=== PATIENT | female | born 1955 | race Caucasian/White ===

== ENCOUNTER 2016-12-24 06:23 | Day surgery (SDC) | payer MEDICARE ==
[2016-12-22 15:23] VITALS: BMI 25.1
[2016-12-24] MEDS ORDERED: SODIUM CHLORIDE 0.9% 1,000 ML IV SCH (06:31)
[2016-12-24] MEDS ORDERED: PROPOFOL 10 MG/ML 20 ML VIAL IV ONE (07:35)
[2016-12-24 08:04] VITALS: RESP 18
[2016-12-24] MEDS ORDERED: SODIUM CHLORIDE 0.9% 500 ML IV ONE (08:05)
--- NOTE | 2016-12-24 08:41 | CE ---
CARDIAC ELECTROPHYSIOLOGY REPORT lEe Del Cid is a 61-year-old female with a history of severe nonischemic cardiomyopathy, with severe cardiomyopathy and heart failure status post Bi V ICD implant. She was brought in for defibrillation testing under anesthesia. She has a [employer] MP 3369-40 Q [employer] D serial #[id number]. This was interrogated. The P waves were greater than 5 mV, pacing threshold 0.5 V at 0.5 milliseconds. Pacing impedance was 630 ohms. The RV sensing greater than 12 mV, pacing threshold of 0.75 V at 0.5 milliseconds. Pacing impedance of 660 ohms. The LV pacing threshold was 0.5 V at 0.5 milliseconds and pacing impedance of 630 ohms. High-voltage impedance was 73 ohms. DFT testing was performed under anesthesia and shock and T wave protocol was used to induce ventricular fibrillation. This was adequately and appropriately detected at lead sensitivity and successfully internally defibrillated with a 10 joule shock, charge time of 1.8 seconds. Shock impedance 98 ohms. No post shock noise. The device was then programmed to MADIT RIT program with appropriate antitachycardia pacing, cardioversion defibrillation. Sensitivity was reprogrammed to nominal settings and appropriate antitachycardia pacing and cardioversion defibrillation was programmed. LV pacing was continued. Short AV delay was programmed at 120 milliseconds. LV offset was programmed. RESULT: Normal ICD function. DFT at or below 10 joules. MMODL / IJN: [id number] /
[2016-12-24 10:25] VITALS: BP 118/55
[2016-12-24 10:27] VITALS: PULSE 86
== END 2016-12-24 10:00 | disposition home or self-care (01) ==
LOC: CATHEP 06:23
PROVIDERS: ATTEND Internal Medicine Clinical Cardiac Electrophysiology
DX: I25.119 Atherosclerotic heart disease of native coronary artery with unspecified angina pectoris (principal); I11.0 Hypertensive heart disease with heart failure; I50.9 Heart failure, unspecified; Z87.891 Personal history of nicotine dependence; Z45.02 Encounter for adjustment and management of automatic implantable cardiac defibrillator; I42.8 Other cardiomyopathies; Z79.899 Other long term (current) drug therapy; I44.7 Left bundle-branch block, unspecified; Z82.49 Family history of ischemic heart disease and other diseases of the circulatory system; Z79.82 Long term (current) use of aspirin; Z79.52 Long term (current) use of systemic steroids; J44.9 Chronic obstructive pulmonary disease, unspecified
CPT/HCPCS: 93642; J2704

== ENCOUNTER → 2017-06-17 | Outpatient (CLI) | payer MEDICARE ==
--- NOTE | 2017-06-17 11:14 | CT ---
EXAMINATION TYPE: CT chest wo con DATE OF EXAM: 06/17/2017 COMPARISON: PET CT 08/11/2015 HISTORY: 61-year-old female COPD and Jaw pain TECHNIQUE: Contiguous axial scanning of the chest without IV contrast. Coronal and sagittal reconstru ctions performed. CT DLP: 513 mGycm Automated exposure control for dose reduction was used. FINDINGS: Left anterior chest wall AICD generator with right atrial, right ventricular, and coronary sinus lead s. Heart is now normal size. Trace anterior pericardial fluid. Aorta normal caliber with mild atherosclerotic arch calcifications and conventional arch vessel branc christian anatomy. No thoracic lymphadenopathy by CT size criteria. Mild diffuse bronchial wall thickening and moderate centrilobular emphysema redemonstrated. There is new patchy opacity at the medial anterior right mid to lower lung. Some strandy atelectasis at the le ft base. Another strand of atelectasis at the peripheral right base. No pleural effusion. Stable low density nodule measuring 2.3 cm in the right adrenal gland with density of -1.5 Hounsfield units compatible with a lipid rich adrenal adenoma. Bones: Endplate spondylosis mid to lower thoracic spine. No osseous destructive process. IMPRESSION: 1. COPD WITH MODERATE EMPHYSEMA. 2. SOME NEW PATCHY ANTERIOR RIGHT MID TO LOWER LUNG AIRSPACE DISEASE. CORRELATE FOR ANY SYMPTOMS OF P NEUMONIA. 3. STABLE LIPID RICH RIGHT ADRENAL ADENOMA MEASURING 2.3 CM.
== END | disposition home or self-care (01) ==
LOC: RADCTMAIN 10:41
PROVIDERS: ATTEND Family Medicine
DX: J43.9 Emphysema, unspecified (principal); J98.4 Other disorders of lung
CPT/HCPCS: 71250

== ENCOUNTER → 2017-06-25 | Outpatient (CLI) | payer MEDICARE ==
--- NOTE | 2017-06-25 15:36 | XR ---
EXAMINATION TYPE: XR scoliosis survey DATE OF EXAM: 06/25/2017 COMPARISON: NONE HISTORY: Cervical pain shooting pain and back TECHNIQUE: Two-view lumbar spine thoracic spine in frontal and lateral projections. FINDINGS: Frontal projection suspicious scoliosis not readily apparent. There is very subtle scoliosi s with convexity to the right lumbar spine convexity to lower thoracic spine. This appears minimal. In the lateral projection there is exaggeration of the thoracic kyphosis. Lumbar lordosis is exaggera letitia. IMPRESSION: 1. Minimal scoliosis frontal projection. There is exaggeration of lumbar lordosis and thoracic kypho sis in the lower thoracic spine.
== END | disposition home or self-care (01) ==
LOC: RADXRMAIN 11:00
PROVIDERS: ATTEND Family Medicine
DX: M41.9 Scoliosis, unspecified (principal)
CPT/HCPCS: 72082

== ENCOUNTER 2017-07-22 13:00 | Inpatient (IN) | payer MEDICARE ==
[2017-07-22] MEDS ORDERED: methylPREDNISolone SOD SUCCI 125 MG/2 ML VIAL IV STA (13:33)
[2017-07-22] MEDS ORDERED: SODIUM CHLORIDE 0.9% 1,000 ML IV STA ×2 (13:33→14:39)
[2017-07-22] MEDS ORDERED: cefTRIAXone IN SWFI 2,000 MG/20 ML SYRINGE IVP STA (13:37)
[2017-07-22 14:01] LABS: Basophils % (A) 0 %; Eosinophils # (A) 0.1 k/uL (0-0.7); Eosinophils % (A) 2 %; HCT 32.9 % (34.0-46.0); HGB 11.3 gm/dL (11.4-16.0); Lymphocytes % (A) 25 %; MCH 30.7 pg (25.0-35.0); MCHC 34.3 g/dL (31.0-37.0); MCV 89.6 fL (80.0-100.0); Mean Platelet Volume 8.3; Monocytes # (A) 0.5 k/uL (0-1.0); Monocytes % (A) 7 %; Neutrophils # (A) 5.1 k/uL (1.3-7.7); Neutrophils % (A) 64 %; Platelet Count 188 k/uL (150-450); RBC 3.68 m/uL (3.80-5.40); RDW 12.3 % (11.5-15.5); WBC 7.9 k/uL (3.8-10.6)
--- NOTE | 2017-07-22 14:08 | XR ---
EXAMINATION TYPE: XR chest 2V DATE OF EXAM: 07/22/2017 COMPARISON: Prior chest x-ray 06/15/2016, chest CT 06/17/2017 HISTORY: Difficulty breathing TECHNIQUE: Frontal and lateral views of the chest are obtained. FINDINGS: Patient is rotated. There are overlying cardiac leads. Intracardiac defibrillator leads are stable. Prominent lung volumes are compatible with emphysema. No evident airspace disease, pneumotho rax, or pleural effusion. Cardiac mediastinal silhouette, pulmonary vascularity and jasmeet are stable a ccounting for differences in technique. Increased density seen on CT in the right middle lobe may be obscured due to patient's rotation. IMPRESSION: No acute cardiopulmonary process. Additional findings above. Follow-up as indicated.
[2017-07-22 14:13] LABS: Albumin 4.5 g/dL (3.5-5.0); Potassium 5.7 mmol/L (3.5-5.1); Total Bilirubin 0.5 mg/dL (0.2-1.3)
[2017-07-22 14:13] LABS: Appearance,Urine Cloudy (Clear); Bacteria,Urine Rare /hpf; Bilirubin,Urine Negative (Negative); Blood,Urine Negative (Negative); Color,Urine Yellow; Glucose,Urine (UA) Negative (Negative); Ketones,Urine Negative (Negative); Leukocyte Esterase,Urine Negative (Negative); Mucus,Urine Rare /hpf; Nitrite,Urine Negative (Negative); Protein,Urine Trace (Negative); Specific Gravity,Urine 1.009 (1.001-1.035); Squamous Epithelial Cell,Urine 1 /hpf (0-4); Urobilinogen,Urine <2.0 mg/dL (<2.0); WBC,Urine 2 /hpf (0-5)
[2017-07-22 14:24] LABS: INR 1.2 (<1.2); Partial Thromboplastin Time 22.1 sec (22.0-30.0); Prothrombin Time 11.4 sec (9.0-12.0)
[2017-07-22 14:34] LABS: D-Dimer 1.28 mg/L FEU (<0.60)
[2017-07-22 14:35] LABS: Creatine Kinase 50 U/L (30-135)
[2017-07-22 14:48] LABS: Creatine Kinase MB 1.1 ng/mL (0.0-2.4); Troponin I <0.012 ng/mL (0.000-0.034)
--- NOTE | 2017-07-22 15:18 | CT ---
EXAMINATION TYPE: CT chest wo con DATE OF EXAM: 07/22/2017 COMPARISON: Prior chest CT 06/17/2017 HISTORY: Shortness of breath and mid back pain x [address] DLP: 593 mGycm. Automated Exposure Control for Dose Reduction was Utilized. TECHNIQUE: CT scan of the thorax is performed without IV contrast. FINDINGS: Lack of intravenous contrast compromises sensitivity. LUNGS: Emphysematous changes are again noted. There is some bronchial wall thickening present. Probab le scarring at the right lung base is again seen, there is a somewhat nodular appearance seen on axia l image 48, follow-up suggested. There is no pleural effusion or pneumothorax seen. The tracheobron chial tree is patent. MEDIASTINUM: Lack of IV contrast is noted to limit evaluation for mediastinal and especially hilar ad enopathy. There are no definitive greater than 1 cm hilar or mediastinal lymph nodes. No cardiomega ly or pericardial effusion is seen. OTHER: Posterior diaphragmatic hernia is thought to be present containing fat versus eventration. The aorta shows atheromatous change and is not aneurysmal. Dissection is not excluded. There are leads p resent within the heart. Low dense mass associated with the right adrenal gland is again noted and angélica lundberg represents adenoma. Generator is present in the left pectoral region. Thyroid gland is thought t o be enlarged and extends into the superior mediastinum. IMPRESSION: Emphysema. Probable scarring, follow-up recommended as described. No evident aneurysm. C annot exclude dissection. Additional findings above.
--- NOTE | 2017-07-22 15:46 | ED ---
General Adult HPI - General Chief complaint: Shortness of Breath Stated complaint: SOB Time Seen by Provider: 07/22/17 13:26 Source: patient Mode of arrival: ambulatory Limitations: no limitations - History of Present Illness Initial comments: 61 years old female with history of COPD hypertension the cough congestion shortness of breath she does have a history of cardiomyopathy COPD hypertension history of renal disease hypertension she also been complaining about some fever and chills and just feeling generally weak about the back pain this is over the mid back she has no history of for aortic aneurysm she denies any history of PE it does hurt her when she takes a deep breath. She denies any abdominal pain no frequency urgency dysuria no symptoms of TIA or CVA - Related Data Home Medications Medication Instructions Recorded Confirmed Atorvastatin [Lipitor] 20 mg PO HS 10/22/15 07/22/17 Ipratropium-Albuterol Nebulize 3 ml INHALATION RT-QID PRN 10/22/15 07/22/17 [Duoneb 0.5 mg-3 mg/3 ml Soln] Carvedilol [Coreg] 25 mg PO BID 02/13/16 07/22/17 Furosemide [Lasix] 40 mg PO BID 12/24/16 07/22/17 Spironolactone [Aldactone] 25 mg PO DAILY 12/24/16 07/22/17 Albuterol Inhaler [Ventolin Hfa 2 puff INHALATION RT-QID PRN 07/22/17 07/22/17 Inhaler] Lisinopril [Zestril] 5 mg PO BID 07/22/17 07/22/17 Allergies Allergy/AdvReac Type Severity Reaction Status Date / Time No Known Allergies Allergy Verified 07/22/17 13:24 Review of Systems ROS Statement: Those systems with pertinent positive or pertinent negative responses have been documented in the HPI. ROS Other: All systems not noted in ROS Statement are negative. Past Medical History Past Medical History: Asthma, Cancer, Chest Pain / Angina, Heart Failure, COPD, Hyperlipidemia, Hypertension, Renal Disease Additional Past Medical History / Comment(s): UTERINE CANCER 1984, SEE [facility], taking steroid dose pack for recent exacerbation of COPD History of Any Multi-Drug Resistant Organisms: None Reported Past Surgical History: AICD, Hysterectomy, Orthopedic Surgery, Tonsillectomy Additional Past Surgical History / Comment(s): RT KNEE ARTHROSCOPY, PARTIAL HYSTERECTOMY, [facility]. BI-V ICD, [facility]. Past Anesthesia/Blood Transfusion Reactions: No Reported Reaction Type of Cardiac Device: AICD Device Placement Date:: 10/28/15 Past Psychological History: No Psychological Hx Reported Smoking Status: Former smoker Past Alcohol Use History: None Reported Past Drug Use History: None Reported - Past Family History Mother Family Medical History: Cancer Additional Family Medical History / Comment(s): Mother is alive at 84 years old with no major medical problems. BREAST CA Father Family Medical History: Hypertension, Myocardial Infarction ([place]) Additional Family Medical History / Comment(s): [place] @ AGE 48 General Exam - General Exam Comments Initial Comments: General: The patient is awake and looks tired and pale Skin: Skin is warm and dry and no rashes or lesions are noted. Eye: Pupils are equal, round and reactive to light, extra-ocular movements are intact; there is normal conjunctiva bilaterally. Ears, nose, mouth and throat: There are moist mucous membranes and no oral lesions. Neck: The neck is supple, there is no tenderness Cardiovascular: There is a regular rate and rhythm. No murmur, rub or gallop is appreciated. Respiratory: To auscultation bilateral, his breath sounds bilateral Gastrointestinal: Soft, non-distended, non-tender abdomen without masses or organomegaly noted. There is no rebound or guarding present. Bowel sounds are unremarkable. Back: There is no tenderness to palpation in the midline. There is no obvious deformity. Musculoskeletal: Normal ROM, no tenderness, There is no pedal edema. There is no calf tenderness or swelling. No cords were appreciated. Neurological: CN II-XII intact, Cranial nerves III through XII are intact. There are no obvious motor or sensory deficits. Coordination appears grossly intact. Speech is normal. Psychiatric: Cooperative, appropriate mood & affect, normal judgment. Limitations: no limitations Course Vital Signs 07/22/17 07/22/17 07/22/17 13:06 14:30 15:34 Temperature 98.0 F Pulse Rate 93 90 88 Respiratory 20 20 20 Rate Blood Pressure 90/49 104/53 102/58 O2 Sat by Pulse 96 97 95 Oximetry EKG Findings - EKG Comments: EKG Findings:: EKG is paced EKG ventricular rate is 97 NV interval is 124 QRS duration is 116 QT/QTC 366/490 Medical Decision Making - Lab Data Result diagrams: 07/22/17 13:42 07/22/17 13:42 Lab Results 07/22/17 07/22/17 07/22/17 Range/Units 13:42 13:42 13:42 WBC 7.9 (3.8-10.6) k/uL RBC 3.68 L (3.80-5.40) m/uL Hgb 11.3 L (11.4-16.0) gm/dL Hct 32.9 L (34.0-46.0) % MCV 89.6 (80.0-100.0) fL MCH 30.7 (25.0-35.0) pg MCHC 34.3 (31.0-37.0) g/dL RDW 12.3 (11.5-15.5) % Plt Count 188 (150-450) k/uL Neutrophils % 64 % Lymphocytes % 25 % Monocytes % 7 % Eosinophils % 2 % Basophils % 0 % Neutrophils # 5.1 (1.3-7.7) k/uL Lymphocytes # 2.0 (1.0-4.8) k/uL Monocytes # 0.5 (0-1.0) k/uL Eosinophils # 0.1 (0-0.7) k/uL Basophils # 0.0 (0-0.2) k/uL PT (9.0-12.0) sec INR (<1.2) APTT (22.0-30.0) sec D-Dimer (<0.60) mg/L FEU Sodium 142 (137-145) mmol/L Potassium 5.7 H (3.5-5.1) mmol/L Chloride 102 (98-107) mmol/L Carbon Dioxide 23 (22-30) mmol/L Anion Gap 17 mmol/L BUN 113 H* (7-17) mg/dL Creatinine 6.71 H* (0.52-1.04) mg/dL Est GFR (CKD-EPI)AfAm 7 (>60 ml/min/1.73 sqM) Est GFR (CKD-EPI)NonAf 6 (>60 ml/min/1.73 sqM) Glucose 98 (74-99) mg/dL Calcium 10.0 (8.4-10.2) mg/dL Total Bilirubin 0.5 (0.2-1.3) mg/dL AST 16 (14-36) U/L ALT 26 (9-52) U/L Alkaline Phosphatase 102 (38-126) U/L Total Creatine Kinase 50 (30-135) U/L CK-MB (CK-2) 1.1 (0.0-2.4) ng/mL CK-MB (CK-2) Rel Index 2.2 Troponin I <0.012 (0.000-0.034) ng/mL NT-Pro-B Natriuret Pep pg/mL Total Protein 7.0 (6.3-8.2) g/dL Albumin 4.5 (3.5-5.0) g/dL Urine Color Urine Appearance (Clear) Urine pH (5.0-8.0) Ur Specific [place] (1.001-1.035) Urine Protein (Negative) Urine Glucose (UA) (Negative) Urine Ketones (Negative) Urine Blood (Negative) Urine Nitrite (Negative) Urine Bilirubin (Negative) Urine Urobilinogen (<2.0) mg/dL Ur Leukocyte Esterase (Negative) Urine WBC (0-5) /hpf Ur Squamous Epith Cells (0-4) /hpf Urine Bacteria (None) /hpf Urine Mucus (None) /hpf 07/22/17 07/22/17 07/22/17 Range/Units 13:42 13:42 13:45 WBC (3.8-10.6) k/uL RBC (3.80-5.40) m/uL Hgb (11.4-16.0) gm/dL Hct (34.0-46.0) % MCV (80.0-100.0) fL MCH (25.0-35.0) pg MCHC (31.0-37.0) g/dL RDW (11.5-15.5) % Plt Count (150-450) k/uL Neutrophils % % Lymphocytes % % Monocytes % % Eosinophils % % Basophils % % Neutrophils # (1.3-7.7) k/uL Lymphocytes # (1.0-4.8) k/uL Monocytes # (0-1.0) k/uL Eosinophils # (0-0.7) k/uL Basophils # (0-0.2) k/uL PT 11.4 (9.0-12.0) sec INR 1.2 H (<1.2) APTT 22.1 (22.0-30.0) sec D-Dimer 1.28 H (<0.60) mg/L FEU Sodium (137-145) mmol/L Potassium (3.5-5.1) mmol/L Chloride (98-107) mmol/L Carbon Dioxide (22-30) mmol/L Anion Gap mmol/L BUN (7-17) mg/dL Creatinine (0.52-1.04) mg/dL Est GFR (CKD-EPI)AfAm (>60 ml/min/1.73 sqM) Est GFR (CKD-EPI)NonAf (>60 ml/min/1.73 sqM) Glucose (74-99) mg/dL Calcium (8.4-10.2) mg/dL Total Bilirubin (0.2-1.3) mg/dL AST (14-36) U/L ALT (9-52) U/L Alkaline Phosphatase (38-126) U/L Total Creatine Kinase (30-135) U/L CK-MB (CK-2) (0.0-2.4) ng/mL CK-MB (CK-2) Rel Index Troponin I (0.000-0.034) ng/mL NT-Pro-B Natriuret Pep 339 pg/mL Total Protein (6.3-8.2) g/dL Albumin (3.5-5.0) g/dL Urine Color Yellow Urine Appearance Cloudy H (Clear) Urine pH 5.0 (5.0-8.0) Ur Specific [place] 1.009 (1.001-1.035) Urine Protein Trace H (Negative) Urine Glucose (UA) Negative (Negative) Urine Ketones Negative (Negative) Urine Blood Negative (Negative) Urine Nitrite Negative (Negative) Urine Bilirubin Negative (Negative) Urine Urobilinogen <2.0 (<2.0) mg/dL Ur Leukocyte Esterase Negative (Negative) Urine WBC 2 (0-5) /hpf Ur Squamous Epith Cells 1 (0-4) /hpf Urine Bacteria Rare H (None) /hpf Urine Mucus Rare H (None) /hpf Critical Care Time Total Critical Care Time: 60 Critical Care Time: Arrival she did look well blood pressure was low suspicion of for sepsis, we cultured everything she was started on a broad-spectrum antibiotic they noticed the d-dimer was elevated we were not able to do any ct angiogram creatinine is high creatinine significant acute renal failure his creatinine is 6.71 bun is 113. she was complaining about down and so fever chills which Goes along with a sepsis syndrome and back pain with a low blood pressure in the back pain of the ovary rebound or dissection we did the ct chest without the contrast since she has a renal failure it didn't radiate. it ruled out any aneurysm that didn' t rule out any dissection clinically she held onto her blood pressure didn't drop any further troponin is negative ekg is unremarkable urinalysis is unremarkable and now she has antibiotic she got a fluid bolus vq scan is ordered for ct angiogram and dr. smith be consulted for the acute renal failure and she be admitted to dr. douglas Disposition Clinical Impression: Dyspnea, Hypotension, Sepsis, Elevated d-dimer, Acute renal failure Disposition: ADMITTED IP TO THIS HOSP Condition: Fair Referrals: Domenic Garza MD [Primary Care Provider] - 1-2 days
[2017-07-22] MEDS ORDERED: ONDANSETRON 4 MG/2 ML VIAL IVP PRN (16:18)
[2017-07-22] MEDS ORDERED: NALOXONE 0.4 MG/ML 1 ML VIAL IV PRN (16:18)
[2017-07-22] MEDS ORDERED: ACETAMINOPHEN TAB 325 MG TAB PO PRN (16:18)
[2017-07-22] MEDS ORDERED: ALBUTEROL INHALER 60 PUFF/8 GM INHALER INHALATION PRN (16:25)
[2017-07-22] MEDS: CARVEDILOL 12.5 MG TAB PO SCH (17:57)
--- NOTE | 2017-07-22 19:04 | NM ---
EXAMINATION TYPE: NM pul vent and perfuse DATE OF EXAM: 07/22/2017 COMPARISON: Chest x-ray of the same date HISTORY: Soreness of breath TECHNIQUE: Utilizing inhalation of 31.2 mCi Tc 99m DTPA aerosol and intravenous injection of 5.2 mCi of Tc 99m MAA, ventilation and perfusion images are acquired post injection in multiple projections. FINDINGS: The exam is essentially nondiagnostic as the radiotracer on ventilation and perfusion clumps centrall y. Some radiotracer seen throughout the lungs on perfusion without focal gross abnormality. This can be seen in obstructive airway disease, bronchitis, reactive airway disease. IMPRESSION: Essentially nondiagnostic exam due to radiotracer clumping within the central airways. No gross perfu frank defect is seen although perfusion images are markedly suboptimal. Finding can be seen in obstruc tive airway disease, bronchitis or reactive airway disease.
[2017-07-22] MEDS: IPRATROPIUM-ALBUTEROL 3 ML NEB INHALATION PRN (19:34)
[2017-07-22] MEDS ORDERED: SODIUM CHLORIDE 0.9% 1,000 ML IV ONE (20:18)
[2017-07-22] MEDS: ATORVASTATIN 20 MG TAB PO SCH (20:25)
[2017-07-22] MEDS: SODIUM CHLORIDE 0.9% 1,000 ML IV SCH (20:36)
[2017-07-22] MEDS ORDERED: LISINOPRIL 5 MG TAB PO SCH (21:00)
[2017-07-22] MEDS ORDERED: FUROSEMIDE 40 MG TAB PO SCH (21:00)
[2017-07-23 06:33] LABS: Basophils % (A) 0 %; Eosinophils % (A) 1 %; HCT 30.1 % (34.0-46.0); HGB 9.9 gm/dL (11.4-16.0); Lymphocytes # (A) 0.7 k/uL (1.0-4.8); Lymphocytes % (A) 11 %; MCH 30.2 pg (25.0-35.0); MCHC 32.8 g/dL (31.0-37.0); MCV 92.1 fL (80.0-100.0); Mean Platelet Volume 8.1; Monocytes # (A) 0.1 k/uL (0-1.0); Monocytes % (A) 1 %; Neutrophils # (A) 5.5 k/uL (1.3-7.7); Neutrophils % (A) 87 %; Platelet Count 176 k/uL (150-450); RBC 3.27 m/uL (3.80-5.40); RDW 12.3 % (11.5-15.5); WBC 6.4 k/uL (3.8-10.6)
[2017-07-23] MEDS: SODIUM CHLORIDE 0.9% 1,000 ML IV SCH ×2 (06:52→18:36)
[2017-07-23] MEDS: CARVEDILOL 12.5 MG TAB PO SCH (06:52)
[2017-07-23 06:57] LABS: Albumin 3.6 g/dL (3.5-5.0); Calcium 9.5 mg/dL (8.4-10.2); Potassium 5.4 mmol/L (3.5-5.1); Total Bilirubin 0.2 mg/dL (0.2-1.3)
--- NOTE | 2017-07-23 08:05 | P.CNPUL ---
History of Present Illness Consult date: 07/23/17 Reason for consult: dyspnea, cough, asthma Chief complaint: Shortness of breath, History of present illness: 61-year-old female with history of chronic persistent severe asthma as well as COPD came into the hospital with generalized weakness of 3-4 day duration patient has been having some intermittent back pain she was slightly more short of breath than usual came into the hospital for further evaluation she was found to be in acute renal failure she is being fluid resuscitated renal service as well as cardiovascular services following, she has some dry nonproductive cough and mild degree of shortness of breath but overall severity has not been changed significantly from baseline, denies any chest tightness or pain denies any significant sputum production, denies any loss of consciousness and hemiparesis denies any nausea vomiting diarrhea Her past medical history is significant for severe degree of cardiomyopathy and chronic systolic heart failure she is status post AICD and follows Dr. Molina, she used to see Dr. GRUPO mendes for lung related problem issues but to stop seeing him for unclear reason Review of Systems All systems: negative Past Medical History Past Medical History: Asthma, Cancer, Chest Pain / Angina, Heart Failure, COPD, Hyperlipidemia, Hypertension, Renal Disease Additional Past Medical History / Comment(s): UTERINE CANCER 1984, SEE [facility], History of Any Multi-Drug Resistant Organisms: None Reported Past Surgical History: AICD, Hysterectomy, Orthopedic Surgery, Tonsillectomy Additional Past Surgical History / Comment(s): RT KNEE ARTHROSCOPY, PARTIAL HYSTERECTOMY, [facility]. BI-V ICD, [facility]. Past Anesthesia/Blood Transfusion Reactions: No Reported Reaction Type of Cardiac Device: AICD Device Placement Date:: 10/28/15 Smoking Status: Former smoker - Past Family History Mother Family Medical History: Cancer Additional Family Medical History / Comment(s): Mother is alive at 84 years old with no major medical problems. BREAST CA Father Family Medical History: Hypertension, Myocardial Infarction ([place]) Additional Family Medical History / Comment(s): [place] @ AGE 48 Medications and Allergies Home Medications Medication Instructions Recorded Confirmed Type Atorvastatin [Lipitor] 20 mg PO HS 10/22/15 07/22/17 History Ipratropium-Albuterol Nebulize 3 ml INHALATION RT-QID PRN 10/22/15 07/22/17 History [Duoneb 0.5 mg-3 mg/3 ml Soln] Carvedilol [Coreg] 25 mg PO BID 02/13/16 07/22/17 History Furosemide [Lasix] 40 mg PO BID 12/24/16 07/22/17 History Spironolactone [Aldactone] 25 mg PO DAILY 12/24/16 07/22/17 History Albuterol Inhaler [Ventolin Hfa 2 puff INHALATION RT-QID PRN 07/22/17 07/22/17 History Inhaler] Lisinopril [Zestril] 5 mg PO BID 07/22/17 07/22/17 History Allergies Allergy/AdvReac Type Severity Reaction Status Date / Time No Known Allergies Allergy Verified 07/22/17 13:24 Physical Exam Vitals: Vital Signs Temp Pulse Pulse Resp BP BP Pulse Ox 07/23/17 07:38 97.1 F L 80 17 86/54 94 L 07/23/17 04:00 97.4 F L 72 18 95/54 95 07/23/17 00:00 96.3 F L 81 18 92/52 95 07/22/17 21:20 97.0 F L 92 18 85/53 96 07/22/17 21:10 81/50 07/22/17 20:45 82/49 07/22/17 20:32 76/47 07/22/17 20:26 97.8 F 87 18 72/53 95 07/22/17 19:47 90 07/22/17 19:34 90 07/22/17 18:58 91 16 113/66 94 L 07/22/17 17:25 89 18 98 07/22/17 15:34 88 20 102/58 95 07/22/17 14:30 90 20 104/53 97 07/22/17 13:06 98.0 F 93 20 90/49 96 Intake and Output 07/22/17 07/23/17 07/23/17 22:59 06:59 14:59 Intake Total 1000 1400 Balance 1000 1400 Intake: IV 1000 1400 Sodium Chloride 0.9% 1, 1000 1400 000 ml @ 999 mls/hr IV . Q1H1M STA Rx#:[id number] Other: Voiding Method Toilet # Voids 1 Weight 82.3 kg - Constitutional General appearance: average body habitus, cooperative, disheveled - EENT Eyes: EOMI, PERRLA, normal appearance ENT: normal oropharynx Ears: bilateral: normal - Neck Neck: normal ROM Carotids: bilateral: upstroke normal, bruit absent Thyroid: bilateral: normal size - Respiratory Respiratory: bilateral: diminished, rhonchi (Fine bilateral for was expiration) , wheezing (Fine bilateral with forced expiration), negative: CTA - Cardiovascular Heart sounds: normal: S1, S2 - Gastrointestinal General gastrointestinal: normal bowel sounds, soft - Integumentary Integumentary: normal, normal turgor - Neurologic Normal neuro exam Neurologic: CNII-XII intact - Psychiatric Psychiatric: A&O x's 3, appropriate affect, intact judgment & insight Results - Laboratory Findings CBC and BMP: 07/23/17 06:18 07/23/17 06:18 PT/INR, D-dimer PT 11.4 sec (9.0-12.0) 07/22/17 13:42 INR 1.2 (<1.2) H 07/22/17 13:42 D-Dimer 1.28 mg/L FEU (<0.60) H 07/22/17 13:42 Abnormal lab findings: Abnormal Labs 07/22/17 07/22/17 07/22/17 13:42 13:42 13:42 RBC 3.68 L Hgb 11.3 L Hct 32.9 L Lymphocytes # INR 1.2 H D-Dimer 1.28 H Potassium 5.7 H Chloride Carbon Dioxide BUN 113 H* Creatinine 6.71 H* Glucose Total Protein Urine Appearance Urine Protein Urine Bacteria Urine Mucus 07/22/17 07/23/17 07/23/17 13:45 06:18 06:18 RBC 3.27 L Hgb 9.9 L Hct 30.1 L Lymphocytes # 0.7 L INR D-Dimer Potassium 5.4 H Chloride 110 H Carbon Dioxide 18 L BUN 87 H* Creatinine 3.90 H Glucose 155 H Total Protein 6.0 L Urine Appearance Cloudy H Urine Protein Trace H Urine Bacteria Rare H Urine Mucus Rare H - Diagnostic Findings Chest x-ray: report reviewed, image reviewed CT scan - chest: report reviewed, image reviewed (Chest x-ray reveals COPD-like changes, scan of the chest revealed emphysematous changes and some bronchial wall thickening some scarring in the right base is seen posterior diaphragmatic hernia noted, nodular appearance seen in the right lung base as well) Assessment and Plan Assessment: Acute renal failure stage 4-5 Right lower lobe pneumonia Chronic persistent severe asthma with exacerbation Severe COPD Chronic systolic heart failure/cardiomyopathy status post AICD Hypertension hypertensive cardiovascular disease Plan: Gentle rehydration, renal functions are progressively improving compared to yesterday Bronchodilators Initiate IV steroids for now and patient can finish Medrol Dosepak in outpatient setting Avoid LORI inhibitor's for now Further workup and evaluation for renal failure as per renal services Continue deep breathing exercises incentive spirometry 5-7 day of therapy for oral doxycycline Time with Patient: Greater than 30
[2017-07-23] MEDS: IPRATROPIUM-ALBUTEROL 3 ML NEB INHALATION PRN ×3 (08:33→21:05)
[2017-07-23] MEDS: DOXYCYCLINE MONOHYDRATE 100 MG CAPSULE PO SCH ×2 (08:55→21:33)
[2017-07-23] MEDS: methylPREDNISolone SOD SUCCI 40 MG/ML 1 ML VIAL IV SCH ×2 (08:56→21:33)
[2017-07-23] MEDS ORDERED: SPIRONOLACTONE 25 MG TAB PO SCH (09:00)
[2017-07-23] MEDS ORDERED: DOXYCYCLINE 50 MG CAP PO SCH (09:00)
--- NOTE | 2017-07-23 11:08 | P.NPCON ---
History of Present Illness - Reason for Consult acute renal failure - History of Present Illness Patient is a 61-year-old female with history of severe asthma and COPD. She was admitted to the hospital with complaints of weakness. Patient states she had almost passed out she had some nausea but no significant diarrhea or vomiting. Patient has had acute kidney injury previously which had resolved. Her creatinine this admission was 6.7. Patient is maintained on IV fluids and her creatinine today is down to 3.9. Previously her serum creatinine was as high as 8.5 in May 2016 and decrease to 1.5 on 06/18/2016. Patient was seen as outpatient for follow-up from that episode of acute kidney injury and her renal function had returned back to normal. We have a previous creatinine of 0.78 on 08/12/2015. Blood pressure has been low with systolic in the 80s. Heart rate about 90/m Patient is maintained on IV fluids and she has had good urine output. Review of Systems As per HPI other systems negative Past Medical History Past Medical History: Asthma, Cancer, Chest Pain / Angina, Heart Failure, COPD, Hyperlipidemia, Hypertension, Renal Disease Additional Past Medical History / Comment(s): UTERINE CANCER 1984, SEE [facility], History of Any Multi-Drug Resistant Organisms: None Reported Past Surgical History: AICD, Hysterectomy, Orthopedic Surgery, Tonsillectomy Additional Past Surgical History / Comment(s): RT KNEE ARTHROSCOPY, PARTIAL HYSTERECTOMY, LISA CTR. BI-V ICD, [facility]. Past Anesthesia/Blood Transfusion Reactions: No Reported Reaction Type of Cardiac Device: AICD Device Placement Date:: 10/28/15 Smoking Status: Former smoker - Past Family History Mother Family Medical History: Cancer Additional Family Medical History / Comment(s): Mother is alive at 84 years old with no major medical problems. BREAST CA Father Family Medical History: Hypertension, Myocardial Infarction (ME) Additional Family Medical History / Comment(s): ME @ AGE 48 Medications and Allergies Home Medications Medication Instructions Recorded Confirmed Type Atorvastatin [Lipitor] 20 mg PO HS 10/22/15 07/22/17 History Ipratropium-Albuterol Nebulize 3 ml INHALATION RT-QID PRN 10/22/15 07/22/17 History [Duoneb 0.5 mg-3 mg/3 ml Soln] Carvedilol [Coreg] 25 mg PO BID 02/13/16 07/22/17 History Furosemide [Lasix] 40 mg PO BID 12/24/16 07/22/17 History Spironolactone [Aldactone] 25 mg PO DAILY 12/24/16 07/22/17 History Albuterol Inhaler [Ventolin Hfa 2 puff INHALATION RT-QID PRN 07/22/17 07/22/17 History Inhaler] Lisinopril [Zestril] 5 mg PO BID 07/22/17 07/22/17 History Allergies Allergy/AdvReac Type Severity Reaction Status Date / Time No Known Allergies Allergy Verified 07/22/17 13:24 Physical Exam Vitals: Vital Signs Temp Pulse Pulse Resp BP BP Pulse Ox 07/23/17 08:47 94 07/23/17 08:36 96 07/23/17 08:33 96 07/23/17 07:54 80 17 07/23/17 07:38 97.1 F L 80 17 86/54 94 L 07/23/17 04:00 97.4 F L 72 18 95/54 95 07/23/17 00:00 96.3 F L 81 18 92/52 95 07/22/17 21:20 97.0 F L 92 18 85/53 96 07/22/17 21:10 81/50 07/22/17 20:45 82/49 07/22/17 20:32 76/47 07/22/17 20:26 97.8 F 87 18 72/53 95 07/22/17 19:47 90 07/22/17 19:34 90 07/22/17 18:58 91 16 113/66 94 L 07/22/17 17:25 89 18 98 07/22/17 15:34 88 20 102/58 95 07/22/17 14:30 90 20 104/53 97 07/22/17 13:06 98.0 F 93 20 90/49 96 Intake and Output 07/22/17 07/23/17 07/23/17 22:59 06:59 14:59 Intake Total 1000 1400 240 Balance 1000 1400 240 Intake: IV 1000 1400 Sodium Chloride 0.9% 1, 1000 1400 000 ml @ 999 mls/hr IV . Q1H1M STA Rx#:[id number] Oral 240 Other: Voiding Method Toilet Toilet # Voids 1 1 Weight 82.3 kg On examination patient is comfortable She is awake not in any acute distress. Alert and oriented 3. Blood pressure this morning 86/54. Heart rate 96/m she is afebrile Examination of the heart S1 and S2 Examination lungs bilateral breath sounds are heard Abdomen is soft nontender Examination lower extremities shows no evidence of edema [employer] exam is grossly intact patient moving all 4 extremities. Results - Lab Results Most recent lab results Calcium 9.5 mg/dL (8.4-10.2) 07/23/17 06:18 07/23/17 06:18 07/23/17 06:18 Assessment and Plan Assessment: Assessment 1. Acute kidney injury ATN secondary to severe hypotension and poor bulimia. Currently improved significantly with IV hydration. UA is quite benign. 2. Previous history of similar episode of acute kidney injury with creatinine as high as 8 and came down to 1.5 during the hospitalization in May 2016 3. Hyperkalemia associated with acute kidney injury, Jaime inhibitors and Aldactone prior to admission currently improved expect further improvement with improving renal function, continue to avoid NSAIDs and JAIME inhibitor's. 4. Metabolic acidosis secondary to renal failure, expect improvement with improving renal function 5. Anemia with no active bleeding noted check iron studies rule out iron deficiency. 6. Asthma being followed by pulmonary 7. History of hypertension currently blood pressure is low hold off on all antihypertensive medications Plan Continue with IV fluids, check iron studies. Repeat labs in a.m. Thank you for the consultation we'll continue to follow the patient with you during her hospitalization.
[2017-07-23] MEDS ORDERED: SODIUM CHLORIDE 0.9% 250 ML IV SCH (11:15)
[2017-07-23] MEDS ORDERED: SODIUM CHLORIDE 0.9% 250 ML IV ONE (11:15)
--- NOTE | 2017-07-23 11:20 | P.CRDCN ---
History of Present Illness Consult date: 07/23/17 Requesting physician: Domenic Garza Consult reason: shortness of breath Chief complaint: Weakness and dizziness History of present illness: This is a 61-year-old female who follows with Dr. VC Cristina in the office. She has known history of nonischemic cardiomyopathy prior AICD implantation, hypotension, COPD, mild coronary artery disease by heart catheterization, she has a 40% RCA lesion patient also has history of renal failure in the past, most recent stress test was performed in 2016 in the office. She presents to the hospital on this occasion mainly with symptoms of weakness and dizziness. also had a discomfort between her shoulder blades. Worse when she stands for a long period of time. According to the patient, she has not been drinking water at home, only drinking pop and not drinking much of it. Her most recent echo performed in May 2016 revealed an ejection fraction of 45-50% mild to moderate tricuspid regurg mild to moderate mitral regurg. Chest x-ray performed on admission did not reveal any acute cardiopulmonary process. CT of the chest reveals emphysema, probable scarring. Lung scan essentially nondiagnostic due to radiotracer clumping. No gross perfusion defect is seen. EKG shows an atrial sensed V paced rhythm with occasional PVCs. Blood pressure on admission here 90/49, heart rate in the 90s , 96% on room air. Blood pressure this morning 86/54, temperature 97.1, 94% on 2 L of oxygen. White blood cell count 6.4, hemoglobin on admission 11.3, 9.9 this morning. Platelet count 188 on admission, 177 this morning. Sodium 143, potassium 5.7 yesterday, 5.4 this morning. BUN yesterday 113 creatinine 6.7, BUN this morning 87 and creatinine 3.9. Troponin is negative, BMP level 339. Influenza A and B are negative. At the time of my examination this morning, patient complains of feeling extremely weak. Past Medical History Past Medical History: Asthma, Cancer, Chest Pain / Angina, Heart Failure, COPD, Hyperlipidemia, Hypertension, Renal Disease Additional Past Medical History / Comment(s): UTERINE CANCER 1984, SEE [facility], History of Any Multi-Drug Resistant Organisms: None Reported Past Surgical History: AICD, Hysterectomy, Orthopedic Surgery, Tonsillectomy Additional Past Surgical History / Comment(s): RT KNEE ARTHROSCOPY, PARTIAL HYSTERECTOMY, LISA CTR. BI-V ICD, [facility]. Past Anesthesia/Blood Transfusion Reactions: No Reported Reaction Type of Cardiac Device: AICD Device Placement Date:: 10/28/15 Smoking Status: Former smoker - Past Family History Mother Family Medical History: Cancer Additional Family Medical History / Comment(s): Mother is alive at 84 years old with no major medical problems. BREAST CA Father Family Medical History: Hypertension, Myocardial Infarction (ME) Additional Family Medical History / Comment(s): ME @ AGE 48 Medications and Allergies Home Medications Medication Instructions Recorded Confirmed Type Atorvastatin [Lipitor] 20 mg PO HS 10/22/15 07/22/17 History Ipratropium-Albuterol Nebulize 3 ml INHALATION RT-QID PRN 10/22/15 07/22/17 History [Duoneb 0.5 mg-3 mg/3 ml Soln] Carvedilol [Coreg] 25 mg PO BID 02/13/16 07/22/17 History Furosemide [Lasix] 40 mg PO BID 12/24/16 07/22/17 History Spironolactone [Aldactone] 25 mg PO DAILY 12/24/16 07/22/17 History Albuterol Inhaler [Ventolin Hfa 2 puff INHALATION RT-QID PRN 07/22/17 07/22/17 History Inhaler] Lisinopril [Zestril] 5 mg PO BID 07/22/17 07/22/17 History Allergies Allergy/AdvReac Type Severity Reaction Status Date / Time No Known Allergies Allergy Verified 07/22/17 13:24 Physical Exam Vitals: Vital Signs Temp Pulse Pulse Resp BP BP Pulse Ox 07/23/17 11:03 85 17 75/42 95 07/23/17 08:47 94 07/23/17 08:36 96 07/23/17 08:33 96 07/23/17 07:54 80 17 07/23/17 07:38 97.1 F L 80 17 86/54 94 L 07/23/17 04:00 97.4 F L 72 18 95/54 95 07/23/17 00:00 96.3 F L 81 18 92/52 95 07/22/17 21:20 97.0 F L 92 18 85/53 96 07/22/17 21:10 81/50 07/22/17 20:45 82/49 07/22/17 20:32 76/47 07/22/17 20:26 97.8 F 87 18 72/53 95 07/22/17 19:47 90 07/22/17 19:34 90 07/22/17 18:58 91 16 113/66 94 L 07/22/17 17:25 89 18 98 07/22/17 15:34 88 20 102/58 95 07/22/17 14:30 90 20 104/53 97 07/22/17 13:06 98.0 F 93 20 90/49 96 Intake and Output 07/22/17 07/23/17 07/23/17 22:59 06:59 14:59 Intake Total 1000 1400 240 Balance 1000 1400 240 Intake: IV 1000 1400 Sodium Chloride 0.9% 1, 1000 1400 000 ml @ 999 mls/hr IV . Q1H1M STA Rx#:[id number] Oral 240 Other: Voiding Method Toilet Toilet # Voids 1 1 Weight 82.3 kg PHYSICAL EXAMINATION: HEENT: Head is atraumatic, normocephalic. Pupils equal, round. Neck is supple. There is no elevated jugular venous pressure. HEART EXAMINATION: Heart S1, S2 normal. No murmur or gallop heard. CHEST EXAMINATION: Lungs reveal fine wheezing bilaterally. ABDOMEN: Soft, nontender. Bowel sounds are heard. No organomegaly noted. EXTREMITIES: 2+ peripheral pulses with no evidence of peripheral edema and no calf tenderness noted. NEUROLOGIC patient is awake, alert and oriented -3. . Results 07/23/17 06:18 07/23/17 06:18 Cardiac Enzymes 07/22/17 07/22/17 07/23/17 Range/Units 13:42 13:42 06:18 AST 16 15 (14-36) U/L CK-MB (CK-2) 1.1 (0.0-2.4) ng/mL Troponin I <0.012 (0.000-0.034) ng/mL Coagulation 07/22/17 Range/Units 13:42 PT 11.4 (9.0-12.0) sec APTT 22.1 (22.0-30.0) sec CBC 07/22/17 07/23/17 Range/Units 13:42 06:18 WBC 7.9 6.4 (3.8-10.6) k/uL RBC 3.68 L 3.27 L (3.80-5.40) m/uL Hgb 11.3 L 9.9 L (11.4-16.0) gm/dL Hct 32.9 L 30.1 L (34.0-46.0) % Plt Count 188 176 (150-450) k/uL Comprehensive Metabolic Panel 07/22/17 07/23/17 Range/Units 13:42 06:18 Sodium 142 143 (137-145) mmol/L Potassium 5.7 H 5.4 H (3.5-5.1) mmol/L Chloride 102 110 H (98-107) mmol/L Carbon Dioxide 23 18 L (22-30) mmol/L BUN 113 H* 87 H* (7-17) mg/dL Creatinine 6.71 H* 3.90 H (0.52-1.04) mg/dL Glucose 98 155 H (74-99) mg/dL Calcium 10.0 9.5 (8.4-10.2) mg/dL AST 16 15 (14-36) U/L ALT 26 18 (9-52) U/L Alkaline Phosphatase 102 79 (38-126) U/L Total Protein 7.0 6.0 L (6.3-8.2) g/dL Albumin 4.5 3.6 (3.5-5.0) g/dL Current Medications Generic Name Dose Route Start Last Admin Trade Name Freq PRN Reason Stop Dose Admin Acetaminophen 650 mg 07/22/17 16:18 Tylenol Tab PO Q6HR PRN Mild Pain or Fever > 100.5 Albuterol/Ipratropium 3 ml 07/22/17 16:25 07/23/17 08:33 Duoneb 0.5 Mg-3 Mg/3 Ml Soln INHALATION 3 ml RT-QID PRN Administration Shortness Of Breath Atorvastatin Calcium 20 mg 07/22/17 21:00 07/22/17 20:25 Lipitor PO 20 mg HS PRAKASH Administration Carvedilol 25 mg 07/22/17 17:30 07/23/17 06:52 Coreg PO 25 mg BID-W/MEALS PRAKASH Administration Doxycycline Monohydrate 100 mg 07/23/17 09:00 07/23/17 08:55 Vibramycin PO 100 mg BID PRAKASH Administration Sodium Chloride 1,000 mls @ 100 mls/hr 07/22/17 20:30 07/23/17 06:52 Saline 0.9% IV 100 mls/hr .Q10H PRAKASH Administration Methylprednisolone Sodium Succinate 40 mg 07/23/17 09:00 07/23/17 08:56 Solu-Medrol IV 40 mg Q12HR PRAKASH Administration Naloxone HCl 0.2 mg 07/22/17 16:18 Narcan IV Q2M PRN Opioid Reversal Ondansetron HCl 4 mg 07/22/17 16:18 Zofran IVP Q8HR PRN Nausea And Vomiting Spironolactone 25 mg 07/23/17 09:00 Aldactone PO DAILY PRAKASH Intake and Output 07/22/17 07/23/17 07/23/17 22:59 06:59 14:59 Intake Total 1000 1400 240 Balance 1000 1400 240 Intake: IV 1000 1400 Sodium Chloride 0.9% 1, 1000 1400 000 ml @ 999 mls/hr IV . Q1H1M STA Rx#:[id number] Oral 240 Other: Voiding Method Toilet Toilet # Voids 1 1 Weight 82.3 kg 07/23/17 06:18 07/23/17 06:18 EKG Interpretations (text) EKG shows an atrial sensed V paced rhythm Assessment and Plan Plan: Assessment and plan #1 acute renal failure, likely secondary to dehydration on top of chronic renal failure. #2 nonischemic cardiomyopathy with prior by V AICD #3 history of hypotension #4 COPD and asthma #5 history of nicotine dependence #6 mild coronary artery disease by cardiac catheterization which revealed a 40% lesion. Most recent stress test performed in August 2015 Plan We will obtain an echocardiogram with Doppler study. Patient is currently receiving IV fluids at 100 and hours because of significant hypotension with a systolic in the 80 range. Continue Lipitor. Coreg and Aldactone are ordered but haven't been held because of hypotension. Patient is also on steroids for COPD and asthma exacerbation. Lisinopril currently on hold because of abnormal renal function. Further recommendations to follow. DNP note has been reviewed, I agree with a documented findings and plan of care. Patient was seen and examined.
--- NOTE | 2017-07-23 13:30 | ECHOF ---
Referral Reason:sob MEASUREMENTS -------- HEIGHT: 177.8 cm WEIGHT: 82.1 kg BP: 85/56 RVIDd: 2.8 cm (< 3.3) IVSd: 1.1 cm (0.6 - 1.1) LVIDd: 4.3 cm (3.9 - 5.3) LVPWd: 1.2 cm (0.6 - 1.1) IVSs: 1.7 cm LVIDs: 3.1 cm LVPWs: 1.2 cm LA Diam: 3.2 cm (2.7 - 3.8) LAESV Index (A-L): 13.15 ml/m Ao Diam: 3.2 cm (2.0 - 3.7) AV Cusp: 2.3 cm (1.5 - 2.6) MV EXCURSION: 22.907 mm (> 18.000) MV EF SLOPE: 114 mm/s (70 - 150) EPSS: 0.7 cm MV E Sriram: 1.00 m/s MV DecT: 226 ms MV A Sriram: 1.12 m/s MV E/A Ratio: 0.90 RAP: 5.00 mmHg RVSP: 43.98 mmHg FINDINGS -------- Sinus rhythm. This was a technically adequate study. The left ventricular size is normal. There is borderline concentric left ventricular hypertrophy. Overall left ventricular systolic function is normal with, an EF between 55 - 60 %. The right ventricle is normal in size. Normal LA size by volume 22+/-6 ml/m2. The right atrium is normal in size. The aortic valve was not well visualized. The mitral valve leaflets are mildly thickened. Mild mitral annular calcification present. Mild tricuspid regurgitation present. There is mild pulmonary hypertension. The right ventricular systolic pressure, as measured by Doppler, is 43.98mmHg. The pulmonic valve was not well visualized. The aortic root size is normal. Normal inferior vena cava with normal inspiratory collapse consistent with estimated right atrial pre ssure of 5 mmHg. There is no pericardial effusion. CONCLUSIONS -------- 1. Sinus rhythm. 2. This was a technically adequate study. 3. The left ventricular size is normal. 4. There is borderline concentric left ventricular hypertrophy. 5. Overall left ventricular systolic function is normal with, an EF between 55 - 60 %. 6. The right ventricle is normal in size. 7. Normal LA size by volume 22+/-6 ml/m2. 8. The right atrium is normal in size. 9. The aortic valve was not well visualized. 10. The mitral valve leaflets are mildly thickened. 11. Mild mitral annular calcification present. 12. Mild tricuspid regurgitation present. 13. There is mild pulmonary hypertension. 14. The right ventricular systolic pressure, as measured by Doppler, is 43.98mmHg. 15. The pulmonic valve was not well visualized. 16. The aortic root size is normal. 17. Normal inferior vena cava with normal inspiratory collapse consistent with estimated right atrial pressure of 5 mmHg. 18. There is no pericardial effusion. ELECTRICIAN CONSTRUCTOR SUPERVISOR: Daniella St RDCS
[2017-07-23] MEDS: ATORVASTATIN 20 MG TAB PO SCH (21:33)
[2017-07-24] MEDS: SODIUM CHLORIDE 0.9% 1,000 ML IV SCH ×2 (02:44→11:33)
[2017-07-24] MEDS: DOXYCYCLINE MONOHYDRATE 100 MG CAPSULE PO SCH ×2 (08:07→21:23)
[2017-07-24] MEDS: methylPREDNISolone SOD SUCCI 40 MG/ML 1 ML VIAL IV SCH (08:07)
[2017-07-24] MEDS: IPRATROPIUM-ALBUTEROL 3 ML NEB INHALATION PRN ×3 (08:11→20:12)
--- NOTE | 2017-07-24 09:48 | HP ---
HISTORY AND PHYSICAL DATE OF SERVICE: 07/23/2017 CHIEF COMPLAINT: 61-year-old white female, COPD, hypertension, chronic cough, shortness of breath, cardiomyopathy, COPD, hypertension, renal disease, hypertension, fever, chills, generalized weak, admitted to rule out pulmonary embolism and possible COPD as well as exacerbation of CHF. HOME MEDICINES: Lipitor, DuoNeb, Coreg, Lasix, Aldactone, Ventolin, Zestril. REVIEW OF SYSTEMS: Fourteen point review of systems negative except for mentioned in HPI. ALLERGIES: Negative. PAST MEDICAL HISTORY: Asthma, chest pain , angina, heart failure, COPD, dyslipidemia, hypertension, renal disease, uterine cancer. SURGERIES: Tonsillectomy, orthopedic surgery, hysterectomy, AICD, right knee arthroscopy, partial hysterectomy, bilateral carpal tunnel release, seizures, heart valve, AICD. SOCIAL HISTORY: Former smoker. No alcohol. No illicit drugs. FAMILY HISTORY: Mother with cancer of the breast. Father with myocardial infarction, hypertension. EXAM: Temp 98, pulse is 88to 93, respiratory 18-20, blood pressure is 90s to low 100s over 40s to 50s. O2 95 to 97% on room air. Cardiovascular S1, S2. Lungs transmitted upper air sounds. Scattered rhonchi and wheeze. Cardiovascular S1, S2. Musculoskeletal: Fair range of motion. Psych fair mood and affect. Ophthalmologic: Pupils equal, round, reactive to light and accommodation. EKG shows sinus rhythm. Hemoglobin 11.3, white count 7.9. Sodium 142, potassium 5.7, BUN 113, creatinine 6.71, hemoglobin 11.3. Troponins negative. D-dimer is 1.28. ASSESSMENT AND PLAN: 1. Right lower lobe pneumonia seen on CT scan. 2. Acute chronic obstructive pulmonary disease, asthma exacerbation. 3. Severe prerenal renal failure. 4. Acute renal injury. 5. Acute tubular necrosis. 6. Elevated D-dimer. 7. Severe dehydration with IV fluid hydration, two fluid boluses given 1 L. 8. IV antibiotics are being given. 9. Fluid rehydration is being given. 10.Breathing treatments are being given. 11.Please see further orders. MMODL / IJN: [id number] /
[2017-07-24 10:36] LABS: Basophils % (A) 0 %; Eosinophils % (A) 0 %; HGB 9.5 gm/dL (11.4-16.0); Lymphocytes # (A) 0.7 k/uL (1.0-4.8); Lymphocytes % (A) 7 %; MCH 30.6 pg (25.0-35.0); MCHC 32.6 g/dL (31.0-37.0); MCV 93.7 fL (80.0-100.0); Mean Platelet Volume 8.7; Monocytes # (A) 0.3 k/uL (0-1.0); Monocytes % (A) 3 %; Neutrophils # (A) 8.8 k/uL (1.3-7.7); Neutrophils % (A) 90 %; Platelet Count 178 k/uL (150-450); RBC 3.09 m/uL (3.80-5.40); RDW 12.4 % (11.5-15.5); WBC 9.8 k/uL (3.8-10.6)
[2017-07-24 10:59] LABS: Albumin 3.3 g/dL (3.5-5.0); Calcium 9.6 mg/dL (8.4-10.2); Potassium 5.2 mmol/L (3.5-5.1); Total Protein 5.5 g/dL (6.3-8.2)
[2017-07-24 11:27] LABS: Total Bilirubin 0.1 mg/dL (0.2-1.3)
--- NOTE | 2017-07-24 13:03 | PN ---
PROGRESS NOTE This patient is admitted with acute renal failure. Patient is feeling better. Breathing is improved. She has been responding to the IV fluids very well and she feels comfortable. Her heart rate is 84 per minute, blood pressure is 95/70 mmHg. Hemoglobin is 9.5, electrolytes are normal. Creatinine is 1.8 and BUN is 55. We will recommend to continue the patient on the current IV treatment. MMARNULFOL / JUAN MANUELN: [id number] /
--- NOTE | 2017-07-24 15:09 | PN ---
PROGRESS NOTE Patient is seen for followup for acute kidney injury. She was admitted with a creatinine of 6.7. Patient is maintained on IV fluids. Her serum creatinine is down to 1.8 today. She is currently lying comfortably in bed. Patient is not complaining of any chest pains or shortness of breath. PHYSICAL EXAMINATION: Blood pressure this morning was 97/50, heart rate 90 per minute. She is afebrile. Examination of the heart, S1, S2. Examination of the lungs, bilateral breath sounds are heard. Abdomen is soft, nontender. Exam of the lower extremities shows no evidence of edema. LABS: Show sodium 146, potassium 5.2, chloride 115, CO2 is 18, BUN 55, serum creatinine 1.8, hemoglobin 9.5 g/dL. ASSESSMENT: 1. Acute kidney injury, mainly prerenal, currently improving with IV fluids. 2. Mild hypernatremia. Will change IV fluids to half-normal saline. 3. Hyperkalemia associated with acute kidney injury, LORI inhibitors and Aldactone prior to admission, currently improving with improving renal function. 4. Metabolic acidosis. Expect improvement with changing fluids to half-normal saline. 5. Asthma, being followed by Pulmonary. PLAN: 1. Change IV fluids to half-normal saline. 2. Repeat labs in a.m. 3. Possible discharge tomorrow. 4. Check iron studies. MMODL / IJN: [id number] /
--- NOTE | 2017-07-24 15:21 | PN ---
PROGRESS NOTE She has been more short of breath. She remains weak at this time. On physical examination, her blood pressure is 97/50, respiratory rate of 18, pulse rate 85, temperature 98, O2 saturation on 2 L by nasal cannula is 95%. HEENT reveals pupils that are equal. Chest reveals decreased breath sounds with prolonged expiration. There is expiratory wheeze. Cardiovascular system reveals an S1, S2. Abdomen is soft. There is trace pedal edema. White count is 9.8, hemoglobin of 9.5, sodium 146, potassium 5.2, chloride 115, bicarb 18, BUN 55, creatinine of 1.8. IMPRESSION: 1. Severe asthma with acute exacerbation. 2. Baseline chronic obstructive pulmonary disease. 3. Cardiomyopathy with previous takotsubo syndrome. 4. Acute renal failure. 5. Medical debility. 6. Previous history of smoking. At this point in time, would optimize her fluid status per Nephrology and Cardiology. Increase her IV steroids. Keep her on montelukast, aerosolized steroids, bronchodilators. Would keep her on GI and DVT prophylaxis. In the past, the patient had done fairly well on anti-IgE treatment with Xolair, but discontinued it. She may be a candidate for a biologic to help prevent further exacerbations. Depending on how she does, we should make further changes to her care. She was counseled regarding her condition and this approach. MMARNULFOL / JUAN MANUELN: [id number] /
[2017-07-24] MEDS: SODIUM CHLORIDE 0.45% 1,000 ML IV SCH (15:57)
--- NOTE | 2017-07-24 17:12 | PN ---
PROGRESS NOTE SUBJECTIVE: This is a 61-year-old white female who is admitted with right lower lobe pneumonia, renal insufficiency. Hemoglobin is 9.5, white count 9.8, sodium is 146, potassium 5.2, BUN is 55, creatinine 1.80, glucose 251. CARDIOVASCULAR: S1, S2. LUNGS: Transmitted upper airway sounds. HEMATOLOGY: Negative Homans. ASSESSMENT: 1. Chronic renal disease stage III, greatly improved with a creatinine of 6.7 down to 1.8. 2. Her pneumonia continues to be improved, is on broad-spectrum antibiotics and IV fluids. Right lower lobe pneumonia, chronic obstructive pulmonary disease exacerbation. Patient greatly improved. Will be discharged home in the next 24 to 48 hours. MMODL / IJN: [id number] /
[2017-07-24] MEDS: methylPREDNISolone SOD SUCCI 125 MG/2 ML VIAL IV SCH (17:46)
[2017-07-24] MEDS: BUDESONIDE 0.5 MG/2 ML NEBU INHALATION SCH (20:13)
[2017-07-24] MEDS: FAMOTIDINE 20 MG TAB PO SCH (21:23)
[2017-07-24] MEDS: ATORVASTATIN 20 MG TAB PO SCH (21:23)
[2017-07-24] MEDS: HEPARIN SODIUM,PORCINE 5,000 UNIT/ML 1 ML VIAL SQ SCH (21:23)
[2017-07-24] MEDS: MONTELUKAST 10 MG TAB PO SCH (21:23)
[2017-07-24] MEDS: INSULIN ASPART 100 UNIT/ML 1 ML 10 ML VIAL SQ SCH (21:28)
[2017-07-24 21:42] LABS: Glucose,Whole Blood 179 mg/dL (75-99)
[2017-07-24 22:58] LABS: Iron Saturation 67.7 (12.00-45.00)
[2017-07-25] MEDS: methylPREDNISolone SOD SUCCI 125 MG/2 ML VIAL IV SCH ×3 (00:18→13:23)
[2017-07-25] MEDS: SODIUM CHLORIDE 0.45% 1,000 ML IV SCH ×3 (03:54→17:58)
[2017-07-25 06:21] LABS: Glucose,Whole Blood 156 mg/dL (75-99)
[2017-07-25 06:32] LABS: Basophils % (A) 0 %; Eosinophils % (A) 0 %; HCT 29.5 % (34.0-46.0); HGB 9.7 gm/dL (11.4-16.0); Lymphocytes # (A) 1.1 k/uL (1.0-4.8); Lymphocytes % (A) 10 %; MCH 30.4 pg (25.0-35.0); MCHC 32.8 g/dL (31.0-37.0); MCV 92.8 fL (80.0-100.0); Mean Platelet Volume 8.4; Monocytes # (A) 0.3 k/uL (0-1.0); Monocytes % (A) 3 %; Neutrophils # (A) 10.1 k/uL (1.3-7.7); Neutrophils % (A) 87 %; Platelet Count 193 k/uL (150-450); RBC 3.18 m/uL (3.80-5.40); RDW 12.5 % (11.5-15.5); WBC 11.6 k/uL (3.8-10.6)
[2017-07-25] MEDS: INSULIN ASPART 100 UNIT/ML 1 ML 10 ML VIAL SQ SCH ×4 (06:34→21:08)
[2017-07-25 06:43] LABS: Albumin 3.4 g/dL (3.5-5.0); Calcium 9.7 mg/dL (8.4-10.2); Potassium 5.6 mmol/L (3.5-5.1); Total Bilirubin 0.2 mg/dL (0.2-1.3); Total Protein 5.6 g/dL (6.3-8.2)
[2017-07-25] MEDS: DOXYCYCLINE MONOHYDRATE 100 MG CAPSULE PO SCH ×2 (07:58→21:07)
[2017-07-25] MEDS: FAMOTIDINE 20 MG TAB PO SCH ×2 (07:58→21:07)
[2017-07-25] MEDS: HEPARIN SODIUM,PORCINE 5,000 UNIT/ML 1 ML VIAL SQ SCH ×2 (07:58→21:07)
[2017-07-25] MEDS: BUDESONIDE 0.5 MG/2 ML NEBU INHALATION SCH ×2 (08:17→20:53)
[2017-07-25] MEDS: IPRATROPIUM-ALBUTEROL 3 ML NEB INHALATION PRN ×4 (08:17→20:53)
[2017-07-25 12:06] LABS: Glucose,Whole Blood 287 mg/dL (75-99)
--- NOTE | 2017-07-25 12:55 | PN ---
PROGRESS NOTE DATE OF SERVICE: 07/25/2017. HISTORY: The patient is seen for followup for acute kidney injury. Her renal function has improved significantly. The serum creatinine is down from 6.7 to 1.8 mg/dL. Patient remains on IV fluids. Her creatinine today is 1.7 from 1.8 yesterday. However, the potassium is slightly higher at 5.6 mEq/L. The patient is lying in bed. She is comfortable. Denies any significant complaints. She is not maintained on any home medications predispose to hyperkalemia. EXAMINATION: Blood pressure was 120/53, heart rate 80 per minute. Patient is afebrile. Examination of the heart S1, S2. Examination lungs bilateral breath sounds are heard. Abdomen is soft, nontender. Examination lower extremity shows no evidence of edema. PHOTOVOLTAIC SOLAR CELL DESIGNER exam is grossly intact. LABS: Show sodium 143, potassium 5.6, chloride 113, CO2 is 18, BUN 46, serum creatinine 1.7 mg/dL, hemoglobin was 9.7 g/dL. ASSESSMENT: 1. Acute kidney injury, prerenal, currently significantly improved with IV hydration. Serum creatinine, however, is not much lower from yesterday. The patient has been voiding on her own. We will check a postvoid residual to rule out underlying urine retention. 2. Hyperkalemia associated with acute kidney injury. His serum creatinine is slightly higher today from yesterday. The patient will be maintained on a low-potassium diet. She is currently on Heart Healthy. Blood sugars are slightly on the higher side with blood sugar level of 179 to 145, this morning and again it was 156 mg/dL. 3. Non-gap metabolic acidosis. Serum CO2 staying at 18. I will start sodium bicarb which will also help with the hyperkalemia. PLAN: Start sodium bicarb and maintain patient on low-potassium diet. Repeat labs in a.m. The patient will need followup as outpatient. MMODL / IJN: [id number] /
--- NOTE | 2017-07-25 14:01 | PN ---
PROGRESS NOTE DATE OF SERVICE: 07/25/17 She was seen on July 25, 2017. She is less short of breath. On physical examination blood pressure is 105/53, respiratory rate of 18, pulse 73, temperature 97.1. HEENT is unremarkable. Chest reveals no wheezing today. Cardiovascular system is S1, S2. Abdomen is soft. There is no edema. BUN is 46, creatinine 1.7, sodium 143, potassium 5.6, chloride 113, bicarb 18. White count 11.6, hemoglobin of 9.7. IMPRESSION: At this time is: 1. Asthma with acute exacerbation. 2. Pneumonia. 3. Chronic renal failure. 4. Cardiomyopathy with previous takotsubo syndrome. 5. Chronic obstructive pulmonary disease. PLAN: Continue IV steroids, montelukast, would have ID further evaluate the patient regarding need for antibiotics, may benefit from close outpatient followup and biologic to control her asthma. MMODL / IJN: [id number] /
[2017-07-25 17:15] LABS: Glucose,Whole Blood 138 mg/dL (75-99)
[2017-07-25] MEDS: predniSONE 20 MG TAB PO SCH (17:54)
--- NOTE | 2017-07-25 18:49 | PN ---
PROGRESS NOTE SUBJECTIVE: The patient remains on oral antibiotics, Vibramycin, and sodium bicarbonate for renal insufficiency. Breathing is greatly improved. Remains on DuoNeb updraft treatments and Pulmicort. White count 11.6. Hemoglobin 9.7, potassium is 5.6, sodium is 143, BUN is 46, creatinine 1.7, glucose is 100s to 200s. Albumin is low at 3.4. We will try to discontinue hyperkalemia type medications prior to going home. She has acute kidney injury, prerenal, significantly improved with IV hydration. Hyperkalemia secondary to acute kidney injury. Low potassium diet, healthy diet. Sugars are better mid 100s to low 200s. Anion gap metabolic acidosis. CO2 is 18 bicarb. Repeat labs in the morning. Possible discharge home tomorrow. MMODL / IJN: [id number] /
--- NOTE | 2017-07-25 19:04 | PN ---
PROGRESS NOTE This patient was admitted with acute renal failure. Possibly secondary to hypotension and dehydration. Patient's condition is improving. She is feeling better. Blood pressure is 103/67 mmHg. Respirations are not labored. First and second heart sounds are normal. Lungs are clinically clear to auscultation and percussion. The patient has had a normocytic normochromic anemia. Patient's iron studies are normal. She may benefit from Epogen for symptomatic treatment of weakness and shortness of breath. MMODL / IJN: [id number] /
[2017-07-25 20:48] LABS: Glucose,Whole Blood 195 mg/dL (75-99)
[2017-07-25] MEDS: MONTELUKAST 10 MG TAB PO SCH (21:07)
[2017-07-25] MEDS: ATORVASTATIN 20 MG TAB PO SCH (21:07)
[2017-07-25] MEDS: SODIUM BICARBONATE TAB 650 MG TAB PO SCH (21:08)
[2017-07-26] MEDS: SODIUM CHLORIDE 0.45% 1,000 ML IV SCH (05:52)
[2017-07-26] MEDS: INSULIN ASPART 100 UNIT/ML 1 ML 10 ML VIAL SQ SCH ×2 (06:17→12:35)
[2017-07-26 06:26] LABS: Glucose,Whole Blood 148 mg/dL (75-99)
[2017-07-26] MEDS: IPRATROPIUM-ALBUTEROL 3 ML NEB INHALATION PRN ×2 (08:13→11:36)
[2017-07-26] MEDS: BUDESONIDE 0.5 MG/2 ML NEBU INHALATION SCH (08:13)
[2017-07-26 08:33] VITALS: RESP 16; TEMP 97
[2017-07-26] MEDS: HEPARIN SODIUM,PORCINE 5,000 UNIT/ML 1 ML VIAL SQ SCH (08:36)
[2017-07-26] MEDS: predniSONE 20 MG TAB PO SCH (08:36)
[2017-07-26] MEDS: FAMOTIDINE 20 MG TAB PO SCH (08:36)
[2017-07-26] MEDS: SODIUM BICARBONATE TAB 650 MG TAB PO SCH (08:36)
[2017-07-26] MEDS: DOXYCYCLINE MONOHYDRATE 100 MG CAPSULE PO SCH (08:36)
[2017-07-26 09:01] LABS: Basophils % (A) 0 %; Eosinophils # (A) 0.2 k/uL (0-0.7); Eosinophils % (A) 2 %; HCT 30.4 % (34.0-46.0); HGB 10.4 gm/dL (11.4-16.0); Lymphocytes # (A) 1.6 k/uL (1.0-4.8); Lymphocytes % (A) 15 %; MCH 31.2 pg (25.0-35.0); MCHC 34.3 g/dL (31.0-37.0); Mean Platelet Volume 8.6; Monocytes # (A) 0.3 k/uL (0-1.0); Monocytes % (A) 3 %; Neutrophils # (A) 8.2 k/uL (1.3-7.7); Neutrophils % (A) 80 %; Platelet Count 188 k/uL (150-450); RBC 3.34 m/uL (3.80-5.40); RDW 12.5 % (11.5-15.5); WBC 10.3 k/uL (3.8-10.6)
[2017-07-26 09:18] LABS: Calcium 9.3 mg/dL (8.4-10.2); Magnesium 1.2 mg/dL (1.6-2.3); Potassium 4.8 mmol/L (3.5-5.1)
--- NOTE | 2017-07-26 09:23 | DS ---
DISCHARGE SUMMARY DISCHARGE MEDICATIONS: 1. Medrol Dosepak. 2. Doxycycline 100 mg b.i.d. for a week. 3. Sodium bicarbonate 650 b.i.d. 4. Singular 10 mg daily. 5. Pepcid 20 mg b.i.d. 6. Pulmicort 0.5 mg nebulizer b.i.d. 7. Atorvastatin 20 mg daily. 8. DuoNeb 3 mL q.i.d. Follow up in office in a week. CONDITION: Stable. PROGNOSIS: Guarded. Ambulate as tolerated. HOSPITAL COURSE OF EVENTS: This is a white female who came in with severe acute tubular necrosis secondary to prerenal azotemia. IV fluids improved her creatinine down to 1.6 - 1.7. Patient continued to stabilize with IV fluids. IV antibiotics were continued. Patient is stabilized from a medical standpoint to follow up as an outpatient with creatinine improving from rehydration. Lasix is discontinued during her admission. Renal physician saw her as well as Child Specialist. She is stable for discharge from medical standpoint. MMODL / IJN: [id number] /
[2017-07-26] MEDS ORDERED: Magnesium Replacement Protocol 1 EACH MISC MISCELLANE PRN (09:44)
[2017-07-26] MEDS: MAGNESIUM SULFATE-D5W PMX 1 GM in DEXTROSE/WATER 1 100ML.BAG IVPB SCH ×3 (10:24→12:35)
--- NOTE | 2017-07-26 10:27 | P.PN ---
Subjective Progress Note Date: 07/26/17 Interval history 07/26/17- patient is being seen examined and evaluated today on rounds. She is resting up in bed on room air. Patient feels her breathing has improved and she feels close to be close to her baseline. Patient is requesting to go home. Her labs have been reviewed. Patient will require magnesium replacement prior to discharge. She is afebrile denies any further complaints. Objective - Vital Signs Vital signs: Vital Signs Temp 97 F L 07/26/17 08:15 Pulse 74 07/26/17 08:23 Resp 16 07/26/17 08:15 BP 127/59 07/26/17 08:15 Pulse Ox 94 L 07/26/17 08:15 Intake & Output 07/25/17 07/26/17 07/26/17 18:59 06:59 18:59 Intake Total 1165 400 Balance 1165 400 Weight 85.6 kg Intake: Intake, IV Titration 525 400 Amount Sodium Chloride 0.45% 1, 525 400 000 ml @ 50 mls/hr IV . Q20H [facility] Rx#:[id number] Oral 640 Other: Voiding Method Toilet Toilet # Voids 1 - Exam GENERAL EXAM: Alert, active, comfortable in no apparent distress. HEAD: Normocephalic. EYES: Normal reaction of pupils, equal size. NOSE: Clear with pink turbinates. THROAT: No erythema or exudates. NECK: No masses, no JVD. CHEST: No chest wall deformity. LUNGS: Equal air entry with no crackles, wheeze, rhonchi or dullness. Bases diminished CVS: S1 and S2 normal with no audible mumurs, regular rhythm. ABDOMEN: No hepatosplenomegaly, normal bowel sounds, no guarding or rigidity. EXTREMITIES: No edema noted, pedal pulses palpable. CENTRAL NERVOUS SYSTEM: No focal deficits, tone is normal in all 4 extremities. - Labs CBC & Chem 7: 07/26/17 08:47 07/26/17 08:47 Labs: Abnormal Lab Results - Last 24 Hours (Table) 07/25/17 07/25/17 07/25/17 Range/Units 11:44 17:13 20:47 RBC (3.80-5.40) m/uL Hgb (11.4-16.0) gm/dL Hct (34.0-46.0) % Neutrophils # (1.3-7.7) k/uL Chloride (98-107) mmol/L Carbon Dioxide (22-30) mmol/L BUN (7-17) mg/dL Creatinine (0.52-1.04) mg/dL Glucose (74-99) mg/dL POC Glucose (mg/dL) 287 H 138 H 195 H (75-99) mg/dL Magnesium (1.6-2.3) mg/dL 07/26/17 07/26/17 07/26/17 Range/Units 06:16 08:47 08:47 RBC 3.34 L (3.80-5.40) m/uL Hgb 10.4 L (11.4-16.0) gm/dL Hct 30.4 L (34.0-46.0) % Neutrophils # 8.2 H (1.3-7.7) k/uL Chloride 110 H (98-107) mmol/L Carbon Dioxide 17 L (22-30) mmol/L BUN 38 H (7-17) mg/dL Creatinine 1.37 H (0.52-1.04) mg/dL Glucose 218 H (74-99) mg/dL POC Glucose (mg/dL) 148 H (75-99) mg/dL Magnesium 1.2 L (1.6-2.3) mg/dL Microbiology - Last 24 Hours (Table) 07/22/17 13:42 Blood Culture - Preliminary Blood No Growth after 72 hours Assessment and Plan Assessment: Assessment Chronic persistent moderate to severe asthma with acute exacerbation Pneumonia Chronic renal failure Cardiomyopathy with previous takotsubo syndrome COPD Plan Patient is cleared from pulmonary standpoint for discharge. Patient will follow -up with Dr. Valente in the office. Possible evaluation for biologic related to her asthma in the outpatient setting. Steroid taper. Medications have been reviewed and will be continued as ordered. Continue with pulmonary hygiene, coughing and deep breathing exercises, and supportive care. Supplemental oxygen to maintain oxygen saturations of 92% or better. Continue nebulizer treatments. GI and DVT prophylaxis. We will continue to monitor labs/results and adjust treatment as necessary. Further recommendations pending. I performed an examination of the patient and discussed their management with the nurse practitioner. I have reviewed the nurse practitioner's note and agree with the documented findings and plan of care.
[2017-07-26 12:14] LABS: Glucose,Whole Blood 173 mg/dL (75-99)
[2017-07-26 12:29] VITALS: BP 120/61; PULSE 75
--- NOTE | 2017-07-26 12:31 | CDI ---
Last Revision, February 2017 Documentation Clarification Form Date: 07/26/17 1228 From: Lakeshia Salmeron RN, CCDS Admit Date: 07/22/2017 4:18:00 PM Patient Name: Ele Del Cid Visit Number: [id number] ATTENTION: The Clinical Documentation Specialists (CDI) and [facility] Coding Staff appreciate your assistance in clarifying documentation. Please respond to the clarification below the line at the bottom and electronically sign. The CDI & [facility] Coding staff will review the response and follow-up if needed. Please note: Queries are made part of the Legal Health Record. If you have any questions, please contact the author of this message via ITS. Dr. Domenic Currie diagnosis of anemia lacks specificity to accurately reflect your patients severity of condition and clarification is needed. History/Risk Factors: COPD, Asthma, Pneumonia, YOU w/ ATN, CKD stage 3 Clinical indicators: 07/23/17 Nephrology Consult: "Anemia with no active bleeding noted check iron studies rule out iron deficiency." 07/25/17 Card Progress Note: "The patient has had a normocytic normochromic anemia." Hemoglobin: 11.3/9.9/9.5/9.7/10.4 Hematocrit: 32.9/30.1/29/29.5/30.4 Treatment: IVF, IVF boluses LAbs AM Daily In order to capture the severity of condition, please clarify the type of anemia and etiology if known: Drug induced anemia Anemia due to malignancy Nutritional anemia Anemia of chronic kidney disease Anemia of other specified chronic disease Unable to determine Other, please specify Please continue to document in your progress notes and discharge summary in order to capture severity of illness and risk of mortality. Include clinical findings that support your diagnosis. MTDD
--- NOTE | 2017-07-26 13:23 | CONS ---
CONSULTATION DATE OF SERVICE: 07/26/2017 REASON FOR CONSULTATION: Infection versus inflammation. HISTORY OF PRESENT ILLNESS: Patient is a 61-year-old, female, who presented to the ER at [facility] on 07/22/2017 with chief complaints of increasing shortness of breath, her breathing has been getting worse for the last few days before coming to hospital. The patient denies having any chest pain or any cough or sputum production. No high-grade fever. On arrival to the ER, the patient was in acute renal failure with a creatinine of 6.71. The patient did have CT of the chest, which did show some scarring but no acute infiltrate. Pulmonary perfusion imaging was nondiagnostic. Patient did have no echocardiogram. No pericardial effusion. Sinus rhythm Иван feeling weak area. The patient subsequently has been treated bu multiple consults including Cardiology and Pulmonary. She has been treated with oral doxycycline for presumed pneumonia and surgery was consulted last evening for further recommendation need for antibiotic therapy as of this morning. The patient is afebrile. She has been denied having any chest pain or shortness of breath. No cough. Denies having any abdominal pain. No nausea, vomiting and wants to go home. REVIEW OF SYSTEMS: CONSTITUTIONAL: Positive for weakness, no high-grade fever. EYES: No complaint. ENT. No complaint. RESPIRATORY: As per HPI. CARDIOVASCULAR: As per HPI. GENITOURINARY: No complaint. GASTROINTESTINAL: No complaint. MUSCULOSKELETAL: No complaint. PSYCHOLOGICAL: No complaint. ENDOCRINE: No complaint. NEUROLOGICAL: No complaint. PAST MEDICAL HISTORY: Significant for asthma, hypertension, hyperlipidemia, COPD, uterine cancer, renal insufficiency. PAST SURGICAL HISTORY: ICD placement, hysterectomy, tonsillectomy, right knee arthroscopy, partial hysterectomy, bilateral cataract surgery. SOCIAL HISTORY: Former smoker. No drinking or drug use. FAMILY HISTORY: Mother with history of breast cancer. Father history of hypertension and DC. ALLERGIES: No known drug allergies. MEDICATIONS: The patient is currently on Tylenol, DuoNeb, Lipitor, Pulmicort, doxycycline, Pepcid, heparin, NovoLog, magnesium, Singulair, Narcan Zofran, prednisone. PHYSICAL EXAMINATION: Blood pressure 127/59 with a pulse of 83, temperature of 97, she is 94%. General description is a middle-aged female up in the chair in no distress. No tachypnea or accessory muscle of respiration use. HEENT: Shows slight pallor. No scleral icterus. Oral mucosa is dry. No pharyngeal erythema or thrush. NECK: Trachea is central, no thyromegaly. LUNGS: Unlabored breathing clear to auscultation anteriorly. No wheeze or crackle. HEART: S1, S2. Regular rate and rhythm. ABDOMEN: Soft, no tenderness. No guarding. EXTREMITIES: No edema of the feet. LABS: Hemoglobin 10.4, white count 10.3, BUN of 13, creatinine 1.37. The patient did have mildly elevated white count of 11.6, yesterday; however, normalized this morning. She did have blood cultures that have been negative. CT report as mentioned above. IMPRESSION/PLAN: Patient admitted to the hospital with increasing shortness of breath, more likely to have acute renal failure. Clinically, the patient remains to be low for underlying pneumonia as the patient have no fever and no elevated white count except yesterday and she did have CT of the chest that was negative for any consolidation. PLAN: 1. Antibiotic can be safely discontinued as risk is low for underlying pneumonia. 2. Pneumonia with underlying asthma sensitive for the pulmonary edema. MMODL / IJN: [id number] /
--- NOTE | 2017-07-26 15:32 | P.PN ---
Subjective Progress Note Date: 07/26/17 This is a 61-year-old female who follows with Dr. VC Cristina in the office. She has known history of nonischemic cardiomyopathy prior AICD implantation, hypotension, COPD, mild coronary artery disease by heart catheterization, she has a 40% RCA lesion patient also has history of renal failure in the past, most recent stress test was performed in 2016 in the office. She presents to the hospital on this occasion mainly with symptoms of weakness and dizziness. also had a discomfort between her shoulder blades. Worse when she stands for a long period of time. According to the patient, she has not been drinking water at home, only drinking pop and not drinking much of it. Her most recent echo performed in May 2016 revealed an ejection fraction of 45-50% mild to moderate tricuspid regurg mild to moderate mitral regurg. Chest x-ray performed on admission did not reveal any acute cardiopulmonary process. CT of the chest reveals emphysema, probable scarring. Lung scan essentially nondiagnostic due to radiotracer clumping. No gross perfusion defect is seen. EKG shows an atrial sensed V paced rhythm with occasional PVCs. Blood pressure on admission here 90/49, heart rate in the 90s , 96% on room air. Blood pressure this morning 86/54, temperature 97.1, 94% on 2 L of oxygen. White blood cell count 6.4, hemoglobin on admission 11.3, 9.9 this morning. Platelet count 188 on admission, 177 this morning. Sodium 143, potassium 5.7 yesterday, 5.4 this morning. BUN yesterday 113 creatinine 6.7, BUN this morning 87 and creatinine 3.9. Troponin is negative, BMP level 339. Influenza A and B are negative. At the time of my examination this morning, patient complains of feeling extremely weak. 07/26/2017 Patient seen and examined this morning, resting comfortably in bed, hemodynamically stable. Feels that her breathing is back to her normal. Echo cardiac gram with Doppler study reveals a normal left ventricular systolic function. Objective - Vital Signs Vital signs: Vital Signs Temp 97 F L 07/26/17 08:15 Pulse 75 07/26/17 12:10 Resp 16 07/26/17 12:10 BP 120/61 07/26/17 12:10 Pulse Ox 95 07/26/17 12:10 Intake & Output 07/25/17 07/26/1718 18:59 06:59 18:59 Intake Total 1165 400 240 Balance 1165 400 240 Weight 85.6 kg Intake: Intake, IV Titration 525 400 Amount Sodium Chloride 0.45% 1, 525 400 000 ml @ 50 mls/hr IV . Q20H [facility] Rx#:[id number] Oral 640 240 Other: Voiding Method Toilet Toilet Toilet # Voids 1 0 # Bowel Movements 0 - Exam PHYSICAL EXAMINATION: HEENT: [Head is atraumatic, normocephalic. Pupils equal, round. Neck is supple. There is no elevated jugular venous pressure.] HEART EXAMINATION: [Heart S1, S2 normal. No murmur or gallop heard.] CHEST EXAMINATION:[ Lungs are clear to auscultation and precussion. No chest wall tenderness is noted on palpation or with deep breathing.] ABDOMEN: [ Soft, nontender. Bowel sounds are heard. No organomegaly noted]. EXTREMITIES:[ 2+ peripheral pulses with no evidence of peripheral edema and no calf tenderness noted]. NEUROLOGIC [patient is awake, alert and oriented -3.] . - Labs CBC & Chem 7: 07/26/17 08:47 07/26/17 08:47 Labs: Abnormal Lab Results - Last 24 Hours (Table) 07/25/17 07/25/17 07/26/17 Range/Units 17:13 20:47 06:16 RBC (3.80-5.40) m/uL Hgb (11.4-16.0) gm/dL Hct (34.0-46.0) % Neutrophils # (1.3-7.7) k/uL Chloride (98-107) mmol/L Carbon Dioxide (22-30) mmol/L BUN (7-17) mg/dL Creatinine (0.52-1.04) mg/dL Glucose (74-99) mg/dL POC Glucose (mg/dL) 138 H 195 H 148 H (75-99) mg/dL Magnesium (1.6-2.3) mg/dL 07/26/17 07/26/17 07/26/17 Range/Units 08:47 08:47 12:04 RBC 3.34 L (3.80-5.40) m/uL Hgb 10.4 L (11.4-16.0) gm/dL Hct 30.4 L (34.0-46.0) % Neutrophils # 8.2 H (1.3-7.7) k/uL Chloride 110 H (98-107) mmol/L Carbon Dioxide 17 L (22-30) mmol/L BUN 38 H (7-17) mg/dL Creatinine 1.37 H (0.52-1.04) mg/dL Glucose 218 H (74-99) mg/dL POC Glucose (mg/dL) 173 H (75-99) mg/dL Magnesium 1.2 L (1.6-2.3) mg/dL Microbiology - Last 24 Hours (Table) 07/22/17 13:42 Blood Culture - Preliminary Blood No Growth after 72 hours Assessment and Plan Plan: Assessment and plan #1 acute renal failure, likely secondary to dehydration on top of chronic renal failure. #2 nonischemic cardiomyopathy with prior by V AICD #3 history of hypotension #4 COPD and asthma #5 history of nicotine dependence #6 mild coronary artery disease by cardiac catheterization which revealed a 40% lesion. Most recent stress test performed in August 2015 #7 normal chromic normocytic anemia Plan Echocardiogram with Doppler study was performed which revealed a normal left ventricular systolic function. Patient has normocytic normochromic anemia and may benefit from Epogen. From cardiology's perspective, she may be able to be discharged once cleared by the primary. We'll follow her up on an outpatient basis. DNP note has been reviewed, I agree with a documented findings and plan of care. Patient was seen and examined.
--- NOTE | 2017-07-26 20:17 | PN ---
PROGRESS NOTE Patient is seen for followup for acute kidney injury which was mainly prerenal. Patient is maintained on IV fluids. Her creatinine has improved to 1.37 from 6.7 on initial admission. Blood pressure was also low, which is now improved. PHYSICAL EXAMINATION: On examination today, patient is sitting up in a bedside chair. Blood pressure is 121/61, heart rate 75 per minute. She is afebrile. Examination of the heart: S1, S2. Examination lungs: Bilateral breath sounds are heard. Abdomen is soft, nontender. Examination lower extremities shows no evidence of edema. MEDICAL ART THERAPIST exam is grossly intact. LABS: Sodium 141, potassium 4.8, chloride 110, CO2 of 17, BUN 38, serum creatinine 1.37, hemoglobin 10.4 g/dL. ASSESSMENT: 1. Acute kidney injury, mainly prerenal currently improved significantly with IV hydration. 2. Mild metabolic acidosis. Maintained on sodium bicarb. 3. Hypernatremia, currently on half-normal saline with improvement in serum sodium. 4. Hypotension, mainly hypovolemic, currently improved. 5. Hypomagnesemia. Will replace. PLAN: Patient can be discharged from nephrology standpoint. She should follow up as outpatient with her primary care physician and repeat renal profile as outpatient. MMODL / IJN: [id number] /
[2017-07-27] MEDS ORDERED: FAMOTIDINE 20 MG TAB PO SCH (09:00)
== END 2017-07-26 14:00 | disposition home or self-care (01) | DRG 682 ==
LOC: EC 13:00 → 6SEL 16:18
PROVIDERS: ADMIT Family Medicine; ATTEND Family Medicine
DX: N17.0 Acute kidney failure with tubular necrosis (principal); J18.9 Pneumonia, unspecified organism; E87.0 Hyperosmolality and hypernatremia; E87.2 Acidosis; I13.0 Hypertensive heart and chronic kidney disease with heart failure and stage 1 through stage 4 chronic kidney disease, or unspecified chronic kidney disease; I42.9 Cardiomyopathy, unspecified; I50.22 Chronic systolic (congestive) heart failure; J44.0 Chronic obstructive pulmonary disease with (acute) lower respiratory infection; J44.1 Chronic obstructive pulmonary disease with (acute) exacerbation; J45.51 Severe persistent asthma with (acute) exacerbation; E78.5 Hyperlipidemia, unspecified; E83.42 Hypomagnesemia; E86.0 Dehydration; E86.1 Hypovolemia; E87.5 Hyperkalemia; I08.1 Rheumatic disorders of both mitral and tricuspid valves; I25.10 Atherosclerotic heart disease of native coronary artery without angina pectoris; I49.3 Ventricular premature depolarization; N18.3 Chronic kidney disease, stage 3 (moderate); R79.1 Abnormal coagulation profile; Z79.899 Other long term (current) drug therapy; Z80.3 Family history of malignant neoplasm of breast; Z82.49 Family history of ischemic heart disease and other diseases of the circulatory system; Z85.42 Personal history of malignant neoplasm of other parts of uterus; Z87.891 Personal history of nicotine dependence; Z90.710 Acquired absence of both cervix and uterus; Z95.810 Presence of automatic (implantable) cardiac defibrillator; I95.9 Hypotension, unspecified; D64.9 Anemia, unspecified
CPT/HCPCS: 36415; 71046; 71250; 78582; 80048; 80053; 81001; 82550; 82553; 83540; 83550; 83735; 83880; 84484; 85025; 85379; 85610; 85730; 87040; 87502; 93005; 93306; 94640; 94760; 96361; 96374; 96375; 99291

== ENCOUNTER → 2017-09-14 | Outpatient (CLI) | payer MEDICARE | END | disposition home or self-care (01) | LOC: RADECHMAIN 08:30 | PROVIDERS: ATTEND Family Medicine | DX: Z53.9 Procedure and treatment not carried out, unspecified reason (principal) ==

== ENCOUNTER 2018-01-24 06:55 | Inpatient (IN) | payer MEDICARE ==
[2018-01-24] MEDS ORDERED: IPRATROPIUM 0.5 MG/2.5 ML NEBU INHALATION STA (07:03)
[2018-01-24] MEDS ORDERED: methylPREDNISolone SOD SUCCI 125 MG/2 ML VIAL IV STA (07:03)
[2018-01-24] MEDS ORDERED: ALBUTEROL NEBULIZED 2.5 MG/3 ML INHALATION STA (07:03)
--- NOTE | 2018-01-24 07:09 | ED ---
General Adult HPI - General Chief complaint: Shortness of Breath Stated complaint: MARK Time Seen by Provider: 01/24/18 07:02 Source: patient, RN notes reviewed, old records reviewed Mode of arrival: wheelchair Limitations: no limitations - History of Present Illness Initial comments: 62-year-old female presented for evaluation of worsening cough and dyspnea. Patient has history of COPD and heart failure status post AICD. She states she has some baseline dyspnea however over the past 24 hours has significantly worsened. Cough is nonproductive. She does report some URI symptoms including nasal congestion. Denies chest pain. Denies lower extremity swelling or calf pain. No abdominal pain. No nausea vomiting. - Related Data Home Medications Medication Instructions Recorded Confirmed Atorvastatin [Lipitor] 20 mg PO HS 10/22/15 01/24/18 Spironolactone [Aldactone] 25 mg PO DAILY 12/24/16 01/24/18 Albuterol Inhaler [Ventolin Hfa 2 puff INHALATION RT-QID PRN 07/22/17 01/24/18 Inhaler] Lisinopril [Zestril] 5 mg PO DAILY 07/22/17 01/24/18 Aspirin EC [Ecotrin Low Dose] 81 mg PO DAILY 01/24/18 01/24/18 Beclomethasone Dipropionate [Qvar 1 puff INHALATION RT-BID 01/24/18 01/24/18 40 mcg Redihaler] Carvedilol 25 mg PO BID 01/24/18 01/24/18 Fluticasone/Umeclidin/Vilanter 1 puff INHALATION RT-DAILY 01/24/18 01/24/18 [Trelegy Ellipta 100-62.5-25] Furosemide [Lasix] 40 mg PO DAILY 01/24/18 01/24/18 glipiZIDE XL [Glucotrol XL] 2.5 mg PO AC-BID 01/24/18 01/24/18 Previous Rx's Medication Instructions Recorded Montelukast [Singulair] 10 mg PO HS tab 07/26/17 Allergies Allergy/AdvReac Type Severity Reaction Status Date / Time No Known Allergies Allergy Verified 01/24/18 07:57 Review of Systems ROS Statement: Those systems with pertinent positive or pertinent negative responses have been documented in the HPI. ROS Other: All systems not noted in ROS Statement are negative. Past Medical History Past Medical History: Asthma, Cancer, Chest Pain / Angina, Heart Failure, COPD, Hyperlipidemia, Hypertension, Renal Disease Additional Past Medical History / Comment(s): UTERINE CANCER 1984, SEE [facility], History of Any Multi-Drug Resistant Organisms: None Reported Past Surgical History: AICD, Hysterectomy, Orthopedic Surgery, Tonsillectomy Additional Past Surgical History / Comment(s): RT KNEE ARTHROSCOPY, PARTIAL HYSTERECTOMY, [facility]. BI-V ICD, [facility]. Past Anesthesia/Blood Transfusion Reactions: No Reported Reaction Type of Cardiac Device: AICD Device Placement Date:: 10/28/15 Past Psychological History: No Psychological Hx Reported Smoking Status: Former smoker - Past Family History Mother Family Medical History: Cancer Additional Family Medical History / Comment(s): Mother is alive at 84 years old with no major medical problems. BREAST CA Father Family Medical History: Hypertension, Myocardial Infarction ([place]) Additional Family Medical History / Comment(s): [place] @ AGE 48 General Exam Limitations: no limitations General appearance: alert, in no apparent distress Head exam: Present: atraumatic, normocephalic Eye exam: Present: normal appearance, PERRL, EOMI ENT exam: Present: normal exam Neck exam: Present: normal inspection. Absent: tenderness, meningismus Respiratory exam: Present: respiratory distress, wheezes, decreased breath sounds, prolonged expiratory Cardiovascular Exam: Present: normal rhythm, tachycardia GI/Abdominal exam: Present: soft. Absent: distended, tenderness, guarding Extremities exam: Present: normal inspection, normal capillary refill. Absent: pedal edema, calf tenderness Back exam: Present: normal inspection Neurological exam: Present: alert, oriented X3, CN II-XII intact. Absent: motor sensory deficit Psychiatric exam: Present: normal affect, normal mood Skin exam: Present: warm, dry, intact. Absent: cyanosis, diaphoretic Course Vital Signs 01/24/18 01/24/18 01/24/18 07:03 07:14 07:15 Pulse Rate 106 H 104 H Respiratory 28 H 22 Rate Blood Pressure 140/84 O2 Sat by Pulse 90 L Oximetry 01/24/18 01/24/18 01/24/18 07:38 08:34 08:47 Pulse Rate 102 H 95 97 Respiratory 20 Rate Blood Pressure 125/102 O2 Sat by Pulse 93 L Oximetry 01/24/18 01/24/18 08:56 09:04 Pulse Rate 94 94 Respiratory 18 Rate Blood Pressure 131/73 O2 Sat by Pulse 96 Oximetry EKG Findings - EKG Comments: EKG Findings:: EKG: Atrial sensed, ventricular paced rhythm, biventricular pacing, rate of 101, NM interval 160, QRS duration 74, QTC 422, no definitive ischemic changes, no ST segment elevation. Medical Decision Making - Medical Decision Making 60-year-old female history of COPD and heart failure presenting for evaluation of worsening cough and dyspnea. On exam patient has minimal air entry with expiratory wheezing bilaterally. No peripheral edema. Chest x-ray obtained, negative for focal pneumonia, no pulmonary edema. Mild leukocytosis at 13, stable hemoglobin, creatinine 1.94 which is slightly above this patient's baseline. Troponin and BNP are negative. Patient will be admitted for COPD exacerbation with hypoxia, case discussed with admitting physician, pulmonology placed on consult. - Lab Data Result diagrams: 01/24/18 07:10 01/24/18 07:10 Lab Results 01/24/18 01/24/18 01/24/18 Range/Units 07:10 07:10 07:10 WBC 13.0 H (3.8-10.6) k/uL RBC 4.01 (3.80-5.40) m/uL Hgb 12.4 (11.4-16.0) gm/dL Hct 37.2 (34.0-46.0) % MCV 92.9 (80.0-100.0) fL MCH 31.0 (25.0-35.0) pg MCHC 33.4 (31.0-37.0) g/dL RDW 13.4 (11.5-15.5) % Plt Count 335 (150-450) k/uL Neutrophils % 79 % Lymphocytes % 13 % Monocytes % 5 % Eosinophils % 2 % Basophils % 0 % Neutrophils # 10.2 H (1.3-7.7) k/uL Lymphocytes # 1.7 (1.0-4.8) k/uL Monocytes # 0.7 (0-1.0) k/uL Eosinophils # 0.2 (0-0.7) k/uL Basophils # 0.0 (0-0.2) k/uL PT (9.0-12.0) sec INR (<1.2) APTT (22.0-30.0) sec Sodium 141 (137-145) mmol/L Potassium 5.1 (3.5-5.1) mmol/L Chloride 109 H (98-107) mmol/L Carbon Dioxide 21 L (22-30) mmol/L Anion Gap 11 mmol/L BUN 51 H (7-17) mg/dL Creatinine 1.94 H (0.52-1.04) mg/dL Est GFR (CKD-EPI)AfAm 31 (>60 ml/min/1.73 sqM) Est GFR (CKD-EPI)NonAf 27 (>60 ml/min/1.73 sqM) Glucose 104 H (74-99) mg/dL Plasma Lactic Acid Ari (0.7-2.0) mmol/L Calcium 10.2 (8.4-10.2) mg/dL Magnesium 2.0 (1.6-2.3) mg/dL Total Bilirubin 0.8 (0.2-1.3) mg/dL AST 18 (14-36) U/L ALT 17 (9-52) U/L Alkaline Phosphatase 119 (38-126) U/L Total Creatine Kinase 46 (30-135) U/L CK-MB (CK-2) 2.4 (0.0-2.4) ng/mL CK-MB (CK-2) Rel Index 5.2 Troponin I <0.012 (0.000-0.034) ng/mL NT-Pro-B Natriuret Pep pg/mL Total Protein 7.6 (6.3-8.2) g/dL Albumin 4.3 (3.5-5.0) g/dL 01/24/18 01/24/18 01/24/18 Range/Units 07:10 07:10 07:10 WBC (3.8-10.6) k/uL RBC (3.80-5.40) m/uL Hgb (11.4-16.0) gm/dL Hct (34.0-46.0) % MCV (80.0-100.0) fL MCH (25.0-35.0) pg MCHC (31.0-37.0) g/dL RDW (11.5-15.5) % Plt Count (150-450) k/uL Neutrophils % % Lymphocytes % % Monocytes % % Eosinophils % % Basophils % % Neutrophils # (1.3-7.7) k/uL Lymphocytes # (1.0-4.8) k/uL Monocytes # (0-1.0) k/uL Eosinophils # (0-0.7) k/uL Basophils # (0-0.2) k/uL PT 11.4 (9.0-12.0) sec INR 1.2 H (<1.2) APTT 22.5 (22.0-30.0) sec Sodium (137-145) mmol/L Potassium (3.5-5.1) mmol/L Chloride (98-107) mmol/L Carbon Dioxide (22-30) mmol/L Anion Gap mmol/L BUN (7-17) mg/dL Creatinine (0.52-1.04) mg/dL Est GFR (CKD-EPI)AfAm (>60 ml/min/1.73 sqM) Est GFR (CKD-EPI)NonAf (>60 ml/min/1.73 sqM) Glucose (74-99) mg/dL Plasma Lactic Acid Ari 1.0 (0.7-2.0) mmol/L Calcium (8.4-10.2) mg/dL Magnesium (1.6-2.3) mg/dL Total Bilirubin (0.2-1.3) mg/dL AST (14-36) U/L ALT (9-52) U/L Alkaline Phosphatase (38-126) U/L Total Creatine Kinase (30-135) U/L CK-MB (CK-2) (0.0-2.4) ng/mL CK-MB (CK-2) Rel Index Troponin I (0.000-0.034) ng/mL NT-Pro-B Natriuret Pep 307 pg/mL Total Protein (6.3-8.2) g/dL Albumin (3.5-5.0) g/dL Disposition Clinical Impression: Acute exacerbation of chronic obstructive airways disease Disposition: ADMITTED IP TO THIS HOSP Condition: Stable Is patient prescribed a controlled substance at d/c from ED?: No Referrals: Domenic Garza MD [Primary Care Provider] - 1-2 days Decision to Admit Reason: Admit from EC Decision Date: 01/24/18 Decision Time: 09:21
--- NOTE | 2018-01-24 08:15 | XR ---
EXAMINATION TYPE: XR chest 2V DATE OF EXAM: 01/24/2018 COMPARISON: 07/22/2017 HISTORY: Shortness of breath TECHNIQUE: Frontal and lateral views of the chest are obtained. FINDINGS: Scattered senescent parenchymal changes noted. Hyperinflation compatible with COPD. No evidence for infiltrate. No evidence for atelectasis. Heart size is stable. Mediastinal structures are stable and grossly unremarkable. No evidence for hilar prominence. Degenerative changes dorsal spine. IMPRESSION: 1. No evidence for acute pulmonary disease.
[2018-01-24 08:38] LABS: Basophils % (A) 0 %; Eosinophils # (A) 0.2 k/uL (0-0.7); Eosinophils % (A) 2 %; HCT 37.2 % (34.0-46.0); HGB 12.4 gm/dL (11.4-16.0); Lymphocytes # (A) 1.7 k/uL (1.0-4.8); Lymphocytes % (A) 13 %; MCHC 33.4 g/dL (31.0-37.0); MCV 92.9 fL (80.0-100.0); Mean Platelet Volume 6.8; Monocytes # (A) 0.7 k/uL (0-1.0); Monocytes % (A) 5 %; Neutrophils # (A) 10.2 k/uL (1.3-7.7); Neutrophils % (A) 79 %; Platelet Count 335 k/uL (150-450); RBC 4.01 m/uL (3.80-5.40); RDW 13.4 % (11.5-15.5)
[2018-01-24 08:44] LABS: INR 1.2 (<1.2); Partial Thromboplastin Time 22.5 sec (22.0-30.0); Prothrombin Time 11.4 sec (9.0-12.0)
[2018-01-24] MEDS: IPRATROPIUM-ALBUTEROL 3 ML NEB INHALATION STA ×2 (08:44→08:45)
[2018-01-24 08:50] LABS: Albumin 4.3 g/dL (3.5-5.0); Calcium 10.2 mg/dL (8.4-10.2); Potassium 5.1 mmol/L (3.5-5.1); Total Bilirubin 0.8 mg/dL (0.2-1.3); Total Protein 7.6 g/dL (6.3-8.2)
[2018-01-24 08:57] LABS: Creatine Kinase 46 U/L (30-135)
[2018-01-24 09:11] LABS: Creatine Kinase MB 2.4 ng/mL (0.0-2.4); Troponin I <0.012 ng/mL (0.000-0.034)
[2018-01-24] MEDS ORDERED: IPRATROPIUM-ALBUTEROL 3 ML NEB INHALATION PRN (09:17)
[2018-01-24] MEDS ORDERED: ALBUTEROL NEBULIZED 2.5 MG/3 ML INHALATION PRN (09:18)
[2018-01-24 10:14] VITALS: BMI 26.5
[2018-01-24] MEDS: methylPREDNISolone SOD SUCCI 125 MG/2 ML VIAL IV SCH ×3 (11:31→23:28)
[2018-01-24 11:53] LABS: Glucose,Whole Blood 128 mg/dL (75-99)
[2018-01-24] MEDS: INSULIN ASPART 100 UNIT/ML 1 ML 10 ML VIAL SQ SCH ×3 (11:54→20:24)
[2018-01-24] MEDS: IPRATROPIUM-ALBUTEROL 3 ML NEB INHALATION SCH ×3 (12:41→20:00)
--- NOTE | 2018-01-24 14:01 | P.CNPUL ---
History of Present Illness Consult date: 01/24/18 Reason for consult: dyspnea, cough, asthma, COPD Chief complaint: Increased cough congestion shortness of breath for over a day duration History of present illness: 62-year-old female who was seen eval reexamined on fourth floor, this patient has a history of end-stage lung 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 and chronic persistent asthma, patient also has a history of COPD as well, along with history of cardiomyopathy and congestive heart failure related to chronic systolic heart failure she is status post AICD, for the last 1-2 days she has not been feeling well with progressive increased symptoms this started with upper respiratory type infection gradually comes to appointment that she was extremely short of breath has dry nonproductive cough congested and chest had clear audible wheezing with those problem she presented into the emergency department was seen eval reexamined and admitted into the hospital, on specific questioning she denies any seizure-like to a loss of consciousness), denies any chest pain or radiation of pain except chest tightness, denies any bowel or bladder dysfunction, denies any neurological issues Review of Systems All systems: negative Past Medical History Past Medical History: Asthma, Cancer, Chest Pain / Angina, Heart Failure, COPD, Diabetes Mellitus, Hyperlipidemia, Hypertension, Pneumonia, Renal Disease Additional Past Medical History / Comment(s): Tracheobronchitis, asthmatic bronchitis, newly diagnosed diabetes-no diabetic education yet but is interested , uterine cancer with hysterectomy History of Any Multi-Drug Resistant Organisms: None Reported Past Surgical History: AICD, Hysterectomy, Orthopedic Surgery, Tonsillectomy Additional Past Surgical History / Comment(s): RT KNEE ARTHROSCOPY, PARTIAL HYSTERECTOMY, [facility]. BI-V ICD, [facility], COLONOSCOPY WITH BENING POLYPECTOMY. Past Anesthesia/Blood Transfusion Reactions: No Reported Reaction Type of Cardiac Device: AICD Device Placement Date:: 10/28/15 Past Psychological History: No Psychological Hx Reported Additional Psychological History / Comment(s): pt is independant,lives with spouse. has nebulizer. Smoking Status: Former smoker Past Alcohol Use History: None Reported Additional Past Alcohol Use History / Comment(s): PATIENT WAS A SMOKER OF /-1/ 2 PPD FOR 15 YEARS AND QUIT 2013 Past Drug Use History: None Reported - Past Family History Mother Family Medical History: Cancer Additional Family Medical History / Comment(s): Mother is alive at 89 years old with no major medical problems. BREAST CA Father Family Medical History: Hypertension, Myocardial Infarction ([place]) Additional Family Medical History / Comment(s): [place] @ AGE 48 Medications and Allergies Home Medications Medication Instructions Recorded Confirmed Type Atorvastatin [Lipitor] 20 mg PO HS 10/22/15 01/24/18 History Spironolactone [Aldactone] 25 mg PO DAILY 12/24/16 01/24/18 History Albuterol Inhaler [Ventolin Hfa 2 puff INHALATION RT-QID PRN 07/22/17 01/24/18 History Inhaler] Lisinopril [Zestril] 5 mg PO DAILY 07/22/17 01/24/18 History Montelukast [Singulair] 10 mg PO HS tab 07/26/17 01/24/18 Rx Aspirin EC [Ecotrin Low Dose] 81 mg PO DAILY 01/24/18 01/24/18 History Beclomethasone Dipropionate [Qvar 1 puff INHALATION RT-BID 01/24/18 01/24/18 History 40 mcg Redihaler] Carvedilol 25 mg PO BID 01/24/18 01/24/18 History Fluticasone/Umeclidin/Vilanter 1 puff INHALATION RT-DAILY 01/24/18 01/24/18 History [Trelegy Ellipta 100-62.5-25] Furosemide [Lasix] 40 mg PO DAILY 01/24/18 01/24/18 History glipiZIDE XL [Glucotrol XL] 2.5 mg PO AC-BID 01/24/18 01/24/18 History Allergies Allergy/AdvReac Type Severity Reaction Status Date / Time No Known Allergies Allergy Verified 01/24/18 07:57 Physical Exam Vitals: Vital Signs Pulse Resp BP Pulse Ox 01/24/18 12:53 88 01/24/18 12:41 84 01/24/18 09:04 94 18 131/73 96 01/24/18 08:56 94 01/24/18 08:47 97 01/24/18 08:34 95 20 125/102 93 L 01/24/18 07:38 102 H 01/24/18 07:15 104 H 01/24/18 07:14 22 01/24/18 07:03 106 H 28 H 140/84 90 L Intake and Output 01/23/18 01/24/18 01/24/18 22:59 06:59 14:59 Other: Weight 83.915 kg - Constitutional General appearance: average body habitus, cooperative, disheveled, mild distress - EENT Eyes: EOMI, PERRLA, poor dentition, normal appearance ENT: normal oropharynx Ears: bilateral: normal - Neck Carotids: bilateral: upstroke normal Thyroid: bilateral: normal size - Respiratory Respiratory: bilateral: diminished, rhonchi, wheezing, prolonged expiration, negative: dullness, rales - Cardiovascular Rhythm: regular Heart sounds: normal: S1, S2 - Integumentary Integumentary: normal turgor - Neurologic Neurologic: CNII-XII intact - Musculoskeletal Musculoskeletal: gait normal, generalized weakness, strength equal bilaterally - Psychiatric Psychiatric: A&O x's 3, appropriate affect, intact judgment & insight Results - Laboratory Findings CBC and BMP: 01/24/18 07:10 01/24/18 07:10 PT/INR, D-dimer PT 11.4 sec (9.0-12.0) 01/24/18 07:10 INR 1.2 (<1.2) H 01/24/18 07:10 Abnormal lab findings: Abnormal Labs 01/24/18 01/24/18 01/24/18 07:10 07:10 07:10 WBC 13.0 H Neutrophils # 10.2 H INR 1.2 H Chloride 109 H Carbon Dioxide 21 L BUN 51 H Creatinine 1.94 H Glucose 104 H POC Glucose (mg/dL) 01/24/18 11:41 WBC Neutrophils # INR Chloride Carbon Dioxide BUN Creatinine Glucose POC Glucose (mg/dL) 128 H - Diagnostic Findings Chest x-ray: report reviewed, image reviewed (No acute active pulmonary processes noted) Assessment and Plan Assessment: Acute COPD exacerbation Recent acute upper respiratory processes are possible influenza upper respiratory and/or or pneumonia cannot be excluded Chronic renal failure stage III Chronic systolic cardiomyopathy and heart failure is post AICD Hypertension hypertensive cardiovascular disease Plan: Bronchodilator IV steroids Continue home medications Gentle diuresis Evaluated for influenza a or B pneumonia we'll send nasopharyngeal swab and start patient on Tamiflu until results are available Time with Patient: Greater than 30
[2018-01-24] MEDS ORDERED: OSELTAMIVIR 75 MG CAP PO SCH (14:30)
[2018-01-24 17:00] LABS: Glucose,Whole Blood 234 mg/dL (75-99)
[2018-01-24] MEDS: CARVEDILOL 12.5 MG TAB PO SCH (17:56)
[2018-01-24 19:27] LABS: Hemoglobin A1C 5.9 % (4.0-6.0)
--- NOTE | 2018-01-24 20:22 | HP ---
HISTORY AND PHYSICAL CHIEF COMPLAINT: 62-year-old white female with COPD, cough, asthma, shortness of breath, failed outpatient treatment. She was very tight in the emergency room. She has a history of end-stage lung disease, chronic persistent asthma, history of COPD. Due to failed outpatient treatment was brought to the hospital. She has a history of systolic CHF, cardiomyopathy, AICD. Due to progressive worsening shortness of breath, she was brought to the hospital. REVIEW OF SYSTEMS: Fourteen point review of systems negative except for as mentioned in HPI. PAST MEDICAL HISTORY: Asthma, cancer, angina, heart failure, COPD, diabetes mellitus, dyslipidemia, hypertension, pneumonia, renal disease, asthmatic bronchitis, newly diagnosed diabetic. SURGICAL HISTORY: Carpal tunnel repair, hysterectomy, right knee arthroscopy, colonoscopy, AICD. SOCIAL HISTORY: Former smoker, quit 2013. FAMILY HISTORY: Mother with cancer. Father with myocardial infarction. MEDICATIONS: Lipitor, Aldactone, Ventolin HFA, Zestril, Singulair, Ecotrin, QVAR, carvedilol, Trilogy Ellipta, Lasix, Glucotrol XL. ALLERGIES: No known drug allergies. PHYSICAL EXAM: Pulse is 80s to 102, respiratory 18 to 24, blood pressure 125 to 140 over 70s to 102, O2 90 to 96. CARDIOVASCULAR: S1, S2. HEENT: Pupils equal, round, react to light and accommodation. NEUROLOGIC: Alert, oriented x3. PSYCH: Fair mood and affect. MUSCULOSKELETAL: Normal weakness. LUNGS: The lungs are tight, decreased breath sounds x4. LABORATORY DATA: White count 13. BUN 51, creatinine 1.94. ASSESSMENT: 1. Chronic obstructive pulmonary disease exacerbation, tracheobronchitis, rule out influenza or pneumonia. 2. Chronic renal disease stage III. 3. Chronic systolic cardiomyopathy, heart failure, hypertensive cardiovascular disease. Continue with IV steroids, IV antibiotics, updraft treatments, general diuresis, rule out pneumonia. Please see further orders. MMODL / IJN: [id number] /
[2018-01-24] MEDS: ATORVASTATIN 20 MG TAB PO SCH (20:24)
[2018-01-24] MEDS: MONTELUKAST 10 MG TAB PO SCH (20:24)
[2018-01-24 20:29] LABS: Glucose,Whole Blood 274 mg/dL (75-99)
[2018-01-25] MEDS: methylPREDNISolone SOD SUCCI 125 MG/2 ML VIAL IV SCH ×3 (05:03→19:01)
[2018-01-25 07:09] LABS: Basophils % (A) 0 %; Eosinophils # (A) 0.1 k/uL (0-0.7); Eosinophils % (A) 1 %; HCT 34.6 % (34.0-46.0); HGB 11.1 gm/dL (11.4-16.0); Lymphocytes # (A) 0.7 k/uL (1.0-4.8); Lymphocytes % (A) 6 %; MCH 30.3 pg (25.0-35.0); MCHC 32.2 g/dL (31.0-37.0); MCV 94.1 fL (80.0-100.0); Monocytes # (A) 0.2 k/uL (0-1.0); Monocytes % (A) 2 %; Neutrophils # (A) 11.4 k/uL (1.3-7.7); Neutrophils % (A) 92 %; Platelet Count 301 k/uL (150-450); RBC 3.68 m/uL (3.80-5.40); RDW 13.6 % (11.5-15.5); WBC 12.4 k/uL (3.8-10.6)
[2018-01-25 07:12] LABS: Glucose,Whole Blood 156 mg/dL (75-99)
[2018-01-25 07:18] LABS: Albumin 3.9 g/dL (3.5-5.0); Calcium 9.9 mg/dL (8.4-10.2); Total Bilirubin 0.6 mg/dL (0.2-1.3)
[2018-01-25] MEDS: IPRATROPIUM-ALBUTEROL 3 ML NEB INHALATION SCH ×4 (08:05→19:28)
[2018-01-25] MEDS: INSULIN ASPART 100 UNIT/ML 1 ML 10 ML VIAL SQ SCH ×4 (08:16→21:21)
[2018-01-25] MEDS: ASPIRIN 81 MG PO SCH (08:17)
[2018-01-25] MEDS: FUROSEMIDE 40 MG TAB PO SCH (08:17)
[2018-01-25] MEDS: CARVEDILOL 12.5 MG TAB PO SCH ×2 (08:18→18:13)
[2018-01-25] MEDS: AZITHROMYCIN 500 MG TAB PO SCH (08:18)
[2018-01-25] MEDS: SPIRONOLACTONE 25 MG TAB PO SCH (10:31)
[2018-01-25] MEDS: LISINOPRIL 5 MG TAB PO SCH (10:31)
--- NOTE | 2018-01-25 11:37 | P.PN ---
Subjective Progress Note Date: 01/25/18 Interval history: 01/25/2018patient is being seen examined and evaluated while covering for Dr. Valente. She is resting up in bed on 2 L of supplemental oxygen via nasal cannula. She continues to have shortness of breath cough congestion and wheeze. She is been unable to bring up any sputum at this time. Her influenza swab was negative. Her chest x-ray was reviewed and showed no acute process. She does believe the steroids and breathing treatments are helping her. She does have some complaints of right lower extremity cellulitis and would like to see infectious disease in that regard. Consult has been initiated. She is afebrile , all labs and reports have been reviewed. Objective - Vital Signs Vital signs: Vital Signs Temp 97.6 F 01/25/18 07:07 Pulse 88 01/25/18 08:21 Resp 15 01/25/18 07:07 BP 105/84 01/25/18 08:15 Pulse Ox 91 L 01/25/18 07:07 Intake & Output 01/24/18 01/25/18 01/25/18 18:59 06:59 18:59 Intake Total 724 580 Balance 724 580 Weight 83.915 kg Intake: Oral 724 580 Other: # Voids 1 - Exam GENERAL EXAM: Alert, comfortable in no apparent distress. HEAD: Normocephalic. EYES: Normal reaction of pupils, equal size. NOSE: Clear with pink turbinates. THROAT: No erythema or exudates. NECK: No masses, no JVD. CHEST: No chest wall deformity. LUNGS: Lungs noted to be coarse with rhonchi and expiratory wheezing CVS: S1 and S2 normal with no audible mumurs, regular rhythm. ABDOMEN: No hepatosplenomegaly, normal bowel sounds, no guarding or rigidity. EXTREMITIES: No edema noted, pedal pulses palpable. SKIN: Right lower extremity cellulitis CENTRAL NERVOUS SYSTEM: No focal deficits, tone is normal in all 4 extremities. - Labs CBC & Chem 7: 01/25/18 06:30 01/25/18 06:30 Labs: Abnormal Lab Results - Last 24 Hours (Table) 01/24/18 01/24/18 01/24/18 Range/Units 11:41 16:49 20:18 WBC (3.8-10.6) k/uL RBC (3.80-5.40) m/uL Hgb (11.4-16.0) gm/dL Neutrophils # (1.3-7.7) k/uL Lymphocytes # (1.0-4.8) k/uL Chloride (98-107) mmol/L Carbon Dioxide (22-30) mmol/L BUN (7-17) mg/dL Creatinine (0.52-1.04) mg/dL Glucose (74-99) mg/dL POC Glucose (mg/dL) 128 H 234 H 274 H (75-99) mg/dL 01/25/18 01/25/18 01/25/18 Range/Units 06:30 06:30 06:56 WBC 12.4 H (3.8-10.6) k/uL RBC 3.68 L (3.80-5.40) m/uL Hgb 11.1 L (11.4-16.0) gm/dL Neutrophils # 11.4 H (1.3-7.7) k/uL Lymphocytes # 0.7 L (1.0-4.8) k/uL Chloride 111 H (98-107) mmol/L Carbon Dioxide 21 L (22-30) mmol/L BUN 55 H (7-17) mg/dL Creatinine 1.64 H (0.52-1.04) mg/dL Glucose 146 H (74-99) mg/dL POC Glucose (mg/dL) 156 H (75-99) mg/dL Microbiology - Last 24 Hours (Table) 01/24/18 07:10 Blood Culture - Preliminary Blood No Growth after 24 hours Assessment and Plan Assessment: Assessment: Acute COPD exacerbation Recent acute upper respiratory processes are possible influenza upper respiratory and/or or pneumonia cannot be excluded Chronic renal failure stage III Chronic systolic cardiomyopathy and heart failure is post AICD Hypertension hypertensive cardiovascular disease Plan: Bronchodilator, inhaled steroids IV steroids, antibiotics, Obtain sputum culture Continue home medications Gentle diuresis Pulmonary hygiene and supportive care Initiate incentive spirometer Supplemental oxygen to maintain oxygen saturations greater than 92% Consult ID for possible cellulitis GI and DVT prophylaxis We will continue to monitor labs/results and adjust treatment as necessary Please note we are covering for Dr. Ambrosio Li, the signing physician performed an examination of the patient, discussed and directed their management with the nurse practitioner. I have reviewed the nurse practitioner's note and agree with the documented findings, orders and plan of care.
[2018-01-25] MEDS: HEPARIN SODIUM,PORCINE 5,000 UNIT/ML 1 ML VIAL SQ SCH ×3 (12:17→23:22)
[2018-01-25 12:18] LABS: Glucose,Whole Blood 204 mg/dL (75-99)
[2018-01-25] MEDS: guaiFENesin 600 MG TABLET.ER PO SCH ×2 (12:18→21:20)
[2018-01-25 17:29] LABS: Glucose,Whole Blood 176 mg/dL (75-99)
[2018-01-25] MEDS: BUDESONIDE 0.5 MG/2 ML NEBU INHALATION SCH (19:27)
[2018-01-25 20:08] LABS: Glucose,Whole Blood 338 mg/dL (75-99)
[2018-01-25] MEDS: ATORVASTATIN 20 MG TAB PO SCH (21:20)
[2018-01-25] MEDS: MONTELUKAST 10 MG TAB PO SCH (21:20)
[2018-01-25] MEDS ORDERED: MINERAL OIL-WHITE PETROLATUM 120 GM JAR TOPICAL PRN (22:22)
--- NOTE | 2018-01-25 23:15 | PN ---
PROGRESS NOTE SUBJECTIVE: 62-year-old white female with COPD exacerbation, asthma exacerbation, greatly improving with steroids, updraft treatments, IV antibiotics, left lungs show scattered wheeze, mild rhonchi. Hematology negative Homans. Cardiovascular S1, S2. GI soft. ASSESSMENT: 1. Chronic obstructive pulmonary disease exacerbation. 2. Asthma exacerbation. 3. Tracheobronchitis. , steroids, IV steroids, updraft treatments, antibiotics. Please see further list. Possible discharge in the next 24 to 48 hours. MMODL / IJN: [id number] /
[2018-01-25] MEDS: predniSONE 20 MG TAB PO SCH (23:22)
[2018-01-26] MEDS ORDERED: ceFAZolin IN SWFI 2 GM/20 ML SYRINGE IVP SCH
--- NOTE | 2018-01-26 00:15 | CONS ---
CONSULTATION DATE OF SERVICE: 01/25/2018. REASON FOR FOLLOWUP: 1. Possible right leg cellulitis. 2. Severe tracheobronchitis. INTERVAL HISTORY: The patient is a 62-year-old female presenting to the ER at [facility] yesterday morning with chief complaints of increasing shortness of breath and cough. The symptoms have been going on for a day prior to the patient presenting to the hospital, mainly with increasing shortness of breath which is mild to moderate in intensity. He did have associated cough, but not bringing up any sputum. Denies having any hemoptysis. No chest pain. No URI symptoms. No nausea or vomiting. No abdominal pain. No diarrhea. With these symptoms, the patient has been evaluated by the ER physician on arrival to the ER. The patient has been afebrile. White count slightly elevated at 13,000. The patient did have a chest x-ray that was reported as negative for any acute infiltrate. The patient apparently did have dry scaly skin to the right leg where the patient has been complaining of itching and has been scratching it. With concern for possible cellulitis, I was asked to see the patient for further investigation regarding local care and possible antibiotic therapy. REVIEW OF SYSTEMS: CONSTITUTIONAL: Positive for weakness. No high-grade fever. EYES: No complaints. ENT: No complaints. RESPIRATORY: As per HPI. CARDIOVASCULAR: No complaint. GENITOURINARY: No complaint. GASTROINTESTINAL: No complaint. MUSCULOSKELETAL: No complaint. PSYCHOLOGICAL: No complaint. ENDOCRINE: No complaint. NEUROLOGIC: No complaint. PAST MEDICAL HISTORY: Significant for asthma, COPD, diabetes mellitus, angina, heart failure, hypertension, hyperlipidemia, renal insufficiency. PAST SURGICAL HISTORY: Left knee arthroscopy, partial hysterectomy, bilateral cataract surgery, colonoscopy with polypectomy, AICD placement. SOCIAL HISTORY: Remote history of smoking, quit back in 2013. Denies any drug or drug use. FAMILY HISTORY: Mother with history of breast cancer. Father history of LA and hypertension, at age of 48. ALLERGIES: No known drug allergies. MEDICATIONS: Currently include the patient is on: 1. Ventolin. 2. DuoNeb. 3. Aspirin. 4. Lipitor. 5. Zithromax. 6. Pulmicort. 7. Coreg. 8. Pepcid. 9. Lasix. 10.Glucotrol. 11.Mucinex. 12.Heparin. 13.NovoLog. 14.Zestril. 15.Singulair. 16.Prednisone. 17.Aldactone. EXAMINATION: Blood pressure 98/64 with a pulse of 80, temperature 97.7, he is 94% on 2 L nasal cannula. GENERAL DESCRIPTION: An middle-aged female up in the bed in no distress. No tachypnea or accessory muscle of respiration use. HEENT: Shows no pallor or scleral icterus. Oral mucosa is dry. No pharyngeal erythema. NECK: Trachea central. No thyromegaly. LUNGS: Unlabored breathing with decreased intensive breath. Occasional wheeze. HEART: S1, S2. Regular rate. EXTREMITIES: Right leg some dry scaly skin with some scratch giordano. No definite cellulitis. No skin breakdown. No significant . NEUROLOGIC: The patient is awake, alert, oriented. Mood and affect normal. LAB: Hemoglobin 11.1, white count 5.4, BUN of 55, creatinine 1.64. Influenza A and B PCR has been negative. Chest report negative for pneumonia. DIAGNOSTIC IMPRESSION: 1. The patient presented to the hospital with increasing shortness of breath, dry cough, more likely tracheobronchitis with secondary COPD/asthma exacerbation. Clinical suspicion is low for pneumonia. The patient is currently not running a fever. Did not have significant improvement in sputum production. 2. The patient has right leg dry scaly skin with scratch giordano from itching. Clinical suspicion is low for underlying cellulitis. PLAN: 1. We will apply Eucerin cream to the right leg twice a day for the dry scaly skin. 2. No need for any systemic antibiotic therapy, especially for the right leg. 3. As for tracheobronchitis and chronic obstructive pulmonary disease exacerbation, the he patient is currently on Zithromax which is to continue along with a bronch pulmonary. We will try to obtain sputum. 4. We will follow up on clinical condition to further adjust medication if needed. Thank you for this consultation. Will follow this patient along with you. MMODL / IJN: [id number] /
[2018-01-26 07:17] LABS: Glucose,Whole Blood 136 mg/dL (75-99)
[2018-01-26 07:38] LABS: Basophils % (A) 0 %; Eosinophils # (A) 0.2 k/uL (0-0.7); Eosinophils % (A) 1 %; HCT 33.3 % (34.0-46.0); HGB 11.2 gm/dL (11.4-16.0); Lymphocytes # (A) 0.7 k/uL (1.0-4.8); Lymphocytes % (A) 5 %; MCH 31.8 pg (25.0-35.0); MCHC 33.6 g/dL (31.0-37.0); MCV 94.7 fL (80.0-100.0); Monocytes # (A) 0.3 k/uL (0-1.0); Monocytes % (A) 2 %; Neutrophils # (A) 13.7 k/uL (1.3-7.7); Neutrophils % (A) 92 %; Platelet Count 309 k/uL (150-450); RBC 3.52 m/uL (3.80-5.40); RDW 13.3 % (11.5-15.5); WBC 14.9 k/uL (3.8-10.6)
[2018-01-26 07:52] LABS: Albumin 3.9 g/dL (3.5-5.0); Total Bilirubin 0.4 mg/dL (0.2-1.3); Total Protein 6.8 g/dL (6.3-8.2)
[2018-01-26] MEDS: CARVEDILOL 12.5 MG TAB PO SCH ×2 (07:56→17:47)
[2018-01-26] MEDS: INSULIN ASPART 100 UNIT/ML 1 ML 10 ML VIAL SQ SCH ×4 (07:56→20:40)
[2018-01-26] MEDS: IPRATROPIUM-ALBUTEROL 3 ML NEB INHALATION SCH ×4 (08:46→21:43)
[2018-01-26] MEDS: BUDESONIDE 0.5 MG/2 ML NEBU INHALATION SCH ×2 (08:46→21:43)
[2018-01-26] MEDS: FAMOTIDINE 20 MG TAB PO SCH (09:22)
[2018-01-26] MEDS: AZITHROMYCIN 500 MG TAB PO SCH (09:23)
[2018-01-26] MEDS: predniSONE 20 MG TAB PO SCH (09:23)
[2018-01-26] MEDS: FUROSEMIDE 40 MG TAB PO SCH (09:24)
[2018-01-26] MEDS: guaiFENesin 600 MG TABLET.ER PO SCH ×2 (09:24→20:40)
[2018-01-26] MEDS: ASPIRIN 81 MG PO SCH (09:24)
[2018-01-26] MEDS: HEPARIN SODIUM,PORCINE 5,000 UNIT/ML 1 ML VIAL SQ SCH ×2 (09:26→16:22)
[2018-01-26] MEDS: SPIRONOLACTONE 25 MG TAB PO SCH (09:29)
[2018-01-26] MEDS: LISINOPRIL 5 MG TAB PO SCH (09:29)
--- NOTE | 2018-01-26 11:16 | P.PN ---
Subjective Progress Note Date: 01/26/18 Interval history: 01/25/2018patient is being seen examined and evaluated while covering for Dr. Valente. She is resting up in bed on 2 L of supplemental oxygen via nasal cannula. She continues to have shortness of breath cough congestion and wheeze. She is been unable to bring up any sputum at this time. Her influenza swab was negative. Her chest x-ray was reviewed and showed no acute process. She does believe the steroids and breathing treatments are helping her. She does have some complaints of right lower extremity cellulitis and would like to see infectious disease in that regard. Consult has been initiated. She is afebrile , all labs and reports have been reviewed. 01/26/2018patient is being seen examined and evaluated today we'll covering for Dr. Valente. She is resting up in bed on 2 L of supplemental oxygen via nasal cannula. She feels her breathing is improved today. She still has a congested cough however is unable to bring up secretions at this time. She was started on Mucinex yesterday she does feel like the congestion is starting to get a little more looser. She does have a sputum cup at bedside to use if she is able to bring anything up. She states the breathing treatments are helping her. All labs and reports have been reviewed. Objective - Vital Signs Vital signs: Vital Signs Temp 97.7 F 01/26/18 07:10 Pulse 88 01/26/18 09:08 Resp 20 01/26/18 07:10 BP 101/57 01/26/18 07:10 Pulse Ox 90 L 01/26/18 07:10 Intake & Output 01/25/18 01/26/18 01/26/18 18:59 06:59 18:59 Intake Total 300 Balance 300 Intake: Oral 300 Other: Voiding Method Toilet # Voids 3 1 - Exam GENERAL EXAM: Alert, comfortable in no apparent distress. HEAD: Normocephalic. EYES: Normal reaction of pupils, equal size. NOSE: Clear with pink turbinates. THROAT: No erythema or exudates. NECK: No masses, no JVD. CHEST: No chest wall deformity. LUNGS: Lungs noted to be coarse with less rhonchi and expiratory wheezing, overall slowly improving CVS: S1 and S2 normal with no audible mumurs, regular rhythm. ABDOMEN: No hepatosplenomegaly, normal bowel sounds, no guarding or rigidity. EXTREMITIES: No edema noted, pedal pulses palpable. SKIN: Right lower extremity dryness, flakiness, redness, cellulitis ruled out by infectious disease CENTRAL NERVOUS SYSTEM: No focal deficits, tone is normal in all 4 extremities. - Labs CBC & Chem 7: 01/26/18 07:08 01/26/18 07:08 Labs: Abnormal Lab Results - Last 24 Hours (Table) 01/25/18 01/25/18 01/25/18 Range/Units 11:48 16:55 19:56 WBC (3.8-10.6) k/uL RBC (3.80-5.40) m/uL Hgb (11.4-16.0) gm/dL Hct (34.0-46.0) % Neutrophils # (1.3-7.7) k/uL Lymphocytes # (1.0-4.8) k/uL Chloride (98-107) mmol/L BUN (7-17) mg/dL Creatinine (0.52-1.04) mg/dL Glucose (74-99) mg/dL POC Glucose (mg/dL) 204 H 176 H 338 H (75-99) mg/dL 01/26/18 01/26/18 01/26/18 Range/Units 06:59 07:08 07:08 WBC 14.9 H (3.8-10.6) k/uL RBC 3.52 L (3.80-5.40) m/uL Hgb 11.2 L (11.4-16.0) gm/dL Hct 33.3 L (34.0-46.0) % Neutrophils # 13.7 H (1.3-7.7) k/uL Lymphocytes # 0.7 L (1.0-4.8) k/uL Chloride 111 H (98-107) mmol/L BUN 62 H (7-17) mg/dL Creatinine 1.82 H (0.52-1.04) mg/dL Glucose 128 H (74-99) mg/dL POC Glucose (mg/dL) 136 H (75-99) mg/dL Microbiology - Last 24 Hours (Table) 01/24/18 07:10 Blood Culture - Preliminary Blood No Growth after 48 hours Assessment and Plan Assessment: Assessment: Acute COPD exacerbation Recent acute upper respiratory processes are possible influenza upper respiratory and/or or pneumonia cannot be excluded Chronic renal failure stage III Chronic systolic cardiomyopathy and heart failure is post AICD Hypertension hypertensive cardiovascular disease Plan: Bronchodilator, inhaled steroids Steroids have been transitioned to oral, continue with antibiotics Eucerin cream to right lower extremity per ID Obtain sputum culture Continue home medications Gentle diuresis Pulmonary hygiene and supportive care Initiate incentive spirometer Supplemental oxygen to maintain oxygen saturations greater than 92% GI and DVT prophylaxis We will continue to monitor labs/results and adjust treatment as necessary Please note we are covering for Dr. Ambrosio Li, the signing physician performed an examination of the patient, discussed and directed their management with the nurse practitioner. I have reviewed the nurse practitioner's note and agree with the documented findings, orders and plan of care.
[2018-01-26 12:07] LABS: Glucose,Whole Blood 221 mg/dL (75-99)
[2018-01-26 17:01] LABS: Glucose,Whole Blood 134 mg/dL (75-99)
[2018-01-26 20:02] LABS: Glucose,Whole Blood 206 mg/dL (75-99)
[2018-01-26] MEDS: MONTELUKAST 10 MG TAB PO SCH (20:40)
[2018-01-26] MEDS: ATORVASTATIN 20 MG TAB PO SCH (20:40)
[2018-01-27] MEDS: HEPARIN SODIUM,PORCINE 5,000 UNIT/ML 1 ML VIAL SQ SCH ×4 (01:18→23:40)
--- NOTE | 2018-01-27 05:30 | PN ---
PROGRESS NOTE DATE OF SERVICE: 01/26/2018 REASON FOR FOLLOWUP VISIT: 1. Skin lesion on the leg and question of cellulitis. 2. Tracheobronchitis. INTERVAL HISTORY: The patient is afebrile. She is more awake and alert. Breathing more comfortably. She continued to have coughing, bringing up some sputum. No hemoptysis. No chest pain. She denies having any pain to the leg area, which is mostly irritated. PHYSICAL EXAMINATION: On examination, blood pressure 103/70 with a pulse of 72, temperature 97.6. She is 94% on 2 L nasal cannula. General description is middle-aged female up in the bed in no distress. RESPIRATORY SYSTEM: Unlabored breathing, decreased intensive breath. No wheeze. HEART: S1, S2. Regular rate and rhythm. ABDOMEN: Soft. No tenderness. LEGS: With dry scaly skin. No evidence of cellulitis. Has some scratch giordano. LABS: Hemoglobin is 11.2, white count 14.9, BUN of 62, creatinine is 1.82. Blood culture has been negative. DIAGNOSTIC IMPRESSION AND PLAN: 1. Patient presented to the hospital with difficulty breath which is more likely chronic obstructive pulmonary disease exacerbation with tracheobronchitis clinical suspicion for pneumonia currently on Zithromax, steroids and .. 2. Elevated white count more likely steroid effect. 3. The patient with dry scaly skin to the legs. No evidence of any cellulitis. Local care to continue with Eucerin cream. No need for any systemic antibiotic therapy for the same. MMODL / IJN: [id number] /
--- NOTE | 2018-01-27 06:03 | PN ---
PROGRESS NOTE SUBJECTIVE: This is a 62-year-old white female with COPD exacerbation, asthma, tracheobronchitis, started on azithromycin. The steroids have been weaned to oral. She will probably be discharged home in the morning. She is greatly improved. CARDIOVASCULAR: S1, S2. LUNGS: Scattered wheeze x4. HEMATOLOGY: Negative Homans. PSYCH: Fair mood and affect. ASSESSMENT: 1. Chronic obstructive pulmonary disease asthma exacerbation. 2. Tracheobronchitis. 3. Acute hypoxemic respiratory failure. Continue with prednisone taper, oral antibiotics. Accu-Chek protocol. Possible discharge home in the morning. MMODL / IJN: [id number] /
[2018-01-27 07:13] LABS: Basophils % (A) 0 %; Eosinophils # (A) 0.1 k/uL (0-0.7); Eosinophils % (A) 1 %; HGB 10.7 gm/dL (11.4-16.0); Lymphocytes # (A) 1.4 k/uL (1.0-4.8); Lymphocytes % (A) 10 %; MCH 30.9 pg (25.0-35.0); MCHC 32.3 g/dL (31.0-37.0); MCV 95.4 fL (80.0-100.0); Mean Platelet Volume 7.3; Monocytes # (A) 0.6 k/uL (0-1.0); Monocytes % (A) 5 %; Neutrophils # (A) 11.3 k/uL (1.3-7.7); Neutrophils % (A) 83 %; Platelet Count 293 k/uL (150-450); RBC 3.46 m/uL (3.80-5.40); RDW 13.5 % (11.5-15.5); WBC 13.6 k/uL (3.8-10.6)
[2018-01-27 07:23] LABS: Glucose,Whole Blood 101 mg/dL (75-99)
[2018-01-27 07:26] LABS: Albumin 3.4 g/dL (3.5-5.0); Calcium 9.6 mg/dL (8.4-10.2); Potassium 4.6 mmol/L (3.5-5.1); Total Bilirubin 0.5 mg/dL (0.2-1.3); Total Protein 6.3 g/dL (6.3-8.2)
[2018-01-27] MEDS: IPRATROPIUM-ALBUTEROL 3 ML NEB INHALATION SCH ×4 (09:06→21:31)
[2018-01-27] MEDS: BUDESONIDE 0.5 MG/2 ML NEBU INHALATION SCH ×2 (09:07→21:31)
[2018-01-27] MEDS: INSULIN ASPART 100 UNIT/ML 1 ML 10 ML VIAL SQ SCH ×4 (10:18→20:57)
[2018-01-27] MEDS: predniSONE 20 MG TAB PO SCH (10:27)
[2018-01-27] MEDS: SPIRONOLACTONE 25 MG TAB PO SCH (10:27)
[2018-01-27] MEDS: ASPIRIN 81 MG PO SCH (10:28)
[2018-01-27] MEDS: FUROSEMIDE 40 MG TAB PO SCH (10:28)
[2018-01-27] MEDS: FAMOTIDINE 20 MG TAB PO SCH (10:29)
[2018-01-27] MEDS: AZITHROMYCIN 500 MG TAB PO SCH (10:29)
[2018-01-27] MEDS: guaiFENesin 600 MG TABLET.ER PO SCH ×2 (10:29→20:57)
[2018-01-27 10:44] LABS: Magnesium 2.4 mg/dL (1.6-2.3)
[2018-01-27] MEDS: CARVEDILOL 12.5 MG TAB PO SCH ×2 (10:45→17:35)
[2018-01-27] MEDS: LISINOPRIL 5 MG TAB PO SCH (10:45)
--- NOTE | 2018-01-27 11:25 | ECHOF ---
Referral Reason:hx cardiomyopathy MEASUREMENTS -------- HEIGHT: 177.8 cm WEIGHT: 83.9 kg BP: 101/68 RVIDd: 3.0 cm (< 3.3) IVSd: 0.8 cm (0.6 - 1.1) LVIDd: 4.0 cm (3.9 - 5.3) LVPWd: 1.1 cm (0.6 - 1.1) IVSs: 1.5 cm LVIDs: 2.2 cm LVPWs: 1.3 cm LA Diam: 2.7 cm (2.7 - 3.8) LAESV Index (A-L): 11.02 ml/m Ao Diam: 3.0 cm (2.0 - 3.7) AV Cusp: 1.7 cm (1.5 - 2.6) MV EXCURSION: 18.872 mm (> 18.000) MV EF SLOPE: 125 mm/s (70 - 150) EPSS: 0.6 cm MV E Sriram: 0.84 m/s MV DecT: 314 ms MV A Sriram: 0.93 m/s MV E/A Ratio: 0.91 RAP: 5.00 mmHg RVSP: 43.12 mmHg FINDINGS -------- Sinus rhythm. This was a technically difficult study with suboptimal parasternal views. The left ventricular size is normal. There is borderline concentric left ventricular hypertrophy. Overall left ventricular systolic function is normal with, an EF between 60 - 65 %. The right ventricle is normal in size. Normal LA size by volume 22+/-6 ml/m2. The right atrium is normal in size. Lumason used The aortic valve is trileaflet and appears structurally normal. Mild mitral annular calcification present. Mild mitral regurgitation is present. Mild tricuspid regurgitation present. There is mild pulmonary hypertension. The right ventricular systolic pressure, as measured by Doppler, is 43.12mmHg. The pulmonic valve was not well visualized. The aortic root size is normal. Normal inferior vena cava with normal inspiratory collapse consistent with estimated right atrial pre ssure of 5 mmHg. There is no pericardial effusion. CONCLUSIONS -------- 1. Sinus rhythm. 2. This was a technically difficult study with suboptimal parasternal views. 3. The left ventricular size is normal. 4. There is borderline concentric left ventricular hypertrophy. 5. Overall left ventricular systolic function is normal with, an EF between 60 - 65 %. 6. The right ventricle is normal in size. 7. Normal LA size by volume 22+/-6 ml/m2. 8. The right atrium is normal in size. 9. Lumason used 10. The aortic valve is trileaflet and appears structurally normal. 11. Mild mitral annular calcification present. 12. Mild mitral regurgitation is present. 13. Mild tricuspid regurgitation present. 14. There is mild pulmonary hypertension. 15. The right ventricular systolic pressure, as measured by Doppler, is 43.12mmHg. 16. The pulmonic valve was not well visualized. 17. The aortic root size is normal. 18. Normal inferior vena cava with normal inspiratory collapse consistent with estimated right atrial pressure of 5 mmHg. 19. There is no pericardial effusion. UNIVERSITY LECTURER: Daniella St RDCS
[2018-01-27 11:48] LABS: T4, Free (Free Thyroxine) 1.46 ng/dL (0.78-2.19)
[2018-01-27 12:09] LABS: Glucose,Whole Blood 79 mg/dL (75-99)
--- NOTE | 2018-01-27 13:23 | P.CRDCN ---
History of Present Illness History of present illness: This is a pleasant 62-year-old female past medical history significant for nonischemic cardiomyopathy, COPD, AICD in place, hypertension, mild nonobstructive CAD per cath in 2013, dyslipidemia, diabetes mellitus and history of systolic heart failure in the past. She follows with Dr. Cristina in the office. We've been asked to see her in consultation secondary to an arrhythmia. Telemetry tracings been reviewed and there is no strips to indicate any sort of an arrhythmia. She is seen and examined sitting up comfortably in the chair. She states she initially presented to the hospital with increased shortness of breath and has been diagnosed with an acute exacerbation of COPD as well as pneumonia. She is currently receiving oral steroids and antibiotics as well as breathing treatments. She states her symptoms have greatly improved since admission. She denies ever having had symptoms of chest discomfort, palpitations or dizziness. She also denies PND or orthopnea. She has had different episodes of hypotension since admission and most cardiac medications have been held. EKG reveals atrial sensed ventricular paced rhythm. Chest x-ray on admission negative for an acute cardiopulmonary process. Laboratory data reviewed, WBC 13.6, hemoglobin 10.7, platelets 293, sodium 141, potassium 4.6, creatinine 1.78, magnesium 2.4, TSH less than 0.015, free T4 1 0.46. Current cardiac medications include atorvastatin 20 mg daily, carvedilol 25 mg twice a day, Lasix 40 mg daily, lisinopril 5 mg daily and Aldactone 25 mg daily. Echocardiogram obtained reveals preserved left ventricular systolic function with ejection fraction 60-65%, mild MR, mild TR and mild pulmonary hypertension with an RVSP of 43.12 mmHg. At the time of my exam: CONSTITUTIONAL: Denies fever. Denies chills. EYES: Denies blurred vision. Denies vision changes. Denies eye pain. EARS, NOSE, MOUTH & THROAT: Denies headache. Denies sore throat. Denies ear pain. CARDIOVASCULAR: Denies chest pain. Denies shortness of breath. Denies orthopnea. Denies PND. Denies palpitations. RESPIRATORY: Denies cough. GASTROINTESTINAL: Denies abdominal pain. Denies diarrhea. Denies constipation. Denies nausea. Denies vomiting. MUSCULOSKELETAL: Denies myalgias. INTEGUMENTARY: Denies pruitis. Denies rash. NEUROLOGIC: Denies numbness. Denies tingling. Denies weakness. PSYCHIATRIC: Denies anxiety. Denies depression. ENDOCRINE: Denies fatigue. Denies weight change. Denies polydipsia. Denies polyurina. GENITOURINARY: Denies burning, hematuria or urgency with micturation. HEMATOLOGIC: Denies history of anemia. Denies bleeding. Blood pressure 101/68 heart rate 98 afebrile maintaining oxygen saturation on nasal cannula GENERAL: This is a 62-year-old female in no apparent distress at the time of my examination. HEENT: Head is atraumatic, normocephalic. Pupils are equal, round. Sclerae anicteric. Conjunctivae are clear. Mucous membranes of the mouth are moist. Neck is supple. There is no jugular venous distention. No carotid bruit is heard. LUNGS: Inspiratory and expiratory wheezes heard throughout, rhonchi noted worse on the right, no rales. No chest wall tenderness is noted on palpation or with deep breathing. HEART: Regular rate and rhythm without murmurs, rubs or gallops. S1 and S2 heard. ABDOMEN: Soft, nontender. Bowel sounds are heard. No organomegaly noted. EXTREMITIES: No evidence of peripheral edema and no calf tenderness noted. VASCULAR: Radial and dorsalis pedis pulses palpated, no evidence of clubbing. NEUROLOGIC: Patient is awake, alert and oriented x3. ASSESSMENT Acute COPD exacerbation Chronic systolic heart failure, currently euvolemic. Most recent ejection fraction shows an improvement 60-65%. Prior to AICD placement EF was 25-30%. Nonischemic cardiomyopathy Hypertension Dyslipidemia Diabetes mellitus PLAN Magnesium, TSH, free T3 and 2-D echocardiogram have been ordered and reviewed. Primary care team to manage thyroid dysfunction. Decrease carvedilol to 12.5 mg twice a day lisinopril to 2.5 mg daily for instances of hypotension. Follow up with Dr. Cristina upon discharge, patient states she has an appointment rescheduled for the first week in February. That is appropriate for her to keep. Thank you kindly for this consultation. Nurse Practitioner note has been reviewed, I agree with a documented findings and plan of care. Patient was seen and examined. Past Medical History Past Medical History: Asthma, Cancer, Chest Pain / Angina, Heart Failure, COPD, Diabetes Mellitus, Hyperlipidemia, Hypertension, Pneumonia, Renal Disease Additional Past Medical History / Comment(s): Tracheobronchitis, asthmatic bronchitis, newly diagnosed diabetes-no diabetic education yet but is interested , uterine cancer with hysterectomy History of Any Multi-Drug Resistant Organisms: None Reported Past Surgical History: AICD, Hysterectomy, Orthopedic Surgery, Tonsillectomy Additional Past Surgical History / Comment(s): RT KNEE ARTHROSCOPY, PARTIAL HYSTERECTOMY, LISA CTR. BI-V ICD, [facility], COLONOSCOPY WITH BENING POLYPECTOMY. Past Anesthesia/Blood Transfusion Reactions: No Reported Reaction Type of Cardiac Device: AICD Device Placement Date:: 10/28/15 Past Psychological History: No Psychological Hx Reported Additional Psychological History / Comment(s): pt is independant,lives with spouse. has nebulizer. Smoking Status: Former smoker Past Alcohol Use History: None Reported Additional Past Alcohol Use History / Comment(s): PATIENT WAS A SMOKER OF /-/ 2 PPD FOR 15 YEARS AND QUIT 2013 Past Drug Use History: None Reported - Past Family History Mother Family Medical History: Cancer Additional Family Medical History / Comment(s): Mother is alive at 89 years old with no major medical problems. BREAST CA Father Family Medical History: Hypertension, Myocardial Infarction ([place]) Additional Family Medical History / Comment(s): [place] @ AGE 48 Medications and Allergies Home Medications Medication Instructions Recorded Confirmed Type Atorvastatin [Lipitor] 20 mg PO HS 10/22/15 01/24/18 History Spironolactone [Aldactone] 25 mg PO DAILY 12/24/16 01/24/18 History Albuterol Inhaler [Ventolin Hfa 2 puff INHALATION RT-QID PRN 07/22/17 01/24/18 History Inhaler] Lisinopril [Zestril] 5 mg PO DAILY 07/22/17 01/24/18 History Montelukast [Singulair] 10 mg PO HS tab 07/26/17 01/24/18 Rx Aspirin EC [Ecotrin Low Dose] 81 mg PO DAILY 01/24/18 01/24/18 History Beclomethasone Dipropionate [Qvar 1 puff INHALATION RT-BID 01/24/18 01/24/18 History 40 mcg Redihaler] Carvedilol 25 mg PO BID 01/24/18 01/24/18 History Fluticasone/Umeclidin/Vilanter 1 puff INHALATION RT-DAILY 01/24/18 01/24/18 History [Trelegy Ellipta 100-62.5-25] Furosemide [Lasix] 40 mg PO DAILY 01/24/18 01/24/18 History glipiZIDE XL [Glucotrol XL] 2.5 mg PO AC-BID 01/24/18 01/24/18 History Allergies Allergy/AdvReac Type Severity Reaction Status Date / Time No Known Allergies Allergy Verified 01/24/18 07:57 Physical Exam Vitals: Vital Signs Temp Pulse Pulse Resp BP Pulse Ox 01/27/18 13:07 90 01/27/18 12:58 96 01/27/18 09:24 94 01/27/18 09:09 88 93 L 01/27/18 08:00 18 01/27/18 07:04 98.0 F 76 18 101/68 95 01/26/18 21:59 76 01/26/18 21:44 77 94 L 01/26/18 19:40 97.6 F 72 16 103/70 94 L 01/26/18 16:47 78 01/26/18 16:35 76 01/26/18 16:10 20 88 L 01/26/18 14:49 98.0 F 74 16 94/59 96 Intake and Output 01/26/18 01/27/18 01/27/18 22:59 06:59 14:59 Intake Total 240 240 240 Balance 240 240 240 Intake: Oral 240 240 240 Other: Voiding Method Toilet Toilet # Voids 1 2 Results 01/27/18 06:30 01/27/18 06:30 Cardiac Enzymes 01/27/18 Range/Units 06:30 AST 16 (14-36) U/L CBC 01/27/18 Range/Units 06:30 WBC 13.6 H (3.8-10.6) k/uL RBC 3.46 L (3.80-5.40) m/uL Hgb 10.7 L (11.4-16.0) gm/dL Hct 33.0 L (34.0-46.0) % Plt Count 293 (150-450) k/uL Comprehensive Metabolic Panel 01/27/18 Range/Units 06:30 Sodium 141 (137-145) mmol/L Potassium 4.6 (3.5-5.1) mmol/L Chloride 112 H (98-107) mmol/L Carbon Dioxide 23 (22-30) mmol/L BUN 62 H (7-17) mg/dL Creatinine 1.78 H (0.52-1.04) mg/dL Glucose 88 (74-99) mg/dL Calcium 9.6 (8.4-10.2) mg/dL AST 16 (14-36) U/L ALT 21 (9-52) U/L Alkaline Phosphatase 90 (38-126) U/L Total Protein 6.3 (6.3-8.2) g/dL Albumin 3.4 L (3.5-5.0) g/dL Current Medications Generic Name Dose Route Start Last Admin Trade Name Freq PRN Reason Stop Dose Admin Albuterol Sulfate 2.5 mg 01/24/18 09:18 Ventolin Nebulized INHALATION RT-Q2H PRN Shortness Of Breath Or Wheezing Albuterol/Ipratropium 3 ml 01/24/18 09:17 Duoneb 0.5 Mg-3 Mg/3 Ml Soln INHALATION RT-Q4H PRN Shortness Of Breath Or Wheezing Albuterol/Ipratropium 3 ml 01/24/18 12:00 01/27/18 12:55 Duoneb 0.5 Mg-3 Mg/3 Ml Soln INHALATION 3 ml RT-QID PRAKASH Administration Aspirin 81 mg 01/25/18 09:00 01/27/18 10:28 Aspirin PO 81 mg DAILY PRAKASH Administration Atorvastatin Calcium 20 mg 01/24/18 21:00 01/26/18 20:40 Lipitor PO 20 mg HS PRAKASH Administration Azithromycin 500 mg 01/25/18 09:00 01/27/18 10:29 Zithromax PO 500 mg DAILY PRAKASH Administration Budesonide 0.5 mg 01/25/18 20:00 01/27/18 09:07 Pulmicort INHALATION 0.5 mg RT-BID PRAKASH Administration Carvedilol 12.5 mg 01/27/18 17:30 Coreg PO BID-W/MEALS PRAKASH Famotidine 40 mg 01/26/18 09:00 01/27/18 10:29 Pepcid PO 40 mg DAILY PRAKASH Administration Furosemide 40 mg 01/25/18 09:00 01/27/18 10:28 Lasix PO 40 mg DAILY PRAKASH Administration Glipizide 2.5 mg 01/24/18 17:30 01/27/18 10:27 Glucotrol PO 2.5 mg AC-BID PRAKASH Administration Guaifenesin 1,200 mg 01/25/18 11:15 01/27/18 10:29 Mucinex PO 1,200 mg Q12HR PRAKASH Administration Heparin Sodium (Porcine) 5,000 unit 01/25/18 11:45 01/27/18 10:26 Heparin SQ 5,000 unit Q8HR PRAKASH Administration Insulin Aspart 0 unit 01/24/18 12:30 01/27/18 12:17 Novolog SQ Not Given ACHS [facility] Protocol Lisinopril 2.5 mg 01/28/18 09:00 Zestril PO DAILY PRAKASH Montelukast Sodium 10 mg 01/24/18 21:00 01/26/18 20:40 Singulair PO 10 mg HS PRAKASH Administration Multi-Ingred Cream/Lotion/Oil/Oint 1 applic 01/25/18 22:22 Eucerin Cream TOPICAL BID PRN Dry Skin Prednisone 60 mg 01/25/18 20:30 01/27/18 10:27 PO 60 mg DAILY PRAKASH Administration Spironolactone 25 mg 01/25/18 09:00 01/27/18 10:27 Aldactone PO 25 mg DAILY PRAKASH Administration Intake and Output 01/26/18 01/27/18 01/27/18 22:59 06:59 14:59 Intake Total 240 240 240 Balance 240 240 240 Intake: Oral 240 240 240 Other: Voiding Method Toilet Toilet # Voids 1 2 01/27/18 06:30 01/27/18 06:30
[2018-01-27] MEDS ORDERED: methylPREDNISolone SOD SUCCI 125 MG/2 ML VIAL IV STA (13:46)
--- NOTE | 2018-01-27 13:46 | P.PN ---
Subjective Progress Note Date: 01/27/18 Interval history: 01/25/2018patient is being seen examined and evaluated while covering for Dr. Valente. She is resting up in bed on 2 L of supplemental oxygen via nasal cannula. She continues to have shortness of breath cough congestion and wheeze. She is been unable to bring up any sputum at this time. Her influenza swab was negative. Her chest x-ray was reviewed and showed no acute process. She does believe the steroids and breathing treatments are helping her. She does have some complaints of right lower extremity cellulitis and would like to see infectious disease in that regard. Consult has been initiated. She is afebrile , all labs and reports have been reviewed. 01/26/2018patient is being seen examined and evaluated today we'll covering for Dr. Valente. She is resting up in bed on 2 L of supplemental oxygen via nasal cannula. She feels her breathing is improved today. She still has a congested cough however is unable to bring up secretions at this time. She was started on Mucinex yesterday she does feel like the congestion is starting to get a little more looser. She does have a sputum cup at bedside to use if she is able to bring anything up. She states the breathing treatments are helping her. All labs and reports have been reviewed. 01/27/17- patient is being seen examined and evaluated today on rounds while covering for Dr. Valente. He did have an echocardiogram which did reveal an EF of 60-65% with mild pulmonary hypertension and a RVSP of 43.12 mmHg. Cardiology is also following with her. She continues on 2 L of supplemental oxygen via nasal cannula. Continues to have shortness of breath with exertion and activity. Could benefit from a one-time dose of additional steroids. All labs and reports have been reviewed. Objective - Vital Signs Vital signs: Vital Signs Temp 98.0 F 01/27/18 07:04 Pulse 90 01/27/18 13:07 Resp 18 01/27/18 08:00 BP 101/68 01/27/18 07:04 Pulse Ox 93 L 01/27/18 09:09 Intake & Output 01/26/18 01/27/18 01/27/18 18:59 06:59 18:59 Intake Total 480 240 Balance 480 240 Intake: Oral 480 240 Other: Voiding Method Toilet Toilet # Voids 1 2 1 - Exam GENERAL EXAM: Alert, comfortable in no apparent distress. HEAD: Normocephalic. EYES: Normal reaction of pupils, equal size. NOSE: Clear with pink turbinates. THROAT: No erythema or exudates. NECK: No masses, no JVD. CHEST: No chest wall deformity. LUNGS: Lungs noted to be coarse with less rhonchi and expiratory wheezing, overall slowly improving CVS: S1 and S2 normal with no audible mumurs, regular rhythm. ABDOMEN: No hepatosplenomegaly, normal bowel sounds, no guarding or rigidity. EXTREMITIES: No edema noted, pedal pulses palpable. SKIN: Right lower extremity dryness, flakiness, redness, cellulitis ruled out by infectious disease CENTRAL NERVOUS SYSTEM: No focal deficits, tone is normal in all 4 extremities. - Labs CBC & Chem 7: 01/27/18 06:30 01/27/18 06:30 Labs: Abnormal Lab Results - Last 24 Hours (Table) 01/26/18 01/26/18 01/27/18 Range/Units 16:49 19:51 06:30 WBC 13.6 H (3.8-10.6) k/uL RBC 3.46 L (3.80-5.40) m/uL Hgb 10.7 L (11.4-16.0) gm/dL Hct 33.0 L (34.0-46.0) % Neutrophils # 11.3 H (1.3-7.7) k/uL Chloride (98-107) mmol/L BUN (7-17) mg/dL Creatinine (0.52-1.04) mg/dL POC Glucose (mg/dL) 134 H 206 H (75-99) mg/dL Magnesium (1.6-2.3) mg/dL Albumin (3.5-5.0) g/dL TSH (0.465-4.680) mIU/L 01/27/18 01/27/18 01/27/18 Range/Units 06:30 06:30 07:07 WBC (3.8-10.6) k/uL RBC (3.80-5.40) m/uL Hgb (11.4-16.0) gm/dL Hct (34.0-46.0) % Neutrophils # (1.3-7.7) k/uL Chloride 112 H (98-107) mmol/L BUN 62 H (7-17) mg/dL Creatinine 1.78 H (0.52-1.04) mg/dL POC Glucose (mg/dL) 101 H (75-99) mg/dL Magnesium 2.4 H (1.6-2.3) mg/dL Albumin 3.4 L (3.5-5.0) g/dL TSH <0.015 L (0.465-4.680) mIU/L Microbiology - Last 24 Hours (Table) 01/24/18 07:10 Blood Culture - Preliminary Blood No Growth after 72 hours Assessment and Plan Assessment: Assessment: Acute COPD exacerbation Recent acute upper respiratory processes are possible influenza upper respiratory and/or or pneumonia cannot be excluded Chronic renal failure stage III Chronic systolic cardiomyopathy and heart failure is post AICD Hypertension hypertensive cardiovascular disease Plan: Bronchodilator, inhaled steroids Steroids have been transitioned to oral, continue with antibiotics Eucerin cream to right lower extremity per ID Obtain sputum culture Continue home medications Gentle diuresis Pulmonary hygiene and supportive care Initiate incentive spirometer Supplemental oxygen to maintain oxygen saturations greater than 92% GI and DVT prophylaxis We will continue to monitor labs/results and adjust treatment as necessary Please note we are covering for Dr. Ambrosio Li, the signing physician performed an examination of the patient, discussed and directed their management with the nurse practitioner. I have reviewed the nurse practitioner's note and agree with the documented findings, orders and plan of care.
[2018-01-27 14:46] VITALS: RESP 16
--- NOTE | 2018-01-27 17:14 | PN ---
PROGRESS NOTE DATE OF SERVICE: 01/27/2018 REASON FOR FOLLOWUP: 1. Possible tracheobronchitis. 2. White count elevation, steroid effect. 3. Lower extremity dermatitis. No cellulitis. INTERVAL HISTORY: The patient is currently afebrile. Her breathing has improved. Cough has decreased in intensity. No chest pain. No nausea, vomiting. No abdominal pain. Rash on dry skin as seen on the leg has improved after Eucerin cream. PHYSICAL EXAMINATION: Blood pressure 102/72 with a pulse of 89, temperature 98.3. She is 92% on room air. General description is a middle aged female lying in bed in no distress. RESPIRATORY SYSTEM: Unlabored breathing with decreased intensity of breath sounds. No wheeze. HEART: S1, S2. Regular rate and rhythm. ABDOMEN: Soft. No tenderness. EXTREMITIES: No edema of feet. Rash has decreased in intensity. LABS: Hemoglobin is 10.7, white count 13.6, BUN of 62, creatinine 1.78. DIAGNOSTIC IMPRESSION AND PLAN: 1. Patient admitted to hospital with difficulty breathing which is more likely secondary to acute bronchitis. Clinically doubt pneumonia along with COPD exacerbation. 2. Patient with bilateral leg dry scaly skin. No definite cellulitis. Continue with the Eucerin cream. 3. Elevated white count, more likely steroid effect. MMODL / IJN: [id number] /
[2018-01-27 17:26] LABS: Glucose,Whole Blood 222 mg/dL (75-99)
[2018-01-27 20:51] LABS: Glucose,Whole Blood 233 mg/dL (75-99)
[2018-01-27] MEDS: ATORVASTATIN 20 MG TAB PO SCH (20:57)
[2018-01-27] MEDS: MONTELUKAST 10 MG TAB PO SCH (20:57)
--- NOTE | 2018-01-27 23:11 | PN ---
PROGRESS NOTE SUBJECTIVE: 62-year-old white female with COPD exacerbation. We are trying to set up home oxygen with her. She had some arrhythmias and trigeminies, which Cardiology ordered echo which was normal. Awaiting cardiology clearance prior to being discharged. OBJECTIVE: Vital signs is stable. Lungs have decreased wheezes x4. Hematology negative Homans. Psych fair mood and affect. PLAN: Continue with current treatments. Cardiology clearance prior to discharge. Continue steroid taper and oral antibiotics. MMODL / IJN: [id number] /
[2018-01-28 07:05] LABS: Glucose,Whole Blood 122 mg/dL (75-99)
[2018-01-28 07:14] VITALS: BP 112/73; TEMP 97.6
[2018-01-28] MEDS: INSULIN ASPART 100 UNIT/ML 1 ML 10 ML VIAL SQ SCH (08:02)
[2018-01-28] MEDS: FAMOTIDINE 20 MG TAB PO SCH (08:55)
[2018-01-28] MEDS: guaiFENesin 600 MG TABLET.ER PO SCH (08:55)
[2018-01-28] MEDS: HEPARIN SODIUM,PORCINE 5,000 UNIT/ML 1 ML VIAL SQ SCH (08:55)
[2018-01-28] MEDS: CARVEDILOL 12.5 MG TAB PO SCH (08:56)
[2018-01-28] MEDS: ASPIRIN 81 MG PO SCH (08:56)
[2018-01-28] MEDS: SPIRONOLACTONE 25 MG TAB PO SCH (08:56)
[2018-01-28] MEDS: FUROSEMIDE 40 MG TAB PO SCH (08:56)
[2018-01-28] MEDS: predniSONE 20 MG TAB PO SCH (08:56)
[2018-01-28] MEDS: IPRATROPIUM-ALBUTEROL 3 ML NEB INHALATION SCH (08:59)
[2018-01-28] MEDS: BUDESONIDE 0.5 MG/2 ML NEBU INHALATION SCH (08:59)
[2018-01-28] MEDS ORDERED: LISINOPRIL 2.5 MG TAB PO SCH (09:00)
[2018-01-28 09:13] VITALS: PULSE 92
--- NOTE | 2018-01-28 10:43 | P.PN ---
Subjective Progress Note Date: 01/28/18 Interval history: 01/25/2018patient is being seen examined and evaluated while covering for Dr. Valente. She is resting up in bed on 2 L of supplemental oxygen via nasal cannula. She continues to have shortness of breath cough congestion and wheeze. She is been unable to bring up any sputum at this time. Her influenza swab was negative. Her chest x-ray was reviewed and showed no acute process. She does believe the steroids and breathing treatments are helping her. She does have some complaints of right lower extremity cellulitis and would like to see infectious disease in that regard. Consult has been initiated. She is afebrile , all labs and reports have been reviewed. 01/26/2018patient is being seen examined and evaluated today we'll covering for Dr. Valente. She is resting up in bed on 2 L of supplemental oxygen via nasal cannula. She feels her breathing is improved today. She still has a congested cough however is unable to bring up secretions at this time. She was started on Mucinex yesterday she does feel like the congestion is starting to get a little more looser. She does have a sputum cup at bedside to use if she is able to bring anything up. She states the breathing treatments are helping her. All labs and reports have been reviewed. 01/27/17- patient is being seen examined and evaluated today on rounds while covering for Dr. Valente. He did have an echocardiogram which did reveal an EF of 60-65% with mild pulmonary hypertension and a RVSP of 43.12 mmHg. Cardiology is also following with her. She continues on 2 L of supplemental oxygen via nasal cannula. Continues to have shortness of breath with exertion and activity. Could benefit from a one-time dose of additional steroids. All labs and reports have been reviewed. 02/07/2017patient is being seen examined and evaluated today on rounds. We're covering for Dr. Valente. She is resting up in bed on supplemental oxygen via nasal cannula. She does qualify for home oxygen. She does feel like her breathing is improving. She is afebrile no further complaints. Discharge planning underway. Objective - Vital Signs Vital signs: Vital Signs Temp 97.6 F 01/28/18 07:00 Pulse 92 01/28/18 09:13 Resp 16 01/28/18 09:28 BP 112/73 01/28/18 07:00 Pulse Ox 95 01/28/18 07:00 Intake & Output 01/27/18 01/28/18 01/28/18 18:59 06:59 18:59 Intake Total 700 480 240 Balance 700 480 240 Intake: Oral 700 480 240 Other: Voiding Method Toilet # Voids 1 1 # Bowel Movements 1 - Exam GENERAL EXAM: Alert, comfortable in no apparent distress. HEAD: Normocephalic. EYES: Normal reaction of pupils, equal size. NOSE: Clear with pink turbinates. THROAT: No erythema or exudates. NECK: No masses, no JVD. CHEST: No chest wall deformity. LUNGS: Lungs noted to be coarse with less rhonchi and expiratory wheezing, overall slowly improving CVS: S1 and S2 normal with no audible mumurs, regular rhythm. ABDOMEN: No hepatosplenomegaly, normal bowel sounds, no guarding or rigidity. EXTREMITIES: No edema noted, pedal pulses palpable. SKIN: Right lower extremity dryness, flakiness, redness, cellulitis ruled out by infectious disease CENTRAL NERVOUS SYSTEM: No focal deficits, tone is normal in all 4 extremities. - Labs CBC & Chem 7: 01/27/18 06:30 01/27/18 06:30 Labs: Abnormal Lab Results - Last 24 Hours (Table) 01/27/18 01/27/18 01/27/18 Range/Units 06:30 06:30 17:14 POC Glucose (mg/dL) 222 H (75-99) mg/dL Magnesium 2.4 H (1.6-2.3) mg/dL TSH <0.015 L (0.465-4.680) mIU/L Free T3 pg/mL 2.2 L (2.8-5.3) pg/ml 01/27/18 01/28/18 Range/Units 20:39 06:53 POC Glucose (mg/dL) 233 H 122 H (75-99) mg/dL Magnesium (1.6-2.3) mg/dL TSH (0.465-4.680) mIU/L Free T3 pg/mL (2.8-5.3) pg/ml Microbiology - Last 24 Hours (Table) 01/24/18 07:10 Blood Culture - Preliminary Blood No Growth after 96 hours Assessment and Plan Assessment: Assessment: Acute COPD exacerbation Recent acute upper respiratory processes are possible influenza upper respiratory and/or or pneumonia cannot be excluded Chronic renal failure stage III Chronic systolic cardiomyopathy and heart failure is post AICD Hypertension hypertensive cardiovascular disease Plan: Agree with discharge from pulmonary standpoint Bronchodilator, inhaled steroids Steroids have been transitioned to oral, continue with antibiotics Eucerin cream to right lower extremity per ID Obtain sputum culture Continue home medications Gentle diuresis Pulmonary hygiene and supportive care Initiate incentive spirometer Supplemental oxygen to maintain oxygen saturations greater than 92% GI and DVT prophylaxis We will continue to monitor labs/results and adjust treatment as necessary Please note we are covering for Dr. Ambrosio Li, the signing physician performed an examination of the patient, discussed and directed their management with the nurse practitioner. I have reviewed the nurse practitioner's note and agree with the documented findings, orders and plan of care.
[2018-01-28 11:42] LABS: Glucose,Whole Blood 105 mg/dL (75-99)
[2018-01-29] MEDS ORDERED: predniSONE 50 MG TAB PO SCH (09:00)
== END 2018-01-28 12:11 | disposition home or self-care (01) | DRG 190 ==
LOC: EC 06:55 → 4SSUR 09:17
PROVIDERS: ADMIT Family Medicine; ATTEND Family Medicine
DX: J44.1 Chronic obstructive pulmonary disease with (acute) exacerbation (principal); J96.01 Acute respiratory failure with hypoxia; I50.22 Chronic systolic (congestive) heart failure; I42.9 Cardiomyopathy, unspecified; L03.115 Cellulitis of right lower limb; J45.31 Mild persistent asthma with (acute) exacerbation; I13.0 Hypertensive heart and chronic kidney disease with heart failure and stage 1 through stage 4 chronic kidney disease, or unspecified chronic kidney disease; E11.22 Type 2 diabetes mellitus with diabetic chronic kidney disease; N18.3 Chronic kidney disease, stage 3 (moderate); J20.9 Acute bronchitis, unspecified; I25.119 Atherosclerotic heart disease of native coronary artery with unspecified angina pectoris; I27.20 Pulmonary hypertension, unspecified; J44.0 Chronic obstructive pulmonary disease with (acute) lower respiratory infection; E78.5 Hyperlipidemia, unspecified; Z95.810 Presence of automatic (implantable) cardiac defibrillator; Z90.710 Acquired absence of both cervix and uterus; Z85.42 Personal history of malignant neoplasm of other parts of uterus; Z86.010 Personal history of colon polyps; Z87.01 Personal history of pneumonia (recurrent); Z87.891 Personal history of nicotine dependence; Z79.84 Long term (current) use of oral hypoglycemic drugs; Z79.899 Other long term (current) drug therapy
CPT/HCPCS: 36415; 71046; 80053; 82550; 82553; 83036; 83605; 83735; 83880; 84436; 84439; 84443; 84481; 84484; 85025; 85610; 85730; 87040; 87502; 93005; 93306; 94640; 94760; 96374; 99285

== ENCOUNTER 2018-02-07 15:33 | Inpatient (IN) | payer MEDICARE ==
[2018-02-07] MEDS ORDERED: IPRATROPIUM 0.5 MG/2.5 ML NEBU INHALATION STA (16:26)
[2018-02-07] MEDS ORDERED: ALBUTEROL NEBULIZED 2.5 MG/3 ML INHALATION STA (16:26)
[2018-02-07] MEDS ORDERED: DEXAMETHASONE SOD PHOSPHATE 10 MG/ML 1 ML VIAL IV STA (16:27)
[2018-02-07 16:51] LABS: Glucose,Whole Blood 121 mg/dL (75-99)
--- NOTE | 2018-02-07 16:52 | XR ---
EXAMINATION TYPE: XR chest 1V portable DATE OF EXAM: 02/07/2018 COMPARISON: 01/24/2018 HISTORY: Short of breath TECHNIQUE: Single frontal view of the chest is obtained. FINDINGS: There is some coarse density at the lung bases. There is no heart failure. There is left a xillary pacemaker with the lead tips in the right ventricle. There are chest leads. There is no pleur al effusion. IMPRESSION: Mild fibrotic changes and subsegmental atelectasis at the lung bases. There is clearing of a small infiltrate at the lateral left lung base compared to old exam.
[2018-02-07] MEDS ORDERED: SODIUM CHLORIDE 0.9% 2,000 ML IV ONE (16:58)
--- NOTE | 2018-02-07 17:10 | ED ---
General Adult HPI - General Chief complaint: Dizziness Stated complaint: SOB Source: patient Mode of arrival: wheelchair Limitations: no limitations - History of Present Illness Initial comments: Dictation was produced using [employer] dictation software. please excuse any grammatical, word or spelling errors. Chief Complaint: 62-year-old female with past medical history of asthma, cancer, heart failure, COPD, diabetes mellitus presents with shortness of breath. History of Present Illness: An is a 62-year-old female who was recently admitted to the hospital for COPD exacerbation. She presents today for worsening shortness of breath that started 3 days ago. Patient states that she was recently admitted for COPD exacerbation. Patient was started on L- thyroxine recently. Patient complains of shaking however denies any fevers or night sweats. Chart review shows that patient was admitted approximately 2 weeks ago for COPD and heart failure. The ROS documented in this emergency department record has been reviewed and confirmed by me. Those systems with pertinent positive or negative responses have been documented in the HPI. All other systems are other negative and/or noncontributory. - Related Data Home Medications Medication Instructions Recorded Confirmed Atorvastatin [Lipitor] 20 mg PO HS 10/22/15 02/07/18 Spironolactone [Aldactone] 25 mg PO DAILY 12/24/16 02/07/18 Albuterol Inhaler [Ventolin Hfa 2 puff INHALATION RT-QID PRN 07/22/17 02/07/18 Inhaler] Lisinopril [Zestril] 5 mg PO DAILY 07/22/17 02/07/18 Aspirin EC [Ecotrin Low Dose] 81 mg PO DAILY 01/24/18 02/07/18 Beclomethasone Dipropionate [Qvar 1 puff INHALATION RT-BID 01/24/18 02/07/18 40 mcg Redihaler] Carvedilol 25 mg PO BID 01/24/18 02/07/18 Fluticasone/Umeclidin/Vilanter 1 puff INHALATION RT-DAILY 01/24/18 02/07/18 [Trelegy Ellipta 100-62.5-25] Furosemide [Lasix] 40 mg PO DAILY 01/24/18 02/07/18 glipiZIDE XL [Glucotrol XL] 2.5 mg PO AC-BID 01/24/18 02/07/18 predniSONE See Taper PO DAILY 02/07/18 02/07/18 Previous Rx's Medication Instructions Recorded Montelukast [Singulair] 10 mg PO HS tab 07/26/17 Allergies Allergy/AdvReac Type Severity Reaction Status Date / Time No Known Allergies Allergy Verified 02/07/18 16:38 Review of Systems ROS Statement: Those systems with pertinent positive or pertinent negative responses have been documented in the HPI. ROS Other: All systems not noted in ROS Statement are negative. Past Medical History Past Medical History: Asthma, Cancer, Chest Pain / Angina, Heart Failure, COPD, Diabetes Mellitus, Hyperlipidemia, Hypertension, Pneumonia, Renal Disease Additional Past Medical History / Comment(s): Tracheobronchitis, asthmatic bronchitis, newly diagnosed diabetes-no diabetic education yet but is interested , uterine cancer with hysterectomy History of Any Multi-Drug Resistant Organisms: None Reported Past Surgical History: AICD, Hysterectomy, Orthopedic Surgery, Tonsillectomy Additional Past Surgical History / Comment(s): RT KNEE ARTHROSCOPY, PARTIAL HYSTERECTOMY, LISA CTR. BI-V ICD, [facility], COLONOSCOPY WITH BENING POLYPECTOMY. Past Anesthesia/Blood Transfusion Reactions: No Reported Reaction Type of Cardiac Device: AICD Device Placement Date:: 10/28/15 Past Psychological History: No Psychological Hx Reported Smoking Status: Former smoker Past Alcohol Use History: None Reported Past Drug Use History: None Reported - Past Family History Mother Family Medical History: Cancer Additional Family Medical History / Comment(s): Mother is alive at 89 years old with no major medical problems. BREAST CA Father Family Medical History: Hypertension, Myocardial Infarction (NH) Additional Family Medical History / Comment(s): NH @ AGE 48 General Exam - General Exam Comments Initial Comments: PHYSICAL EXAM: General Impression: Alert and oriented x3, not in acute distress, breathing with pursed lips HEENT: Normocephalic atraumatic, extra-ocular movements intact, pupils equal and reactive to light bilaterally, mucous membranes moist. Cardiovascular: Heart regular rate and rhythm, S1&S2 audible, no murmurs, rubs or gallops Chest: Bilateral lung wheezing with right worsening left Abdomen: Bowel sounds present, abdomen soft, non-tender, non-distended, no organomegaly Musculoskeletal: We pulses however pulses present EXTREMITIES Motor: Moves all extremities grossly Neurological: CN II-XII grossly intact, no focal motor or sensory deficits noted Skin: Intact with no visualized rashes Psych: Normal affect and mood Limitations: no limitations Course Vital Signs 02/07/18 02/07/18 02/07/18 15:43 16:52 17:00 Temperature 97.4 F L Pulse Rate 106 H 91 97 Respiratory 20 18 18 Rate Blood Pressure 52/39 75/34 86/39 O2 Sat by Pulse 97 99 97 Oximetry 02/07/18 02/07/18 02/07/18 17:08 17:37 17:55 Temperature Pulse Rate 100 96 100 Respiratory Rate Blood Pressure O2 Sat by Pulse Oximetry 02/07/18 02/07/18 18:07 18:38 Temperature Pulse Rate 99 100 Respiratory 18 18 Rate Blood Pressure 90/46 84/46 O2 Sat by Pulse 98 98 Oximetry Medical Decision Making - Medical Decision Making ED course: 62-year-old female presents with chief complaint of shortness of breath 3 days. Patient has multiple comorbidities including COPD and CHF. Patient was recently admitted to the hospital for COPD exacerbation. She was advised by elevator attendant. Repeat echocardiogram was performed showing good ejection fraction. Vital signs upon arrival shows heart rate of 106, blood pressure 52/39. Temperature of 97.4. Patient denies any overt symptoms of infection however she is mildly hypothermic hypertensive and tachycardic. Denies any infectious symptoms. Patient was seen and evaluated at bedside immediately upon being placed in the room. 18-gauge IV catheter was placed in the right upper extremity by nurse. She was immediately started on IV fluids. [id number] blood glucose was within normal limits. Rapid bedside rest exam was performed. No pneumothorax, no temp not physiology, no pericardial effusion , no free fluid in the abdomen. Rapid portable x-ray was obtained showing clearing of small infiltrate at the left lateral lung base. Cardiac ultrasound did show poor preload. Patient did have collapsible IVC. Tendon diagnoses at this point is severe dehydration leaving to infection. Patient states her normal blood pressure is systolics around the 100. Patient reevaluated with improvement of blood pressure after second liter to 86/39. EKG was obtained showing atrial paced rhythm.Laboratory evaluation obtained. Leukocytosis of 15.6 which could be from chronic steroid use. D-dimer 0.61. Rest of laboratory evaluation obtained with potassium 6.2, chloride 109, bicarb of 15, BUN 160, creatinine 7.85. Lactic acidosis of 2.4. Rest of labs unremarkable. Portable chest x-ray shows no acute processes. Patient given 2 L of intravenous fluids with improvement of blood pressure. Patient given albuterol and steroids for COPD exacerbation. Discussed patient case with nephrology who recommends patient be given bicarb, started on bicarb drip and potassium addressed with insulin, calcium and bicarb boluses. At this point there is no clinical indication for admission of pressors given that patient is mentating appropriately and blood pressure is responding to IV fluid administration. Discussed patient case with field mechanic/site lead who is agreeable with current plan. Patient has 2 large-bore IVs placed peripherally. Patient be admitted to intensive care unit. EKG interpretation: Ventricular rate 91, atrial sense ventricular paced rhythm, GA interval 122, QS 106, QTC 457. No GA prolongation, no QTC prolongation, no ST or T-wave changes noted. Overall, this EKG is unremarkable - Lab Data Result diagrams: 02/07/18 16:40 02/07/18 16:40 Lab Results 02/07/18 02/07/18 02/07/18 Range/Units 16:31 16:40 16:40 WBC 15.6 H (3.8-10.6) k/uL RBC 3.61 L (3.80-5.40) m/uL Hgb 12.0 (11.4-16.0) gm/dL Hct 34.6 (34.0-46.0) % MCV 96.0 (80.0-100.0) fL MCH 33.2 (25.0-35.0) pg MCHC 34.5 (31.0-37.0) g/dL RDW 12.7 (11.5-15.5) % Plt Count 185 (150-450) k/uL Neutrophils % 76 % Lymphocytes % 17 % Monocytes % 5 % Eosinophils % 1 % Basophils % 0 % Neutrophils # 11.8 H (1.3-7.7) k/uL Lymphocytes # 2.6 (1.0-4.8) k/uL Monocytes # 0.8 (0-1.0) k/uL Eosinophils # 0.2 (0-0.7) k/uL Basophils # 0.0 (0-0.2) k/uL D-Dimer 0.61 H (<0.60) mg/L FEU Sodium (137-145) mmol/L Potassium (3.5-5.1) mmol/L Chloride (98-107) mmol/L Carbon Dioxide (22-30) mmol/L Anion Gap mmol/L BUN (7-17) mg/dL Creatinine (0.52-1.04) mg/dL Est GFR (CKD-EPI)AfAm (>60 ml/min/1.73 sqM) Est GFR (CKD-EPI)NonAf (>60 ml/min/1.73 sqM) Glucose (74-99) mg/dL POC Glucose (mg/dL) 121 H (75-99) mg/dL POC Glu Shared Services Representative ID Alee Andrews Plasma Lactic Acid Ari (0.7-2.0) mmol/L Calcium (8.4-10.2) mg/dL Total Bilirubin (0.2-1.3) mg/dL AST (14-36) U/L ALT (9-52) U/L Alkaline Phosphatase (38-126) U/L Troponin I (0.000-0.034) ng/mL Total Protein (6.3-8.2) g/dL Albumin (3.5-5.0) g/dL 02/07/18 02/07/18 02/07/18 Range/Units 16:40 16:40 16:40 WBC (3.8-10.6) k/uL RBC (3.80-5.40) m/uL Hgb (11.4-16.0) gm/dL Hct (34.0-46.0) % MCV (80.0-100.0) fL MCH (25.0-35.0) pg MCHC (31.0-37.0) g/dL RDW (11.5-15.5) % Plt Count (150-450) k/uL Neutrophils % % Lymphocytes % % Monocytes % % Eosinophils % % Basophils % % Neutrophils # (1.3-7.7) k/uL Lymphocytes # (1.0-4.8) k/uL Monocytes # (0-1.0) k/uL Eosinophils # (0-0.7) k/uL Basophils # (0-0.2) k/uL D-Dimer (<0.60) mg/L FEU Sodium 139 (137-145) mmol/L Potassium 6.2 H* (3.5-5.1) mmol/L Chloride 109 H (98-107) mmol/L Carbon Dioxide 15 L (22-30) mmol/L Anion Gap 15 mmol/L BUN 162 H* (7-17) mg/dL Creatinine 7.85 H* (0.52-1.04) mg/dL Est GFR (CKD-EPI)AfAm 6 (>60 ml/min/1.73 sqM) Est GFR (CKD-EPI)NonAf 5 (>60 ml/min/1.73 sqM) Glucose 107 H (74-99) mg/dL POC Glucose (mg/dL) (75-99) mg/dL POC Glu Shared Services Representative ID Plasma Lactic Acid Ari 2.4 H* (0.7-2.0) mmol/L Calcium 9.8 (8.4-10.2) mg/dL Total Bilirubin 1.1 (0.2-1.3) mg/dL AST 19 (14-36) U/L ALT 32 (9-52) U/L Alkaline Phosphatase 71 (38-126) U/L Troponin I 0.021 (0.000-0.034) ng/mL Total Protein 6.6 (6.3-8.2) g/dL Albumin 3.7 (3.5-5.0) g/dL Critical Care Time Critical Care Time: Yes Total Critical Care Time: 30 Disposition Clinical Impression: Hypotension, YOU (acute kidney injury) Disposition: ADMITTED IP TO THIS HOSP Condition: Critical Referrals: Domenic Garza MD [Primary Care Provider] - 1-2 days Decision Time: 18:49
[2018-02-07 17:38] LABS: Basophils % (A) 0 %; Eosinophils # (A) 0.2 k/uL (0-0.7); Eosinophils % (A) 1 %; HCT 34.6 % (34.0-46.0); Lymphocytes # (A) 2.6 k/uL (1.0-4.8); Lymphocytes % (A) 17 %; MCH 33.2 pg (25.0-35.0); MCHC 34.5 g/dL (31.0-37.0); Mean Platelet Volume 7.9; Monocytes # (A) 0.8 k/uL (0-1.0); Monocytes % (A) 5 %; Neutrophils # (A) 11.8 k/uL (1.3-7.7); Neutrophils % (A) 76 %; Platelet Count 185 k/uL (150-450); RBC 3.61 m/uL (3.80-5.40); RDW 12.7 % (11.5-15.5); WBC 15.6 k/uL (3.8-10.6)
[2018-02-07 17:43] LABS: Calcium 9.8 mg/dL (8.4-10.2); Total Bilirubin 1.1 mg/dL (0.2-1.3); Total Protein 6.6 g/dL (6.3-8.2)
[2018-02-07 17:59] LABS: Albumin 3.7 g/dL (3.5-5.0)
[2018-02-07 18:07] LABS: Potassium 6.2 mmol/L (3.5-5.1)
[2018-02-07] MEDS ORDERED: INSULIN REGULAR 100 UNIT/ML VIAL IV ONE (18:33)
[2018-02-07] MEDS ORDERED: DEXTROSE 50%-WATER 50 ML SYRINGE IVP STA (18:33)
[2018-02-07] MEDS ORDERED: SODIUM BICARB 8.4% 50 ML SYR (1 MEQ/ML) IV ONE ×2 (18:34)
[2018-02-07] MEDS ORDERED: NALOXONE 0.4 MG/ML 1 ML VIAL IV PRN (18:38)
[2018-02-07] MEDS ORDERED: CALCIUM GLUCONATE 1,000 MG in SODIUM CHLORIDE 0.9% 100 ML IVPB ONE (18:45)
[2018-02-07 19:29] LABS: Appearance,Urine Cloudy (Clear); Bilirubin,Urine Negative (Negative); Blood,Urine Trace (Negative); Color,Urine Light Yellow; Glucose,Urine (UA) 1+ (Negative); Hyaline Casts,Urine 7 /lpf (0-2); Ketones,Urine Negative (Negative); Leukocyte Esterase,Urine Large (Negative); Nitrite,Urine Negative (Negative); Protein,Urine Trace (Negative); RBC,Urine 6 /hpf (0-5); Specific Gravity,Urine 1.007 (1.001-1.035); Squamous Epithelial Cell,Urine 6 /hpf (0-4); Urobilinogen,Urine <2.0 mg/dL (<2.0)
[2018-02-07] MEDS: DEXTROSE 5% IN WATER 1,000 ML with SODIUM BICARB (1 MEQ/ML) 150 ML IV SCH (20:53)
--- NOTE | 2018-02-07 21:04 | NM ---
EXAMINATION TYPE: NM pul vent and perfuse DATE OF EXAM: 02/07/2018 COMPARISON: NONE HISTORY: TECHNIQUE: Utilizing inhalation of 68.1 mCi Tc 99m DTPA aerosol and intravenous injection of 4.63 mC i of Tc 99m MAA, ventilation and perfusion images are acquired post injection in multiple projections . FINDINGS: There are numerous matched subsegmental ventilation perfusion defects. I see no ventilation/perfusion mismatch. There is pulmonary hyperinflation. IMPRESSION: Numerous matched defects related to severe airway disease. There is an intermediate probability of pu lmonary embolism.
[2018-02-07 21:24] LABS: Glucose,Whole Blood 141 mg/dL (75-99)
[2018-02-07] MEDS ORDERED: SODIUM CHLORIDE 0.9% 500 ML 500 ML IV ONE (22:22)
[2018-02-07 22:32] LABS: Calcium 8.8 mg/dL (8.4-10.2)
[2018-02-07] MEDS: HEPARIN SODIUM,PORCINE 5,000 UNIT/ML 1 ML VIAL SQ SCH (22:57)
[2018-02-08] MEDS: NOREPINEPHRINE 4 MG in SODIUM CHLORIDE 0.9% 250 ML IV SCH ×2 (02:15→18:28)
[2018-02-08 05:13] LABS: Hemoglobin A1C 5.8 % (4.0-6.0)
[2018-02-08 05:40] LABS: Basophils % (A) 0 %; Eosinophils % (A) 0 %; HCT 29.9 % (34.0-46.0); HGB 10.1 gm/dL (11.4-16.0); Lymphocytes # (A) 0.3 k/uL (1.0-4.8); Lymphocytes % (A) 6 %; MCH 32.3 pg (25.0-35.0); Mean Platelet Volume 7.8; Monocytes # (A) 0.1 k/uL (0-1.0); Monocytes % (A) 2 %; Neutrophils # (A) 4.6 k/uL (1.3-7.7); Neutrophils % (A) 91 %; Platelet Count 189 k/uL (150-450); RBC 3.14 m/uL (3.80-5.40); RDW 12.6 % (11.5-15.5); WBC 5.1 k/uL (3.8-10.6)
[2018-02-08 05:55] LABS: Albumin 3.3 g/dL (3.5-5.0); Calcium 8.9 mg/dL (8.4-10.2); Magnesium 1.8 mg/dL (1.6-2.3); Phosphorus 5.2 mg/dL (2.5-4.5); Potassium 5.1 mmol/L (3.5-5.1); Total Bilirubin 0.8 mg/dL (0.2-1.3); Total Protein 5.8 g/dL (6.3-8.2)
[2018-02-08] MEDS ORDERED: INSULIN ASPART 100 UNIT/ML 1 ML 10 ML VIAL SQ SCH (06:00)
[2018-02-08] MEDS: DEXTROSE 5% IN WATER 1,000 ML with SODIUM BICARB (1 MEQ/ML) 150 ML IV SCH (06:18)
[2018-02-08 06:56] LABS: Glucose,Whole Blood 298 mg/dL (75-99)
--- NOTE | 2018-02-08 07:31 | XR ---
EXAMINATION TYPE: XR chest 1V DATE OF EXAM: 02/08/2018 COMPARISON: 02/07/2018 HISTORY: COPD. Shortness of breath TECHNIQUE: Single frontal view of the chest is obtained. FINDINGS: There is pulmonary hyperinflation of underlying COPD with bibasilar subsegmental linear ate lectasis. There is no focal air space opacity, pleural effusion, or pneumothorax seen. There is a mul tilead left-sided cardiac device. Cardiomediastinal silhouette is within normal limits. The osseous s tructures are intact. IMPRESSION: Bibasilar subsegmental atelectasis and COPD. No acute cardiopulmonary process.
[2018-02-08] MEDS: IPRATROPIUM-ALBUTEROL 3 ML NEB INHALATION SCH ×4 (08:08→19:36)
[2018-02-08 08:48] LABS: Glucose,Whole Blood 280 mg/dL (75-99)
[2018-02-08] MEDS ORDERED: INSULIN ASPART 100 UNIT/ML 1 ML 10 ML VIAL SQ ONE (08:48)
[2018-02-08] MEDS: SODIUM CHLORIDE 0.9% 1,000 ML IV SCH ×3 (09:56→21:05)
[2018-02-08] MEDS: PANTOPRAZOLE 40 MG/10 ML VIAL IV SCH (09:57)
[2018-02-08] MEDS: HEPARIN SODIUM,PORCINE 5,000 UNIT/ML 1 ML VIAL SQ SCH ×2 (09:57→21:06)
[2018-02-08] MEDS ORDERED: SODIUM CHLORIDE 0.9% 500 ML 500 ML IV STA (10:10)
--- NOTE | 2018-02-08 10:21 | P.CNPUL ---
History of Present Illness Consult date: 02/08/18 (Critical care time spent 60 minutes) Chief complaint: Critical care management History of present illness: 62-year-old female with history of chronic persistent asthma as well as cardiomyopathy and low ejection fraction on chronic systolic heart failure she was seen evaluated examined in ICU if she presented into the hospital with generalized weakness aches and pains as well as very low blood pressure, has poor appetite has not been eating and drinking for the last several days, on arrival she was noted to be hypotensive in acute renal failure likely related to acute tubular necrosis, off note that she has similar presentation several months ago however she recovered nicely she has chronic renal failure stage 2-3 is being monitor and observe as a baseline never required hemodialysis in the past, her urine analysis suggestive of ongoing infection, she is hypotensive as she is on 40 mics of levo fed. Repeat systolic blood pressure improved up to 80 , she has some nausea but denies any vomiting or diarrhea, her cough congestion shortness of breath has improved compared to recent exacerbation she is on tapering doses of steroids, denies any seizure activity loss of consciousness), patient has been resuscitated with crystalloids in the emergency department has been on bicarb drip however IV fluids are being switched to normal saline she is being given half a liter of crystalloid as well she will be started on stress dose steroid likely that we'll get rate of the vasopressors, her urine and blood culture is being sent as well and she is being started on broad- spectrum antibiotics Review of Systems All systems: negative Past Medical History Past Medical History: Asthma, Cancer, Chest Pain / Angina, Heart Failure, COPD, Diabetes Mellitus, Hyperlipidemia, Hypertension, Pneumonia, Renal Disease Additional Past Medical History / Comment(s): Tracheobronchitis, asthmatic bronchitis, uterine cancer with hysterectomy, 2001 ovarian cancer, non-STEMI 3 or 4 years ago History of Any Multi-Drug Resistant Organisms: None Reported Past Surgical History: AICD, Hysterectomy, Orthopedic Surgery, Tonsillectomy Additional Past Surgical History / Comment(s): RT KNEE ARTHROSCOPY, PARTIAL HYSTERECTOMY, LISA CTR. BI-V ICD, [facility], COLONOSCOPY WITH BENING POLYPECTOMY. Past Anesthesia/Blood Transfusion Reactions: No Reported Reaction Type of Cardiac Device: AICD Device Placement Date:: 10/28/15 Past Psychological History: No Psychological Hx Reported Additional Psychological History / Comment(s): pt is independant,lives with spouse. has nebulizer. Smoking Status: Former smoker Past Alcohol Use History: None Reported Additional Past Alcohol Use History / Comment(s): PATIENT WAS A SMOKER OF 1/4-1/ 2 PPD FOR 15 YEARS AND QUIT 2013 Past Drug Use History: None Reported - Past Family History Mother Family Medical History: Cancer Additional Family Medical History / Comment(s): Mother is alive at 89 years old with no major medical problems. BREAST CA Father Family Medical History: Hypertension, Myocardial Infarction (MS) Additional Family Medical History / Comment(s): MS @ AGE 48 Medications and Allergies Home Medications Medication Instructions Recorded Confirmed Type Atorvastatin [Lipitor] 20 mg PO HS 10/22/15 02/07/18 History Spironolactone [Aldactone] 25 mg PO DAILY 12/24/16 02/07/18 History Albuterol Inhaler [Ventolin Hfa 2 puff INHALATION RT-QID PRN 07/22/17 02/07/18 History Inhaler] Lisinopril [Zestril] 5 mg PO DAILY 07/22/17 02/07/18 History Montelukast [Singulair] 10 mg PO HS tab 07/26/17 02/07/18 Rx Aspirin EC [Ecotrin Low Dose] 81 mg PO DAILY 01/24/18 02/07/18 History Beclomethasone Dipropionate [Qvar 1 puff INHALATION RT-BID 01/24/18 02/07/18 History 40 mcg Redihaler] Carvedilol 25 mg PO BID 01/24/18 02/07/18 History Fluticasone/Umeclidin/Vilanter 1 puff INHALATION RT-DAILY 01/24/18 02/07/18 History [Trelegy Ellipta 100-62.5-25] Furosemide [Lasix] 40 mg PO DAILY 01/24/18 02/07/18 History glipiZIDE XL [Glucotrol XL] 2.5 mg PO AC-BID 01/24/18 02/07/18 History predniSONE See Taper PO DAILY 02/07/18 02/07/18 History Allergies Allergy/AdvReac Type Severity Reaction Status Date / Time No Known Allergies Allergy Verified 02/07/18 16:38 Physical Exam Vitals: Vital Signs Temp Pulse Resp BP Pulse Ox 02/08/18 08:30 101 H 17 96/47 96 02/08/18 08:17 104 H 02/08/18 08:08 107 H 02/08/18 08:00 97.8 F 93 20 102/38 97 02/08/18 07:30 114 H 24 92/63 97 02/08/18 07:00 102 H 17 92/59 98 02/08/18 06:45 110 H 19 89/45 98 02/08/18 06:30 98 12 80/48 99 02/08/18 06:15 107 H 18 80/48 98 02/08/18 06:00 102 H 16 118/56 97 02/08/18 05:45 13 118/56 96 02/08/18 05:15 105 H 15 75/61 96 02/08/18 05:00 101 H 11 L 79/51 96 02/08/18 04:45 105 H 9 L 85/56 95 02/08/18 04:30 106 H 15 91/51 96 02/08/18 04:15 104 H 11 L 88/54 97 02/08/18 04:00 97.9 F 102 H 13 95/66 99 02/08/18 03:45 107 H 12 93/58 98 02/08/18 03:30 101 H 14 92/62 97 02/08/18 03:15 103 H 14 100/71 97 02/08/18 03:00 100 13 97/59 97 02/08/18 02:30 113 H 19 79/35 98 02/08/18 02:00 102 H 13 85/47 98 02/08/18 01:00 106 H 16 78/38 96 02/08/18 00:30 112 H 16 92/56 98 02/08/18 00:00 110 H 23 70/57 97 02/07/18 23:30 109 H 13 82/44 97 19/18 23:00 112 H 24 90/49 97 18 22:30 105 H 12 85/45 96 18 22:00 108 H 34 H 81/56 97 02/07/18 21:45 108 H 22 89/36 96 02/07/18 21:30 103 H 21 85/42 95 02/07/18 21:15 98.3 F 105 H 25 H 78/44 97 02/07/18 20:54 97.7 F 105 H 18 105/52 98 02/07/18 19:15 117 H 21 111/58 96 02/07/18 19:11 98.3 F 114 H 18 111/58 96 02/07/18 19:00 111 H 14 94/51 98 02/07/18 18:45 94 15 81/45 99 02/07/18 18:38 100 18 84/46 98 02/07/18 18:30 98 21 74/51 99 02/07/18 18:15 98 14 80/52 98 02/07/18 18:07 99 18 90/46 98 02/07/18 18:00 101 H 16 77/43 99 02/07/18 17:55 100 02/07/18 17:45 102 H 18 86/54 100 02/07/18 17:37 96 02/07/18 17:30 22 87/49 100 02/07/18 17:15 18 90/44 100 02/07/18 17:08 100 02/07/18 17:00 94 21 83/24 99 02/07/18 16:52 91 18 75/34 99 02/07/18 16:30 66/27 02/07/18 15:43 97.4 F L 106 H 20 52/39 97 Intake and Output 02/07/18 02/08/18 02/08/18 22:59 06:59 14:59 Intake Total 400 1790.25 299.937 Output Total 450 2350 525 Balance -50 -559.75 -225.063 Intake: IV 400 1760 290 0.9 NaCl carrier 60 40 Calcium Gluconate 1,000 100 mg In Sodium Chloride 0.9 % 100 ml @ 100 mls/hr IVPB ONCE ONE Rx#: [id number] Dextrose 5% in Water 1, 300 1200 250 000 ml @ 100 mls/hr IV . [id number] PRAKASH with Sodium Bicarb (1 Meq/ml) 150 ml Rx#:[id number] Sodium Chloride 0.9% 500 500 ml 500 ml @ 999 mls/hr IV .Q31M ONE Rx#:[id number] Intake, IV Titration 30.25 9.937 Amount Norepinephrine 4 mg In 30.25 9.937 Sodium Chloride 0.9% 250 ml @ Titrate IV .Q0M PRAKASH Rx#:[id number] Output: Urine 450 2350 525 Other: Voiding Method Indwelling Catheter Indwelling Catheter Weight 80.2 kg 80.2 kg - Constitutional General appearance: average body habitus, cooperative, disheveled, mild distress - EENT Eyes: EOMI, PERRLA, poor dentition, normal appearance ENT: normal oropharynx Ears: bilateral: normal - Neck Neck: normal ROM Carotids: bilateral: upstroke normal, bruit absent Thyroid: bilateral: normal size - Respiratory Respiratory: bilateral: diminished, prolonged expiration - Cardiovascular Rhythm: regular Heart sounds: normal: S1, S2 - Gastrointestinal General gastrointestinal: decreased bowel sounds, normal bowel sounds, soft - Integumentary Integumentary: decreased turgor, normal - Neurologic Neurologic: CNII-XII intact - Musculoskeletal Musculoskeletal: gait normal, generalized weakness, strength equal bilaterally - Psychiatric Psychiatric: appropriate affect, intact judgment & insight Results - Laboratory Findings CBC and BMP: 02/08/18 04:26 02/08/18 04:26 PT/INR, D-dimer D-Dimer 0.61 mg/L FEU (<0.60) H 02/07/18 16:40 Abnormal lab findings: Abnormal Labs 02/07/18 02/07/18 02/07/18 16:31 16:40 16:40 WBC 15.6 H RBC 3.61 L Hgb Hct Neutrophils # 11.8 H Lymphocytes # D-Dimer 0.61 H Potassium Chloride Carbon Dioxide BUN Creatinine Glucose POC Glucose (mg/dL) 121 H Plasma Lactic Acid Ari Phosphorus Total Protein Albumin Urine Appearance Urine Protein Urine Glucose (UA) Urine Blood Ur Leukocyte Esterase Urine RBC Ur Squamous Epith Cells Hyaline Casts 02/07/18 02/07/18 02/07/18 16:40 16:40 19:00 WBC RBC Hgb Hct Neutrophils # Lymphocytes # D-Dimer Potassium 6.2 H* Chloride 109 H Carbon Dioxide 15 L BUN 162 H* Creatinine 7.85 H* Glucose 107 H POC Glucose (mg/dL) Plasma Lactic Acid Ari 2.4 H* Phosphorus Total Protein Albumin Urine Appearance Cloudy H Urine Protein Trace H Urine Glucose (UA) 1+ H Urine Blood Trace H Ur Leukocyte Esterase Large H Urine RBC 6 H Ur Squamous Epith Cells 6 H Hyaline Casts 7 H 02/07/18 02/07/18 02/08/18 21:12 21:40 04:26 WBC RBC Hgb Hct Neutrophils # Lymphocytes # D-Dimer Potassium Chloride 113 H Carbon Dioxide 19 L BUN 140 H* 110 H* Creatinine 5.76 H 4.61 H Glucose 145 H 280 H POC Glucose (mg/dL) 141 H Plasma Lactic Acid Ari Phosphorus 5.2 H Total Protein 5.8 L Albumin 3.3 L Urine Appearance Urine Protein Urine Glucose (UA) Urine Blood Ur Leukocyte Esterase Urine RBC Ur Squamous Epith Cells Hyaline Casts 02/08/18 02/08/18 02/08/18 04:26 06:45 08:37 WBC RBC 3.14 L Hgb 10.1 L Hct 29.9 L Neutrophils # Lymphocytes # 0.3 L D-Dimer Potassium Chloride Carbon Dioxide BUN Creatinine Glucose POC Glucose (mg/dL) 298 H 280 H Plasma Lactic Acid Ari Phosphorus Total Protein Albumin Urine Appearance Urine Protein Urine Glucose (UA) Urine Blood Ur Leukocyte Esterase Urine RBC Ur Squamous Epith Cells Hyaline Casts - Diagnostic Findings Chest x-ray: report reviewed, image reviewed (Improving left-sided lung infiltrate, the VQ scan is a indeterminate however clinical probably due to pulmonary embolism is low will check a duplex ultrasound the lower extremity) Assessment and Plan Assessment: Acute renal failure related to acute tubular necrosis Septic shock related to urinary tract infection Urinary tract infection Indeterminate VQ scan clinical probability of pulmonary embolism is low 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 Hypotension related to adrenal insufficiency, intravascular volume depletion and severe dehydration, and sepsis Cardiomyopathy with chronic systolic heart failure Hypertension hypertensive cardiovascular disease Dyslipidemia Hyperglycemia uncontrolled diabetes mellitus Plan: Aggressive fluid resuscitation Monitor renal functions closely Broad-spectrum antibiotics Valdes culture including urine and blood DVT and peptic ulcer disease prophylaxis We will hold on central line as likelihood of her coming off of vasopressors as high likely in next few hours with fluid resuscitation Hold antihypertensive agents Stress dose steroids will start with 50 mg hydrocortisone IV every 12 Repeat labs and x-ray tomorrow Clinical probably D of pulmonary embolism is low however the VQ scan is a indeterminate will check duplex ultrasound lower extremity Further recommendations pending plan of care as per clinical response of the patient Time with Patient: Greater than 30
[2018-02-08] MEDS: INSULIN ASPART 100 UNIT/ML 1 ML 10 ML VIAL SQ SCH ×4 (11:51→21:06)
[2018-02-08 11:52] LABS: Glucose,Whole Blood 260 mg/dL (75-99)
[2018-02-08 16:50] LABS: Glucose,Whole Blood 258 mg/dL (75-99)
[2018-02-08] MEDS: HYDROCORTISONE SUCCINATE 100 MG/2 ML VIAL IV SCH ×2 (17:19→23:51)
[2018-02-08 17:23] LABS: Glucose,Whole Blood 276 mg/dL (75-99)
[2018-02-08] MEDS: BUDESONIDE 0.5 MG/2 ML NEBU INHALATION SCH (19:36)
[2018-02-08] MEDS: MONTELUKAST 10 MG TAB PO SCH (21:05)
[2018-02-08] MEDS: ATORVASTATIN 10 MG TAB PO SCH (21:05)
[2018-02-08 21:28] LABS: Glucose,Whole Blood 274 mg/dL (75-99)
--- NOTE | 2018-02-08 22:54 | US ---
EXAMINATION TYPE: US venous doppler duplex LE BI DATE OF EXAM: 02/08/2018 1:05 AM COMPARISON: NONE CLINICAL HISTORY: r/o dvt. Possible PE SIDE PERFORMED: Bilateral TECHNIQUE: The lower extremity deep venous system is examined utilizing real time linear array sonog sammi with graded compression, doppler sonography and color-flow sonography. VESSELS IMAGED: External Iliac Vein (EIV) Common Femoral Vein Deep Femoral Vein Greater Saphenous Vein * Femoral Vein Popliteal Vein Small Saphenous Vein * Proximal Calf Veins (* superficial vessels) Right Leg: Negative for DVT Left Leg: Negative for DVT No evidence of DVT bilateral legs. IMPRESSION: Normal bilateral leg duplex venous sonogram.
--- NOTE | 2018-02-09 00:18 | HP ---
HISTORY AND PHYSICAL CHIEF COMPLAINT: A 62-year-old white female with poor appetite over the last 3 days. HISTORY: This is a pleasant 62-year-old white female came to the hospital with acute kidney failure due to poor appetite, poor oral intake over the past 2 to 3 days. She has not felt well. She was started on IV steroids for possible COPD exacerbation. She has had numerous mass defects related to severe airway disease with intermediate probability pulmonary embolism on V/Q scan. Dr. Valente saw the patient. She has chronic systolic heart failure and acute renal failure. Her creatinine was up near high 7s, now down to mid 4s with IV fluid hydration over the last 24 hours. She has had acute tubular necrosis due to prerenal azotemia, excessive dehydration, cough, congestion, shortness of breath. Seen by casino banker today. PAST MEDICAL HISTORY: Asthma, cancer, angina, heart failure, COPD, diabetes mellitus, dyslipidemia, hypertension, pneumonia, renal disease, asthmatic bronchitis, hysterectomy, ovarian cancer, non STEMI 3 to 4 years ago, AICD, hysterectomy, orthopedic surgery, tonsillectomy, knee arthroscopy. SOCIAL HISTORY: Former smoker for many years. No alcohol. No drugs. FAMILY HISTORY: Mother with cancer of the breast. Father with myocardial infarction and hypertension. HOME MEDICINES: See list. ALLERGIES: Negative. PHYSICAL EXAMINATION: VITAL SIGNS: Temp 97.8, pulse is 90s to low 100, blood pressure is 90s to low 100s over 60s to 70s, O2 of 96% to 97% on room air. GI: Soft, nontender. INTEGUMENT: Good skin turgor. NEUROLOGIC: Cranial nerves are intact. MUSCULOSKELETAL: Gait is normal. PSYCH: Fair mood and affect. LABS: Hemoglobin is 10.1. ASSESSMENT: 1. Urinary tract infection. 2. Indeterminate V/Q scan. 3. End-stage lung disease. 4. Chronic obstructive pulmonary disease exacerbation. 5. Cardiomyopathy. 6. Chronic systolic congestive heart failure. 7. Hypertension. 8. Dyslipidemia. 9. Acute tubular necrosis secondary to severe prerenal azotemia. 10.Septic shock secondary to urinary tract infection. PLAN: Course of fluid rehydration. Monitor electrolytes. For septic shock secondary to UTI, IV antibiotics are being ordered. MMODL / IJN: [id number] /
--- NOTE | 2018-02-09 00:31 | CONS ---
CONSULTATION REASON FOR CONSULT: Renal failure. HISTORY: Patient was seen this morning. She is a 62-year-old female who was admitted to the hospital with complaints of weakness. She did have some diarrhea at home and nausea with decreased oral intake. The patient also stated that she felt weak and short of breath. The patient was hypotensive. The patient was also acidotic with a CO2 of 15. She was hyperkalemic with potassium of 6.2 and serum creatinine was 7.85 with BUN of 162. The patient has received multiple fluid boluses. She was maintained on a bicarb drip. Her CO2 has improved to 23 now and potassium is down to 5.1. The patient is maintained on Levophed. She currently has good urine output. The patient denies any nonsteroidal anti-inflammatory agents prior to admission. She was maintained on Zestril. PAST MEDICAL HISTORY: Significant for previous history of acute kidney injury which recovered with fluid resuscitation, history of COPD, type 2 diabetes, hypertension, hyperlipidemia, coronary artery disease, history of uterine cancer and ovarian cancer. PAST SURGICAL HISTORY: Hysterectomy, tonsillectomy, oophorectomy, AICD placement, right knee arthroscopy, colonoscopy with polypectomy, AICD placement. SOCIAL HISTORY: Patient is a former smoker. No history of drug abuse or alcohol abuse. MEDICATIONS: Prior to admission include Lipitor, Aldactone, Zestril, Singulair, aspirin, Coreg, Lasix, Glucotrol, prednisone. ALLERGIES: None. REVIEW OF SYSTEMS: As per HPI. Other systems negative. EXAMINATION: Patient is comfortable, awake, she is alert and oriented x3. Blood pressure this morning when patient was seen was 92/63 with a heart rate of 100 per minute, patient is afebrile. Examination of the heart S1, S2. Examination of the lungs, decreased breath sounds at the bases. No crackles or wheezing is heard. Abdomen is soft, nontender. Examination of lower extremities shows no significant edema. MATRIX PLATER exam is grossly intact. LABS SHOW: Sodium 141, potassium 5.1, chloride 107, BUN 110, serum creatinine 4.6, hemoglobin 10.1 g/dL, phosphorus 5.2, magnesium 1.8. ASSESSMENT: 1. Acute kidney injury secondary to hypotension, hypoperfusion and hypovolemia, currently improving. Continue with aggressive IV hydration. 2. Metabolic acidosis associated with renal failure as well as hypoperfusion and lactic acidosis, currently improved. We can switch from the bicarb drip to a saline. 3. Hypotension. Rule out adrenal insufficiency. Check a cortisol level if not done. 4. Indeterminate V/Q scan for pulmonary embolism. 5. Dyslipidemia. 6. Type 2 diabetes. PLAN: Continue aggressive IV hydration. Switch bicarb drip to saline. Repeat labs in a.m. Check random cortisol level. Thank you for this consultation. We will continue to follow the patient with you during her hospitalization. MMODL / IJN: [id number] /
[2018-02-09 04:58] LABS: Basophils % (A) 0 %; Eosinophils % (A) 0 %; HCT 29.2 % (34.0-46.0); HGB 9.6 gm/dL (11.4-16.0); Lymphocytes # (A) 0.8 k/uL (1.0-4.8); Lymphocytes % (A) 5 %; MCH 32.4 pg (25.0-35.0); MCHC 32.9 g/dL (31.0-37.0); MCV 98.5 fL (80.0-100.0); Mean Platelet Volume 7.4; Monocytes # (A) 0.5 k/uL (0-1.0); Monocytes % (A) 3 %; Neutrophils # (A) 14.8 k/uL (1.3-7.7); Neutrophils % (A) 92 %; Platelet Count 199 k/uL (150-450); RBC 2.97 m/uL (3.80-5.40); RDW 12.7 % (11.5-15.5); WBC 16.1 k/uL (3.8-10.6)
[2018-02-09] MEDS: SODIUM CHLORIDE 0.9% 1,000 ML IV SCH ×3 (05:00→17:26)
[2018-02-09 05:08] LABS: Albumin 3.1 g/dL (3.5-5.0); Calcium 8.7 mg/dL (8.4-10.2); Magnesium 1.3 mg/dL (1.6-2.3); Phosphorus 3.9 mg/dL (2.5-4.5); Potassium 4.8 mmol/L (3.5-5.1); Total Bilirubin 0.4 mg/dL (0.2-1.3); Total Protein 5.6 g/dL (6.3-8.2)
--- NOTE | 2018-02-09 07:13 | XR ---
EXAMINATION TYPE: XR chest 1V DATE OF EXAM: 02/09/2018 COMPARISON: 02/08/2018 HISTORY: 62 year-old female COPD, shortness of breath TECHNIQUE: Single frontal view of the chest is obtained. FINDINGS: Left anterior chest wall AICD generator with right atrial, right ventricular, and coronary sinus lead s. Rightward patient rotation. Heart normal size. Patchy bibasilar opacities persist, possible trace right effusion. Relative upper lung lucencies. IMPRESSION: Rotated exam. COPD. Continued patchy bibasilar areas of atelectasis or infiltrates. Possible trace ri ght effusion.
[2018-02-09 07:28] LABS: Glucose,Whole Blood 164 mg/dL (75-99)
[2018-02-09] MEDS: INSULIN ASPART 100 UNIT/ML 1 ML 10 ML VIAL SQ SCH ×7 (08:05→21:14)
[2018-02-09] MEDS: IPRATROPIUM-ALBUTEROL 3 ML NEB INHALATION SCH ×4 (08:22→19:17)
[2018-02-09] MEDS: BUDESONIDE 0.5 MG/2 ML NEBU INHALATION SCH ×2 (08:22→19:17)
[2018-02-09] MEDS: PANTOPRAZOLE 40 MG/10 ML VIAL IV SCH (09:35)
[2018-02-09] MEDS: HEPARIN SODIUM,PORCINE 5,000 UNIT/ML 1 ML VIAL SQ SCH ×2 (09:36→21:12)
[2018-02-09] MEDS: HYDROCORTISONE SUCCINATE 100 MG/2 ML VIAL IV SCH ×2 (09:36→15:47)
[2018-02-09] MEDS: PIOGLITAZONE 45 MG TAB PO SCH (09:36)
[2018-02-09] MEDS: ASPIRIN 81 MG PO SCH (09:36)
[2018-02-09] MEDS: MAGNESIUM SULFATE-D5W PMX 1 GM in DEXTROSE/WATER 1 100ML.BAG IVPB SCH ×2 (10:05→12:06)
--- NOTE | 2018-02-09 12:06 | P.PN ---
Subjective Progress Note Date: 02/09/18 (Critical care time 35 minutes) Principal diagnosis: Severe sepsis, septic shock, acute on chronic systolic heart failure, ischemic cardiomyopathy, acute renal failure related to acute tubular necrosis, intravascular volume depletion and dehydration, urinary tract infection, adrenal insufficiency chronic persistent asthma of severe category 02/09/2018, patient seen eval examined during the rounds clinically patient is slightly better breathing K more comfortably denies any chest pain or radiation of pain denies any cough or sputum production urine output has been adequate renal function continued to improve progressively, patient however remains on levo fed which is going up and down patient is currently on 5 mics systolic blood pressure is ranging about 110 to 120, patient has a history of chronic hypotension Ammann her baseline systolic blood pressures usually 9200, I would detailed discussion with the staff will taper down the levo fed very slowly approximately one mcg every 2-3 hour and try to keep map around 60 to 65, and prior to discontinuation of levo will give 500 mL of IV crystalloid normal saline as a bolus, blood culture urine cultures remains negative so far, white cell count up to 16,000, patient has been on a stress dose steroids, hypertension appears to be multifactorial related to sepsis cardiomyopathy and chronic systolic heart failure as well as adrenal insufficiency due to extensive use of prednisone in the past for her chronic persistent severe asthma , labs reviewed medications reviewed radiographic studies reviewed as well, blood sugar is running on the higher side, meds are being adjusted 62-year-old female with history of chronic persistent asthma as well as cardiomyopathy and low ejection fraction on chronic systolic heart failure she was seen evaluated examined in ICU if she presented into the hospital with generalized weakness aches and pains as well as very low blood pressure, has poor appetite has not been eating and drinking for the last several days, on arrival she was noted to be hypotensive in acute renal failure likely related to acute tubular necrosis, off note that she has similar presentation several months ago however she recovered nicely she has chronic renal failure stage 2-3 is being monitor and observe as a baseline never required hemodialysis in the past, her urine analysis suggestive of ongoing infection, she is hypotensive as she is on 40 mics of levo fed. Repeat systolic blood pressure improved up to 80 , she has some nausea but denies any vomiting or diarrhea, her cough congestion shortness of breath has improved compared to recent exacerbation she is on tapering doses of steroids, denies any seizure activity loss of consciousness), patient has been resuscitated with crystalloids in the emergency department has been on bicarb drip however IV fluids are being switched to normal saline she is being given half a liter of crystalloid as well she will be started on stress dose steroid likely that we'll get rate of the vasopressors, her urine and blood culture is being sent as well and she is being started on broad- spectrum antibiotics Objective - Vital Signs Vital signs: Vital Signs Temp 97.6 F 02/09/18 08:00 Pulse 79 02/09/18 11:40 Resp 21 02/09/18 10:00 BP 96/54 02/09/18 10:00 Pulse Ox 98 02/09/18 10:00 Intake & Output 02/08/18 02/09/18 02/09/18 18:59 06:59 18:59 Intake Total 2929.750 2287.000 870 Output Total 2585 1910 525 Balance 344.750 377.000 345 Weight 81.3 kg Intake: IV 2470 2040 510 0.9 NaCl carrier 220 240 60 Dextrose 5% in Water 1, 350 000 ml @ 100 mls/hr IV . [id number] [facility] with Sodium Bicarb (1 Meq/ml) 150 ml Rx#:[id number] Sodium Chloride 0.9% 1, 1350 1800 450 000 ml @ 150 mls/hr IV . Q6H40M [facility] Rx#:[id number] Sodium Chloride 0.9% 500 500 ml 500 ml @ 999 mls/hr IV .Q31M [facility] Rx#:[id number] cefTRIAXone 1,000 mg In 50 Sodium Chloride 0.9% 50 ml @ 100 mls/hr IVPB Q24HR [facility] Rx#:[id number] Intake, IV Titration 219.750 127.000 Amount Norepinephrine 4 mg In 219.750 127.000 Sodium Chloride 0.9% 250 ml @ Titrate IV .Q0M [facility] Rx#:[id number] Oral 240 120 360 Output: Urine 2585 1910 525 Other: Voiding Method Indwelling Catheter Indwelling Catheter - Exam - Constitutional General appearance: average body habitus, cooperative, disheveled, mild distress - EENT Eyes: EOMI, PERRLA, poor dentition, normal appearance ENT: normal oropharynx Ears: bilateral: normal - Neck Neck: normal ROM Carotids: bilateral: upstroke normal, bruit absent Thyroid: bilateral: normal size - Respiratory Respiratory: bilateral: diminished, prolonged expiration - Cardiovascular Rhythm: regular Heart sounds: normal: S1, S2 - Gastrointestinal General gastrointestinal: decreased bowel sounds, normal bowel sounds, soft - Integumentary Integumentary: decreased turgor, normal - Neurologic Neurologic: CNII-XII intact - Musculoskeletal Musculoskeletal: gait normal, generalized weakness, strength equal bilaterally - Psychiatric Psychiatric: appropriate affect, intact judgment & insight - Labs CBC & Chem 7: 02/09/18 04:24 02/09/18 04:24 Labs: Abnormal Lab Results - Last 24 Hours (Table) 02/08/18 02/08/18 02/08/18 Range/Units 16:39 17:11 20:53 WBC (3.8-10.6) k/uL RBC (3.80-5.40) m/uL Hgb (11.4-16.0) gm/dL Hct (34.0-46.0) % Neutrophils # (1.3-7.7) k/uL Lymphocytes # (1.0-4.8) k/uL Chloride (98-107) mmol/L Carbon Dioxide (22-30) mmol/L BUN (7-17) mg/dL Creatinine (0.52-1.04) mg/dL Glucose (74-99) mg/dL POC Glucose (mg/dL) 258 H 276 H 274 H (75-99) mg/dL Magnesium (1.6-2.3) mg/dL Total Protein (6.3-8.2) g/dL Albumin (3.5-5.0) g/dL 02/09/18 02/09/18 02/09/18 Range/Units 04:24 04:24 07:16 WBC 16.1 H (3.8-10.6) k/uL RBC 2.97 L (3.80-5.40) m/uL Hgb 9.6 L (11.4-16.0) gm/dL Hct 29.2 L (34.0-46.0) % Neutrophils # 14.8 H (1.3-7.7) k/uL Lymphocytes # 0.8 L (1.0-4.8) k/uL Chloride 115 H (98-107) mmol/L Carbon Dioxide 19 L (22-30) mmol/L BUN 57 H (7-17) mg/dL Creatinine 2.83 H (0.52-1.04) mg/dL Glucose 192 H (74-99) mg/dL POC Glucose (mg/dL) 164 H (75-99) mg/dL Magnesium 1.3 L (1.6-2.3) mg/dL Total Protein 5.6 L (6.3-8.2) g/dL Albumin 3.1 L (3.5-5.0) g/dL Microbiology - Last 24 Hours (Table) 02/08/18 10:39 Urine Culture - Final Urine,Catheterized 02/07/18 16:40 Blood Culture - Preliminary Blood No Growth after 24 hours Assessment and Plan Assessment: Acute renal failure related to acute tubular necrosis Septic shock related to urinary tract infection Urinary tract infection Indeterminate VQ scan clinical probability of pulmonary embolism is low 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 Hypotension related to adrenal insufficiency, chronic systolic heart failure and low ejection fraction, intravascular volume depletion and severe dehydration , and sepsis Cardiomyopathy with chronic systolic heart failure Hypertension hypertensive cardiovascular disease Dyslipidemia Hyperglycemia uncontrolled diabetes mellitus Plan: Gentle fluid resuscitation, Monitor renal functions closely Broad-spectrum antibiotics Valdes culture including urine and blood results reviewed DVT and peptic ulcer disease prophylaxis We will hold on central line as likelihood of her coming off of vasopressors as high likely in next few hours with fluid resuscitation Hold antihypertensive agents Stress dose steroids Repeat labs and x-ray tomorrow Taper and DC the levo fed drip as mentioned above Further recommendations pending plan of care as per clinical response of the patient Time with Patient: Greater than 30
[2018-02-09 12:12] LABS: Glucose,Whole Blood 143 mg/dL (75-99)
[2018-02-09] MEDS: NOREPINEPHRINE 4 MG in SODIUM CHLORIDE 0.9% 250 ML IV SCH (16:29)
[2018-02-09 17:16] LABS: Glucose,Whole Blood 165 mg/dL (75-99)
--- NOTE | 2018-02-09 17:35 | PN ---
PROGRESS NOTE Patient is seen for followup for acute kidney injury secondary to hypotension, hypoperfusion. Her renal function has improved. Her creatinine is down to 2.83 from 7.85 on initial admission. The patient has had good urine output. Levophed has decreased, but patient still remains on Levophed. She is tolerating oral intake. All cultures are currently negative. EXAMINATION: This morning, when patient was seen, blood pressure was 99/51, heart rate of 88 per minute. She is afebrile. Examination of the heart S1, S2. Examination of the lungs bilateral breath sounds are heard. Abdomen is soft, nontender. Examination of lower extremities shows no significant edema. LABS: Show sodium 142, potassium 4.8, chloride 115, CO2 is 19, BUN 57, serum creatinine 2.83, hemoglobin 9.6 g/dL. ASSESSMENT: 1. Acute kidney injury, mainly prerenal associated with hypotension, hypoperfusion and volume depletion. Currently maintained on IV fluids with improving renal function. 2. Metabolic acidosis secondary to renal failure. Currently improved. Patient was on bicarb drip initially. 3. Hypotension, maintained on Levophed. Serum cortisol was ordered which is pending. Continue with IV fluids and try to wean down the Levophed. 4. Type 2 diabetes. PLAN: Follow up on the cortisol level. Continue with IV fluids. Doubt significant urinary tract infection given low WBC count in the urine. We will follow up on the cultures. MMODL / IJN: [id number] /
[2018-02-09 21:07] LABS: Glucose,Whole Blood 144 mg/dL (75-99)
[2018-02-09] MEDS: MONTELUKAST 10 MG TAB PO SCH (21:11)
[2018-02-09] MEDS: ATORVASTATIN 10 MG TAB PO SCH (21:11)
--- NOTE | 2018-02-10 00:02 | PN ---
PROGRESS NOTE SUBJECTIVE: Severe sepsis, septic shock, ischemic cardiomyopathy, chronic systolic heart failure, acute renal failure, acute tubular necrosis, adrenal insufficiency, chronic persistent asthma. Levophed to keep her blood pressure up. PHYSICAL EXAM: Cardiovascular, S1 and S2. Lungs clear. GI soft. Hematology negative Homans. Psych fair mood and affect. ASSESSMENT AND PLAN: 1. Acute renal failure, acute tubular necrosis. 2. Septic shock related to urinary tract infection. 3. Indeterminate V/Q scan. 4. End-stage lung disease. 5. Chronic obstructive pulmonary disease. 6. Hypertension related to adrenal insufficiency. 7. Cardiomyopathy with chronic systolic heart failure. 8. Hypertensive cardiovascular disease. 9. Dyslipidemia. 10.Hyperglycemia. PLAN: Rehydrate slowly. Treat with antibiotics for UTI. Fluid rehydration. Please see further orders. Possible discharge in the next day or two if norepinephrine can be weaned. VADIM / JUAN MANUELN: [id number] /
[2018-02-10] MEDS: SODIUM CHLORIDE 0.9% 1,000 ML IV SCH ×3 (01:00→15:04)
[2018-02-10] MEDS: HYDROCORTISONE SUCCINATE 100 MG/2 ML VIAL IV SCH ×6 (03:25→21:58)
[2018-02-10 05:42] LABS: Basophils % (A) 0 %; Eosinophils % (A) 0 %; HCT 25.6 % (34.0-46.0); HGB 8.6 gm/dL (11.4-16.0); Lymphocytes # (A) 1.8 k/uL (1.0-4.8); Lymphocytes % (A) 16 %; MCH 33.4 pg (25.0-35.0); MCHC 33.7 g/dL (31.0-37.0); MCV 99.4 fL (80.0-100.0); Mean Platelet Volume 7.9; Monocytes # (A) 0.5 k/uL (0-1.0); Monocytes % (A) 4 %; Neutrophils # (A) 9.1 k/uL (1.3-7.7); Neutrophils % (A) 79 %; Platelet Count 179 k/uL (150-450); RBC 2.58 m/uL (3.80-5.40); RDW 12.6 % (11.5-15.5); WBC 11.5 k/uL (3.8-10.6)
[2018-02-10 05:49] LABS: Albumin 2.5 g/dL (3.5-5.0); Calcium 8.5 mg/dL (8.4-10.2); Magnesium 1.6 mg/dL (1.6-2.3); Phosphorus 2.8 mg/dL (2.5-4.5); Potassium 4.5 mmol/L (3.5-5.1); Total Bilirubin 0.3 mg/dL (0.2-1.3); Total Protein 4.7 g/dL (6.3-8.2)
--- NOTE | 2018-02-10 07:13 | XR ---
EXAMINATION TYPE: XR chest 1V DATE OF EXAM: 02/10/2018 HISTORY: Shortness of breath. COMPARISON: 02/09/2018 TECHNIQUE: Single view of the chest is submitted. FINDINGS: Demonstrated are scattered senescent parenchymal change. There is increasing right basilar patchy density and small effusion. Suspect small effusion left lung base with improved aeration. The heart is stable. Hilar and mediastinal structures are within normal limits. Degenerative changes are seen of the dorsal spine. IMPRESSION: 1. There is increasing right basilar patchy density and small effusion. Suspect small effusion left lung base with improved aeration.
[2018-02-10 07:19] LABS: Glucose,Whole Blood 83 mg/dL (75-99)
[2018-02-10] MEDS: INSULIN ASPART 100 UNIT/ML 1 ML 10 ML VIAL SQ SCH ×7 (07:19→21:38)
[2018-02-10] MEDS ORDERED: Magnesium Replacement Protocol 1 EACH MISC MISCELLANE PRN (08:10)
[2018-02-10] MEDS: BUDESONIDE 0.5 MG/2 ML NEBU INHALATION SCH ×2 (08:35→19:25)
[2018-02-10] MEDS: IPRATROPIUM-ALBUTEROL 3 ML NEB INHALATION SCH ×4 (08:35→19:25)
[2018-02-10] MEDS: ASPIRIN 81 MG PO SCH (09:11)
[2018-02-10] MEDS: MAGNESIUM SULFATE-D5W PMX 1 GM in DEXTROSE/WATER 1 100ML.BAG IVPB SCH ×2 (09:11→11:05)
[2018-02-10] MEDS: PANTOPRAZOLE 40 MG/10 ML VIAL IV SCH (09:11)
[2018-02-10] MEDS: HEPARIN SODIUM,PORCINE 5,000 UNIT/ML 1 ML VIAL SQ SCH ×2 (09:11→21:36)
[2018-02-10] MEDS: PIOGLITAZONE 45 MG TAB PO SCH (09:12)
[2018-02-10] MEDS: AZITHROMYCIN 500 MG in SODIUM CHLORIDE 0.9% 250 ML IVPB SCH (09:14)
[2018-02-10] MEDS: PIPERACILLIN-TAZOBACTAM 3.375 GM in SODIUM CHLORIDE 0.9% 100 ML IVPB SCH ×3 (11:06→23:50)
--- NOTE | 2018-02-10 11:06 | PN ---
PROGRESS NOTE Patient is seen for followup for acute kidney injury secondary to severe hypotension, hypoperfusion. She is maintained on IV fluids. Renal function has improved significantly with creatinine decreasing from 7.8 to 1.59 now. EXAMINATION: Patient is comfortable, awake, alert, oriented x3. She is off of Levophed. Blood pressure 96/52, heart rate 101 per minute. Patient is afebrile. Examination of the heart: S1, S2. Examination of the lungs: Bilateral breath sounds are heard. Abdomen is soft, nontender. Examination of lower extremities shows no significant edema. LAB: Show sodium 142, potassium 4.5, chloride 119, BUN 32, serum creatinine 1.59, hemoglobin 8.6 g/dL. ASSESSMENT: 1. Acute kidney injury secondary to hypotension, hypoperfusion, currently significantly improved. 2. Severe hypotension. Serum cortisol level was at 11. Patient is currently maintained on stress dose steroids. We should strongly rule out adrenal insufficiency as outpatient as this is her 2nd episode. 3. Metabolic acidosis secondary to hypotension, hypoperfusion and renal failure, currently improved. 4. Possible urinary tract infection, however, UA was not very impressive. Urine culture has not shown any growth thus far. 5. End-stage lung disease. 6. Chronic obstructive pulmonary disease. PLAN: Decrease IV fluids to 100 mL an hour. Repeat labs in a.m. MMODL / IJN: [id number] /
[2018-02-10 12:08] LABS: Glucose,Whole Blood 96 mg/dL (75-99)
[2018-02-10 17:05] LABS: Glucose,Whole Blood 156 mg/dL (75-99)
--- NOTE | 2018-02-10 17:22 | P.PN ---
Subjective Progress Note Date: 02/10/18 (Critical care time spent 35 minutes) Principal diagnosis: Right by perihilar pneumonia, Severe sepsis, septic shock, acute on chronic systolic heart failure, ischemic cardiomyopathy, acute renal failure related to acute tubular necrosis, intravascular volume depletion and dehydration, urinary tract infection, adrenal insufficiency chronic persistent asthma of severe category 02/10/2018, patient seen eval examined during the rounds clinically patient has been doing slightly better in terms of breathing cultures including urine and blood has been negative chest x-ray performed today reviewed perihilar infiltrate cannot be excluded with differential diagnosis of interstitial edema and fluid overload due to leukocytosis patient has been started on broad- spectrum antibiotics with Zosyn as well as Zithromax patient leukocytosis today slightly better than yesterday patient, remains on stress dose steroid which is now lowered down to 50 mg IV every 12 from 3 times a day, urine output has been adequate renal functions continued to improve, patient remains on breathing treatments 02/09/2018, patient seen eval examined during the rounds clinically patient is slightly better breathing K more comfortably denies any chest pain or radiation of pain denies any cough or sputum production urine output has been adequate renal function continued to improve progressively, patient however remains on levo fed which is going up and down patient is currently on 5 mics systolic blood pressure is ranging about 110 to 120, patient has a history of chronic hypotension Ammann her baseline systolic blood pressures usually 9200, I would detailed discussion with the staff will taper down the levo fed very slowly approximately one mcg every 2-3 hour and try to keep map around 60 to 65, and prior to discontinuation of levo will give 500 mL of IV crystalloid normal saline as a bolus, blood culture urine cultures remains negative so far, white cell count up to 16,000, patient has been on a stress dose steroids, hypertension appears to be multifactorial related to sepsis cardiomyopathy and chronic systolic heart failure as well as adrenal insufficiency due to extensive use of prednisone in the past for her chronic persistent severe asthma , labs reviewed medications reviewed radiographic studies reviewed as well, blood sugar is running on the higher side, meds are being adjusted 62-year-old female with history of chronic persistent asthma as well as cardiomyopathy and low ejection fraction on chronic systolic heart failure she was seen evaluated examined in ICU if she presented into the hospital with generalized weakness aches and pains as well as very low blood pressure, has poor appetite has not been eating and drinking for the last several days, on arrival she was noted to be hypotensive in acute renal failure likely related to acute tubular necrosis, off note that she has similar presentation several months ago however she recovered nicely she has chronic renal failure stage 2-3 is being monitor and observe as a baseline never required hemodialysis in the past, her urine analysis suggestive of ongoing infection, she is hypotensive as she is on 40 mics of levo fed. Repeat systolic blood pressure improved up to 80 , she has some nausea but denies any vomiting or diarrhea, her cough congestion shortness of breath has improved compared to recent exacerbation she is on tapering doses of steroids, denies any seizure activity loss of consciousness), patient has been resuscitated with crystalloids in the emergency department has been on bicarb drip however IV fluids are being switched to normal saline she is being given half a liter of crystalloid as well she will be started on stress dose steroid likely that we'll get rate of the vasopressors, her urine and blood culture is being sent as well and she is being started on broad- spectrum antibiotics Objective - Vital Signs Vital signs: Vital Signs Temp 97.5 F L 02/10/18 15:00 Pulse 96 02/10/18 17:00 Resp 20 02/10/18 17:00 BP 99/66 02/10/18 17:00 Pulse Ox 97 02/10/18 17:00 Intake & Output 02/09/18 02/10/18 02/10/18 18:59 06:59 18:59 Intake Total 3383 2130.160 1972.938 Output Total 1900 1750 1242 Balance 1483 380.160 730.938 Weight 81 kg Intake: IV 2340 2040 1500 0.9 NaCl carrier 240 240 400 Azithromycin 500 mg In 250 Sodium Chloride 0.9% 250 ml @ 250 mls/hr IVPB DAILY [facility] Rx#:[id number] Magnesium Sulfate-D5w Pmx 200 100 1 gm In Dextrose/Water 1 100ml.bag @ 100 mls/hr IVPB Q1H [facility] Rx#: [id number] Piperacillin-Tazobactam 3 100 .375 gm In Sodium Chloride 0.9% 100 ml @ 25 mls/hr IVPB Q8HR [facility] Rx# :[id number] Sodium Chloride 0.9% 1, 1800 1800 650 000 ml @ 100 mls/hr IV . Q10H [facility] Rx#:[id number] cefTRIAXone 1,000 mg In 100 Sodium Chloride 0.9% 50 ml @ 100 mls/hr IVPB Q24HR [facility] Rx#:[id number] Intake, IV Titration 123 90.160 112.938 Amount Norepinephrine 4 mg In 123 90.160 12.938 Sodium Chloride 0.9% 250 ml @ Titrate IV .Q0M [facility] Rx#:[id number] Piperacillin-Tazobactam 3 100 .375 gm In Sodium Chloride 0.9% 100 ml @ 25 mls/hr IVPB Q8HR [facility] Rx# :[id number] Oral 920 360 Output: Urine 1900 1750 1242 Other: Voiding Method Indwelling Catheter Indwelling Catheter Indwelling Catheter - Exam - Constitutional General appearance: average body habitus, cooperative, disheveled, mild distress - EENT Eyes: EOMI, PERRLA, poor dentition, normal appearance ENT: normal oropharynx Ears: bilateral: normal - Neck Neck: normal ROM Carotids: bilateral: upstroke normal, bruit absent Thyroid: bilateral: normal size - Respiratory Respiratory: bilateral: diminished, prolonged expiration - Cardiovascular Rhythm: regular Heart sounds: normal: S1, S2 - Gastrointestinal General gastrointestinal: decreased bowel sounds, normal bowel sounds, soft - Integumentary Integumentary: decreased turgor, normal - Neurologic Neurologic: CNII-XII intact - Musculoskeletal Musculoskeletal: gait normal, generalized weakness, strength equal bilaterally - Psychiatric Psychiatric: appropriate affect, intact judgment & insight - Labs CBC & Chem 7: 02/10/18 04:24 02/10/18 04:24 Labs: Abnormal Lab Results - Last 24 Hours (Table) 02/09/18 02/09/18 02/10/18 Range/Units 17:05 20:55 04:24 WBC 11.5 H (3.8-10.6) k/uL RBC 2.58 L (3.80-5.40) m/uL Hgb 8.6 L (11.4-16.0) gm/dL Hct 25.6 L (34.0-46.0) % Neutrophils # 9.1 H (1.3-7.7) k/uL Chloride (98-107) mmol/L Carbon Dioxide (22-30) mmol/L BUN (7-17) mg/dL Creatinine (0.52-1.04) mg/dL Glucose (74-99) mg/dL POC Glucose (mg/dL) 165 H 144 H (75-99) mg/dL Total Protein (6.3-8.2) g/dL Albumin (3.5-5.0) g/dL 02/10/18 02/10/18 Range/Units 04:24 16:54 WBC (3.8-10.6) k/uL RBC (3.80-5.40) m/uL Hgb (11.4-16.0) gm/dL Hct (34.0-46.0) % Neutrophils # (1.3-7.7) k/uL Chloride 119 H (98-107) mmol/L Carbon Dioxide 21 L (22-30) mmol/L BUN 32 H (7-17) mg/dL Creatinine 1.59 H (0.52-1.04) mg/dL Glucose 69 L (74-99) mg/dL POC Glucose (mg/dL) 156 H (75-99) mg/dL Total Protein 4.7 L (6.3-8.2) g/dL Albumin 2.5 L (3.5-5.0) g/dL Microbiology - Last 24 Hours (Table) 02/08/18 12:25 Blood Culture - Preliminary Blood No Growth after 48 hours 02/07/18 16:40 Blood Culture - Preliminary Blood No Growth after 48 hours Assessment and Plan Assessment: Probable right perihilar pneumonia versus fluid overload Acute renal failure related to acute tubular necrosis Septic shock related to urinary tract infection Urinary tract infection Indeterminate VQ scan clinical probability of pulmonary embolism is low 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 Hypotension related to adrenal insufficiency, chronic systolic heart failure and low ejection fraction, intravascular volume depletion and severe dehydration , and sepsis Cardiomyopathy with chronic systolic heart failure Hypertension hypertensive cardiovascular disease Dyslipidemia Hyperglycemia uncontrolled diabetes mellitus Plan: Gentle fluid resuscitation can be slowed down now Patient can be resumed on Aldactone Zestril Lasix and Coreg probably next 24-48 hours Patient can be started on cardiac medications with close monitoring and observation Monitor renal functions closely Broad-spectrum antibiotics initiated Valdes culture including urine and blood results reviewed DVT and peptic ulcer disease prophylaxis We will hold on central line as came off of vasopressors Hold antihypertensive agents Stress dose steroids Repeat labs and x-ray tomorrow Agree with evaluating patient for adrenal insufficiency as outpatient Further recommendations pending plan of care as per clinical response of the patient Time with Patient: Greater than 30
[2018-02-10] MEDS: SODIUM CHLORIDE 0.9% 500 ML 500 ML IV SCH (19:30)
[2018-02-10 20:29] LABS: Glucose,Whole Blood 135 mg/dL (75-99)
[2018-02-10] MEDS: MONTELUKAST 10 MG TAB PO SCH (21:36)
[2018-02-10] MEDS: ATORVASTATIN 10 MG TAB PO SCH (21:36)
[2018-02-11 04:43] LABS: Basophils % (A) 0 %; Eosinophils # (A) 0.1 k/uL (0-0.7); Eosinophils % (A) 1 %; HCT 26.1 % (34.0-46.0); HGB 8.4 gm/dL (11.4-16.0); Lymphocytes # (A) 1.1 k/uL (1.0-4.8); Lymphocytes % (A) 13 %; MCH 32.9 pg (25.0-35.0); MCHC 32.3 g/dL (31.0-37.0); MCV 101.9 fL (80.0-100.0); Macrocytosis Slight; Mean Platelet Volume 7.2; Monocytes # (A) 0.3 k/uL (0-1.0); Monocytes % (A) 4 %; Neutrophils % (A) 82 %; Platelet Count 170 k/uL (150-450); RBC 2.56 m/uL (3.80-5.40); RDW 12.8 % (11.5-15.5); WBC 8.6 k/uL (3.8-10.6)
[2018-02-11 04:52] LABS: Albumin 2.5 g/dL (3.5-5.0); Calcium 8.4 mg/dL (8.4-10.2); Magnesium 1.7 mg/dL (1.6-2.3); Phosphorus 2.7 mg/dL (2.5-4.5); Potassium 4.6 mmol/L (3.5-5.1); Total Bilirubin 0.3 mg/dL (0.2-1.3); Total Protein 4.8 g/dL (6.3-8.2)
[2018-02-11 07:09] LABS: Glucose,Whole Blood 123 mg/dL (75-99)
[2018-02-11] MEDS: CARVEDILOL 12.5 MG TAB PO SCH ×2 (07:29→17:51)
[2018-02-11] MEDS: INSULIN ASPART 100 UNIT/ML 1 ML 10 ML VIAL SQ SCH ×7 (07:30→20:41)
--- NOTE | 2018-02-11 07:37 | XR ---
EXAMINATION TYPE: XR chest 1V DATE OF EXAM: 02/11/2018 COMPARISON: 02/10/2018 INDICATION: COPD TECHNIQUE: Single frontal view of the chest is obtained. FINDINGS: The heart size is normal. The pulmonary vasculature is normal. There is an infiltrate at the right base. There is silhouetting the right diaphragm. Some mild fluid may be at the left base. Electronic device overlies left chest. IMPRESSION: 1. Suggestion of small bilateral pleural effusions with adjacent atelectasis at the right base. Pneum onia should be considered. Infiltrate is increasing from comparison. Follow-up is recommended.
--- NOTE | 2018-02-11 08:51 | PN ---
PROGRESS NOTE SUBJECTIVE: 62-year-old white female who still has hypotension despite being on IV hydrocortisone. She has been weaned off norepinephrine to keep her blood pressure up. Chest x-ray showed pneumonia ( ) at which time Zosyn and Zithromax were given IV. Cardiovascular: S1, S2. Lungs: Scattered wheeze. On 2 L oxygen saturating in the mid 90s, blood pressure latest is 92 over 60s. Lungs: Scattered rhonchi in the right lower lobe, wheeze x4. Cardiovascular: S1, S2. Hematology: Negative Homans. ASSESSMENT: 1. Adrenal insufficiency. 2. Right middle lobe pneumonia. 3. Chronic kidney disease Stage 3. 4. Severe acute kidney injury due to prerenal renal insufficiency. 5. Chronic obstructive pulmonary disease. 6. Allergic asthma. Continue current treatments. Treat the pneumonia. Follow up in the next day or 2 for possible discharge if pneumonia improves and blood pressure stabilizes. ICU time 30 minutes. MMODL / IJN: [id number] /
[2018-02-11] MEDS: BUDESONIDE 0.5 MG/2 ML NEBU INHALATION SCH ×2 (09:11→19:39)
[2018-02-11] MEDS: IPRATROPIUM-ALBUTEROL 3 ML NEB INHALATION SCH ×4 (09:11→19:39)
[2018-02-11] MEDS: SPIRONOLACTONE 25 MG TAB PO SCH (10:47)
[2018-02-11] MEDS: ASPIRIN 81 MG PO SCH (10:47)
[2018-02-11] MEDS: HEPARIN SODIUM,PORCINE 5,000 UNIT/ML 1 ML VIAL SQ SCH ×2 (10:48→22:35)
[2018-02-11] MEDS: AZITHROMYCIN 500 MG in SODIUM CHLORIDE 0.9% 250 ML IVPB SCH (10:48)
[2018-02-11] MEDS: PIOGLITAZONE 45 MG TAB PO SCH (10:48)
[2018-02-11] MEDS: HYDROCORTISONE SUCCINATE 100 MG/2 ML VIAL IV SCH ×2 (10:48→20:45)
[2018-02-11] MEDS: PIPERACILLIN-TAZOBACTAM 3.375 GM in SODIUM CHLORIDE 0.9% 100 ML IVPB SCH ×2 (10:48→17:51)
[2018-02-11] MEDS: PANTOPRAZOLE 40 MG/10 ML VIAL IV SCH (10:49)
[2018-02-11 11:58] LABS: Glucose,Whole Blood 75 mg/dL (75-99)
--- NOTE | 2018-02-11 12:49 | PN ---
PROGRESS NOTE The patient is seen for followup for acute kidney injury which was mainly prerenal associated with hypotension, hypovolemia. Renal function has improved significantly with serum creatinine now down to about 1.5 from 7 mg/dL on initial admission. The patient had been on Levophed, which is now discontinued. She is maintained on IV fluids. She has had good urine output. PHYSICAL EXAMINATION: Blood pressure remains on the lower side with systolic pressure about 91 mmHg this morning. Heart rate is 94 per minute. The patient is afebrile. Examination of the heart S1, S2. Examination of the lungs bilateral breath sounds are heard. Abdomen is soft, nontender. Examination of lower extremities shows edema 1+ bilaterally. TAX REPRESENTATIVE exam is grossly intact. LAB: Show sodium 140, potassium 4.6, serum creatinine 1.58, hemoglobin 8.4 g/dL. ASSESSMENT: 1. Acute kidney injury secondary to hypotension, hypoperfusion currently significantly improved. 2. Severe hypotension with cortisone level at 11. Currently maintained on stress dose steroids. The Levophed has been discontinued. The patient is maintained on IV fluids. 3. Severe metabolic acidosis, now resolved. 4. Previous history of acute kidney injury associated with hypotension, hypovolemia. 5. End-stage lung disease secondary to severe chronic obstructive pulmonary disease and emphysema. PLAN: Continue to encourage increased oral intake. Repeat labs in a.m. Avoid nephrotoxic agents. MMODL / IJN: [id number] /
--- NOTE | 2018-02-11 14:15 | CDI ---
Last Revision, February 2017 Documentation Clarification Form Date: 02/11/2018 1:50:26 PM From: Gayla Paez RN, CCDS Admit Date: 02/07/2018 6:38:00 PM Patient Name: Ele Del Cid Visit Number: [id number] Discharge Date: ATTENTION: The Clinical Documentation Specialists (CDI) and [facility] Coding Staff appreciate your assistance in clarifying documentation. Please respond to the clarification below the line at the bottom and electronically sign. The CDI & [facility] Coding staff will review the response and follow-up if needed. Please note: Queries are made part of the Legal Health Record. If you have any questions, please contact the author of this message via ITS. Khanh Doty MD Pneumonia was documented in your consult on 02/08/18 and ongoing progress notes. History/Risk Factors: Asthma, Cancer, Diabetes mellitus, Heart failure, COPD, Pneumonia, Renal disease, Uterine cancer, Adrenal insufficiency, Clinical Indicators: Complaint of worsening shortness of breath that started 3 days prior to admit. She is disheveled, in mild distress. She was recently admitted for COPD exacerbation. She was started on broad-spectrum antibiotics Lungs sounds: Bilateral lungs wheezing right > than left. Vital signs on admission 52/39 106 20 97.7 Chest x-ray: Left-sided lung infiltrate WBC/Left shift: 15.6, Lactic acidosis 2.4, bun 162, Cr 7.85 Blood culture: No growth Treatment: Antibiotics: Zithromax PO, Zosyn IV O2 2/L NC (trtrate) Breathing Tx: Duoneb's per orders, Pulmicort inhalation Monitor Labs In order to capture the severity of condition, please clarify if the condition signifies and you are treating for: Bacterial Pneumonia, specify causal organism (if known) Gram Negative Pneumonia Other bacteria (please specify) Viral Pneumonia, specify casual organism (if known) Healthcare Acquired Pneumonia/Pneumonia, unspecified Other, please specify Unable to determine Please continue to document in your progress notes and discharge summary in order to capture severity of illness and risk of mortality. Include clinical findings that support your diagnosis. MTDD
[2018-02-11 17:09] LABS: Glucose,Whole Blood 132 mg/dL (75-99)
[2018-02-11] MEDS: SODIUM CHLORIDE 0.9% 500 ML 500 ML IV SCH (17:52)
[2018-02-11 20:25] LABS: Glucose,Whole Blood 123 mg/dL (75-99)
[2018-02-11] MEDS: ATORVASTATIN 10 MG TAB PO SCH (20:44)
[2018-02-11] MEDS: MONTELUKAST 10 MG TAB PO SCH (20:44)
--- NOTE | 2018-02-11 22:31 | PN ---
PROGRESS NOTE SUBJECTIVE: This patient is a 62-year-old white female with ATN, YOU, hypotension, still with systolics around 90 to 95. Trying to wean norepinephrine, which has been done 12 hours ago. CARDIOVASCULAR: S1, S2. LUNGS: Clear. GI: Soft. HEMATOLOGY: Negative Homans. ASSESSMENT: 1. Acute tubular necrosis. 2. YOU. 3. Hypotension. 4. Adrenal insufficiency. Trying to wean hydrocortisone. Wean norepinephrine. Continue blood pressure medications. See further orders. MMODL / IJN: [id number] /
[2018-02-12] MEDS: SODIUM CHLORIDE 0.9% 500 ML 500 ML IV SCH (00:52)
[2018-02-12] MEDS: PIPERACILLIN-TAZOBACTAM 3.375 GM in SODIUM CHLORIDE 0.9% 100 ML IVPB SCH ×3 (00:53→16:15)
[2018-02-12] MEDS: BUDESONIDE 0.5 MG/2 ML NEBU INHALATION SCH ×2 (07:18→18:57)
[2018-02-12] MEDS: IPRATROPIUM-ALBUTEROL 3 ML NEB INHALATION SCH ×4 (07:18→18:57)
[2018-02-12 07:37] LABS: Glucose,Whole Blood 87 mg/dL (75-99)
--- NOTE | 2018-02-12 07:38 | XR ---
EXAMINATION TYPE: XR chest 1V DATE OF EXAM: 02/12/2018 CLINICAL HISTORY: Difficulty breathing and COPD progress study. TECHNIQUE: Single AP portable upright view of the chest is obtained. COMPARISON: Chest x-ray from one day earlier and older studies. FINDINGS: There is cardiomegaly with multi lead pacemaker/AICD. There is background of chronic emphy sematous change with small bilateral pleural effusions and associated bibasilar atelectasis and/or in filtrate. Upper lungs are clear without pneumothorax. Osseous structures are intact. IMPRESSION: Overall stable findings, chronic emphysematous change and cardiomegaly with small bilat eral pleural effusions and associated right greater than left bibasilar atelectasis and/or infiltrate all redemonstrated.
[2018-02-12 07:48] LABS: Basophils % (A) 0 %; Eosinophils # (A) 0.1 k/uL (0-0.7); Eosinophils % (A) 1 %; HCT 24.2 % (34.0-46.0); HGB 8.2 gm/dL (11.4-16.0); Lymphocytes # (A) 2.3 k/uL (1.0-4.8); Lymphocytes % (A) 26 %; MCH 33.3 pg (25.0-35.0); MCHC 33.8 g/dL (31.0-37.0); MCV 98.6 fL (80.0-100.0); Mean Platelet Volume 7.3; Monocytes # (A) 0.3 k/uL (0-1.0); Monocytes % (A) 3 %; Neutrophils % (A) 69 %; Platelet Count 163 k/uL (150-450); RBC 2.46 m/uL (3.80-5.40); RDW 12.8 % (11.5-15.5); WBC 8.8 k/uL (3.8-10.6)
[2018-02-12 08:12] LABS: Calcium 8.7 mg/dL (8.4-10.2); Magnesium 1.5 mg/dL (1.6-2.3); Phosphorus 2.7 mg/dL (2.5-4.5); Potassium 4.7 mmol/L (3.5-5.1)
[2018-02-12] MEDS: INSULIN ASPART 100 UNIT/ML 1 ML 10 ML VIAL SQ SCH ×7 (08:22→21:56)
[2018-02-12] MEDS: PANTOPRAZOLE 40 MG TABLET PO SCH (08:23)
[2018-02-12] MEDS: AZITHROMYCIN 500 MG TAB PO SCH (08:24)
[2018-02-12] MEDS: PIOGLITAZONE 45 MG TAB PO SCH (08:24)
[2018-02-12] MEDS: CARVEDILOL 12.5 MG TAB PO SCH ×2 (09:25→16:56)
[2018-02-12] MEDS: HYDROCORTISONE SUCCINATE 100 MG/2 ML VIAL IV SCH ×2 (09:28→21:57)
[2018-02-12] MEDS: HEPARIN SODIUM,PORCINE 5,000 UNIT/ML 1 ML VIAL SQ SCH ×2 (09:29→21:56)
[2018-02-12] MEDS: SPIRONOLACTONE 25 MG TAB PO SCH (09:29)
[2018-02-12] MEDS: ASPIRIN 81 MG PO SCH (09:29)
[2018-02-12 11:56] LABS: Glucose,Whole Blood 112 mg/dL (75-99)
--- NOTE | 2018-02-12 16:01 | P.PN ---
Subjective Progress Note Date: 02/11/18 (late entry note) Principal diagnosis: Right by perihilar pneumonia, Severe sepsis, septic shock, acute on chronic systolic heart failure, ischemic cardiomyopathy, acute renal failure related to acute tubular necrosis, intravascular volume depletion and dehydration, urinary tract infection, adrenal insufficiency chronic persistent asthma of severe category 02/11/2018, patient seen eval examined during the rounds, clinically patient is doing slightly better cough congestion shortness of breath is stable, renal function continued to improve, patient is being resumed on Aldactone and Coreg as well as the LORI inhibitor's are still on hold due to acute renal failure patient remains off of vasopressors clinically and radiographically improve last chest x-ray performed and revealed small bilateral pleural effusion with some infiltrate at the right midlung field as well as the basis of pneumonia cannot be excluded 02/10/2018, patient seen eval examined during the rounds clinically patient has been doing slightly better in terms of breathing cultures including urine and blood has been negative chest x-ray performed today reviewed perihilar infiltrate cannot be excluded with differential diagnosis of interstitial edema and fluid overload due to leukocytosis patient has been started on broad- spectrum antibiotics with Zosyn as well as Zithromax patient leukocytosis today slightly better than yesterday patient, remains on stress dose steroid which is now lowered down to 50 mg IV every 12 from 3 times a day, urine output has been adequate renal functions continued to improve, patient remains on breathing treatments 02/09/2018, patient seen eval examined during the rounds clinically patient is slightly better breathing K more comfortably denies any chest pain or radiation of pain denies any cough or sputum production urine output has been adequate renal function continued to improve progressively, patient however remains on levo fed which is going up and down patient is currently on 5 mics systolic blood pressure is ranging about 110 to 120, patient has a history of chronic hypotension Ammann her baseline systolic blood pressures usually 9200, I would detailed discussion with the staff will taper down the levo fed very slowly approximately one mcg every 2-3 hour and try to keep map around 60 to 65, and prior to discontinuation of levo will give 500 mL of IV crystalloid normal saline as a bolus, blood culture urine cultures remains negative so far, white cell count up to 16,000, patient has been on a stress dose steroids, hypertension appears to be multifactorial related to sepsis cardiomyopathy and chronic systolic heart failure as well as adrenal insufficiency due to extensive use of prednisone in the past for her chronic persistent severe asthma , labs reviewed medications reviewed radiographic studies reviewed as well, blood sugar is running on the higher side, meds are being adjusted 62-year-old female with history of chronic persistent asthma as well as cardiomyopathy and low ejection fraction on chronic systolic heart failure she was seen evaluated examined in ICU if she presented into the hospital with generalized weakness aches and pains as well as very low blood pressure, has poor appetite has not been eating and drinking for the last several days, on arrival she was noted to be hypotensive in acute renal failure likely related to acute tubular necrosis, off note that she has similar presentation several months ago however she recovered nicely she has chronic renal failure stage 2-3 is being monitor and observe as a baseline never required hemodialysis in the past, her urine analysis suggestive of ongoing infection, she is hypotensive as she is on 40 mics of levo fed. Repeat systolic blood pressure improved up to 80 , she has some nausea but denies any vomiting or diarrhea, her cough congestion shortness of breath has improved compared to recent exacerbation she is on tapering doses of steroids, denies any seizure activity loss of consciousness), patient has been resuscitated with crystalloids in the emergency department has been on bicarb drip however IV fluids are being switched to normal saline she is being given half a liter of crystalloid as well she will be started on stress dose steroid likely that we'll get rate of the vasopressors, her urine and blood culture is being sent as well and she is being started on broad- spectrum antibiotics Objective - Vital Signs Vital signs: Vital Signs Temp 97.5 F L 02/12/18 12:40 Pulse 72 02/12/18 15:16 Resp 15 02/12/18 12:40 BP 88/57 02/12/18 12:40 Pulse Ox 98 02/12/18 12:40 Intake & Output 02/11/18 02/12/18 02/12/18 18:59 06:59 18:59 Intake Total 522 989 4312 Output Total 627 900 Balance -117 -360 1020 Weight 90.8 kg Intake: IV 510 100 0.9 NaCl carrier 160 Azithromycin 500 mg In 250 Sodium Chloride 0.9% 250 ml @ 250 mls/hr IVPB DAILY [facility] Rx#:[id number] Piperacillin-Tazobactam 3 100 100 .375 gm In Sodium Chloride 0.9% 100 ml @ 25 mls/hr IVPB Q8HR [facility] Rx# :[id number] Intake, IV Titration 160 240 Amount Piperacillin-Tazobactam 3 100 .375 gm In Sodium Chloride 0.9% 100 ml @ 25 mls/hr IVPB Q8HR [facility] Rx# :[id number] Sodium Chloride 0.9% 500 60 240 ml 500 ml @ 20 mls/hr IV .Q24H [facility] Rx#:[id number] Oral 380 680 Output: Urine 627 900 Other: Voiding Method Indwelling Catheter Indwelling Catheter Toilet # Voids 2 2 ABP, PAP, CO, CI - Last Documented Arterial Blood Pressure 93/51 - Exam - Constitutional General appearance: average body habitus, cooperative, disheveled, mild distress - EENT Eyes: EOMI, PERRLA, poor dentition, normal appearance ENT: normal oropharynx Ears: bilateral: normal - Neck Neck: normal ROM Carotids: bilateral: upstroke normal, bruit absent Thyroid: bilateral: normal size - Respiratory Respiratory: bilateral: diminished, prolonged expiration - Cardiovascular Rhythm: regular Heart sounds: normal: S1, S2 - Gastrointestinal General gastrointestinal: decreased bowel sounds, normal bowel sounds, soft - Integumentary Integumentary: decreased turgor, normal - Neurologic Neurologic: CNII-XII intact - Musculoskeletal Musculoskeletal: gait normal, generalized weakness, strength equal bilaterally - Psychiatric Psychiatric: appropriate affect, intact judgment & insight - Labs CBC & Chem 7: 02/12/18 07:15 02/12/18 07:15 Labs: Abnormal Lab Results - Last 24 Hours (Table) 02/11/18 02/11/18 02/12/18 Range/Units 17:07 20:18 07:15 RBC 2.46 L (3.80-5.40) m/uL Hgb 8.2 L (11.4-16.0) gm/dL Hct 24.2 L (34.0-46.0) % Chloride (98-107) mmol/L Carbon Dioxide (22-30) mmol/L BUN (7-17) mg/dL Creatinine (0.52-1.04) mg/dL Glucose (74-99) mg/dL POC Glucose (mg/dL) 132 H 123 H (75-99) mg/dL Magnesium (1.6-2.3) mg/dL 02/12/18 02/12/18 Range/Units 07:15 11:55 RBC (3.80-5.40) m/uL Hgb (11.4-16.0) gm/dL Hct (34.0-46.0) % Chloride 116 H (98-107) mmol/L Carbon Dioxide 20 L (22-30) mmol/L BUN 26 H (7-17) mg/dL Creatinine 1.40 H (0.52-1.04) mg/dL Glucose 73 L (74-99) mg/dL POC Glucose (mg/dL) 112 H (75-99) mg/dL Magnesium 1.5 L (1.6-2.3) mg/dL Microbiology - Last 24 Hours (Table) 02/08/18 12:25 Blood Culture - Preliminary Blood No Growth after 96 hours 02/07/18 16:40 Blood Culture - Preliminary Blood No Growth after 96 hours Assessment and Plan Assessment: Community-acquired right perihilar and right lower lobe pneumonia versus fluid overload Acute renal failure related to acute tubular necrosis Septic shock related to urinary tract infection Urinary tract infection Indeterminate VQ scan clinical probability of pulmonary embolism is low 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 Hypotension related to adrenal insufficiency, chronic systolic heart failure and low ejection fraction, intravascular volume depletion and severe dehydration , and sepsis Cardiomyopathy with chronic systolic heart failure Hypertension hypertensive cardiovascular disease Dyslipidemia Hyperglycemia uncontrolled diabetes mellitus Plan: Gentle fluid resuscitation can be slowed down now Patient can be resumed on Aldactone, Zestril Lasix and Coreg probably next 24- 48 hours Patient can be started on cardiac medications with close monitoring and observation Monitor renal functions closely Broad-spectrum antibiotics initiated Valdes culture including urine and blood results reviewed DVT and peptic ulcer disease prophylaxis We will hold on central line as came off of vasopressors Hold antihypertensive agents Stress dose steroids Repeat labs and x-ray tomorrow Agree with evaluating patient for adrenal insufficiency as outpatient Further recommendations pending plan of care as per clinical response of the patient Time with Patient: Greater than 30
--- NOTE | 2018-02-12 16:05 | P.PN ---
Subjective Progress Note Date: 02/12/18 Principal diagnosis: Right lower lobe and perihilar imagery acquired pneumonia, Severe sepsis, septic shock, acute on chronic systolic heart failure, ischemic cardiomyopathy, acute renal failure related to acute tubular necrosis, intravascular volume depletion and dehydration, urinary tract infection, adrenal insufficiency chronic persistent asthma of severe category 02/12/2018, patient seen eval reexamined during the rounds clinically patient is doing slightly better but is still short of breath hemodynamic status remains marginal Ammann patient remains hypertensive with the map around 65, still not ready for reinitiation of her cardiac medications, chest x-ray performed today reviewed and compared with the prior x-ray overall remains stable, BUN/creatinine continued to improve 02/11/2018, patient seen eval examined during the rounds, clinically patient is doing slightly better cough congestion shortness of breath is stable, renal function continued to improve, patient is being resumed on Aldactone and Coreg as well as the LORI inhibitor's are still on hold due to acute renal failure patient remains off of vasopressors clinically and radiographically improve last chest x-ray performed revealed small bilateral pleural effusion with some infiltrate at the right midlung field as well as the basis of pneumonia cannot be excluded 02/10/2018, patient seen eval examined during the rounds clinically patient has been doing slightly better in terms of breathing cultures including urine and blood has been negative chest x-ray performed today reviewed perihilar infiltrate cannot be excluded with differential diagnosis of interstitial edema and fluid overload due to leukocytosis patient has been started on broad- spectrum antibiotics with Zosyn as well as Zithromax patient leukocytosis today slightly better than yesterday patient, remains on stress dose steroid which is now lowered down to 50 mg IV every 12 from 3 times a day, urine output has been adequate renal functions continued to improve, patient remains on breathing treatments 02/09/2018, patient seen eval examined during the rounds clinically patient is slightly better breathing K more comfortably denies any chest pain or radiation of pain denies any cough or sputum production urine output has been adequate renal function continued to improve progressively, patient however remains on levo fed which is going up and down patient is currently on 5 mics systolic blood pressure is ranging about 110 to 120, patient has a history of chronic hypotension Ammann her baseline systolic blood pressures usually 9200, I would detailed discussion with the staff will taper down the levo fed very slowly approximately one mcg every 2-3 hour and try to keep map around 60 to 65, and prior to discontinuation of levo will give 500 mL of IV crystalloid normal saline as a bolus, blood culture urine cultures remains negative so far, white cell count up to 16,000, patient has been on a stress dose steroids, hypertension appears to be multifactorial related to sepsis cardiomyopathy and chronic systolic heart failure as well as adrenal insufficiency due to extensive use of prednisone in the past for her chronic persistent severe asthma , labs reviewed medications reviewed radiographic studies reviewed as well, blood sugar is running on the higher side, meds are being adjusted 62-year-old female with history of chronic persistent asthma as well as cardiomyopathy and low ejection fraction on chronic systolic heart failure she was seen evaluated examined in ICU if she presented into the hospital with generalized weakness aches and pains as well as very low blood pressure, has poor appetite has not been eating and drinking for the last several days, on arrival she was noted to be hypotensive in acute renal failure likely related to acute tubular necrosis, off note that she has similar presentation several months ago however she recovered nicely she has chronic renal failure stage 2-3 is being monitor and observe as a baseline never required hemodialysis in the past, her urine analysis suggestive of ongoing infection, she is hypotensive as she is on 40 mics of levo fed. Repeat systolic blood pressure improved up to 80 , she has some nausea but denies any vomiting or diarrhea, her cough congestion shortness of breath has improved compared to recent exacerbation she is on tapering doses of steroids, denies any seizure activity loss of consciousness), patient has been resuscitated with crystalloids in the emergency department has been on bicarb drip however IV fluids are being switched to normal saline she is being given half a liter of crystalloid as well she will be started on stress dose steroid likely that we'll get rate of the vasopressors, her urine and blood culture is being sent as well and she is being started on broad- spectrum antibiotics Objective - Vital Signs Vital signs: Vital Signs Temp 97.5 F L 02/12/18 12:40 Pulse 72 02/12/18 15:16 Resp 15 02/12/18 12:40 BP 88/57 02/12/18 12:40 Pulse Ox 98 02/12/18 12:40 Intake & Output 02/11/18 02/12/18 02/12/18 18:59 06:59 18:59 Intake Total 095 393 5450 Output Total 627 900 Balance -117 -360 1020 Weight 90.8 kg Intake: IV 510 100 0.9 NaCl carrier 160 Azithromycin 500 mg In 250 Sodium Chloride 0.9% 250 ml @ 250 mls/hr IVPB DAILY [facility] Rx#:[id number] Piperacillin-Tazobactam 3 100 100 .375 gm In Sodium Chloride 0.9% 100 ml @ 25 mls/hr IVPB Q8HR [facility] Rx# :[id number] Intake, IV Titration 160 240 Amount Piperacillin-Tazobactam 3 100 .375 gm In Sodium Chloride 0.9% 100 ml @ 25 mls/hr IVPB Q8HR [facility] Rx# :[id number] Sodium Chloride 0.9% 500 60 240 ml 500 ml @ 20 mls/hr IV .Q24H [facility] Rx#:[id number] Oral 380 680 Output: Urine 627 900 Other: Voiding Method Indwelling Catheter Indwelling Catheter Toilet # Voids 2 2 ABP, PAP, CO, CI - Last Documented Arterial Blood Pressure 93/51 - Exam - Constitutional General appearance: average body habitus, cooperative, disheveled, mild distress - EENT Eyes: EOMI, PERRLA, poor dentition, normal appearance ENT: normal oropharynx Ears: bilateral: normal - Neck Neck: normal ROM Carotids: bilateral: upstroke normal, bruit absent Thyroid: bilateral: normal size - Respiratory Respiratory: bilateral: diminished, prolonged expiration - Cardiovascular Rhythm: regular Heart sounds: normal: S1, S2 - Gastrointestinal General gastrointestinal: decreased bowel sounds, normal bowel sounds, soft - Integumentary Integumentary: decreased turgor, normal - Neurologic Neurologic: CNII-XII intact - Musculoskeletal Musculoskeletal: gait normal, generalized weakness, strength equal bilaterally - Psychiatric Psychiatric: appropriate affect, intact judgment & insight - Labs CBC & Chem 7: 02/12/18 07:15 02/12/18 07:15 Labs: Abnormal Lab Results - Last 24 Hours (Table) 02/11/18 02/11/18 02/12/18 Range/Units 17:07 20:18 07:15 RBC 2.46 L (3.80-5.40) m/uL Hgb 8.2 L (11.4-16.0) gm/dL Hct 24.2 L (34.0-46.0) % Chloride (98-107) mmol/L Carbon Dioxide (22-30) mmol/L BUN (7-17) mg/dL Creatinine (0.52-1.04) mg/dL Glucose (74-99) mg/dL POC Glucose (mg/dL) 132 H 123 H (75-99) mg/dL Magnesium (1.6-2.3) mg/dL 02/12/18 02/12/18 Range/Units 07:15 11:55 RBC (3.80-5.40) m/uL Hgb (11.4-16.0) gm/dL Hct (34.0-46.0) % Chloride 116 H (98-107) mmol/L Carbon Dioxide 20 L (22-30) mmol/L BUN 26 H (7-17) mg/dL Creatinine 1.40 H (0.52-1.04) mg/dL Glucose 73 L (74-99) mg/dL POC Glucose (mg/dL) 112 H (75-99) mg/dL Magnesium 1.5 L (1.6-2.3) mg/dL Microbiology - Last 24 Hours (Table) 02/08/18 12:25 Blood Culture - Preliminary Blood No Growth after 96 hours 02/07/18 16:40 Blood Culture - Preliminary Blood No Growth after 96 hours Assessment and Plan Assessment: Community-acquired right perihilar and right lower lobe pneumonia versus fluid overload Acute renal failure related to acute tubular necrosis Septic shock related to urinary tract infection Urinary tract infection Indeterminate VQ scan clinical probability of pulmonary embolism is low 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 Hypotension related to adrenal insufficiency, chronic systolic heart failure and low ejection fraction, intravascular volume depletion and severe dehydration , and sepsis Cardiomyopathy with chronic systolic heart failure Hypertension hypertensive cardiovascular disease Dyslipidemia Hyperglycemia uncontrolled diabetes mellitus Plan: Gentle fluid resuscitation can be slowed down now Continue to hold Zestril Lasix and Coreg probably for another 24-48 hours he'll able to achieve stable hemodynamics Patient can be started on cardiac medications with close monitoring and observation Monitor renal functions closely Broad-spectrum antibiotics initiated Valdes culture including urine and blood results reviewed DVT and peptic ulcer disease prophylaxis We will hold on central line as came off of vasopressors Hold antihypertensive agents Stress dose steroids Repeat labs and x-ray tomorrow Agree with evaluating patient for adrenal insufficiency as outpatient Further recommendations pending plan of care as per clinical response of the patient Time with Patient: Greater than 30
--- NOTE | 2018-02-12 16:09 | P.PN ---
Subjective Progress Note Date: 02/12/18 Seen and examined for the follow-up of acute kidney injury. Creatinine was 7 on admission improved to 1.4 today. Initially was on levofed for septic shock. Currently off levofed making good urine no nausea vomiting or diarrhea. Objective - Vital Signs Vital signs: Vital Signs Temp 97.5 F L 02/12/18 12:40 Pulse 72 02/12/18 15:16 Resp 15 02/12/18 12:40 BP 88/57 02/12/18 12:40 Pulse Ox 98 02/12/18 12:40 Intake & Output 02/11/18 02/12/18 02/12/18 18:59 06:59 18:59 Intake Total 585 220 0392 Output Total 627 900 Balance -117 -360 1020 Weight 90.8 kg 90.8 kg Intake: IV 510 100 0.9 NaCl carrier 160 Azithromycin 500 mg In 250 Sodium Chloride 0.9% 250 ml @ 250 mls/hr IVPB DAILY [facility] Rx#:[id number] Piperacillin-Tazobactam 3 100 100 .375 gm In Sodium Chloride 0.9% 100 ml @ 25 mls/hr IVPB Q8HR [facility] Rx# :[id number] Intake, IV Titration 160 240 Amount Piperacillin-Tazobactam 3 100 .375 gm In Sodium Chloride 0.9% 100 ml @ 25 mls/hr IVPB Q8HR [facility] Rx# :[id number] Sodium Chloride 0.9% 500 60 240 ml 500 ml @ 20 mls/hr IV .Q24H [facility] Rx#:[id number] Oral 380 680 Output: Urine 627 900 Other: Voiding Method Indwelling Catheter Indwelling Catheter Toilet # Voids 2 2 ABP, PAP, CO, CI - Last Documented Arterial Blood Pressure 93/51 - Exam No acute distress S1-S2 heard Lungs clear No edema - Labs CBC & Chem 7: 02/12/18 07:15 02/12/18 07:15 Labs: Abnormal Lab Results - Last 24 Hours (Table) 02/11/18 02/11/18 02/12/18 Range/Units 17:07 20:18 07:15 RBC 2.46 L (3.80-5.40) m/uL Hgb 8.2 L (11.4-16.0) gm/dL Hct 24.2 L (34.0-46.0) % Chloride (98-107) mmol/L Carbon Dioxide (22-30) mmol/L BUN (7-17) mg/dL Creatinine (0.52-1.04) mg/dL Glucose (74-99) mg/dL POC Glucose (mg/dL) 132 H 123 H (75-99) mg/dL Magnesium (1.6-2.3) mg/dL 02/12/18 02/12/18 Range/Units 07:15 11:55 RBC (3.80-5.40) m/uL Hgb (11.4-16.0) gm/dL Hct (34.0-46.0) % Chloride 116 H (98-107) mmol/L Carbon Dioxide 20 L (22-30) mmol/L BUN 26 H (7-17) mg/dL Creatinine 1.40 H (0.52-1.04) mg/dL Glucose 73 L (74-99) mg/dL POC Glucose (mg/dL) 112 H (75-99) mg/dL Magnesium 1.5 L (1.6-2.3) mg/dL Microbiology - Last 24 Hours (Table) 02/08/18 12:25 Blood Culture - Preliminary Blood No Growth after 96 hours 02/07/18 16:40 Blood Culture - Preliminary Blood No Growth after 96 hours Assessment and Plan Assessment: #1 acute kidney injury secondary to septic ATN. #2 septic shock resolved currently off pressors #3 severe metabolic acidosis improving #4 COPD with end-stage lung disease #5 anemia multifactorial #6 hypertension Plan: #1 renal function stable. #2 avoid nephrotoxic agents and hypotensive episodes #3 add sodium bicarbonate for metabolic acidosis #4 monitor potassium currently on Aldactone.
[2018-02-12 17:25] LABS: Glucose,Whole Blood 123 mg/dL (75-99)
[2018-02-12 20:19] LABS: Glucose,Whole Blood 154 mg/dL (75-99)
[2018-02-12] MEDS: SODIUM BICARBONATE TAB 650 MG TAB PO SCH (21:56)
[2018-02-12] MEDS: MONTELUKAST 10 MG TAB PO SCH (22:05)
[2018-02-12] MEDS: ATORVASTATIN 10 MG TAB PO SCH (22:05)
[2018-02-13] MEDS: PIPERACILLIN-TAZOBACTAM 3.375 GM in SODIUM CHLORIDE 0.9% 100 ML IVPB SCH ×3 (00:14→16:17)
[2018-02-13 06:34] LABS: Glucose,Whole Blood 103 mg/dL (75-99)
[2018-02-13] MEDS: INSULIN ASPART 100 UNIT/ML 1 ML 10 ML VIAL SQ SCH ×7 (06:55→23:21)
[2018-02-13] MEDS: CARVEDILOL 12.5 MG TAB PO SCH ×2 (07:07→16:58)
[2018-02-13] MEDS: PANTOPRAZOLE 40 MG TABLET PO SCH (07:08)
[2018-02-13] MEDS: AZITHROMYCIN 500 MG TAB PO SCH (07:12)
[2018-02-13] MEDS: HEPARIN SODIUM,PORCINE 5,000 UNIT/ML 1 ML VIAL SQ SCH ×2 (07:12→23:15)
[2018-02-13] MEDS: ASPIRIN 81 MG PO SCH (07:12)
[2018-02-13] MEDS: HYDROCORTISONE SUCCINATE 100 MG/2 ML VIAL IV SCH ×2 (07:12→23:16)
[2018-02-13] MEDS: PIOGLITAZONE 45 MG TAB PO SCH (07:13)
[2018-02-13] MEDS: SODIUM BICARBONATE TAB 650 MG TAB PO SCH ×3 (07:13→23:15)
[2018-02-13] MEDS: SPIRONOLACTONE 25 MG TAB PO SCH (07:13)
[2018-02-13] MEDS: IPRATROPIUM-ALBUTEROL 3 ML NEB INHALATION SCH ×4 (08:52→19:35)
[2018-02-13] MEDS: BUDESONIDE 0.5 MG/2 ML NEBU INHALATION SCH ×2 (08:52→19:35)
[2018-02-13 11:36] LABS: Glucose,Whole Blood 96 mg/dL (75-99)
--- NOTE | 2018-02-13 16:43 | P.PN ---
Subjective Progress Note Date: 02/13/18 Seen and examined for the follow-up of acute kidney injury. Creatinine was 7 on admission improved to 1.4 today. Initially was on levofed for septic shock. Currently off levofed making good urine no nausea vomiting or diarrhea. Objective - Vital Signs Vital signs: Vital Signs Temp 97.6 F 02/13/18 12:12 Pulse 89 02/13/18 15:52 Resp 18 02/13/18 14:32 BP 99/48 02/13/18 12:12 Pulse Ox 97 02/13/18 12:12 Intake & Output 02/12/18 02/13/18 02/13/18 18:59 06:59 18:59 Intake Total 6760 647 7908 Balance 1872 783 1041 Weight 90.8 kg 90.8 kg Intake: IV 100 100 100 Piperacillin-Tazobactam 3 100 100 100 .375 gm In Sodium Chloride 0.9% 100 ml @ 25 mls/hr IVPB Q8HR [facility] Rx# :[id number] Intake, IV Titration 240 Amount Sodium Chloride 0.9% 500 240 ml 500 ml @ 20 mls/hr IV .Q24H [facility] Rx#:[id number] Oral 680 1180 Other: Voiding Method Toilet Toilet Toilet # Voids 2 1 3 # Bowel Movements 1 ABP, PAP, CO, CI - Last Documented Arterial Blood Pressure 93/51 - Exam No acute distress S1-S2 heard Lungs clear No edema - Labs CBC & Chem 7: 02/12/18 07:15 02/12/18 07:15 Labs: Abnormal Lab Results - Last 24 Hours (Table) 02/12/18 02/12/18 02/13/18 Range/Units 17:22 20:18 06:33 POC Glucose (mg/dL) 123 H 154 H 103 H (75-99) mg/dL Microbiology - Last 24 Hours (Table) 02/08/18 12:25 Blood Culture - Preliminary Blood No Growth after 120 hours 02/07/18 16:40 Blood Culture - Preliminary Blood No Growth after 120 hours Assessment and Plan Assessment: #1 acute kidney injury secondary to septic ATN. #2 septic shock resolved currently off pressors #3 severe metabolic acidosis improving #4 COPD with end-stage lung disease #5 anemia multifactorial #6 hypertension Plan: #1 renal function stable. No labs today #2 avoid nephrotoxic agents and hypotensive episodes #3 continue with sodium bicarbonate for metabolic acidosis #4 monitor potassium currently on Aldactone.
[2018-02-13] MEDS: SODIUM CHLORIDE 0.9% 500 ML 500 ML IV SCH (16:58)
--- NOTE | 2018-02-13 17:10 | P.PN ---
Subjective Progress Note Date: 02/13/18 Principal diagnosis: Right lower lobe and perihilar imagery acquired pneumonia, Severe sepsis, septic shock, acute on chronic systolic heart failure, ischemic cardiomyopathy, acute renal failure related to acute tubular necrosis, intravascular volume depletion and dehydration, urinary tract infection, adrenal insufficiency chronic persistent asthma of severe category 02/13/2018, patient seen eval examined during the rounds clinically patient has been doing slightly better but hemodynamic status still remains marginal patient has been resumed on low-dose Coreg 12.5 mg twice a day the systolic blood pressure did drop down into 70s though patient is due for second dose tonight, last set of blood pressure noted to be over 90 now, we'll DC IV antibiotics changed to by mouth however we'll keep the IV so the Solu-Cortef for now, care plan discussed with the primary service at length labs reviewed medications reviewed 02/12/2018, patient seen eval reexamined during the rounds clinically patient is doing slightly better but is still short of breath hemodynamic status remains marginal Ammann patient remains hypertensive with the map around 65, still not ready for reinitiation of her cardiac medications, chest x-ray performed today reviewed and compared with the prior x-ray overall remains stable, BUN/creatinine continued to improve 02/11/2018, patient seen eval examined during the rounds, clinically patient is doing slightly better cough congestion shortness of breath is stable, renal function continued to improve, patient is being resumed on Aldactone and Coreg as well as the LORI inhibitor's are still on hold due to acute renal failure patient remains off of vasopressors clinically and radiographically improve last chest x-ray performed revealed small bilateral pleural effusion with some infiltrate at the right midlung field as well as the basis of pneumonia cannot be excluded 02/10/2018, patient seen eval examined during the rounds clinically patient has been doing slightly better in terms of breathing cultures including urine and blood has been negative chest x-ray performed today reviewed perihilar infiltrate cannot be excluded with differential diagnosis of interstitial edema and fluid overload due to leukocytosis patient has been started on broad- spectrum antibiotics with Zosyn as well as Zithromax patient leukocytosis today slightly better than yesterday patient, remains on stress dose steroid which is now lowered down to 50 mg IV every 12 from 3 times a day, urine output has been adequate renal functions continued to improve, patient remains on breathing treatments 02/09/2018, patient seen eval examined during the rounds clinically patient is slightly better breathing K more comfortably denies any chest pain or radiation of pain denies any cough or sputum production urine output has been adequate renal function continued to improve progressively, patient however remains on levo fed which is going up and down patient is currently on 5 mics systolic blood pressure is ranging about 110 to 120, patient has a history of chronic hypotension Ammann her baseline systolic blood pressures usually 9200, I would detailed discussion with the staff will taper down the levo fed very slowly approximately one mcg every 2-3 hour and try to keep map around 60 to 65, and prior to discontinuation of levo will give 500 mL of IV crystalloid normal saline as a bolus, blood culture urine cultures remains negative so far, white cell count up to 16,000, patient has been on a stress dose steroids, hypertension appears to be multifactorial related to sepsis cardiomyopathy and chronic systolic heart failure as well as adrenal insufficiency due to extensive use of prednisone in the past for her chronic persistent severe asthma , labs reviewed medications reviewed radiographic studies reviewed as well, blood sugar is running on the higher side, meds are being adjusted 62-year-old female with history of chronic persistent asthma as well as cardiomyopathy and low ejection fraction on chronic systolic heart failure she was seen evaluated examined in ICU if she presented into the hospital with generalized weakness aches and pains as well as very low blood pressure, has poor appetite has not been eating and drinking for the last several days, on arrival she was noted to be hypotensive in acute renal failure likely related to acute tubular necrosis, off note that she has similar presentation several months ago however she recovered nicely she has chronic renal failure stage 2-3 is being monitor and observe as a baseline never required hemodialysis in the past, her urine analysis suggestive of ongoing infection, she is hypotensive as she is on 40 mics of levo fed. Repeat systolic blood pressure improved up to 80 , she has some nausea but denies any vomiting or diarrhea, her cough congestion shortness of breath has improved compared to recent exacerbation she is on tapering doses of steroids, denies any seizure activity loss of consciousness), patient has been resuscitated with crystalloids in the emergency department has been on bicarb drip however IV fluids are being switched to normal saline she is being given half a liter of crystalloid as well she will be started on stress dose steroid likely that we'll get rate of the vasopressors, her urine and blood culture is being sent as well and she is being started on broad- spectrum antibiotics Objective - Vital Signs Vital signs: Vital Signs Temp 97.6 F 02/13/18 12:12 Pulse 98 02/13/18 16:50 Resp 18 02/13/18 16:50 BP 111/53 02/13/18 16:50 Pulse Ox 100 02/13/18 16:50 Intake & Output 02/12/18 02/13/18 02/13/18 18:59 06:59 18:59 Intake Total 5026 811 9940 Balance 3915 811 7886 Weight 90.8 kg 90.8 kg Intake: IV 100 100 100 Piperacillin-Tazobactam 3 100 100 100 .375 gm In Sodium Chloride 0.9% 100 ml @ 25 mls/hr IVPB Q8HR [facility] Rx# :[id number] Intake, IV Titration 240 Amount Sodium Chloride 0.9% 500 240 ml 500 ml @ 20 mls/hr IV .Q24H [facility] Rx#:[id number] Oral 680 1180 Other: Voiding Method Toilet Toilet Toilet # Voids 2 1 3 # Bowel Movements 1 ABP, PAP, CO, CI - Last Documented Arterial Blood Pressure 93/51 - Exam - Constitutional General appearance: average body habitus, cooperative, disheveled, mild distress - EENT Eyes: EOMI, PERRLA, poor dentition, normal appearance ENT: normal oropharynx Ears: bilateral: normal - Neck Neck: normal ROM Carotids: bilateral: upstroke normal, bruit absent Thyroid: bilateral: normal size - Respiratory Respiratory: bilateral: diminished, prolonged expiration - Cardiovascular Rhythm: regular Heart sounds: normal: S1, S2 - Gastrointestinal General gastrointestinal: decreased bowel sounds, normal bowel sounds, soft - Integumentary Integumentary: decreased turgor, normal - Neurologic Neurologic: CNII-XII intact - Musculoskeletal Musculoskeletal: gait normal, generalized weakness, strength equal bilaterally - Psychiatric Psychiatric: appropriate affect, intact judgment & insight - Labs CBC & Chem 7: 02/12/18 07:15 02/12/18 07:15 Labs: Abnormal Lab Results - Last 24 Hours (Table) 02/12/18 02/12/18 02/13/18 Range/Units 17:22 20:18 06:33 POC Glucose (mg/dL) 123 H 154 H 103 H (75-99) mg/dL Microbiology - Last 24 Hours (Table) 02/08/18 12:25 Blood Culture - Preliminary Blood No Growth after 120 hours 02/07/18 16:40 Blood Culture - Preliminary Blood No Growth after 120 hours Assessment and Plan Assessment: Community-acquired right perihilar and right lower lobe pneumonia versus fluid overload Acute renal failure related to acute tubular necrosis Septic shock related to urinary tract infection Urinary tract infection Indeterminate VQ scan clinical probability of pulmonary embolism is low 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 Hypotension related to adrenal insufficiency, chronic systolic heart failure and low ejection fraction, intravascular volume depletion and severe dehydration , and sepsis Cardiomyopathy with chronic systolic heart failure Hypertension hypertensive cardiovascular disease Dyslipidemia Hyperglycemia uncontrolled diabetes mellitus Plan: Continue to hold Zestril Lasix, resume half her dose of Coreg with close monitoring of blood pressure Patient can be started on cardiac medications with close monitoring and observation as discussed in noted above Monitor renal functions closely Change antibiotics to oral Valdes culture including urine and blood results reviewed DVT and peptic ulcer disease prophylaxis Stress dose steroids hopefully can be switched to oral 24 hours Repeat labs and x-ray tomorrow Agree with evaluating patient for adrenal insufficiency as outpatient Further recommendations pending plan of care as per clinical response of the patient Time with Patient: Greater than 30
[2018-02-13 17:20] LABS: Glucose,Whole Blood 116 mg/dL (75-99)
[2018-02-13 20:32] LABS: Glucose,Whole Blood 159 mg/dL (75-99)
--- NOTE | 2018-02-13 21:15 | PN ---
PROGRESS NOTE SUBJECTIVE: A 62-year-old white female with fine tuning hypotension, and adrenal insufficiency with cardiomyopathy, COPD and aspiration pneumonia. She remains hypotensive, high 90s to low 100s, on IV hydrocortisone. We are going to be giving beta kyrie, LORI inhibitor due to cardiomyopathy and fine tuning her hydrocortisone down to an oral medication. Antibiotics switched to oral. Possible discharge in the next 24-48 hours if blood pressure stabilizes. Cardiovascular S1, S2. Lungs scattered wheezes, rhonchi times four. Hematology: Negative Homans. PSYCH: Fair mood and affect. ASSESSMENT: 1. Systolic heart failure. 2. Cardiomyopathy. 3. Chronic obstructive pulmonary disease. 4. Aspiration pneumonia. 5. Adrenal insufficiency. 6. Chronic renal disease stage III. Fine tune medications. She has four very serious diseases. We will try to monitor her blood pressure and adjust medications prior to discharge. MMARNULFOL / JUAN MANUELN: [id number] /
[2018-02-13] MEDS: ATORVASTATIN 10 MG TAB PO SCH (23:15)
[2018-02-13] MEDS: MONTELUKAST 10 MG TAB PO SCH (23:15)
[2018-02-13] MEDS: AMOXIC-POT CLAV 500-125 MG 1 EACH TAB PO SCH (23:18)
[2018-02-14 06:55] LABS: Glucose,Whole Blood 112 mg/dL (75-99)
[2018-02-14] MEDS: IPRATROPIUM-ALBUTEROL 3 ML NEB INHALATION SCH ×4 (07:01→18:51)
[2018-02-14] MEDS: BUDESONIDE 0.5 MG/2 ML NEBU INHALATION SCH ×2 (07:01→18:51)
[2018-02-14] MEDS: INSULIN ASPART 100 UNIT/ML 1 ML 10 ML VIAL SQ SCH ×7 (07:54→22:43)
--- NOTE | 2018-02-14 08:09 | P.PN ---
Subjective Patient is seen in follow-up for acute kidney injury. Creatinine was 7.85 on admission and was down to 1.4 as of yesterday. Currently resting in bed. She is having breakfast. Admits to good urine output. Denies chest pain or shortness of breath. Vital signs are stable. General: The patient appeared well nourished and normally developed. HEENT: Head exam is unremarkable. Neck is without jugular venous distension. LUNGS: Lungs are clear to auscultation and percussion. Breath sounds decreased. HEART: Rate and Rhythm are regular. First and second heart sounds normal. No murmurs, rubs or gallops. ABDOMEN: Abdominal exam reveals normal bowel sounds. Non-tender and non- distended. No evidence of peritonitis. EXTREMITITES: No clubbing, cyanosis, or edema. Objective - Vital Signs Vital signs: Vital Signs Temp 96.6 F L 02/14/18 05:00 Pulse 102 H 02/14/18 07:17 Resp 16 02/14/18 05:00 BP 88/52 02/14/18 05:00 Pulse Ox 97 02/14/18 07:03 Intake & Output 02/13/18 02/14/18 02/14/18 18:59 06:59 18:59 Intake Total 1280 250 Balance 1280 250 Weight 90.8 kg Intake: IV 100 Piperacillin-Tazobactam 3 100 .375 gm In Sodium Chloride 0.9% 100 ml @ 25 mls/hr IVPB Q8HR [facility] Rx# :[id number] Oral 1180 250 Other: Voiding Method Toilet # Voids 3 1 # Bowel Movements 1 ABP, PAP, CO, CI - Last Documented Arterial Blood Pressure 93/51 - Labs CBC & Chem 7: 02/12/18 07:15 02/12/18 07:15 Labs: Abnormal Lab Results - Last 24 Hours (Table) 02/13/18 02/13/18 02/14/18 Range/Units 17:19 20:30 06:53 POC Glucose (mg/dL) 116 H 159 H 112 H (75-99) mg/dL Microbiology - Last 24 Hours (Table) 02/07/18 16:40 Blood Culture - Final Blood No Growth after 144 hours 02/08/18 12:25 Blood Culture - Preliminary Blood No Growth after 120 hours Assessment and Plan Plan: Assessment: 1. Nonoliguric acute kidney injury secondary to septic ATN. Creatinine 1.4 as of yesterday. It was 7.8 on admission. 2. Septic shock secondary to pneumonia/UTI. Improved. Maintained on antibiotics. 3. Benign hypertension. Blood pressure currently on the lower side. 4. Metabolic acidosis maintained on oral sodium bicarbonate. 5. Hypotension maintained on Solu-Cortef. Cortisol level was normal. 6. Diabetes mellitus. 7. Diastolic CHF. 8. COPD with end-stage lung disease. Plan: Hold off on diuretics as well as LORI inhibitor for now. Hold Aldactone for systolic blood pressure less than 120. Encourage oral intake. Repeat electrolytes in the morning. Add midodrine.
[2018-02-14] MEDS: CARVEDILOL 12.5 MG TAB PO SCH ×2 (08:51→17:33)
[2018-02-14] MEDS: HEPARIN SODIUM,PORCINE 5,000 UNIT/ML 1 ML VIAL SQ SCH ×2 (08:54→22:44)
[2018-02-14] MEDS: PANTOPRAZOLE 40 MG TABLET PO SCH (08:54)
[2018-02-14] MEDS: ASPIRIN 81 MG PO SCH (08:54)
[2018-02-14] MEDS: AMOXIC-POT CLAV 500-125 MG 1 EACH TAB PO SCH ×2 (08:54→22:43)
[2018-02-14] MEDS: AZITHROMYCIN 500 MG TAB PO SCH (08:54)
[2018-02-14] MEDS: HYDROCORTISONE SUCCINATE 100 MG/2 ML VIAL IV SCH (08:55)
[2018-02-14] MEDS: PIOGLITAZONE 45 MG TAB PO SCH (08:55)
[2018-02-14] MEDS: SPIRONOLACTONE 25 MG TAB PO SCH (08:55)
[2018-02-14] MEDS: SODIUM BICARBONATE TAB 650 MG TAB PO SCH ×3 (08:55→22:44)
[2018-02-14 10:49] VITALS: BMI 28.7
[2018-02-14 10:54] LABS: Basophils % (A) 0 %; Eosinophils # (A) 0.2 k/uL (0-0.7); Eosinophils % (A) 2 %; HCT 24.5 % (34.0-46.0); Lymphocytes # (A) 1.4 k/uL (1.0-4.8); Lymphocytes % (A) 16 %; MCH 32.1 pg (25.0-35.0); MCHC 32.6 g/dL (31.0-37.0); MCV 98.5 fL (80.0-100.0); Mean Platelet Volume 7.2; Monocytes # (A) 0.3 k/uL (0-1.0); Monocytes % (A) 3 %; Neutrophils # (A) 7.1 k/uL (1.3-7.7); Neutrophils % (A) 79 %; Platelet Count 213 k/uL (150-450); RBC 2.49 m/uL (3.80-5.40); RDW 13.2 % (11.5-15.5)
--- NOTE | 2018-02-14 11:11 | P.PN ---
Subjective Progress Note Date: 02/14/18 Principal diagnosis: Right lower lobe and perihilar imagery acquired pneumonia, Severe sepsis, septic shock, acute on chronic systolic heart failure, ischemic cardiomyopathy, acute renal failure related to acute tubular necrosis, intravascular volume depletion and dehydration, urinary tract infection, adrenal insufficiency chronic persistent asthma of severe category 02/14/2018, patient seen eval examined during rounds, severity or shortness of breath has improved patient is off of IV antibiotics on oral now, Lasix and Zestril is still on hold, patient is getting half her dose of Coreg, blood pressure remains very marginal, we will DC Solu-Cortef put patient on oral prednisone/cortef with further evaluation of adrenal insufficiency as outpatient 02/13/2018, patient seen eval examined during the rounds clinically patient has been doing slightly better but hemodynamic status still remains marginal patient has been resumed on low-dose Coreg 12.5 mg twice a day the systolic blood pressure did drop down into 70s though patient is due for second dose tonight, last set of blood pressure noted to be over 90 now, we'll DC IV antibiotics changed to by mouth however we'll keep the IV so the Solu-Cortef for now, care plan discussed with the primary service at length labs reviewed medications reviewed 02/12/2018, patient seen eval reexamined during the rounds clinically patient is doing slightly better but is still short of breath hemodynamic status remains marginal Ammann patient remains hypertensive with the map around 65, still not ready for reinitiation of her cardiac medications, chest x-ray performed today reviewed and compared with the prior x-ray overall remains stable, BUN/creatinine continued to improve 02/11/2018, patient seen eval examined during the rounds, clinically patient is doing slightly better cough congestion shortness of breath is stable, renal function continued to improve, patient is being resumed on Aldactone and Coreg as well as the LORI inhibitor's are still on hold due to acute renal failure patient remains off of vasopressors clinically and radiographically improve last chest x-ray performed revealed small bilateral pleural effusion with some infiltrate at the right midlung field as well as the basis of pneumonia cannot be excluded 02/10/2018, patient seen eval examined during the rounds clinically patient has been doing slightly better in terms of breathing cultures including urine and blood has been negative chest x-ray performed today reviewed perihilar infiltrate cannot be excluded with differential diagnosis of interstitial edema and fluid overload due to leukocytosis patient has been started on broad- spectrum antibiotics with Zosyn as well as Zithromax patient leukocytosis today slightly better than yesterday patient, remains on stress dose steroid which is now lowered down to 50 mg IV every 12 from 3 times a day, urine output has been adequate renal functions continued to improve, patient remains on breathing treatments 02/09/2018, patient seen eval examined during the rounds clinically patient is slightly better breathing K more comfortably denies any chest pain or radiation of pain denies any cough or sputum production urine output has been adequate renal function continued to improve progressively, patient however remains on levo fed which is going up and down patient is currently on 5 mics systolic blood pressure is ranging about 110 to 120, patient has a history of chronic hypotension Ammann her baseline systolic blood pressures usually 9200, I would detailed discussion with the staff will taper down the levo fed very slowly approximately one mcg every 2-3 hour and try to keep map around 60 to 65, and prior to discontinuation of levo will give 500 mL of IV crystalloid normal saline as a bolus, blood culture urine cultures remains negative so far, white cell count up to 16,000, patient has been on a stress dose steroids, hypertension appears to be multifactorial related to sepsis cardiomyopathy and chronic systolic heart failure as well as adrenal insufficiency due to extensive use of prednisone in the past for her chronic persistent severe asthma , labs reviewed medications reviewed radiographic studies reviewed as well, blood sugar is running on the higher side, meds are being adjusted 62-year-old female with history of chronic persistent asthma as well as cardiomyopathy and low ejection fraction on chronic systolic heart failure she was seen evaluated examined in ICU if she presented into the hospital with generalized weakness aches and pains as well as very low blood pressure, has poor appetite has not been eating and drinking for the last several days, on arrival she was noted to be hypotensive in acute renal failure likely related to acute tubular necrosis, off note that she has similar presentation several months ago however she recovered nicely she has chronic renal failure stage 2-3 is being monitor and observe as a baseline never required hemodialysis in the past, her urine analysis suggestive of ongoing infection, she is hypotensive as she is on 40 mics of levo fed. Repeat systolic blood pressure improved up to 80 , she has some nausea but denies any vomiting or diarrhea, her cough congestion shortness of breath has improved compared to recent exacerbation she is on tapering doses of steroids, denies any seizure activity loss of consciousness), patient has been resuscitated with crystalloids in the emergency department has been on bicarb drip however IV fluids are being switched to normal saline she is being given half a liter of crystalloid as well she will be started on stress dose steroid likely that we'll get rate of the vasopressors, her urine and blood culture is being sent as well and she is being started on broad- spectrum antibiotics Objective - Vital Signs Vital signs: Vital Signs Temp 96.6 F L 02/14/18 05:00 Pulse 100 02/14/18 11:03 Resp 16 02/14/18 05:00 BP 89/46 02/14/18 08:51 Pulse Ox 97 02/14/18 07:03 Intake & Output 02/13/18 02/14/18 02/14/18 18:59 06:59 18:59 Intake Total 1280 250 Balance 1280 250 Weight 90.8 kg 90.8 kg Intake: IV 100 Piperacillin-Tazobactam 3 100 .375 gm In Sodium Chloride 0.9% 100 ml @ 25 mls/hr IVPB Q8HR [facility] Rx# :[id number] Oral 1180 250 Other: Voiding Method Toilet # Voids 3 1 # Bowel Movements 1 ABP, PAP, CO, CI - Last Documented Arterial Blood Pressure 93/51 - Exam - Constitutional General appearance: average body habitus, cooperative, disheveled, mild distress - EENT Eyes: EOMI, PERRLA, poor dentition, normal appearance ENT: normal oropharynx Ears: bilateral: normal - Neck Neck: normal ROM Carotids: bilateral: upstroke normal, bruit absent Thyroid: bilateral: normal size - Respiratory Respiratory: bilateral: diminished, prolonged expiration - Cardiovascular Rhythm: regular Heart sounds: normal: S1, S2 - Gastrointestinal General gastrointestinal: decreased bowel sounds, normal bowel sounds, soft - Integumentary Integumentary: decreased turgor, normal - Neurologic Neurologic: CNII-XII intact - Musculoskeletal Musculoskeletal: gait normal, generalized weakness, strength equal bilaterally - Psychiatric Psychiatric: appropriate affect, intact judgment & insight - Labs CBC & Chem 7: 02/14/18 10:41 02/12/18 07:15 Labs: Abnormal Lab Results - Last 24 Hours (Table) 02/13/18 02/13/18 02/14/18 Range/Units 17:19 20:30 06:53 RBC (3.80-5.40) m/uL Hgb (11.4-16.0) gm/dL Hct (34.0-46.0) % POC Glucose (mg/dL) 116 H 159 H 112 H (75-99) mg/dL 02/14/18 Range/Units 10:41 RBC 2.49 L (3.80-5.40) m/uL Hgb 8.0 L (11.4-16.0) gm/dL Hct 24.5 L (34.0-46.0) % POC Glucose (mg/dL) (75-99) mg/dL Microbiology - Last 24 Hours (Table) 02/07/18 16:40 Blood Culture - Final Blood No Growth after 144 hours 02/08/18 12:25 Blood Culture - Preliminary Blood No Growth after 120 hours Assessment and Plan Assessment: Community-acquired right perihilar and right lower lobe pneumonia versus fluid overload Acute renal failure related to acute tubular necrosis Septic shock related to urinary tract infection Urinary tract infection Indeterminate VQ scan clinical probability of pulmonary embolism is low 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 Hypotension related to adrenal insufficiency, chronic systolic heart failure and low ejection fraction, intravascular volume depletion and severe dehydration , and sepsis Cardiomyopathy with chronic systolic heart failure Hypertension hypertensive cardiovascular disease Dyslipidemia Hyperglycemia uncontrolled diabetes mellitus Plan: Continue to hold Zestril Lasix for now, resume half her dose of Coreg with close monitoring of blood pressure Patient can be started on cardiac medications with close monitoring and observation as discussed in noted above Monitor renal functions closely Change antibiotics to oral Valdes culture including urine and blood results reviewed DVT and peptic ulcer disease prophylaxis Stress dose steroids hopefully can be switched to oral Agree with evaluating patient for adrenal insufficiency as outpatient Further recommendations pending plan of care as per clinical response of the patient Time with Patient: Greater than 30
[2018-02-14 11:13] LABS: Albumin 2.8 g/dL (3.5-5.0); Calcium 9.1 mg/dL (8.4-10.2); Total Bilirubin 0.3 mg/dL (0.2-1.3); Total Protein 5.4 g/dL (6.3-8.2)
[2018-02-14 11:17] LABS: Glucose,Whole Blood 98 mg/dL (75-99)
[2018-02-14 11:39] LABS: Potassium 4.2 mmol/L (3.5-5.1)
[2018-02-14] MEDS: MIDODRINE 5 MG TAB PO SCH ×2 (12:24→17:32)
[2018-02-14] MEDS: predniSONE 10 MG TAB PO SCH (12:24)
[2018-02-14 17:11] LABS: Glucose,Whole Blood 226 mg/dL (75-99)
[2018-02-14 20:10] LABS: Glucose,Whole Blood 192 mg/dL (75-99)
[2018-02-14] MEDS: MONTELUKAST 10 MG TAB PO SCH (22:43)
[2018-02-14] MEDS: ATORVASTATIN 10 MG TAB PO SCH (22:45)
--- NOTE | 2018-02-15 01:43 | PN ---
PROGRESS NOTE SUBJECTIVE: This patient is a 62-year-old white female with acute tubular necrosis, acute kidney injury, hypotension, adrenal insufficiency, aspiration pneumonia. Midodrine has been started today for hypotension. Her blood pressures have been 89 to 90 systolic. Beta blockers and LORI inhibitors will be needed. Low-dose Lasix for CHF, systolic in nature, COPD treated and aspiration pneumonia with IV antibiotics and updraft. She feels improved. CARDIOVASCULAR: S1, S2. LUNGS: Scattered wheezes and rhonchi. HEMATOLOGY: Negative Homans. ASSESSMENT: 1. Systolic congestive heart failure. 2. Chronic obstructive pulmonary disease exacerbation. 3. Aspiration pneumonia. 4. Adrenal insufficiency. Wean IV hydrocortisone to oral. Switch antibiotics to oral. Add midodrine, beta blockers, low-dose Lasix and LORI inhibitors. MMODL / IJN: [id number] /
[2018-02-15 04:52] VITALS: RESP 17
[2018-02-15 07:03] LABS: Glucose,Whole Blood 89 mg/dL (75-99)
[2018-02-15] MEDS: IPRATROPIUM-ALBUTEROL 3 ML NEB INHALATION SCH ×2 (07:36→11:07)
[2018-02-15] MEDS: BUDESONIDE 0.5 MG/2 ML NEBU INHALATION SCH (07:36)
[2018-02-15 08:31] LABS: Calcium 8.9 mg/dL (8.4-10.2); Potassium 4.2 mmol/L (3.5-5.1)
[2018-02-15] MEDS: CARVEDILOL 12.5 MG TAB PO SCH (08:33)
[2018-02-15] MEDS: INSULIN ASPART 100 UNIT/ML 1 ML 10 ML VIAL SQ SCH ×4 (08:34→11:48)
[2018-02-15] MEDS: MIDODRINE 5 MG TAB PO SCH (08:35)
[2018-02-15] MEDS: AMOXIC-POT CLAV 500-125 MG 1 EACH TAB PO SCH (08:35)
[2018-02-15] MEDS: AZITHROMYCIN 500 MG TAB PO SCH (08:35)
[2018-02-15] MEDS: PANTOPRAZOLE 40 MG TABLET PO SCH (08:35)
[2018-02-15] MEDS: ASPIRIN 81 MG PO SCH (08:35)
[2018-02-15] MEDS: SODIUM BICARBONATE TAB 650 MG TAB PO SCH (08:36)
[2018-02-15] MEDS: SPIRONOLACTONE 25 MG TAB PO SCH (08:36)
[2018-02-15] MEDS: HEPARIN SODIUM,PORCINE 5,000 UNIT/ML 1 ML VIAL SQ SCH (08:36)
[2018-02-15] MEDS: predniSONE 10 MG TAB PO SCH (08:36)
[2018-02-15] MEDS: PIOGLITAZONE 45 MG TAB PO SCH (08:36)
--- NOTE | 2018-02-15 10:54 | P.PN ---
Subjective Patient is seen in follow-up for acute kidney injury. Creatinine was 7.85 on admission and is down to 1.09 today. Currently resting in bed. Oral intake is good. Admits to good urine output. Denies chest pain or shortness of breath. Vital signs are stable. General: The patient appeared well nourished and normally developed. HEENT: Head exam is unremarkable. Neck is without jugular venous distension. LUNGS: Lungs are clear to auscultation and percussion. Breath sounds decreased. HEART: Rate and Rhythm are regular. First and second heart sounds normal. No murmurs, rubs or gallops. ABDOMEN: Abdominal exam reveals normal bowel sounds. Non-tender and non- distended. No evidence of peritonitis. EXTREMITITES: No clubbing, cyanosis, or edema. Objective - Vital Signs Vital signs: Vital Signs Temp 98.2 F 02/15/18 04:52 Pulse 96 02/15/18 07:53 Resp 17 02/15/18 04:52 BP 93/56 02/15/18 04:52 Pulse Ox 98 02/15/18 04:52 Intake & Output 02/14/18 02/15/18 02/15/18 18:59 06:59 18:59 Intake Total 1140 Balance 1140 Weight 90.8 kg 89.5 kg Intake: Oral 1140 Other: Voiding Method Toilet Toilet # Voids 2 1 ABP, PAP, CO, CI - Last Documented Arterial Blood Pressure 93/51 - Labs CBC & Chem 7: 02/14/18 10:41 02/15/18 07:12 Labs: Abnormal Lab Results - Last 24 Hours (Table) 02/14/18 02/14/18 02/14/18 Range/Units 10:41 10:41 17:08 RBC 2.49 L (3.80-5.40) m/uL Hgb 8.0 L (11.4-16.0) gm/dL Hct 24.5 L (34.0-46.0) % Chloride 111 H (98-107) mmol/L BUN 19 H (7-17) mg/dL Creatinine 1.19 H (0.52-1.04) mg/dL Glucose 103 H (74-99) mg/dL POC Glucose (mg/dL) 226 H (75-99) mg/dL Total Protein 5.4 L (6.3-8.2) g/dL Albumin 2.8 L (3.5-5.0) g/dL 02/14/18 02/15/18 Range/Units 20:08 07:12 RBC (3.80-5.40) m/uL Hgb (11.4-16.0) gm/dL Hct (34.0-46.0) % Chloride 112 H (98-107) mmol/L BUN 22 H (7-17) mg/dL Creatinine 1.09 H (0.52-1.04) mg/dL Glucose (74-99) mg/dL POC Glucose (mg/dL) 192 H (75-99) mg/dL Total Protein (6.3-8.2) g/dL Albumin (3.5-5.0) g/dL Microbiology - Last 24 Hours (Table) 02/08/18 12:25 Blood Culture - Final Blood No Growth after 144 hours Assessment and Plan Plan: Assessment: 1. Nonoliguric acute kidney injury secondary to septic ATN. Creatinine was greater than 7 on admission and is down to 1.09 today. 2. Septic shock secondary to pneumonia/UTI. Improved. Maintained on antibiotics. 3. Benign hypertension. Blood pressure currently on the lower side. 4. Metabolic acidosis maintained on oral sodium bicarbonate. 5. Hypotension maintained on Solu-Cortef. Cortisol level was normal. 6. Diabetes mellitus. 7. Diastolic CHF. 8. COPD with end-stage lung disease. Plan: Hold off on diuretics as well as LORI inhibitor for now as blood pressure is low. Hold Aldactone for systolic blood pressure less than 120. Encourage oral intake. Repeat electrolytes in the morning. Increase dose of midodrine to 10 mg 3 times daily. Decrease sodium bicarbonate to 650 mg twice daily.
[2018-02-15 11:33] LABS: Glucose,Whole Blood 116 mg/dL (75-99)
[2018-02-15 11:56] VITALS: BP 100/51; PULSE 99; TEMP 98.7
[2018-02-15] MEDS ORDERED: MIDODRINE 5 MG TAB PO SCH (12:30)
--- NOTE | 2018-02-15 19:03 | P.PN ---
Subjective Progress Note Date: 02/15/18 Principal diagnosis: Right lower lobe and perihilar imagery acquired pneumonia, Severe sepsis, septic shock, acute on chronic systolic heart failure, ischemic cardiomyopathy, acute renal failure related to acute tubular necrosis, intravascular volume depletion and dehydration, urinary tract infection, adrenal insufficiency chronic persistent asthma of severe category 02/15/2018, patient seen eval examined during the rounds clinically overall not much changes still have problems associated with borderline low blood pressure, functional have been improved significantly patient has been started on midodrine by renal services, Solu-Cortef has been discontinued patient is on maintenance small dose proton prednisone workup for adrenal insufficiency will perform outpatient setting him a his prescription for antibiotics prednisone has been provided 02/14/2018, patient seen eval examined during rounds, severity or shortness of breath has improved patient is off of IV antibiotics on oral now, Lasix and Zestril is still on hold, patient is getting half her dose of Coreg, blood pressure remains very marginal, we will DC Solu-Cortef put patient on oral prednisone/cortef with further evaluation of adrenal insufficiency as outpatient 02/13/2018, patient seen eval examined during the rounds clinically patient has been doing slightly better but hemodynamic status still remains marginal patient has been resumed on low-dose Coreg 12.5 mg twice a day the systolic blood pressure did drop down into 70s though patient is due for second dose tonight, last set of blood pressure noted to be over 90 now, we'll DC IV antibiotics changed to by mouth however we'll keep the IV so the Solu-Cortef for now, care plan discussed with the primary service at length labs reviewed medications reviewed 02/12/2018, patient seen eval reexamined during the rounds clinically patient is doing slightly better but is still short of breath hemodynamic status remains marginal Ammann patient remains hypertensive with the map around 65, still not ready for reinitiation of her cardiac medications, chest x-ray performed today reviewed and compared with the prior x-ray overall remains stable, BUN/creatinine continued to improve 02/11/2018, patient seen eval examined during the rounds, clinically patient is doing slightly better cough congestion shortness of breath is stable, renal function continued to improve, patient is being resumed on Aldactone and Coreg as well as the LORI inhibitor's are still on hold due to acute renal failure patient remains off of vasopressors clinically and radiographically improve last chest x-ray performed and revealed small bilateral pleural effusion with some infiltrate at the right midlung field as well as the basis of pneumonia cannot be excluded 02/10/2018, patient seen eval examined during the rounds clinically patient has been doing slightly better in terms of breathing cultures including urine and blood has been negative chest x-ray performed today reviewed perihilar infiltrate cannot be excluded with differential diagnosis of interstitial edema and fluid overload due to leukocytosis patient has been started on broad- spectrum antibiotics with Zosyn as well as Zithromax patient leukocytosis today slightly better than yesterday patient, remains on stress dose steroid which is now lowered down to 50 mg IV every 12 from 3 times a day, urine output has been adequate renal functions continued to improve, patient remains on breathing treatments 02/09/2018, patient seen eval examined during the rounds clinically patient is slightly better breathing K more comfortably denies any chest pain or radiation of pain denies any cough or sputum production urine output has been adequate renal function continued to improve progressively, patient however remains on levo fed which is going up and down patient is currently on 5 mics systolic blood pressure is ranging about 110 to 120, patient has a history of chronic hypotension Ammann her baseline systolic blood pressures usually 9200, I would detailed discussion with the staff will taper down the levo fed very slowly approximately one mcg every 2-3 hour and try to keep map around 60 to 65, and prior to discontinuation of levo will give 500 mL of IV crystalloid normal saline as a bolus, blood culture urine cultures remains negative so far, white cell count up to 16,000, patient has been on a stress dose steroids, hypertension appears to be multifactorial related to sepsis cardiomyopathy and chronic systolic heart failure as well as adrenal insufficiency due to extensive use of prednisone in the past for her chronic persistent severe asthma , labs reviewed medications reviewed radiographic studies reviewed as well, blood sugar is running on the higher side, meds are being adjusted 62-year-old female with history of chronic persistent asthma as well as cardiomyopathy and low ejection fraction on chronic systolic heart failure she was seen evaluated examined in ICU if she presented into the hospital with generalized weakness aches and pains as well as very low blood pressure, has poor appetite has not been eating and drinking for the last several days, on arrival she was noted to be hypotensive in acute renal failure likely related to acute tubular necrosis, off note that she has similar presentation several months ago however she recovered nicely she has chronic renal failure stage 2-3 is being monitor and observe as a baseline never required hemodialysis in the past, her urine analysis suggestive of ongoing infection, she is hypotensive as she is on 40 mics of levo fed. Repeat systolic blood pressure improved up to 80 , she has some nausea but denies any vomiting or diarrhea, her cough congestion shortness of breath has improved compared to recent exacerbation she is on tapering doses of steroids, denies any seizure activity loss of consciousness), patient has been resuscitated with crystalloids in the emergency department has been on bicarb drip however IV fluids are being switched to normal saline she is being given half a liter of crystalloid as well she will be started on stress dose steroid likely that we'll get rate of the vasopressors, her urine and blood culture is being sent as well and she is being started on broad- spectrum antibiotics Objective - Vital Signs Vital signs: Vital Signs Temp 98.7 F 02/15/18 11:55 Pulse 99 02/15/18 11:55 Resp 17 02/15/18 11:55 BP 100/51 02/15/18 11:55 Pulse Ox 97 02/15/18 11:55 Intake & Output 02/15/18 02/15/18 02/16/18 06:59 18:59 06:59 Intake Total 1140 Balance 1140 Weight 89.5 kg Intake: Oral 1140 Other: Voiding Method Toilet Toilet # Voids 1 2 ABP, PAP, CO, CI - Last Documented Arterial Blood Pressure 93/51 - Exam - Constitutional General appearance: average body habitus, cooperative, disheveled, mild distress - EENT Eyes: EOMI, PERRLA, poor dentition, normal appearance ENT: normal oropharynx Ears: bilateral: normal - Neck Neck: normal ROM Carotids: bilateral: upstroke normal, bruit absent Thyroid: bilateral: normal size - Respiratory Respiratory: bilateral: diminished, prolonged expiration - Cardiovascular Rhythm: regular Heart sounds: normal: S1, S2 - Gastrointestinal General gastrointestinal: decreased bowel sounds, normal bowel sounds, soft - Integumentary Integumentary: decreased turgor, normal - Neurologic Neurologic: CNII-XII intact - Musculoskeletal Musculoskeletal: gait normal, generalized weakness, strength equal bilaterally - Psychiatric Psychiatric: appropriate affect, intact judgment & insight - Labs CBC & Chem 7: 02/14/18 10:41 02/15/18 07:12 Labs: Abnormal Lab Results - Last 24 Hours (Table) 02/14/18 02/15/18 02/15/18 Range/Units 20:08 07:12 11:32 Chloride 112 H (98-107) mmol/L BUN 22 H (7-17) mg/dL Creatinine 1.09 H (0.52-1.04) mg/dL POC Glucose (mg/dL) 192 H 116 H (75-99) mg/dL Microbiology - Last 24 Hours (Table) 02/08/18 12:25 Blood Culture - Final Blood No Growth after 144 hours Assessment and Plan Assessment: Community-acquired right perihilar and right lower lobe pneumonia versus fluid overload Acute renal failure related to acute tubular necrosis Septic shock related to urinary tract infection Urinary tract infection Indeterminate VQ scan clinical probability of pulmonary embolism is low 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 Hypotension related to adrenal insufficiency, chronic systolic heart failure and low ejection fraction, intravascular volume depletion and severe dehydration , and sepsis Cardiomyopathy with chronic systolic heart failure Hypertension hypertensive cardiovascular disease Dyslipidemia Hyperglycemia uncontrolled diabetes mellitus Plan: Agri with discharge planning Continue to hold Zestril Lasix for now until cleared by renal services, resume half her dose of Coreg with close monitoring of blood pressure Patient can be started on cardiac medications with close monitoring and observation as discussed in noted above Monitor renal functions closely Change antibiotics to oral Valdes culture including urine and blood results reviewed DVT and peptic ulcer disease prophylaxis Stress dose steroids hopefully can be switched to oral Agree with evaluating patient for adrenal insufficiency as outpatient Further recommendations pending plan of care as per clinical response of the patient
[2018-02-15] MEDS ORDERED: SODIUM BICARBONATE TAB 650 MG TAB PO SCH (21:00)
== END 2018-02-15 14:30 | disposition home or self-care (01) | DRG 871 ==
LOC: EC 15:33 → 2SICU 18:38 → 3NMEDONC 02-11 15:54
PROVIDERS: ADMIT Family Medicine; ATTEND Family Medicine
DX: A41.9 Sepsis, unspecified organism (principal); R65.21 Severe sepsis with septic shock; N17.0 Acute kidney failure with tubular necrosis; J69.0 Pneumonitis due to inhalation of food and vomit; N39.0 Urinary tract infection, site not specified; I50.22 Chronic systolic (congestive) heart failure; E87.2 Acidosis; E27.40 Unspecified adrenocortical insufficiency; I13.0 Hypertensive heart and chronic kidney disease with heart failure and stage 1 through stage 4 chronic kidney disease, or unspecified chronic kidney disease; E86.0 Dehydration; J43.9 Emphysema, unspecified; E78.5 Hyperlipidemia, unspecified; E87.5 Hyperkalemia; I25.5 Ischemic cardiomyopathy; E11.65 Type 2 diabetes mellitus with hyperglycemia; J45.50 Severe persistent asthma, uncomplicated; D64.9 Anemia, unspecified; E11.22 Type 2 diabetes mellitus with diabetic chronic kidney disease; E86.1 Hypovolemia; N18.3 Chronic kidney disease, stage 3 (moderate); Z90.710 Acquired absence of both cervix and uterus; Z85.42 Personal history of malignant neoplasm of other parts of uterus; Z85.43 Personal history of malignant neoplasm of ovary; Z95.810 Presence of automatic (implantable) cardiac defibrillator; Z86.010 Personal history of colon polyps; I25.2 Old myocardial infarction; Z82.49 Family history of ischemic heart disease and other diseases of the circulatory system; Z79.899 Other long term (current) drug therapy; Z79.52 Long term (current) use of systemic steroids; Z80.3 Family history of malignant neoplasm of breast; Z87.891 Personal history of nicotine dependence
CPT/HCPCS: 36415; 71045; 78582; 80048; 80053; 81001; 82533; 83036; 83605; 83735; 84100; 84132; 84484; 85025; 85379; 87040; 87086; 93005; 93970; 94640; 94644; 94760; 96361; 96374; 96375; 99291

== ENCOUNTER → 2018-05-26 | Outpatient (CLI) | payer MEDICARE ==
--- NOTE | 2018-05-26 10:50 | XR ---
EXAMINATION TYPE: XR chest 2V DATE OF EXAM: 05/26/2018 COMPARISON: 02/12/2018 HISTORY: COPD and shortness of breath TECHNIQUE: Frontal and lateral views of the chest are obtained. FINDINGS: There is pulmonary hyperinflation and biapical lucency relating to underlying COPD. Multil ead left-sided cardiac device is noted. No focal consolidation, pleural effusion or pneumothorax. Car diomediastinal silhouette is within normal limits. Minimal atelectasis is seen within the right poste rior lung base on the lateral view. There is an exaggerated thoracic kyphosis with osseous deminerali zation throughout and mild multilevel degenerative changes of the thoracic spine. IMPRESSION: Radiographic sequela of COPD. Minimal right posterior lung base subsegmental atelectasis .
== END | disposition home or self-care (01) ==
LOC: RADXRMAIN 10:04
PROVIDERS: ATTEND Internal Medicine Sleep Medicine
DX: J98.11 Atelectasis (principal); J44.9 Chronic obstructive pulmonary disease, unspecified
CPT/HCPCS: 71046

== ENCOUNTER 2018-06-09 13:29 | Inpatient (IN) | payer MEDICARE ==
[2018-06-09] MEDS ORDERED: IPRATROPIUM-ALBUTEROL 3 ML NEB INHALATION STA (13:59)
[2018-06-09] MEDS ORDERED: methylPREDNISolone SOD SUCCI 125 MG/2 ML VIAL IV STA (13:59)
--- NOTE | 2018-06-09 14:03 | ED ---
General Adult HPI - General Chief complaint: Shortness of Breath Stated complaint: Cough Time Seen by Provider: 06/09/18 13:35 Source: patient, family, RN notes reviewed Mode of arrival: ambulatory Limitations: no limitations - History of Present Illness Initial comments: Patient is a pleasant 62-year-old female presenting to the emergency department with difficulty in breathing. Symptoms started 2 days ago. Patient does have cough and congestion. Cough is however been nonproductive. Patient believes she has had some subjective fevers. Patient does have a history of similar symptoms previously associated COPD. No leg pain or leg swelling or chest pain. - Related Data Home Medications Medication Instructions Recorded Confirmed Atorvastatin [Lipitor] 20 mg PO HS 10/22/15 06/09/18 Spironolactone [Aldactone] 25 mg PO DAILY 12/24/16 06/09/18 Fluticasone/Umeclidin/Vilanter 1 puff INHALATION RT-DAILY 01/24/18 06/09/18 [Trelegy Ellipta 100-62.5-25] Budesonide [Pulmicort] 0.25 mg INHALATION BID PRN 06/09/18 06/09/18 Furosemide [Lasix] 20 mg PO DAILY 06/09/18 06/09/18 Ipratropium-Albuterol Nebulize 3 ml INHALATION RT-QID PRN 06/09/18 06/09/18 [Duoneb 0.5 mg-3 mg/3 ml Soln] Levothyroxine Sodium [Synthroid] 75 mcg PO DAILY 06/09/18 06/09/18 Previous Rx's Medication Instructions Recorded Aspirin 81 mg PO DAILY chew 02/15/18 Carvedilol [Coreg*] 12.5 mg PO BID-W/MEALS tab 02/15/18 Midodrine [ProAmatine] 10 mg PO AC-TID tab 02/15/18 Montelukast [Singulair] 10 mg PO HS tab 02/15/18 Pioglitazone [Actos] 45 mg PO DAILY tab 02/15/18 Sodium Bicarbonate Tab 650 mg PO BID tab 02/15/18 glipiZIDE [Glucotrol] 2.5 mg PO AC-BID tab 02/15/18 Allergies Allergy/AdvReac Type Severity Reaction Status Date / Time No Known Allergies Allergy Verified 06/09/18 13:50 Review of Systems ROS Statement: Those systems with pertinent positive or pertinent negative responses have been documented in the HPI. ROS Other: All systems not noted in ROS Statement are negative. Constitutional: Reports: as per HPI, fever Eyes: Denies: eye pain ENT: Denies: ear pain Respiratory: Reports: cough, dyspnea Cardiovascular: Denies: chest pain Endocrine: Reports: fatigue Gastrointestinal: Denies: abdominal pain Genitourinary: Denies: dysuria Musculoskeletal: Denies: back pain Skin: Denies: rash Neurological: Denies: weakness Past Medical History Past Medical History: Asthma, Cancer, Chest Pain / Angina, Heart Failure, COPD, Diabetes Mellitus, Hyperlipidemia, Hypertension, Pneumonia, Renal Disease Additional Past Medical History / Comment(s): Tracheobronchitis, asthmatic bronchitis, uterine cancer with hysterectomy, 2002 ovarian cancer, non-STEMI 3 or 4 years ago History of Any Multi-Drug Resistant Organisms: None Reported Past Surgical History: AICD, Hysterectomy, Orthopedic Surgery, Tonsillectomy Additional Past Surgical History / Comment(s): RT KNEE ARTHROSCOPY, PARTIAL HYSTERECTOMY, LISA CTR. BI-V ICD, [facility] KURT, COLONOSCOPY WITH BENING POLYPECTOMY. Past Anesthesia/Blood Transfusion Reactions: No Reported Reaction Type of Cardiac Device: AICD Device Placement Date:: 10/28/15 Past Psychological History: No Psychological Hx Reported Smoking Status: Former smoker Past Alcohol Use History: None Reported Past Drug Use History: None Reported - Past Family History Mother Family Medical History: Cancer Additional Family Medical History / Comment(s): Mother is alive at 89 years old with no major medical problems. BREAST CA Father Family Medical History: Hypertension, Myocardial Infarction ([place]) Additional Family Medical History / Comment(s): [place] @ AGE 48 General Exam Limitations: no limitations General appearance: alert Head exam: Present: atraumatic Eye exam: Present: normal appearance, PERRL ENT exam: Present: normal oropharynx Neck exam: Present: normal inspection Respiratory exam: Present: respiratory distress, wheezes Cardiovascular Exam: Present: tachycardia GI/Abdominal exam: Present: soft. Absent: tenderness Extremities exam: Present: normal inspection. Absent: pedal edema, calf tenderness Neurological exam: Present: alert Psychiatric exam: Present: normal affect, normal mood Skin exam: Present: normal color Course Vital Signs 06/09/18 06/09/18 13:30 14:11 Temperature 97.7 F Pulse Rate 121 H 116 H Respiratory 24 Rate Blood Pressure 118/67 O2 Sat by Pulse 93 L Oximetry EKG Findings - EKG Comments: EKG Findings:: Paced rhythm at 106. OH 120. QRS 116. QT 372. QTC 494. Right axis. Normal QRS. No acute ST change. Medical Decision Making - Medical Decision Making Patient reevaluated and slightly improved. Patient still feels short of breath. Patient and family updated on results and plan. Case was discussed in detail with Domenic Yusuf who will admit his patient. - Lab Data Result diagrams: 06/09/18 13:57 06/09/18 13:57 Lab Results 06/09/18 06/09/18 06/09/18 Range/Units 13:57 13:57 13:57 WBC 4.4 (3.8-10.6) k/uL RBC 4.28 (3.80-5.40) m/uL Hgb 12.3 (11.4-16.0) gm/dL Hct 38.4 (34.0-46.0) % MCV 89.9 (80.0-100.0) fL MCH 28.8 (25.0-35.0) pg MCHC 32.0 (31.0-37.0) g/dL RDW 13.6 (11.5-15.5) % Plt Count 211 (150-450) k/uL Neutrophils % 59 % Lymphocytes % 29 % Monocytes % 7 % Eosinophils % 2 % Basophils % 1 % Neutrophils # 2.6 (1.3-7.7) k/uL Lymphocytes # 1.3 (1.0-4.8) k/uL Monocytes # 0.3 (0-1.0) k/uL Eosinophils # 0.1 (0-0.7) k/uL Basophils # 0.0 (0-0.2) k/uL PT (9.0-12.0) sec INR (<1.2) APTT (22.0-30.0) sec Sodium 139 (137-145) mmol/L Potassium 3.5 (3.5-5.1) mmol/L Chloride 102 (98-107) mmol/L Carbon Dioxide 24 (22-30) mmol/L Anion Gap 13 mmol/L BUN 15 (7-17) mg/dL Creatinine 1.47 H (0.52-1.04) mg/dL Est GFR (CKD-EPI)AfAm 44 (>60 ml/min/1.73 sqM) Est GFR (CKD-EPI)NonAf 38 (>60 ml/min/1.73 sqM) Glucose 148 H (74-99) mg/dL Plasma Lactic Acid Ari (0.7-2.0) mmol/L Calcium 9.8 (8.4-10.2) mg/dL Total Bilirubin 0.3 (0.2-1.3) mg/dL AST 35 (14-36) U/L ALT 34 (9-52) U/L Alkaline Phosphatase 96 (38-126) U/L Troponin I (0.000-0.034) ng/mL Total Protein 6.7 (6.3-8.2) g/dL Albumin 3.9 (3.5-5.0) g/dL Influenza Type A RNA Not Detected (Not Detectd) Influenza Type B (PCR) Not Detected (Not Detectd) 06/09/18 06/09/18 06/09/18 Range/Units 13:57 13:57 13:57 WBC (3.8-10.6) k/uL RBC (3.80-5.40) m/uL Hgb (11.4-16.0) gm/dL Hct (34.0-46.0) % MCV (80.0-100.0) fL MCH (25.0-35.0) pg MCHC (31.0-37.0) g/dL RDW (11.5-15.5) % Plt Count (150-450) k/uL Neutrophils % % Lymphocytes % % Monocytes % % Eosinophils % % Basophils % % Neutrophils # (1.3-7.7) k/uL Lymphocytes # (1.0-4.8) k/uL Monocytes # (0-1.0) k/uL Eosinophils # (0-0.7) k/uL Basophils # (0-0.2) k/uL PT 12.2 H (9.0-12.0) sec INR 1.2 H (<1.2) APTT 24.7 (22.0-30.0) sec Sodium (137-145) mmol/L Potassium (3.5-5.1) mmol/L Chloride (98-107) mmol/L Carbon Dioxide (22-30) mmol/L Anion Gap mmol/L BUN (7-17) mg/dL Creatinine (0.52-1.04) mg/dL Est GFR (CKD-EPI)AfAm (>60 ml/min/1.73 sqM) Est GFR (CKD-EPI)NonAf (>60 ml/min/1.73 sqM) Glucose (74-99) mg/dL Plasma Lactic Acid Ari 2.3 H* (0.7-2.0) mmol/L Calcium (8.4-10.2) mg/dL Total Bilirubin (0.2-1.3) mg/dL AST (14-36) U/L ALT (9-52) U/L Alkaline Phosphatase (38-126) U/L Troponin I <0.012 (0.000-0.034) ng/mL Total Protein (6.3-8.2) g/dL Albumin (3.5-5.0) g/dL Influenza Type A RNA (Not Detectd) Influenza Type B (PCR) (Not Detectd) - Radiology Data Radiology results: image reviewed (Chest x-ray does not reveal acute abnormality) Disposition Clinical Impression: COPD with acute exacerbation Disposition: ADMITTED IP TO THIS HOSP Is patient prescribed a controlled substance at d/c from ED?: No Referrals: Domenic Garza MD [Primary Care Provider] - 1-2 days Decision Time: 16:16
[2018-06-09 14:27] LABS: Albumin 3.9 g/dL (3.5-5.0); Basophils % (A) 1 %; Calcium 9.8 mg/dL (8.4-10.2); Eosinophils # (A) 0.1 k/uL (0-0.7); Eosinophils % (A) 2 %; HCT 38.4 % (34.0-46.0); HGB 12.3 gm/dL (11.4-16.0); Lymphocytes # (A) 1.3 k/uL (1.0-4.8); Lymphocytes % (A) 29 %; MCH 28.8 pg (25.0-35.0); MCV 89.9 fL (80.0-100.0); Mean Platelet Volume 7.4; Monocytes # (A) 0.3 k/uL (0-1.0); Monocytes % (A) 7 %; Neutrophils # (A) 2.6 k/uL (1.3-7.7); Neutrophils % (A) 59 %; Platelet Count 211 k/uL (150-450); Potassium 3.5 mmol/L (3.5-5.1); RBC 4.28 m/uL (3.80-5.40); RDW 13.6 % (11.5-15.5); Total Bilirubin 0.3 mg/dL (0.2-1.3); Total Protein 6.7 g/dL (6.3-8.2); WBC 4.4 k/uL (3.8-10.6)
[2018-06-09 14:32] LABS: INR 1.2 (<1.2); Partial Thromboplastin Time 24.7 sec (22.0-30.0); Prothrombin Time 12.2 sec (9.0-12.0)
--- NOTE | 2018-06-09 14:51 | XR ---
EXAMINATION TYPE: XR chest 2V DATE OF EXAM: 06/09/2018 COMPARISON: 05/26/2018 HISTORY: 62 year-old female shortness of breath, difficulty breathing TECHNIQUE: PA and lateral views FINDINGS: Left anterior chest wall AICD generator with right atrial, right ventricular, and coronary sinus lead s. Heart normal size. Aorta and pulmonary vasculature within normal limits. Hyperinflation with increase d AP chest dimension and flattening of the hemidiaphragms. Hazy lower lung densities related to overl claudia soft tissue. External artifact projects over the right mid chest. No consolidation or pleural ef fusion. IMPRESSION: COPD. No acute process seen.
[2018-06-09] MEDS ORDERED: IPRATROPIUM-ALBUTEROL 3 ML NEB INHALATION PRN (16:17)
[2018-06-09] MEDS: methylPREDNISolone SOD SUCCI 125 MG/2 ML VIAL IV SCH ×2 (18:05→23:26)
[2018-06-09] MEDS ORDERED: BUDESONIDE 0.25 MG/2 ML NEBU INHALATION PRN (18:17)
[2018-06-09] MEDS: IPRATROPIUM-ALBUTEROL 3 ML NEB INHALATION SCH (20:08)
[2018-06-09 20:40] LABS: Glucose,Whole Blood 252 mg/dL (75-99)
[2018-06-09] MEDS: SODIUM BICARBONATE TAB 650 MG TAB PO SCH (20:42)
[2018-06-09] MEDS: MONTELUKAST 10 MG TAB PO SCH (20:43)
[2018-06-09] MEDS: ATORVASTATIN 20 MG TAB PO SCH (20:43)
[2018-06-09] MEDS: INSULIN ASPART (NovoLOG) 100 UNIT/ML VIAL SQ SCH (21:07)
[2018-06-10] MEDS: AZITHROMYCIN 500 MG in SODIUM CHLORIDE 0.9% 250 ML IVPB SCH (01:46)
[2018-06-10] MEDS: LEVOTHYROXINE 75 MCG TAB PO SCH (05:01)
[2018-06-10] MEDS: methylPREDNISolone SOD SUCCI 125 MG/2 ML VIAL IV SCH ×4 (05:01→23:50)
[2018-06-10] MEDS: IPRATROPIUM-ALBUTEROL 3 ML NEB INHALATION SCH ×4 (07:01→21:59)
[2018-06-10 07:12] LABS: Glucose,Whole Blood 185 mg/dL (75-99)
[2018-06-10] MEDS: MIDODRINE 5 MG TAB PO SCH ×3 (08:17→18:15)
[2018-06-10] MEDS: SPIRONOLACTONE 25 MG TAB PO SCH (08:18)
[2018-06-10] MEDS: INSULIN ASPART (NovoLOG) 100 UNIT/ML VIAL SQ SCH ×4 (08:18→21:48)
[2018-06-10] MEDS: FUROSEMIDE 20 MG TAB PO SCH (08:18)
[2018-06-10] MEDS: CARVEDILOL 12.5 MG TAB PO SCH ×2 (08:18→18:14)
[2018-06-10] MEDS: SODIUM BICARBONATE TAB 650 MG TAB PO SCH ×2 (08:18→21:20)
[2018-06-10] MEDS: PIOGLITAZONE 45 MG TAB PO SCH (08:18)
[2018-06-10] MEDS: ASPIRIN 81 MG PO SCH (08:18)
[2018-06-10 09:13] LABS: Basophils % (A) 0 %; Eosinophils % (A) 1 %; HCT 39.2 % (34.0-46.0); HGB 12.9 gm/dL (11.4-16.0); Lymphocytes # (A) 0.7 k/uL (1.0-4.8); Lymphocytes % (A) 19 %; MCH 29.8 pg (25.0-35.0); MCHC 32.9 g/dL (31.0-37.0); MCV 90.7 fL (80.0-100.0); Mean Platelet Volume 6.9; Monocytes % (A) 1 %; Neutrophils # (A) 2.7 k/uL (1.3-7.7); Neutrophils % (A) 78 %; Platelet Count 227 k/uL (150-450); RBC 4.33 m/uL (3.80-5.40); RDW 13.4 % (11.5-15.5); WBC 3.5 k/uL (3.8-10.6)
[2018-06-10 09:24] LABS: Albumin 4.2 g/dL (3.5-5.0); Calcium 10.4 mg/dL (8.4-10.2); Potassium 4.4 mmol/L (3.5-5.1); Total Bilirubin 0.4 mg/dL (0.2-1.3); Total Protein 7.1 g/dL (6.3-8.2)
--- NOTE | 2018-06-10 09:29 | CT ---
EXAMINATION TYPE: CT chest wo con DATE OF EXAM: 06/10/2018 COMPARISON: 07/22/2017 HISTORY: Cough, COPD CT DLP: 225.[address] of the chest was performed with lung and mediastinal window settings submitted. The la ck of contrast limits evaluation of the vascular, mediastinal and parenchymal structures including th e upper abdomen. LUNGS: Within the Right middle lobe is elongated density measuring 4.4 cm in length by 1.5 cm. This m ay reflect infiltrate or atelectasis. Underlying mass is not excluded. Follow-up is advised. Basilar parenchymal scarring with a groundglass density noted. Upper lobe of emphysematous changes seen. MEDIASTINUM/SANTOS: Thoracic aorta is of normal caliber with limited evaluation given lack of contrast . The heart is not enlarged. No evidence for mediastinal mass. No lymph nodes greater than 1cm. UPPER ABDOMEN: No significant abnormality is seen. OTHER: No significant other abnormality. IMPRESSION: 1. Within the Right middle lobe is elongated density measuring 4.4 cm in length by 1.5 cm. This may reflect infiltrate or atelectasis. Underlying mass is not excluded. Follow-up is advised in 3 months. 2. Mild upper lobe emphysematous change.
--- NOTE | 2018-06-10 11:32 | HP ---
HISTORY AND PHYSICAL CHIEF COMPLAINT: A 62-year-old white female admitted in the emergency room with difficulty breathing, cough, congestion, shortness of breath, admitted with COPD exacerbation and tracheobronchitis, possible pneumonia. CAT scan shows a mass in the lung for which Pulmonary is consulted. HOME MEDICATIONS: 1. Lipitor. 2. Aldactone. 3. Trelegy. 4. Pulmicort. 5. Lasix. 6. DuoNeb. 7. Synthroid. ALLERGIES: Allergies are negative. REVIEW OF SYSTEMS: Fourteen point review of systems negative except for mentioned in HPI. PAST MEDICAL HISTORY: Asthma, cancer, chest pain, heart failure, COPD, diabetes mellitus, dyslipidemia, hypertension, renal disease, pneumonia, asthmatic bronchitis, tracheobronchitis, ovarian cancer, non-STEMI. SURGICAL HISTORY: AICD, hysterectomy, orthopedic surgery, tonsillectomy, right knee arthroscopy. FAMILY HISTORY: Mother with breast cancer. Father with hypertension, myocardial infarction. PHYSICAL EXAMINATION: Temp 97.7, pulse is 116 to 121, respiratory rate 18 to 24, blood pressure 118/67, at 93%. CARDIOVASCULAR: S1, S2. LUNGS: Show scattered rhonchi and wheeze. Decreased breath sounds x4. HEMATOLOGY: Negative Homans. PSYCH: Fair mood and affect. NEUROLOGIC: Alert and oriented x3. ASSESSMENT: 1. Chronic obstructive pulmonary disease exacerbation. 2. Tracheobronchitis. 3. Lung mass, unclear etiology. Admit, IV steroids, updraft treatments, IV antibiotics. Please see further orders. MMODL / IJN: [id number] /
[2018-06-10 12:16] LABS: Glucose,Whole Blood 63 mg/dL (75-99)
[2018-06-10 12:30] LABS: Glucose,Whole Blood 76 mg/dL (75-99)
[2018-06-10] MEDS: SODIUM CHLORIDE 0.9% 1,000 ML IV SCH ×2 (13:22→23:50)
--- NOTE | 2018-06-10 17:07 | P.CNPUL ---
History of Present Illness Consult date: 06/10/18 Reason for consult: dyspnea, cough Chief complaint: Cough and shortness of breath History of present illness: This is a 62-year-old female who presented emergency department complaining of cough and shortness of breath. She states it began 4-5 days ago. She does have a known history of COPD and wears 3 L of oxygen at baseline. She states she uses albuterol nebulizer 4 times per day. She is a former smoker and quit 2 and half years ago. She used to smoke a half a pack per day for 30 years. She states she has a very function test scheduled for August. She did not get her flu vaccine this year. She did get a pneumonia vaccine. She is complaining of a dry deep cough. She states she did have fevers and chills at home. Chest x-ray was done in the emergency department and shows no acute process. The patient also had a CT of the chest. She was found have a right middle lobe elongated density measuring 4.4 x 1.5 cm. This may reflect infiltrate or atelectasis, mass is not excluded. She also has mild upper lobe emphysematous changes. Review of Systems All systems: negative Past Medical History Past Medical History: Asthma, Cancer, Chest Pain / Angina, Heart Failure, COPD, Diabetes Mellitus, Hyperlipidemia, Hypertension, Pneumonia, Renal Disease Additional Past Medical History / Comment(s): Tracheobronchitis, asthmatic bronchitis, uterine cancer with hysterectomy, 2002 ovarian cancer, non-STEMI 3 or 4 years ago History of Any Multi-Drug Resistant Organisms: None Reported Past Surgical History: AICD, Hysterectomy, Orthopedic Surgery, Tonsillectomy Additional Past Surgical History / Comment(s): RT KNEE ARTHROSCOPY, PARTIAL HYSTERECTOMY, LISA CTR. BI-V ICD, [facility] KURT, COLONOSCOPY WITH BENING POLYPECTOMY. Past Anesthesia/Blood Transfusion Reactions: No Reported Reaction Type of Cardiac Device: AICD Device Placement Date:: 10/28/15 Past Psychological History: No Psychological Hx Reported Additional Psychological History / Comment(s): pt is independant,lives with spouse. has nebulizer. Smoking Status: Former smoker Past Alcohol Use History: None Reported Additional Past Alcohol Use History / Comment(s): PATIENT WAS A SMOKER OF 1/- 1/2 PPD FOR 15 YEARS AND QUIT 2013 Past Drug Use History: None Reported - Past Family History Mother Family Medical History: Cancer Additional Family Medical History / Comment(s): Mother is alive at 89 years old with no major medical problems. BREAST CA Father Family Medical History: Hypertension, Myocardial Infarction ([place]) Additional Family Medical History / Comment(s): [place] @ AGE 48 Medications and Allergies Home Medications Medication Instructions Recorded Confirmed Type Atorvastatin [Lipitor] 20 mg PO HS 10/22/15 06/09/18 History Spironolactone [Aldactone] 25 mg PO DAILY 12/24/16 06/09/18 History Fluticasone/Umeclidin/Vilanter 1 puff INHALATION RT-DAILY 01/24/18 06/09/18 History [Trelegy Ellipta 100-62.5-25] Aspirin 81 mg PO DAILY chew 02/15/18 06/09/18 Rx Carvedilol [Coreg*] 12.5 mg PO BID-W/MEALS tab 02/15/18 06/09/18 Rx Midodrine [ProAmatine] 10 mg PO AC-TID tab 02/15/18 06/09/18 Rx Montelukast [Singulair] 10 mg PO HS tab 02/15/18 06/09/18 Rx Pioglitazone [Actos] 45 mg PO DAILY tab 02/15/18 06/09/18 Rx Sodium Bicarbonate Tab 650 mg PO BID tab 02/15/18 06/09/18 Rx glipiZIDE [Glucotrol] 2.5 mg PO AC-BID tab 02/15/18 06/09/18 Rx Budesonide [Pulmicort] 0.25 mg INHALATION BID PRN 06/09/18 06/09/18 History Furosemide [Lasix] 20 mg PO DAILY 06/09/18 06/09/18 History Ipratropium-Albuterol Nebulize 3 ml INHALATION RT-QID PRN 06/09/18 06/09/18 History [Duoneb 0.5 mg-3 mg/3 ml Soln] Levothyroxine Sodium [Synthroid] 75 mcg PO DAILY 06/09/18 06/09/18 History Allergies Allergy/AdvReac Type Severity Reaction Status Date / Time No Known Allergies Allergy Verified 06/09/18 13:50 Physical Exam Osteopathic Statement: *. No significant issues noted on an osteopathic structural exam other than those noted in the History and Physical/Consult. Vitals: Vital Signs Temp Pulse Pulse Resp BP Pulse Ox 06/10/18 15:35 16 06/10/18 14:43 99.1 F 89 16 129/72 90 L 06/10/18 11:27 94 06/10/18 11:18 98 06/10/18 08:00 16 06/10/18 07:21 100 06/10/18 07:01 96 06/10/18 07:00 98.0 F 80 16 100/61 99 06/09/18 22:20 97.7 F 88 20 102/60 95 06/09/18 20:21 100 06/09/18 20:09 102 H 96 Intake and Output 06/10/18 06/10/18 06/10/18 06:59 14:59 22:59 Other: # Voids 2 3 # Bowel Movements 1 Gen.: Patient is alert and oriented 3, no acute distress Cardiovascular: Regular rate and rhythm, S1/S2 Lungs: Diminished breath sounds with scattered expiratory wheezing Abdomen: Soft nontender nondistended positive bowel sounds Extremities: Trace edema Results - Laboratory Findings CBC and BMP: 06/10/18 08:43 06/10/18 08:43 PT/INR, D-dimer PT 12.2 sec (9.0-12.0) H 06/09/18 13:57 INR 1.2 (<1.2) H 06/09/18 13:57 D-Dimer 0.75 mg/L FEU (<0.60) H 06/10/18 11:08 Abnormal lab findings: Abnormal Labs 06/09/18 06/09/18 06/09/18 13:57 13:57 13:57 WBC Lymphocytes # PT 12.2 H INR 1.2 H D-Dimer BUN Creatinine 1.47 H Glucose 148 H POC Glucose (mg/dL) Plasma Lactic Acid Ari 2.3 H* Calcium 06/09/18 06/10/18 06/10/18 20:39 07:09 08:43 WBC 3.5 L Lymphocytes # 0.7 L PT INR D-Dimer BUN Creatinine Glucose POC Glucose (mg/dL) 252 H 185 H Plasma Lactic Acid Ari Calcium 06/10/18 06/10/18 06/10/18 08:43 11:08 12:14 WBC Lymphocytes # PT INR D-Dimer 0.75 H BUN 22 H Creatinine 1.11 H Glucose 253 H POC Glucose (mg/dL) 63 L Plasma Lactic Acid Ari Calcium 10.4 H - Diagnostic Findings Chest x-ray: report reviewed, image reviewed CT scan - chest: report reviewed, image reviewed Assessment and Plan Assessment: Acute on chronic hypoxic respiratory failure Acute exacerbation of COPD, severe, FEV1 37% of predicted Acute exacerbation of severe persistent asthma Right middle lobe 4.4 x 1.5 cm density, underlying mass cannot be excluded Systolic congestive heart failure, ejection fraction 30-35% Leukopenia 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 We will continue to follow along.
[2018-06-10 17:28] LABS: Glucose,Whole Blood 201 mg/dL (75-99)
[2018-06-10] MEDS: MONTELUKAST 10 MG TAB PO SCH (21:20)
[2018-06-10] MEDS: ATORVASTATIN 20 MG TAB PO SCH (21:20)
[2018-06-10 21:40] LABS: Glucose,Whole Blood 208 mg/dL (75-99)
[2018-06-10] MEDS: BUDESONIDE 0.5 MG/2 ML NEBU INHALATION SCH (21:58)
[2018-06-10] MEDS: FORMOTEROL FUMARATE 20 MCG/2 ML NEBU INHALATION SCH (21:58)
[2018-06-11] MEDS: AZITHROMYCIN 500 MG in SODIUM CHLORIDE 0.9% 250 ML IVPB SCH (00:49)
[2018-06-11] MEDS: methylPREDNISolone SOD SUCCI 125 MG/2 ML VIAL IV SCH (06:10)
[2018-06-11] MEDS: LEVOTHYROXINE 75 MCG TAB PO SCH (06:14)
[2018-06-11 07:25] LABS: Glucose,Whole Blood 140 mg/dL (75-99)
[2018-06-11] MEDS: MIDODRINE 5 MG TAB PO SCH ×3 (08:02→18:01)
[2018-06-11] MEDS: SODIUM BICARBONATE TAB 650 MG TAB PO SCH ×2 (08:02→20:51)
[2018-06-11] MEDS: FUROSEMIDE 20 MG TAB PO SCH (08:03)
[2018-06-11] MEDS: ASPIRIN 81 MG PO SCH (08:03)
[2018-06-11] MEDS: INSULIN ASPART (NovoLOG) 100 UNIT/ML VIAL SQ SCH ×4 (08:03→20:51)
[2018-06-11] MEDS: CARVEDILOL 12.5 MG TAB PO SCH ×2 (08:03→17:59)
[2018-06-11] MEDS: SPIRONOLACTONE 25 MG TAB PO SCH (08:03)
[2018-06-11] MEDS: PIOGLITAZONE 45 MG TAB PO SCH (08:06)
[2018-06-11] MEDS: BUDESONIDE 0.5 MG/2 ML NEBU INHALATION SCH ×2 (08:57→21:11)
[2018-06-11] MEDS: FORMOTEROL FUMARATE 20 MCG/2 ML NEBU INHALATION SCH ×2 (08:58→21:12)
[2018-06-11] MEDS: IPRATROPIUM-ALBUTEROL 3 ML NEB INHALATION SCH ×4 (08:58→21:11)
--- NOTE | 2018-06-11 10:04 | P.PN ---
Subjective Progress Note Date: 06/11/18 06/11/2017: Patient seen and examined. Patient is currently on 3 L nasal cannula. She states she is feeling much better today. She is wanting to go home today. She denies any fevers and chills. She denies any wheezing or shortness of breath. She feels like her breathing is at baseline. Objective - Vital Signs Vital signs: Vital Signs Temp 97.9 F 06/11/18 07:00 Pulse 92 06/11/18 09:20 Resp 16 06/11/18 07:00 BP 111/63 06/11/18 07:00 Pulse Ox 93 L 06/11/18 07:00 Intake & Output 06/10/18 06/11/18 06/11/18 18:59 06:59 18:59 Intake Total 300 Balance 300 Intake: Oral 300 Other: # Voids 3 1 # Bowel Movements 1 - Exam Gen.: Patient is alert and oriented 3, no acute distress Cardiovascular: Regular rate and rhythm, S1/S2 Lungs: Diminished breath sounds with scattered expiratory wheezing Abdomen: Soft nontender nondistended positive bowel sounds Extremities: Trace edema - Labs CBC & Chem 7: 06/10/18 08:43 06/10/18 08:43 Labs: Abnormal Lab Results - Last 24 Hours (Table) 06/10/18 06/10/18 06/10/18 Range/Units 11:08 12:14 17:23 D-Dimer 0.75 H (<0.60) mg/L FEU POC Glucose (mg/dL) 63 L 201 H (75-99) mg/dL 06/10/18 06/11/18 Range/Units 21:38 07:12 D-Dimer (<0.60) mg/L FEU POC Glucose (mg/dL) 208 H 140 H (75-99) mg/dL Microbiology - Last 24 Hours (Table) 06/09/18 13:57 Blood Culture - Preliminary Blood No Growth after 24 hours Assessment and Plan Assessment: Acute on chronic hypoxic respiratory failure Acute exacerbation of COPD, severe, FEV1 37% of predicted Acute exacerbation of severe persistent asthma Right middle lobe 4.4 x 1.5 cm density, underlying mass cannot be excluded Systolic congestive heart failure, ejection fraction 30-35% Leukopenia Chronic kidney disease 2-3 Dyslipidemia Hypertension Diabetes mellitus type 2 Coronary artery disease History of uterine cancer O2 to maintain saturation greater than equal to 90% Solu-Medrol - change to PO Prednisone Pulmicort Duo nebs Perforomist Influenza negative Pending IgE/HP/allergy panel/A1AT Outpatient PET scan should be considered Incentive spirometry and pulmonary hygiene Singulair Antibiotics: Azithromycin and Rocephin Ok to DC from pulmonary standpoint. Follow up 2-3 days
[2018-06-11] MEDS: predniSONE 20 MG TAB PO SCH (10:34)
[2018-06-11 11:43] LABS: Glucose,Whole Blood 191 mg/dL (75-99)
[2018-06-11] MEDS: SODIUM CHLORIDE 0.9% 1,000 ML IV SCH (15:02)
--- NOTE | 2018-06-11 16:45 | PN ---
PROGRESS NOTE SUBJECTIVE: 62-year-old white female. CT scan was reviewed with the patient. The patient appears to be stating doing better since she has been admitted with IV antibiotics x2. She is currently on 3 L oxygen. Wanted to go home. PHYSICAL EXAMINATION: Vital signs are stable. CARDIOVASCULAR: S1, S2. Lungs show decreased wheezing, decreased rhonchi compared to before. Hematologic: Trace edema. BUN 22, creatinine 1.1. ASSESSMENT: 1. Acute on chronic hypoxemic respiratory failure. 2. Chronic obstructive pulmonary disease, severe exacerbation. 3. Chronic persistent asthma. 4. Right middle lobe density. 5. Underlying mass unclear. 6. Systolic congestive heart failure. 7. Leukopenia. 8. Chronic kidney disease. 9. Dyslipidemia. 10.Hypertension. 11.Diabetes mellitus, type 2. 12.Coronary artery disease. Possibly changed oral prednisone. Possible discharge home in the next 24 to 48 hours. Outpatient PET scan will be needed for this mass in the lung. Continue Rocephin and azithromycin. Discharge home in the morning. MMODL / IJN: [id number] /
[2018-06-11 17:32] LABS: Glucose,Whole Blood 142 mg/dL (75-99)
[2018-06-11 20:17] LABS: Glucose,Whole Blood 167 mg/dL (75-99)
[2018-06-11] MEDS: MONTELUKAST 10 MG TAB PO SCH (20:51)
[2018-06-11] MEDS: ATORVASTATIN 20 MG TAB PO SCH (20:51)
[2018-06-11] MEDS ORDERED: AZITHROMYCIN 500 MG TAB PO SCH (21:00)
[2018-06-11 23:37] VITALS: RESP 16
[2018-06-12] MEDS: SODIUM CHLORIDE 0.9% 1,000 ML IV SCH (06:11)
[2018-06-12] MEDS: LEVOTHYROXINE 75 MCG TAB PO SCH (06:11)
[2018-06-12] MEDS: FORMOTEROL FUMARATE 20 MCG/2 ML NEBU INHALATION SCH (07:08)
[2018-06-12] MEDS: BUDESONIDE 0.5 MG/2 ML NEBU INHALATION SCH (07:08)
[2018-06-12] MEDS: IPRATROPIUM-ALBUTEROL 3 ML NEB INHALATION SCH ×2 (07:08→11:10)
[2018-06-12 07:43] LABS: Glucose,Whole Blood 108 mg/dL (75-99)
[2018-06-12] MEDS: INSULIN ASPART (NovoLOG) 100 UNIT/ML VIAL SQ SCH ×2 (07:54→11:39)
[2018-06-12 07:58] VITALS: BP 113/70; TEMP 97.5
[2018-06-12] MEDS: CARVEDILOL 12.5 MG TAB PO SCH (08:08)
[2018-06-12] MEDS: FUROSEMIDE 20 MG TAB PO SCH (08:09)
[2018-06-12] MEDS: SODIUM BICARBONATE TAB 650 MG TAB PO SCH (08:09)
[2018-06-12] MEDS: MIDODRINE 5 MG TAB PO SCH ×2 (08:09→11:13)
[2018-06-12] MEDS: PIOGLITAZONE 45 MG TAB PO SCH (08:09)
[2018-06-12] MEDS: ASPIRIN 81 MG PO SCH (08:09)
[2018-06-12] MEDS: predniSONE 20 MG TAB PO SCH (08:09)
[2018-06-12] MEDS: SPIRONOLACTONE 25 MG TAB PO SCH (08:09)
[2018-06-12 11:22] VITALS: PULSE 72
[2018-06-12 11:41] LABS: Glucose,Whole Blood 98 mg/dL (75-99)
--- NOTE | 2018-06-14 11:27 | CDI ---
Documentation Clarification Form Date: 06/14/2018 11:13:55 AM From: HILLARY Pandey; Angelina Will Gas Dispatcher Phone: If you have a question about this query, please contact Angelina Will Gas Dispatcher at [phone] between 8am and 5pm. Admit Date: 06/11/2018 4:38:00 PM Patient Name: Ele Del Cid Visit Number: [id number] Discharge Date: 06/12/2018 12:00:00 PM ATTENTION: The Clinical Documentation Specialists (CDI) and [facility] Coding Staff appreciate your assistance in clarifying documentation. Please respond to the clarification below the line at the bottom and electronically sign. The CDI & [facility] Coding staff will review the response and follow-up if needed. Please note: Queries are made part of the Legal Health Record. If you have any questions, please contact the author of this message via ITS. Dr. Domenic Garza The patient presented with acute exacerbation of COPD and acute on chronic hypoxic respiratory failure. Documentation states tracheobronchitis and possible pneumonia as well, and it is not clear if ruled in or ruled out by discharge. History/Risk Factors: COPD, asthma, cancer, heart failure, DM. Clinical Indicators: Difficulty breathing, cough, congestion. Radiology findings: Right middle lobe density. Vital Signs: Temp 97.7,pulse 116, resp 18, BP 118/67 Treatment: Rocephin, Azithromycin, Solu-Medrol In your professional opinion, can you please clarify the respiratory condition you were treating? Tracheobronchitis Pneumonia Other, please specify Unable to determine MTDD
[2018-06-14 14:43] LABS: Alt. alternata IgE Class CLASS II; Alternaria alternata IgE 2.67 kU/L (<0.35); Asperg. fumagatus IgE <0.35 kU/L (<0.35); Asperg. fumagatus IgE Class CLASS 0; Bermuda Grass IgE <0.35 kU/L (<0.35); Birch(Com.Silvr) IgE <0.35 kU/L (<0.35); Birch(Com.Silvr) IgE Class CLASS 0; Cat Epith & Dander IgE 1.09 kU/L (<0.35); Cat Epith & Dander IgE Class CLASS II; Clad herbarum IgE <0.35 kU/L (<0.35); Cockroach IgE <0.35 kU/L (<0.35); Cottonwood IgE <0.35 kU/L (<0.35); Dermato. farinae IgE Class CLASS III; Dog Dander IgE 1.17 kU/L (<0.35); Elm IgE <0.35 kU/L (<0.35); Maple (Box Elder) IgE <0.35 kU/L (<0.35); Maple (Box Elder) IgE Class CLASS 0; Mountain Cedar IgE <0.35 kU/L (<0.35); Mountain Cedar IgE Class CLASS 0; Mouse Urine IgE Class CLASS 0; Nettle IgE <0.35 kU/L (<0.35); Nettle IgE Class CLASS 0; Oak IgE <0.35 kU/L (<0.35); Penicillium notatum IgE Class CLASS 0; Rough Marshelder IgE <0.35 kU/L (<0.35); Rough Marshelder IgE Class CLASS 0; Timothy Grass IgE <0.35 kU/L (<0.35); White Ash IgE Class CLASS 0
[2018-06-15 14:33] LABS: Alpha 1 Anti-Trypsin 190 mg/dL (90 - 200)
[2018-06-18 13:49] LABS: Alternaria Alternata IgG <2.0 mcg/mL (< 13.6); Aspergillus fumigatus IgG Not detected (Not detected); Aureobasidium pullulans IgG 2.4 mcg/mL (< 13.6); Cladosporium herbarium IgG 4.9 mcg/mL (< 14.7); Phoma ssp. IgG <2.0 mcg/mL (< 6.6); Saccaharomospora viridis Not detected (Not detected); Saccaharopoly. rectivirgula Not detected (Not detected)
--- NOTE | 2018-06-21 07:23 | CDI ---
Documentation Clarification Form Date: 06/21/2018 11:13:55 AM From: HILLARY Pandey; Angelina Will Senior Android Developer Phone: If you have a question about this query, please contact Angelina Will Senior Android Developer at [phone] between 8am and 5pm. Admit Date: 06/11/2018 4:38:00 PM Patient Name: Ele Del Cid Visit Number: [id number] Discharge Date: 06/12/2018 12:00:00 PM ATTENTION: The Clinical Documentation Specialists (CDI) and [facility] Coding Staff appreciate your assistance in clarifying documentation. Please respond to the clarification below the line at the bottom and electronically sign. The CDI & [facility] Coding staff will review the response and follow-up if needed. Please note: Queries are made part of the Legal Health Record. If you have any questions, please contact the author of this message via ITS. Dr. Domenic Garza The patient presented with acute exacerbation of COPD and acute on chronic hypoxic respiratory failure. Documentation states tracheobronchitis and possible pneumonia as well, and it is not clear if ruled in or ruled out by discharge. History/Risk Factors: COPD, asthma, cancer, heart failure, DM. Clinical Indicators: Difficulty breathing, cough, congestion. Radiology findings: Right middle lobe density. Vital Signs: Temp 97.7,pulse 116, resp 18, BP 118/67 Treatment: Rocephin, Azithromycin, Solu-Medrol In your professional opinion, can you please clarify the respiratory condition you were treating? Tracheobronchitis Pneumonia Other, please specify Unable to determine MTDD
== END 2018-06-12 12:00 | disposition home or self-care (01) | DRG 190 ==
LOC: EC 13:29 → 4MS4W 16:17 → OBSVTOIN 06-11 16:38
PROVIDERS: ADMIT Family Medicine; ATTEND Family Medicine
PROC: 05HF33Z Insertion of Infusion Device into Left Cephalic Vein, Percutaneous Approach (ICD-10-PCS; principal; 2018-06-10 14:30)
DX: J44.1 Chronic obstructive pulmonary disease with (acute) exacerbation (principal); J96.21 Acute and chronic respiratory failure with hypoxia; I13.0 Hypertensive heart and chronic kidney disease with heart failure and stage 1 through stage 4 chronic kidney disease, or unspecified chronic kidney disease; I50.22 Chronic systolic (congestive) heart failure; J45.51 Severe persistent asthma with (acute) exacerbation; D72.819 Decreased white blood cell count, unspecified; E11.22 Type 2 diabetes mellitus with diabetic chronic kidney disease; E78.5 Hyperlipidemia, unspecified; I25.10 Atherosclerotic heart disease of native coronary artery without angina pectoris; I25.2 Old myocardial infarction; N18.3 Chronic kidney disease, stage 3 (moderate); Z79.82 Long term (current) use of aspirin; Z79.84 Long term (current) use of oral hypoglycemic drugs; Z79.890 Hormone replacement therapy; Z79.899 Other long term (current) drug therapy; Z80.3 Family history of malignant neoplasm of breast; Z82.49 Family history of ischemic heart disease and other diseases of the circulatory system; Z85.42 Personal history of malignant neoplasm of other parts of uterus; Z85.43 Personal history of malignant neoplasm of ovary; Z87.891 Personal history of nicotine dependence; Z90.711 Acquired absence of uterus with remaining cervical stump; Z99.81 Dependence on supplemental oxygen
CPT/HCPCS: 36410; 36415; 71046; 71250; 76937; 80053; 82103; 82104; 82785; 83605; 84484; 85025; 85379; 85610; 85730; 86001; 86003; 86606; 86609; 87040; 87502; 93005; 94640; 94760; 96374; 99285

== ENCOUNTER → 2019-01-20 | Outpatient (CLI) | payer MEDICARE ==
--- NOTE | 2019-01-22 17:28 | CT ---
EXAMINATION TYPE: CT shoulder RT wo con DATE OF EXAM: 01/20/2019 COMPARISON: None HISTORY: 63-year-old female Right shoulder pain, rotator cuff tear TECHNIQUE: Contiguous axial scanning of the right shoulder without IV contrast. Coronal and sagittal reconstructions performed. CT DLP: 182.9 mGycm Automated exposure control for dose reduction was used. FINDINGS: Left anterior chest wall AICD generator with right atrial, right ventricular, and coronary sinus lead s. Emphysematous change in the visualized right lung. Suspect chondroid lesion measuring 2.1 x 1.3 cm on coronal series in 1.9 cm wide at the level of the surgical neck of the proximal right humerus. No atrophy of the rotator cuff musculature. Mild to moderate degenerative joint space narrowing and capsular hypertrophy at the acromioclavicular joint. No yvette fluid distention of the subacromial/subdeltoid bursa or sizable joint effusion. No acute fracture, subluxation, or dislocation. Tiny spur peripheral aspect of the greater tuberosity Overall preserved volume of the rotator cuff. IMPRESSION: 1. NO SIZABLE, RETRACTED ROTATOR CUFF TEAR SEEN BY NONCONTRAST CT. OVERALL, ROTATOR CUFF TENDON VOLUM E AND MUSCLE VOLUME IS MAINTAINED AT THIS TIME. A PARTIAL THICKNESS TEAR WOULD BE DIFFICULT TO EXCLUD E ON THIS TYPE OF STUDY. 2. SUSPECT A CHONDROID LESION SUCH ENCHONDROMA MEASURING 2.1 CM WITHIN THE INTRAMEDULLARY SPACE OF THE PROXIMAL RIGHT HUMERUS. NO ASSOCIATED CORTICAL SCALLOPING OR EXTRAOSSEOUS SOFT TISSUE COMPONENT. IF BONE PAIN DEVELOPS THAT IS FELT TO BE RELATED TO THIS UNDERLYING LESION, FOLLOW-UP WOULD BE WARRKush NTED. 3. [id number] AC JOINT OA.
== END ==
LOC: RADCTMAIN 12:53
PROVIDERS: ATTEND Family Medicine
DX: M19.011 Primary osteoarthritis, right shoulder (principal)

== ENCOUNTER → 2019-05-10 | Outpatient (CLI) | payer MEDICARE ==
--- NOTE | 2019-05-11 08:44 | CT ---
EXAMINATION TYPE: CT chest w con DATE OF EXAM: 05/10/2019 COMPARISON: 06/10/2018 HISTORY: pneumonia, COPD CT DLP: 362 mGycm, Automated exposure control for dose reduction was used. CONTRAST: Performed injected with 80cc mL of Isovue 300. TECHNIQUE: Axial images were obtained at 5 mm thick sections. Reconstructed images are reviewed on [employer] computer in the coronal plane. FINDINGS: The heart is slightly prominent with the right lobe of the thyroid extending into the super ior mediastinum. Mild emphysematous changes are present. There are some streak opacities at the right lung base which can be related to atelectasis. No suspicious lung nodules or focal infiltrates are present. Previous density in the right middle lobe base is nearly completely resolved. No enlarged mediastinal or hilar adenopathy is evident. The ascending aorta diameter at the level o f the main pulmonary artery is 2.9 cm. The main pulmonary artery diameter at the bifurcation is 2.[address] sections are obtained through the upper abdomen. There is thickening of the right adrenal gland IMPRESSIONS: 1. No acute pulmonary process. 2. COPD.
== END | disposition home or self-care (01) ==
LOC: RADCTMAIN 15:37
PROVIDERS: ATTEND Family Medicine
DX: J44.9 Chronic obstructive pulmonary disease, unspecified (principal)
CPT/HCPCS: 82565; 84520; 71260; 36415; Q9967

== ENCOUNTER 2019-12-10 09:19 | Observation (INO) | payer MEDICARE ==
[2019-12-10] MEDS ORDERED: methylPREDNISolone SOD SUCCI 125 MG/2 ML VIAL IV STA (09:42)
[2019-12-10] MEDS ORDERED: IPRATROPIUM-ALBUTEROL 3 ML NEB INHALATION STA (09:42)
--- NOTE | 2019-12-10 09:44 | ED ---
General Adult HPI - General Chief complaint: Shortness of Breath Stated complaint: cough,sob Time Seen by Provider: 12/10/19 09:39 Source: patient, RN notes reviewed Mode of arrival: ambulatory Limitations: no limitations - History of Present Illness Initial comments: Patient is a pleasant 64-year-old female presenting to the emergency Department with complaints of shortness of breath. Onset of symptoms was 2 days ago. Patient does have mild nonproductive cough. Patient did have borderline fever 2 days ago however none since then. Dyspnea feels similar to previous COPD. No leg pain or leg swelling. No chest pain. - Related Data Home Medications Medication Instructions Recorded Confirmed Atorvastatin [Lipitor] 20 mg PO HS 10/22/15 06/09/18 Spironolactone [Aldactone] 25 mg PO DAILY 12/24/16 06/09/18 Fluticasone/Umeclidin/Vilanter 1 puff INHALATION RT-DAILY 01/24/18 06/09/18 [Trelegy Ellipta 100-62.5-25] Furosemide [Lasix] 20 mg PO DAILY 06/09/18 06/09/18 Ipratropium-Albuterol Nebulize 3 ml INHALATION RT-QID PRN 06/09/18 06/09/18 [Duoneb 0.5 mg-3 mg/3 ml Soln] Levothyroxine Sodium [Synthroid] 75 mcg PO DAILY 06/09/18 06/09/18 Previous Rx's Medication Instructions Recorded Aspirin 81 mg PO DAILY chew 02/15/18 Midodrine [ProAmatine] 10 mg PO AC-TID tab 02/15/18 Montelukast [Singulair] 10 mg PO HS tab 02/15/18 Pioglitazone [Actos] 45 mg PO DAILY tab 02/15/18 Sodium Bicarbonate Tab 650 mg PO BID tab 02/15/18 carvediloL [Coreg*] 12.5 mg PO BID-W/MEALS tab 02/15/18 glipiZIDE [Glucotrol] 2.5 mg PO AC-BID tab 02/15/18 Budesonide [Pulmicort] 0.5 mg INHALATION RT-BID nebu 06/12/18 Formoterol Fumarate [Perforomist] 20 mcg INHALATION RT-BID nebu 06/12/18 INSULIN ASPART (NovoLOG) [NovoLOG 0 unit SQ ACHS vial 06/12/18 (formulary)] predniSONE [Deltasone] 60 mg PO DAILY tab 06/12/18 Allergies Allergy/AdvReac Type Severity Reaction Status Date / Time No Known Allergies Allergy Verified 12/10/19 09:31 Review of Systems ROS Statement: Those systems with pertinent positive or pertinent negative responses have been documented in the HPI. ROS Other: All systems not noted in ROS Statement are negative. Constitutional: Reports: as per HPI Eyes: Denies: eye pain ENT: Denies: ear pain Respiratory: Reports: as per HPI, dyspnea Cardiovascular: Denies: chest pain Endocrine: Reports: fatigue Gastrointestinal: Denies: abdominal pain Genitourinary: Denies: dysuria Musculoskeletal: Denies: back pain Skin: Denies: rash Neurological: Denies: weakness Past Medical History Past Medical History: Asthma, Cancer, Chest Pain / Angina, Heart Failure, COPD, Diabetes Mellitus, Hyperlipidemia, Hypertension, Pneumonia, Renal Disease Additional Past Medical History / Comment(s): Tracheobronchitis, asthmatic bronchitis, uterine cancer with hysterectomy, 2002 ovarian cancer, non-STEMI 3 or 4 years ago History of Any Multi-Drug Resistant Organisms: None Reported Past Surgical History: AICD, Hysterectomy, Orthopedic Surgery, Tonsillectomy Additional Past Surgical History / Comment(s): RT KNEE ARTHROSCOPY, PARTIAL HYSTERECTOMY, LISA CTR. BI-V ICD, [facility], COLONOSCOPY WITH BENING POLYPECTOMY. Past Anesthesia/Blood Transfusion Reactions: No Reported Reaction Type of Cardiac Device: AICD Device Placement Date:: 10/28/15 Past Psychological History: No Psychological Hx Reported Smoking Status: Former smoker Past Alcohol Use History: None Reported Past Drug Use History: None Reported - Past Family History Mother Family Medical History: Cancer Additional Family Medical History / Comment(s): Mother is alive at 89 years old with no major medical problems. BREAST CA Father Family Medical History: Hypertension, Myocardial Infarction ([place]) Additional Family Medical History / Comment(s): [place] @ AGE 48 General Exam Limitations: no limitations General appearance: alert Head exam: Present: normocephalic Eye exam: Present: normal appearance Neck exam: Present: normal inspection Respiratory exam: Present: wheezes, decreased breath sounds Cardiovascular Exam: Present: regular rate, normal rhythm GI/Abdominal exam: Present: soft. Absent: tenderness Extremities exam: Present: normal inspection. Absent: pedal edema, calf tenderness Neurological exam: Present: alert Psychiatric exam: Present: normal affect, normal mood Skin exam: Present: normal color Course Vital Signs 12/10/19 12/10/19 12/10/19 09:28 09:49 10:00 Temperature 98.1 F Pulse Rate 84 81 84 Respiratory 18 22 Rate Blood Pressure 93/57 O2 Sat by Pulse 92 L Oximetry EKG Findings - EKG Comments: EKG Findings:: Paced rhythm at 3-77. NV 120. QRS 144. QT 410. QTc 463. Right axis. Septal Q waves. Wide complex QRS complex. No acute ST change. Medical Decision Making - Medical Decision Making Patient reevaluated and resting comfortably in bed. Patient has continued wheezing, mild improvement. Patient still feels short of breath and agreeable with admission. Dr. Garza has been paged for admission of this patient. - Lab Data Result diagrams: 12/10/19 09:55 12/10/19 09:55 Lab Results 12/10/19 12/10/19 12/10/19 Range/Units 09:55 09:55 09:55 WBC 6.0 (3.8-10.6) k/uL RBC 4.11 (3.80-5.40) m/uL Hgb 13.0 (11.4-16.0) gm/dL Hct 39.3 (34.0-46.0) % MCV 95.7 (80.0-100.0) fL MCH 31.5 (25.0-35.0) pg MCHC 32.9 (31.0-37.0) g/dL RDW 12.5 (11.5-15.5) % Plt Count 186 (150-450) k/uL Neutrophils % 61 % Lymphocytes % 25 % Monocytes % 8 % Eosinophils % 4 % Basophils % 1 % Neutrophils # 3.7 (1.3-7.7) k/uL Lymphocytes # 1.5 (1.0-4.8) k/uL Monocytes # 0.5 (0-1.0) k/uL Eosinophils # 0.2 (0-0.7) k/uL Basophils # 0.0 (0-0.2) k/uL PT 12.3 H (9.0-12.0) sec INR 1.2 H (<1.2) APTT 24.2 (22.0-30.0) sec Sodium 138 (137-145) mmol/L Potassium 4.3 (3.5-5.1) mmol/L Chloride 108 H (98-107) mmol/L Carbon Dioxide 21 L (22-30) mmol/L Anion Gap 9 mmol/L BUN 26 H (7-17) mg/dL Creatinine 1.89 H (0.52-1.04) mg/dL Est GFR (CKD-EPI)AfAm 32 (>60 ml/min/1.73 sqM) Est GFR (CKD-EPI)NonAf 28 (>60 ml/min/1.73 sqM) Glucose 110 H (74-99) mg/dL Calcium 10.0 (8.4-10.2) mg/dL Total Bilirubin 0.7 (0.2-1.3) mg/dL AST 29 (14-36) U/L ALT 14 (4-34) U/L Alkaline Phosphatase 113 (38-126) U/L Total Protein 7.2 (6.3-8.2) g/dL Albumin 4.5 (3.5-5.0) g/dL - Radiology Data Radiology results: image reviewed (Chest x-ray shows emphysema.No acute process.) Disposition Clinical Impression: Acute exacerbation of chronic obstructive pulmonary disease Disposition: ADMITTED IP TO THIS HOSP Is patient prescribed a controlled substance at d/c from ED?: No Referrals: Domenic Garza MD [Primary Care Provider] - 1-2 days Decision Time: 10:57
[2019-12-10 10:28] LABS: Basophils % (A) 1 %; Eosinophils # (A) 0.2 k/uL (0-0.7); Eosinophils % (A) 4 %; HCT 39.3 % (34.0-46.0); Lymphocytes # (A) 1.5 k/uL (1.0-4.8); Lymphocytes % (A) 25 %; MCH 31.5 pg (25.0-35.0); MCHC 32.9 g/dL (31.0-37.0); MCV 95.7 fL (80.0-100.0); Mean Platelet Volume 7.5; Monocytes # (A) 0.5 k/uL (0-1.0); Monocytes % (A) 8 %; Neutrophils # (A) 3.7 k/uL (1.3-7.7); Neutrophils % (A) 61 %; Platelet Count 186 k/uL (150-450); RBC 4.11 m/uL (3.80-5.40); RDW 12.5 % (11.5-15.5)
[2019-12-10 10:29] LABS: Albumin 4.5 g/dL (3.5-5.0); Potassium 4.3 mmol/L (3.5-5.1); Total Bilirubin 0.7 mg/dL (0.2-1.3); Total Protein 7.2 g/dL (6.3-8.2)
[2019-12-10 10:30] LABS: INR 1.2 (<1.2); Partial Thromboplastin Time 24.2 sec (22.0-30.0); Prothrombin Time 12.3 sec (9.0-12.0)
--- NOTE | 2019-12-10 10:32 | XR ---
EXAMINATION TYPE: XR chest 2V DATE OF EXAM: 12/10/2019 COMPARISON: Prior chest x-ray 06/09/[address] 05/10/2019 HISTORY: Difficulty breathing and cough TECHNIQUE: Frontal and lateral views of the chest are obtained. FINDINGS: There is a generator in the left pectoral region which obscures some detail, intracardiac d efibrillator leads are present and stable. Prominent lung volumes suggest underlying COPD, there is u nderlying emphysema. There is no focal air space opacity, pleural effusion, or pneumothorax seen. Th e cardiac silhouette size is within normal limits. The osseous structures are intact. IMPRESSION: No acute cardiopulmonary process. Emphysema.
[2019-12-10] MEDS ORDERED: IPRATROPIUM-ALBUTEROL 3 ML NEB INHALATION PRN ×2 (10:57→11:31)
[2019-12-10] MEDS: AZITHROMYCIN 500 MG in SODIUM CHLORIDE 0.9% 250 ML IVPB SCH (13:33)
[2019-12-10] MEDS: MIDODRINE 5 MG TAB PO SCH ×2 (13:33→17:03)
[2019-12-10] MEDS: IPRATROPIUM-ALBUTEROL 3 ML NEB INHALATION SCH ×3 (14:05→20:19)
[2019-12-10] MEDS: methylPREDNISolone SOD SUCCI 125 MG/2 ML VIAL IV SCH ×3 (14:38→23:19)
[2019-12-10] MEDS: carvediloL 12.5 MG TAB PO SCH (17:03)
[2019-12-10 20:11] LABS: Glucose,Whole Blood 255 mg/dL (75-99)
[2019-12-10] MEDS: FORMOTEROL FUMARATE 20 MCG/2 ML NEBU INHALATION SCH (20:18)
[2019-12-10] MEDS: BUDESONIDE 0.5 MG/2 ML NEBU INHALATION SCH (20:19)
[2019-12-10] MEDS: MONTELUKAST 10 MG TAB PO SCH (20:36)
[2019-12-10] MEDS: SODIUM BICARBONATE TAB 650 MG TAB PO SCH (20:36)
[2019-12-10] MEDS: ATORVASTATIN 20 MG TAB PO SCH (20:36)
[2019-12-10] MEDS: INSULIN ASPART (NovoLOG) 100 UNIT/ML VIAL SQ SCH (20:36)
--- NOTE | 2019-12-10 23:16 | HP ---
HISTORY AND PHYSICAL A 64-year-old white female presents to the ER complaining of shortness of breath symptoms 2 days ago. A recurrence of severe shortness of breath over the last 2-3 days. Negative hemoptysis. Borderline fever 2 days ago. She was given breathing treatments, steroids in the ER with little relief. She was admitted to the hospital for COPD exacerbation. HOME MEDICINES: 1. Lipitor 20 daily. 2. Aldactone 25 daily. 3. Trelegy one puff daily. 4. Lasix 20 mg daily. 5. DuoNeb q.i.d. 6. Synthroid 75 mcg daily. 7. Aspirin 81 mg daily. 8. Midodrine 10 mg a.c. t.i.d. 9. Singulair 10 mg daily. 10.Actos 45 daily. 11.Sodium bicarbonate 650 b.i.d. 12.Coreg 12.5 b.i.d. 13.Glucotrol 2.5 a.c. b.i.d. 14.Pulmicort 0.5 b.i.d. 15.Perforomist 2 puffs b.i.d. 16.NovoLog Accu-Chek protocol. ALLERGIES: Negative. REVIEW OF SYSTEMS: Fourteen-point review of systems is negative except for mentioned in HPI. PAST MEDICAL HISTORY: Asthma, cancer, chest pain, angina, heart failure, COPD, diabetes mellitus, dyslipidemia, hypertension, pneumonia, renal disease, asthmatic bronchitis, history of ovarian cancer, hysterectomy, non STEMI, AICD, hysterectomy, orthopedic surgery, tonsillectomy, colonoscopy with benign polypectomy. FAMILY HISTORY: Mother with cancer of the breast. Father with hypertension, myocardial infarction. Temperature 98.1, pulse 80 to 84, respiratory 16 to 20, blood pressure 97/57, O2 of 91 to 92 on room air. She has a wide-complex QRS. No acute ST-T changes. Sodium 138, potassium 4.3, BUN 26, creatinine 1.89, hemoglobin 13, white count 6. INR 1.2. ASSESSMENT: 1. Acute chronic obstructive pulmonary disease exacerbation. 2. Tracheobronchitis. 3. Acute on chronic diastolic congestive heart failure. IV steroids, IV antibiotics will be given. As far as prerenal renal insufficiency, chronic kidney disease stage 3. Fluid rehydration will be given. MMODL / IJN: [id number] /
[2019-12-11] MEDS: methylPREDNISolone SOD SUCCI 125 MG/2 ML VIAL IV SCH ×3 (06:09→17:42)
[2019-12-11] MEDS: LEVOTHYROXINE 75 MCG TAB PO SCH (06:09)
[2019-12-11 06:16] LABS: Glucose,Whole Blood 170 mg/dL (75-99)
[2019-12-11] MEDS ORDERED: NON FORMULARY DRUG (Fluticasone/Umeclidin/Vilanter [Trelegy Ellipta 100-62.5-25] 1 EACH Bl INHALATION SCH (08:00)
[2019-12-11] MEDS: INSULIN ASPART (NovoLOG) 100 UNIT/ML VIAL SQ SCH ×4 (08:16→20:15)
[2019-12-11] MEDS: FUROSEMIDE 20 MG TAB PO SCH (08:17)
[2019-12-11] MEDS: SPIRONOLACTONE 25 MG TAB PO SCH (08:17)
[2019-12-11] MEDS: carvediloL 12.5 MG TAB PO SCH ×2 (08:17→17:42)
[2019-12-11] MEDS: MIDODRINE 5 MG TAB PO SCH ×3 (08:17→17:42)
[2019-12-11] MEDS: ASPIRIN 81 MG PO SCH (08:17)
[2019-12-11] MEDS: SODIUM BICARBONATE TAB 650 MG TAB PO SCH ×2 (08:17→20:15)
[2019-12-11] MEDS: PIOGLITAZONE 45 MG TAB PO SCH (08:17)
[2019-12-11] MEDS: BUDESONIDE 0.5 MG/2 ML NEBU INHALATION SCH ×2 (08:38→19:14)
[2019-12-11] MEDS: IPRATROPIUM-ALBUTEROL 3 ML NEB INHALATION SCH ×4 (08:38→19:14)
[2019-12-11] MEDS: FORMOTEROL FUMARATE 20 MCG/2 ML NEBU INHALATION SCH ×2 (08:38→19:14)
[2019-12-11 11:58] LABS: Glucose,Whole Blood 128 mg/dL (75-99)
[2019-12-11] MEDS: AZITHROMYCIN 500 MG in SODIUM CHLORIDE 0.9% 250 ML IVPB SCH (12:36)
[2019-12-11 16:57] LABS: Glucose,Whole Blood 145 mg/dL (75-99)
[2019-12-11 19:53] VITALS: RESP 18
[2019-12-11 20:07] LABS: Glucose,Whole Blood 160 mg/dL (75-99)
[2019-12-11] MEDS: ATORVASTATIN 20 MG TAB PO SCH (20:15)
[2019-12-11] MEDS: MONTELUKAST 10 MG TAB PO SCH (20:15)
--- NOTE | 2019-12-11 22:19 | PN ---
PROGRESS NOTE This patient is a 64-year-old white female with COPD exacerbation, tracheobronchitis. She remains on Solu-Medrol taper, DuoNeb updrafts, azithromycin. She states she is breathing better today than yesterday. VITAL SIGNS: Pulse 50s, blood pressure 120s over 70s, oxygenation 94% on 2 L. Temperature 97.6. CARDIOVASCULAR: S1, S2. LUNGS: Wheezes x4. Decreased breath sounds x4. HEMATOLOGY: Negative Homans. PSYCH: Fair mood and affect. ASSESSMENT: 1. Chronic obstructive pulmonary disease exacerbation. 2. Tracheobronchitis. 3. Acute hypoxemic respiratory failure. Continue to treat with IV steroids. Possible discharge home tomorrow. She wants to go home in the morning. She states she is much better than when she came in. Try to wean her off oxygen if we can. VADIM / KIRA: [id number] /
[2019-12-11] MEDS: methylPREDNISolone SOD SUCCI 40 MG/ML 1 ML VIAL IV SCH (23:17)
[2019-12-12] MEDS: LEVOTHYROXINE 75 MCG TAB PO SCH (06:32)
[2019-12-12 06:35] LABS: Glucose,Whole Blood 160 mg/dL (75-99)
[2019-12-12] MEDS: carvediloL 12.5 MG TAB PO SCH (08:06)
[2019-12-12] MEDS: FUROSEMIDE 20 MG TAB PO SCH (08:06)
[2019-12-12] MEDS: SODIUM BICARBONATE TAB 650 MG TAB PO SCH (08:06)
[2019-12-12] MEDS: SPIRONOLACTONE 25 MG TAB PO SCH (08:06)
[2019-12-12] MEDS: PIOGLITAZONE 45 MG TAB PO SCH (08:06)
[2019-12-12] MEDS: MIDODRINE 5 MG TAB PO SCH (08:06)
[2019-12-12] MEDS: INSULIN ASPART (NovoLOG) 100 UNIT/ML VIAL SQ SCH (08:07)
[2019-12-12] MEDS: methylPREDNISolone SOD SUCCI 40 MG/ML 1 ML VIAL IV SCH (08:07)
[2019-12-12] MEDS: ASPIRIN 81 MG PO SCH (08:07)
[2019-12-12] MEDS: BUDESONIDE 0.5 MG/2 ML NEBU INHALATION SCH (08:12)
[2019-12-12] MEDS: FORMOTEROL FUMARATE 20 MCG/2 ML NEBU INHALATION SCH (08:13)
[2019-12-12] MEDS: IPRATROPIUM-ALBUTEROL 3 ML NEB INHALATION SCH (08:13)
[2019-12-12 08:37] LABS: Basophils % (A) 0 %; Eosinophils % (A) 0 %; HCT 38.5 % (34.0-46.0); Lymphocytes % (A) 7 %; MCH 30.9 pg (25.0-35.0); MCHC 31.3 g/dL (31.0-37.0); MCV 98.8 fL (80.0-100.0); Mean Platelet Volume 7.8; Monocytes # (A) 0.3 k/uL (0-1.0); Monocytes % (A) 2 %; Neutrophils # (A) 13.5 k/uL (1.3-7.7); Neutrophils % (A) 91 %; Platelet Count 223 k/uL (150-450); RDW 12.1 % (11.5-15.5); WBC 14.9 k/uL (3.8-10.6)
[2019-12-12 08:45] LABS: Albumin 4.1 g/dL (3.5-5.0); Calcium 9.9 mg/dL (8.4-10.2); Potassium 4.9 mmol/L (3.5-5.1); Total Bilirubin 0.4 mg/dL (0.2-1.3)
[2019-12-12 09:14] VITALS: BP 116/58; PULSE 58; TEMP 97.7
[2019-12-12] MEDS ORDERED: AZITHROMYCIN 500 MG TAB PO SCH (12:00)
== END 2019-12-12 10:00 | disposition home or self-care (01) ==
LOC: EC 09:19 → 1SOBS 10:57
PROVIDERS: ADMIT Family Medicine; ATTEND Family Medicine
DX: J44.1 Chronic obstructive pulmonary disease with (acute) exacerbation (principal); J96.01 Acute respiratory failure with hypoxia; I13.0 Hypertensive heart and chronic kidney disease with heart failure and stage 1 through stage 4 chronic kidney disease, or unspecified chronic kidney disease; E11.22 Type 2 diabetes mellitus with diabetic chronic kidney disease; N18.3 Chronic kidney disease, stage 3 (moderate); I50.33 Acute on chronic diastolic (congestive) heart failure; E11.9 Type 2 diabetes mellitus without complications; E78.5 Hyperlipidemia, unspecified; Z87.01 Personal history of pneumonia (recurrent); Z85.42 Personal history of malignant neoplasm of other parts of uterus; Z90.710 Acquired absence of both cervix and uterus; Z85.43 Personal history of malignant neoplasm of ovary; I25.2 Old myocardial infarction; Z95.810 Presence of automatic (implantable) cardiac defibrillator; Z98.890 Other specified postprocedural states; Z87.891 Personal history of nicotine dependence; Z80.3 Family history of malignant neoplasm of breast; Z82.49 Family history of ischemic heart disease and other diseases of the circulatory system; Z79.82 Long term (current) use of aspirin; Z79.890 Hormone replacement therapy; Z79.4 Long term (current) use of insulin; Z79.51 Long term (current) use of inhaled steroids; Z79.52 Long term (current) use of systemic steroids; Z79.899 Other long term (current) drug therapy
CPT/HCPCS: 96365; 96366; 96376 ×3; 96375; 99285; 36415; 94640 ×6; 93005; 83880; 80053 ×2; 84443; 83605; 85025 ×2; 85610; 85730; 71046; G0378 ×2; J2920 ×2; J2930 ×2; J0456 ×2

== ENCOUNTER → 2020-12-02 | Outpatient (CLI) | payer MEDICARE ==
--- NOTE | 2020-12-02 15:40 | BD ---
EXAMINATION TYPE: Axial Bone Density DATE OF EXAM: 12/02/2020 COMPARISON: NONE CLINICAL HISTORY: Height: 67.5 IN Weight: 146 LBS FRAX RISK QUESTIONS: Family History (Parent hip fracture): YES MOTHER Secondary Osteoporosis: 3. Menopause before 45: PARTIAL HYST AGE 29 RISK FACTORS HISTORY OF: Family History of Osteoporosis: YES MOTHER Active: YES Postmenopausal woman: PARTIAL HYST AGE 29 MEDICATIONS: Additional Medications: SPIROLACTONE, SINGULAIR, LASIX, ATORVASTATIN EXAM MEASUREMENTS: Bone mineral densitometry was performed using the [employer]. Bone mineral density as measured about the Lumbar spine is: ----- L1-L4(G/cm2): 0.944 T Score Values are as follows: ----- L2: -2.0 ----- L3: -1.5 ----- L4: -2.4 ----- L1-L4: -2.0 Bone mineral density BASELINE Bone mineral density about the R hip (g/cm2): 0.662 Bone mineral density about the L hip (g/cm2): 0.691 T Score values are as follows: -----R Neck: -2.7 -----L Neck: -2.5 -----R Total: -3.3 -----L Total: -3.1 Bone mineral density BASELINE IMPRESSION: Osteoporosis NOTE: T-SCORE=SD OF THE YOUNG ADULT MEAN.
--- NOTE | 2020-12-04 09:27 | MM ---
Reason for exam: screening (asymptomatic). Last mammogram was performed 8 years ago. History: Patient is postmenopausal. Family history of breast cancer in mother at age 52. Physical Findings: A clinical breast exam by your physician is recommended on an annual basis and results should be correlated with mammographic findings. MG 3D Screening Mammo W/Cad Bilateral CC, MLO, and XCCL view(s) were taken. Prior study comparison: December 16, 2012, bilateral digital screening mammo w/CAD. February 09, 2003, bilateral screening mammogram. May 24, 2000, bilateral screening mammogram. There are scattered fibroglandular densities. Pacemaker generator on the left breast. No significant changes when compared with prior studies. ASSESSMENT: Negative, BI-RAD 1 RECOMMENDATION: Routine screening mammogram of both breasts in 1 year.
== END | disposition home or self-care (01) ==
LOC: RADMAMWWP 14:00
PROVIDERS: ATTEND Family Medicine
DX: Z12.31 Encounter for screening mammogram for malignant neoplasm of breast (principal); Z80.3 Family history of malignant neoplasm of breast; Z78.0 Asymptomatic menopausal state
CPT/HCPCS: 77063; 77067; 77080

== ENCOUNTER 2021-06-12 22:01 | Inpatient (IN) | payer MEDICARE ==
[2021-06-12] MEDS ORDERED: IPRATROPIUM-ALBUTEROL 3 ML NEB INHALATION STA (23:42)
--- NOTE | 2021-06-12 23:42 | ED ---
SOB HPI - General Chief Complaint: Shortness of Breath Stated Complaint: MARK,congestion Time Seen by Provider: 06/12/21 23:41 Source: patient, family Mode of arrival: wheelchair Limitations: no limitations - History of Present Illness MD Complaint: shortness of breath, cough -: days(s) Severity scale (1-10): 0 Consistency: constant Improves With: nothing Worsens With: nothing Known History Of: COPD Associated Symptoms: cough Treatments Prior to Arrival: bronchodilator - Related Data Home Oxygen Therapy: No Home Medications Medication Instructions Recorded Confirmed Atorvastatin [Lipitor] 20 mg PO DAILY 10/22/15 12/10/19 Spironolactone [Aldactone] 25 mg PO DAILY 12/24/16 12/10/19 Fluticasone/Umeclidin/Vilanter 1 puff INHALATION RT-DAILY 01/24/18 12/10/19 [Trelegy Ellipta 100-62.5-25] Furosemide [Lasix] 20 mg PO DAILY 06/09/18 12/10/19 Ipratropium-Albuterol Nebulize 3 ml INHALATION RT-QID PRN 06/09/18 12/10/19 [Duoneb 0.5 mg-3 mg/3 ml Soln] Montelukast Sodium [Singulair] 10 mg PO DAILY 12/10/19 12/10/19 lisinopriL [Zestril] 5 mg PO DAILY 12/10/19 12/10/19 Previous Rx's Medication Instructions Recorded Aspirin 81 mg PO DAILY chew 02/15/18 Pioglitazone [Actos] 45 mg PO DAILY tab 02/15/18 carvediloL [Coreg*] 12.5 mg PO BID-W/MEALS tab 02/15/18 glipiZIDE [Glucotrol] 2.5 mg PO AC-BID tab 02/15/18 Allergies Allergy/AdvReac Type Severity Reaction Status Date / Time No Known Allergies Allergy Verified 06/12/21 22:15 Review of Systems ROS Statement: Those systems with pertinent positive or pertinent negative responses have been documented in the HPI. ROS Other: All systems not noted in ROS Statement are negative. Constitutional: Denies: fever, chills Respiratory: Reports: cough, dyspnea, wheezes. Denies: hemoptysis, stridor Cardiovascular: Denies: chest pain, palpitations, orthopnea, edema, syncope Gastrointestinal: Denies: abdominal pain, vomiting, diarrhea Genitourinary: Denies: dysuria, hematuria Musculoskeletal: Denies: back pain Skin: Denies: rash Neurological: Denies: headache, weakness Past Medical History Past Medical History: Asthma, Cancer, Chest Pain / Angina, Heart Failure, COPD, Diabetes Mellitus, Hyperlipidemia, Hypertension, Pneumonia, Renal Disease Additional Past Medical History / Comment(s): Tracheobronchitis, asthmatic bro nchitis, uterine cancer with hysterectomy, 2002 ovarian cancer, non-STEMI 3 or 4 years ago History of Any Multi-Drug Resistant Organisms: None Reported Past Surgical History: AICD, Hysterectomy, Orthopedic Surgery, Tonsillectomy Additional Past Surgical History / Comment(s): RT KNEE ARTHROSCOPY, PARTIAL HYSTERECTOMY, LISA CTR. BI-V ICD, [facility]URT, COLONOSCOPY WITH BENING POLYPECTOMY. Past Anesthesia/Blood Transfusion Reactions: No Reported Reaction Type of Cardiac Device: AICD Device Placement Date:: 10/28/15 Past Psychological History: No Psychological Hx Reported Smoking Status: Former smoker Past Alcohol Use History: None Reported Past Drug Use History: None Reported - Past Family History Mother Family Medical History: Cancer Additional Family Medical History / Comment(s): Mother is alive at 89 years old with no major medical problems. BREAST CA Father Family Medical History: Hypertension, Myocardial Infarction ([place]) Additional Family Medical History / Comment(s): [place] @ AGE 48 General Exam Limitations: no limitations General appearance: alert, in distress (Mild respiratory distress) Head exam: Present: atraumatic, normocephalic Eye exam: Present: normal appearance. Absent: scleral icterus, conjunctival injection ENT exam: Present: normal oropharynx Neck exam: Present: normal inspection Respiratory exam: Present: respiratory distress (Mild tachypnea), wheezes. Absent: rales, rhonchi, stridor Cardiovascular Exam: Present: regular rate, normal rhythm, normal heart sounds. Absent: systolic murmur, diastolic murmur, rubs, gallop GI/Abdominal exam: Present: soft. Absent: distended, tenderness, guarding, rebound, rigid, mass Extremities exam: Present: normal inspection, normal capillary refill. Absent: pedal edema, calf tenderness Back exam: Present: normal inspection. Absent: CVA tenderness (R), CVA tenderness (L) Neurological exam: Present: alert Skin exam: Present: warm, dry, intact, normal color. Absent: rash Course Vital Signs 06/12/21 22:15 Temperature 97.8 F Pulse Rate 99 Respiratory 22 Rate Blood Pressure 126/68 O2 Sat by Pulse 91 L Oximetry Medical Decision Making - EKG Data -: EKG Interpreted by Me Interpretation: other (There appears to be at least rhythm at 97 bpm.) Disposition Referrals: Domenic Garza MD [Primary Care Provider] - 1-2 days
[2021-06-12] MEDS ORDERED: predniSONE 20 MG TAB PO STA (23:43)
--- NOTE | 2021-06-12 23:45 | XR ---
EXAMINATION TYPE: XR chest 2V DATE OF EXAM: 06/12/2021 COMPARISON: 12/10/2019 HISTORY: Short of breath. Cough TECHNIQUE: 2 views FINDINGS: Heart size is normal. Lungs are clear of consolidation. There are no hilar masses. There is left axillary pacemaker. There is flattening of the diaphragm. Bony thorax is intact. There is mild coarsening of the lung markings at the lung bases. IMPRESSION: COPD and pulmonary fibrotic changes. No definite acute lung disease. No change compared t o old exam.
[2021-06-13 00:09] LABS: Basophils # (A) 0.1 k/uL (0-0.2); Basophils % (A) 1 %; Eosinophils # (A) 0.4 k/uL (0-0.7); Eosinophils % (A) 5 %; HGB 14.6 gm/dL (11.4-16.0); Lymphocytes # (A) 2.2 k/uL (1.0-4.8); Lymphocytes % (A) 28 %; MCH 31.9 pg (25.0-35.0); MCHC 32.4 g/dL (31.0-37.0); MCV 98.5 fL (80.0-100.0); Mean Platelet Volume 7.7; Monocytes # (A) 0.5 k/uL (0-1.0); Monocytes % (A) 6 %; Neutrophils # (A) 4.4 k/uL (1.3-7.7); Neutrophils % (A) 58 %; Platelet Count 210 k/uL (150-450); RBC 4.57 m/uL (3.80-5.40); RDW 13.1 % (11.5-15.5); WBC 7.6 k/uL (3.8-10.6)
[2021-06-13 00:18] LABS: Albumin 4.2 g/dL (3.5-5.0); Calcium 9.6 mg/dL (8.4-10.2); Magnesium 1.8 mg/dL (1.6-2.3); Potassium 4.3 mmol/L (3.5-5.1); Total Bilirubin 0.8 mg/dL (0.2-1.3); Total Protein 7.2 g/dL (6.3-8.2)
[2021-06-13 00:28] LABS: INR 1.2 (<1.2); Partial Thromboplastin Time 24.2 sec (22.0-30.0); Prothrombin Time 12.5 sec (9.0-12.0)
[2021-06-13] MEDS ORDERED: ALBUTEROL NEBULIZED 2.5 MG/3 ML INHALATION STA (00:50)
[2021-06-13] MEDS: IPRATROPIUM 0.5 MG/2.5 ML NEBU INHALATION SCH ×2 (07:36→11:41)
[2021-06-13] MEDS: IPRATROPIUM-ALBUTEROL 3 ML NEB INHALATION SCH ×4 (07:36→19:27)
[2021-06-13] MEDS: predniSONE 20 MG TAB PO SCH (08:44)
[2021-06-13] MEDS: ASPIRIN 81 MG PO SCH (08:44)
[2021-06-13] MEDS: ATORVASTATIN 20 MG TAB PO SCH (08:44)
[2021-06-13] MEDS: MONTELUKAST 10 MG TAB PO SCH (08:44)
[2021-06-13] MEDS: SPIRONOLACTONE 25 MG TAB PO SCH (08:45)
[2021-06-13] MEDS: FUROSEMIDE 20 MG TAB PO SCH (08:45)
[2021-06-13] MEDS: carvediloL 12.5 MG TAB PO SCH ×2 (08:45→17:13)
[2021-06-13] MEDS: lisinopriL 5 MG TAB PO SCH (08:45)
[2021-06-13] MEDS: PIOGLITAZONE 45 MG TAB PO SCH (11:52)
[2021-06-13] MEDS: BUDESONIDE 1 MG/2 ML NEBU INHALATION SCH ×2 (11:57→19:27)
[2021-06-13 11:59] LABS: Glucose,Whole Blood 166 mg/dL (75-99)
--- NOTE | 2021-06-13 12:13 | P.CNPUL ---
History of Present Illness Consult date: 06/13/21 Reason for consult: dyspnea, cough, COPD Chief complaint: Shortness of breath for 4 days History of present illness: Patient is a 65-year-old female with prior history of smoking in the remote past, patient has been in a stable state of health 3 days ago started having scratchy feeling in the throat symptoms of progressive up to a point that started having shortness of breath cough which is mostly dry and nonproductive developing increased breathing difficulties came into hospital for further evaluation. Patient denies any seizure-like activity loss of consciousness or hemiparesis, denies any chest pain or radiation of pain, denies any nausea vomiting diarrhea, denies any bowel or bladder problems. CBC chemistry within normal limit on arrival, chest x-ray bilateral fibrotic changes along with changes of COPD. Currently patient is being treated with bronchodilator along with oral antibiotics and oral prednisone symptoms significantly improved now compared the time of arrival Review of Systems All systems: negative Past Medical History Past Medical History: Asthma, Cancer, Chest Pain / Angina, Heart Failure, COPD, Diabetes Mellitus, Hyperlipidemia, Hypertension, Pneumonia, Renal Disease Additional Past Medical History / Comment(s): Tracheobronchitis, asthmatic bronchitis, uterine cancer with hysterectomy, 2002 ovarian cancer, NSTEMI History of Any Multi-Drug Resistant Organisms: None Reported Past Surgical History: AICD, Hysterectomy, Orthopedic Surgery, Tonsillectomy Additional Past Surgical History / Comment(s): RT KNEE ARTHROSCOPY, PARTIAL HYSTERECTOMY, LISA CTR. BI-V ICD, [facility], COLONOSCOPY WITH BENING POLYPECTOMY. Past Anesthesia/Blood Transfusion Reactions: No Reported Reaction Type of Cardiac Device: AICD Device Placement Date:: 10/28/15 Past Psychological History: No Psychological Hx Reported Additional Psychological History / Comment(s): pt is independant,lives with spouse. has nebulizer and glucometer. Smoking Status: Former smoker Past Alcohol Use History: None Reported Additional Past Alcohol Use History / Comment(s): PATIENT WAS A SMOKER OF 1/4- 1/2 PPD FOR 15 YEARS AND QUIT 2013 Past Drug Use History: None Reported - Past Family History Mother Family Medical History: Cancer Additional Family Medical History / Comment(s): Mother is alive at 89 years old with no major medical problems. BREAST CA Father Family Medical History: Hypertension, Myocardial Infarction ([place]) Additional Family Medical History / Comment(s): PR @ AGE 48 Medications and Allergies Home Medications Medication Instructions Recorded Confirmed Type Spironolactone [Aldactone] 25 mg PO DAILY 12/24/16 06/13/21 History Aspirin 81 mg PO DAILY chew 02/15/18 06/13/21 Rx Pioglitazone [Actos] 45 mg PO DAILY tab 02/15/18 06/13/21 Rx carvediloL [Coreg*] 12.5 mg PO BID-W/MEALS tab 02/15/18 06/13/21 Rx Furosemide [Lasix] 20 mg PO DAILY 06/09/18 06/13/21 History Ipratropium-Albuterol Nebulize 3 ml INHALATION RT-QID PRN 06/09/18 06/13/21 History [Duoneb 0.5 mg-3 mg/3 ml Soln] Montelukast Sodium [Singulair] 10 mg PO DAILY 12/10/19 06/13/21 History Atorvastatin [Lipitor] 40 mg PO DAILY 06/13/21 06/13/21 History Famotidine [Pepcid] 20 mg PO DAILY 06/13/21 06/13/21 History glipiZIDE XL [Glucotrol XL] 2.5 mg PO AC-BID 06/13/21 06/13/21 History Allergies Allergy/AdvReac Type Severity Reaction Status Date / Time No Known Allergies Allergy Verified 06/12/21 22:15 Physical Exam Vitals: Vital Signs Temp Pulse Pulse Resp BP BP Pulse Ox 06/13/21 11:42 80 06/13/21 08:33 97.9 F 88 20 118/60 95 06/13/21 07:53 84 06/13/21 07:36 84 06/13/21 05:24 97.2 F L 72 18 110/61 06/13/21 04:59 98.7 F 86 20 106/69 94 L 06/13/21 04:00 98.2 F 76 101/47 93 L 06/13/21 03:00 79 20 103/54 93 L 06/13/21 02:00 86 22 106/61 93 L 06/13/21 01:56 82 06/13/21 01:47 83 06/13/21 00:19 90 06/13/21 00:17 92 24 126/71 92 L 06/13/21 00:12 93 06/12/21 23:35 18 06/12/21 23:17 91 24 92 L 06/12/21 22:15 97.8 F 99 22 126/68 91 L Intake and Output 06/12/21 06/13/21 06/13/21 22:59 06:59 14:59 Intake Total 240 Balance 240 Intake: Oral 240 Other: # Voids 1 Weight 65.771 kg 65.771 kg - Constitutional General appearance: average body habitus, cooperative, disheveled - EENT Eyes: EOMI, PERRLA Ears: bilateral: normal - Neck Carotids: bilateral: upstroke normal Thyroid: bilateral: normal size - Respiratory Respiratory: bilateral: CTA - Cardiovascular Rhythm: regular Heart sounds: normal: S1, S2 - Gastrointestinal General gastrointestinal: normal bowel sounds, soft - Integumentary Integumentary: normal turgor - Neurologic Neurologic: CNII-XII intact - Musculoskeletal Musculoskeletal: gait normal, generalized weakness, strength equal bilaterally - Psychiatric Psychiatric: A&O x's 3, appropriate affect, intact judgment & insight Results - Laboratory Findings CBC and BMP: 06/13/21 00:00 06/13/21 00:00 PT/INR, D-dimer PT 12.5 sec (9.0-12.0) H 06/13/21 00:00 INR 1.2 (<1.2) H 06/13/21 00:00 D-Dimer 0.66 mg/L FEU (<0.60) H 06/13/21 00:00 Abnormal lab findings: Abnormal Labs 06/13/21 06/13/21 06/13/21 00:00 00:00 11:58 PT 12.5 H INR 1.2 H D-Dimer 0.66 H Sodium 136 L BUN 24 H Glucose 169 H POC Glucose (mg/dL) 166 H - Diagnostic Findings Chest x-ray: report reviewed, image reviewed (Chest x-ray as noted above) Assessment and Plan Assessment: Acute COPD exacerbation Tracheobronchitis Chronic persistent severe asthma Type 2 diabetes mellitus Hypertension hypertensive cardiovascular disease Dyslipidemia Chronic kidney disease Degenerative joint disease osteoarthritis Plan: Overall plan is to continue bronchodilator Continue oral prednisone and antibiotics Supplemental oxygen as needed Increase activity as tolerated Continue home medications Deep breathing exercises incentive spirometry Patient can be discharged home from pulmonary standpoint with follow-up in outpatient setting with primary oil dispatcher Time with Patient: Greater than 30
[2021-06-13] MEDS: INSULIN ASPART (NovoLOG) 100 UNIT/ML VIAL SQ SCH ×2 (12:47→17:33)
[2021-06-13] MEDS: SYMBICORT 80-4.5 MCG INHALER INHALATION SCH (13:14)
[2021-06-13] MEDS: DOXYCYCLINE 100 MG CAP PO SCH ×2 (13:59→21:44)
[2021-06-13] MEDS: ENOXAPARIN 40 MG/0.4 ML SYRINGE SQ SCH (13:59)
--- NOTE | 2021-06-13 15:12 | P.HPIM ---
History of Present Illness H&P Date: 06/13/21 Chief Complaint: Short of breath This is a pleasant 65-year-old patient who follows with Dr. Garza. Chronic stable medical conditions include CHF, COPD, diabetes, hypertension, hyperlipidemia, CAD a prior history of [place]. Patient is an ex-smoker. Patient presents with 2 days of worsening short of breath significant. Wheezing. Significant cough. Out of her to expectorate much. No fever. Been having chills. Decreased appetite. No change in bowel pattern. Started on bronchodilators in the ER. Feeling a bit better this morning. Significant cough. Review of systems: GEN.: Tired decreased appetite EYES: None HEENT: None NECK: None RESPIRATORY: As above CARDIOVASCULAR: None GASTROINTESTINAL: None GENITOURINARY: None MUSCULOSKELETAL: None LYMPHATICS: None HEMATOLOGICAL: None PSYCHIATRY: None NEUROLOGICAL: None Past medical history to include: CHF, COPD, CAD with a prior history of [place], diabetes, hyperlipidemia, hypertension, uterine cancer district, or elevated cancer, on ST elevation [place]. Social history: Smoke anywhere from ordered a half a pack a day for 15 years stopped in 2013. No alcohol. . Family history: Breast cancer Physical examination: VITAL SIGNS: 97.8, 99, 22, 126/68, 91% room air GENERAL: BMI 22, declining bed, awake, tired. EYES: Pupils equal. Conjunctiva normal. HEENT: External appearance of nose and ears normal, oral cavity grossly normal. NECK: JVD not raised; masses not palpable. HEART: First and second heart sounds are normal; no edema. LUNGS: Respiratory rate increased; decreased breath sounds, prolonged expiration. ABDOMEN: Soft, nontender, liver spleen not palpable, no masses palpable. PSYCH: Alert and oriented x3; mood and affect normal. MUSCULOSKELETAL:No Clubbing/cyanosis;muscles-grossly intact NEUROLOGICAL: Cranial nerves grossly intact; no facial asymmetry, power and sensation grossly intact. LYMPHATICS: No lymph nodes palpable in the axilla and neck INVESTIGATIONS, reviewed in the clinical context: White count 7.6 hemoglobin 14.6 platelets 210 sodium 136 potassium 4.3 creati nine 0.97 Troponin I less than 0.012 proBNP 93 EKG tracing personally reviewed by me-paced rhythm. Chest x-ray film personally reviewed by me-hyperinflated. Prominent pulmonary artery. Pacemaker. Assessment and plan: -Acute COPD exacerbation in a prior smoker DuoNeb 4 times a day. Steroids. Nebulized Pulmicort -Acute tracheobronchitis Doxycycline 100 mg twice a day. Add Mucinex -CAD with a prior history of [place]. Aspirin, Coreg -Diabetes mellitus type 2 Glucotrol 2.5 mg twice a day. Actos 45 mg a day Follow Accu-Cheks. -Hyperlipidemia Lipitor 20 mg daily -Essential hypertension Coreg 12.5 mg by mouth twice a day aspirin DuoNeb. Nebulized Pulmicort. Steroids. Mucinex. Home medications resumed. Follow Accu-Cheks. Pulmonary consulted. Care was discussed with the patient. Questions answered. Given the complexity and severity of patient's condition expect the patient to be in the hospital at least for 2 overnights - Past Medical History Past Medical History: Asthma, Cancer, Chest Pain / Angina, Heart Failure, COPD, Diabetes Mellitus, Hyperlipidemia, Hypertension, Pneumonia, Renal Disease Additional Past Medical History / Comment(s): Tracheobronchitis, asthmatic bronchitis, uterine cancer with hysterectomy, 2002 ovarian cancer, NSTEMI History of Any Multi-Drug Resistant Organisms: None Reported Past Surgical History: AICD, Hysterectomy, Orthopedic Surgery, Tonsillectomy Additional Past Surgical History / Comment(s): RT KNEE ARTHROSCOPY, PARTIAL HYSTERECTOMY, LISA CTR. BI-V ICD, [facility]URT, COLONOSCOPY WITH BENING POLYPECTOMY. Past Anesthesia/Blood Transfusion Reactions: No Reported Reaction Type of Cardiac Device: AICD Device Placement Date:: 10/28/15 Past Psychological History: No Psychological Hx Reported Additional Psychological History / Comment(s): pt is independant,lives with spouse. has nebulizer and glucometer. Smoking Status: Former smoker Past Alcohol Use History: None Reported Additional Past Alcohol Use History / Comment(s): PATIENT WAS A SMOKER OF 1/- 1/2 PPD FOR 15 YEARS AND QUIT 2013 Past Drug Use History: None Reported - Past Family History Mother Family Medical History: Cancer Additional Family Medical History / Comment(s): Mother is alive at 89 years old with no major medical problems. BREAST CA Father Family Medical History: Hypertension, Myocardial Infarction ([place]) Additional Family Medical History / Comment(s): IA @ AGE 48 Medications and Allergies Home Medications Medication Instructions Recorded Confirmed Type Spironolactone [Aldactone] 25 mg PO DAILY 12/24/16 06/13/21 History Aspirin 81 mg PO DAILY chew 11/27/18 03/25/22 Rx Pioglitazone [Actos] 45 mg PO DAILY tab 02/15/18 06/13/21 Rx carvediloL [Coreg*] 12.5 mg PO BID-W/MEALS tab 02/15/18 06/13/21 Rx Furosemide [Lasix] 20 mg PO DAILY 06/09/18 06/13/21 History Ipratropium-Albuterol Nebulize 3 ml INHALATION RT-QID PRN 06/09/18 06/13/21 History [Duoneb 0.5 mg-3 mg/3 ml Soln] Montelukast Sodium [Singulair] 10 mg PO DAILY 12/10/19 06/13/21 History Atorvastatin [Lipitor] 40 mg PO DAILY 06/13/21 06/13/21 History Famotidine [Pepcid] 20 mg PO DAILY 06/13/21 06/13/21 History glipiZIDE XL [Glucotrol XL] 2.5 mg PO AC-BID 06/13/21 06/13/21 History Allergies Allergy/AdvReac Type Severity Reaction Status Date / Time No Known Allergies Allergy Verified 06/12/21 22:15 Physical Exam Vitals: Vital Signs Temp Pulse Pulse Resp BP BP Pulse Ox 06/13/21 08:33 97.9 F 88 20 118/60 95 06/13/21 07:53 84 06/13/21 07:36 84 06/13/21 05:24 97.2 F L 72 18 110/61 06/13/21 04:59 98.7 F 86 20 106/69 94 L 06/13/21 04:00 98.2 F 76 101/47 93 L 06/13/21 03:00 79 20 103/54 93 L 06/13/21 02:00 86 22 106/61 93 L 06/13/21 01:56 82 06/13/21 01:47 83 06/13/21 00:19 90 06/13/21 00:17 92 24 126/71 92 L 06/13/21 00:12 93 06/12/21 23:35 18 06/12/21 23:17 91 24 92 L 06/12/21 22:15 97.8 F 99 22 126/68 91 L Intake and Output 06/12/21 06/13/21 06/13/21 22:59 06:59 14:59 Intake Total 240 Balance 240 Intake: Oral 240 Other: # Voids 1 Weight 65.771 kg 65.771 kg Results CBC & Chem 7: 06/13/21 00:00 06/13/21 00:00 Labs: Abnormal Lab Results - Last 24 Hours (Table) 06/13/21 06/13/21 Range/Units 00:00 00:00 PT 12.5 H (9.0-12.0) sec INR 1.2 H (<1.2) D-Dimer 0.66 H (<0.60) mg/L FEU Sodium 136 L (137-145) mmol/L BUN 24 H (7-17) mg/dL Glucose 169 H (74-99) mg/dL Thrombosis Risk Factor Assmnt - Choose All That Apply Any of the Below Risk Factors Present?: Yes Each Factor Represents 1 point: Abnormal pulmonary function (COPD) Each Risk Factor Represents 2 Points: Age 61-74 years Other congenital or acquired thrombophilia - If yes, enter type in comment: No Thrombosis Risk Factor Assessment Total Risk Factor Score: 3 Thrombosis Risk Factor Assessment Level: Moderate Risk
[2021-06-13 17:11] LABS: Glucose,Whole Blood 174 mg/dL (75-99)
[2021-06-13 20:01] LABS: Glucose,Whole Blood 233 mg/dL (75-99)
[2021-06-14 05:47] VITALS: TEMP 97.6
[2021-06-14 07:01] LABS: Glucose,Whole Blood 91 mg/dL (75-99)
[2021-06-14] MEDS: IPRATROPIUM-ALBUTEROL 3 ML NEB INHALATION SCH ×2 (07:19→11:07)
[2021-06-14] MEDS: BUDESONIDE 1 MG/2 ML NEBU INHALATION SCH (07:19)
[2021-06-14] MEDS: INSULIN ASPART (NovoLOG) 100 UNIT/ML VIAL SQ SCH ×2 (07:45→11:44)
[2021-06-14] MEDS: SYMBICORT 80-4.5 MCG INHALER INHALATION SCH (07:45)
[2021-06-14] MEDS: carvediloL 12.5 MG TAB PO SCH (07:51)
[2021-06-14 08:08] VITALS: BP 125/71; RESP 18
[2021-06-14] MEDS: ASPIRIN 81 MG PO SCH (08:52)
[2021-06-14] MEDS: DOXYCYCLINE 100 MG CAP PO SCH (08:52)
[2021-06-14] MEDS: predniSONE 20 MG TAB PO SCH (08:53)
[2021-06-14] MEDS: lisinopriL 5 MG TAB PO SCH (08:53)
[2021-06-14] MEDS: SPIRONOLACTONE 25 MG TAB PO SCH (08:53)
[2021-06-14] MEDS: ATORVASTATIN 20 MG TAB PO SCH (08:53)
[2021-06-14] MEDS: FUROSEMIDE 20 MG TAB PO SCH (08:53)
[2021-06-14] MEDS: MONTELUKAST 10 MG TAB PO SCH (08:53)
[2021-06-14] MEDS: PIOGLITAZONE 45 MG TAB PO SCH (08:54)
[2021-06-14] MEDS: ENOXAPARIN 40 MG/0.4 ML SYRINGE SQ SCH (08:54)
[2021-06-14 11:16] VITALS: PULSE 87
--- NOTE | 2021-06-15 15:37 | P.PN ---
Progress Note - Text Progress Note Date: 06/15/21 Chief Complaint: Short of breath This is a pleasant 65-year-old patient who follows with Dr. Garza. Chronic stable medical conditions include CHF, COPD, diabetes, hypertension, hyperlipidemia, CAD a prior history of WI. Patient is an ex-smoker. Patient presents with 2 days of worsening short of breath significant. Wheezing. Significant cough. Out of her to expectorate much. No fever. Been having chills. Decreased appetite. No change in bowel pattern. Started on bronchodilators in the ER. Feeling a bit better this morning. Significant cough. Admitted with COPD exacerbation. Treated with bronchodilators, steroids.. Doxycycline added for bronchitis. June 14: Breathing better. Discussed with patient. Will follow up with a electric motor winder. He completed a short course of doxycycline. No steroids. Discussion and discharge planning more than 35 minutes Past medical history to include: CHF, COPD, CAD with a prior history of WI, diabetes, hyperlipidemia, hypertension, uterine cancer district, or elevated cancer, on ST elevation [place]. Social history: Smoke anywhere from ordered a half a pack a day for 15 years stopped in 2013. No alcohol. . Family history: Breast cancer Physical examination: VITAL SIGNS: 97.6, 94, 18, 125/71, 90% GENERAL: Sitting up in a chair, breathing better. EYES: Pupils equal. Conjunctiva normal. HEENT: External appearance of nose and ears normal, oral cavity grossly normal. NECK: JVD not raised; masses not palpable. HEART: First and second heart sounds are normal; no edema. LUNGS: Respiratory rate normal; decreased breath sounds, ABDOMEN: Soft, nontender, liver spleen not palpable, no masses palpable. PSYCH: Alert and oriented x3; mood and affect normal. MUSCULOSKELETAL:No Clubbing/cyanosis;muscles-grossly intact INVESTIGATIONS, reviewed in the clinical context: White count 7.6 hemoglobin 14.6 platelets 210 sodium 136 potassium 4.3 creatinine 0.97 Troponin I less than 0.012 proBNP 93 EKG tracing personally reviewed by me-paced rhythm. Chest x-ray film personally reviewed by me-hyperinflated. Prominent pulmonary artery. Pacemaker. Assessment and plan: -Acute COPD exacerbation in a prior smoker: Better DuoNeb 4 times a day. Steroids. Nebulized Pulmicort -Acute tracheobronchitis Doxycycline 100 mg twice a day. Add Mucinex -CAD with a prior history of [place]. Aspirin, Coreg -Diabetes mellitus type 2 Glucotrol 2.5 mg twice a day. Actos 45 mg a day Follow Accu-Cheks. -Hyperlipidemia Lipitor 20 mg daily -Essential hypertension Coreg 12.5 mg by mouth twice a day aspirin Disposition: Home -
--- NOTE | 2021-06-15 15:43 | P.DS ---
Providers Date of admission: 06/13/21 03:01 Expected date of discharge: 06/14/21 Attending physician: Scott Crowley Consults: 06/13/21 03:01 Consult Physician Routine Consulting Provider: Khanh Valente Consult Reason/Comments: COPD exacerbation. Your patient Do you want consulting provider notified?: Yes Primary care physician: [facility] Course: Chief Complaint: Short of breath This is a pleasant 65-year-old patient who follows with Dr. Garza. Chronic stable medical conditions include CHF, COPD, diabetes, hypertension, hyperlipidemia, CAD a prior history of PR. Patient is an ex-smoker. Patient presents with 2 days of worsening short of breath significant. Wheezing. Significant cough. Out of her to expectorate much. No fever. Been having chills. Decreased appetite. No change in bowel pattern. Started on bronchodilators in the ER. Feeling a bit better this morning. Significant cough. Admitted with COPD exacerbation. Treated with bronchodilators, steroids.. Doxycycline added for bronchitis. June 14: Breathing better. Discussed with patient. Will follow up with a front office agent. He completed a short course of doxycycline. No steroids. Discussion and discharge planning more than 35 minutes Past medical history to include: CHF, COPD, CAD with a prior history of PR, diabetes, hyperlipidemia, hypertension, uterine cancer district, or elevated cancer, on ST elevation PR. Social history: Smoke anywhere from ordered a half a pack a day for 15 years stopped in 2013. No alcohol. . Family history: Breast cancer Physical examination: VITAL SIGNS: 97.6, 94, 18, 125/71, 90% GENERAL: Sitting up in a chair, breathing better. EYES: Pupils equal. Conjunctiva normal. HEENT: External appearance of nose and ears normal, oral cavity grossly normal. NECK: JVD not raised; masses not palpable. HEART: First and second heart sounds are normal; no edema. LUNGS: Respiratory rate normal; decreased breath sounds, ABDOMEN: Soft, nontender, liver spleen not palpable, no masses palpable. PSYCH: Alert and oriented x3; mood and affect normal. MUSCULOSKELETAL:No Clubbing/cyanosis;muscles-grossly intact INVESTIGATIONS, reviewed in the clinical context: White count 7.6 hemoglobin 14.6 platelets 210 sodium 136 potassium 4.3 creatinine 0.97 Troponin I less than 0.012 proBNP 93 EKG tracing personally reviewed by me-paced rhythm. Chest x-ray film personally reviewed by me-hyperinflated. Prominent pulmonary artery. Pacemaker. Assessment and plan: -Acute COPD exacerbation in a prior smoker: Better DuoNeb 4 times a day. Steroids. Nebulized Pulmicort -Acute tracheobronchitis Doxycycline 100 mg twice a day. Add Mucinex -CAD with a prior history of PR. Aspirin, Coreg -Diabetes mellitus type 2 Glucotrol 2.5 mg twice a day. Actos 45 mg a day Follow Accu-Cheks. -Hyperlipidemia Lipitor 20 mg daily -Essential hypertension Coreg 12.5 mg by mouth twice a day aspirin Disposition: Home Plan - Discharge Summary New Discharge Prescriptions: New Doxycycline [Vibramycin] 100 mg PO BID #6 cap lisinopriL [Zestril] 5 mg PO DAILY tab Continue Spironolactone [Aldactone] 25 mg PO DAILY Aspirin 81 mg PO DAILY chew carvediloL [Coreg*] 12.5 mg PO BID-W/MEALS tab Pioglitazone [Actos] 45 mg PO DAILY tab Ipratropium-Albuterol Nebulize [Duoneb 0.5 mg-3 mg/3 ml Soln] 3 ml INHALATION RT-QID PRN PRN Reason: Shortness Of Breath Furosemide [Lasix] 20 mg PO DAILY Montelukast Sodium [Singulair] 10 mg PO DAILY glipiZIDE XL [Glucotrol XL] 2.5 mg PO AC-BID Famotidine [Pepcid] 20 mg PO DAILY Atorvastatin [Lipitor] 40 mg PO DAILY Discharge Medication List Spironolactone [Aldactone] 25 mg PO DAILY 12/24/16 [History] Aspirin 81 mg PO DAILY chew 02/15/18 [Rx] Pioglitazone [Actos] 45 mg PO DAILY tab 02/15/18 [Rx] carvediloL [Coreg*] 12.5 mg PO BID-W/MEALS tab 02/15/18 [Rx] Furosemide [Lasix] 20 mg PO DAILY 06/09/18 [History] Ipratropium-Albuterol Nebulize [Duoneb 0.5 mg-3 mg/3 ml Soln] 3 ml INHALATION RT-QID PRN 06/09/18 [History] Montelukast Sodium [Singulair] 10 mg PO DAILY 12/10/19 [History] Atorvastatin [Lipitor] 40 mg PO DAILY 06/13/21 [History] Famotidine [Pepcid] 20 mg PO DAILY 06/13/21 [History] glipiZIDE XL [Glucotrol XL] 2.5 mg PO AC-BID 06/13/21 [History] Doxycycline [Vibramycin] 100 mg PO BID #6 cap 06/14/21 [Rx] lisinopriL [Zestril] 5 mg PO DAILY tab 06/14/21 [Rx] Follow up Appointment(s)/Referral(s): Domenic Garza MD [Primary Care Provider] - 1-2 days Ronn Mortensen MD [STAFF PHYSICIAN] - 1 Week Patient Instructions/Handouts: Doxycycline (By mouth), Dyspnea (DC) Activity/Diet/Wound Care/Special Instructions: Diet as tolerated Activity limited until seen by Dr. Burgos on Wednesday to schedule appointments office closed on weekend Discharge Disposition: HOME SELF-CARE
== END 2021-06-14 13:30 | disposition home or self-care (01) | DRG 191 ==
LOC: EC 22:01 → 5NMEDONC 06-13 03:01
PROVIDERS: ADMIT Hospitalist; ATTEND Hospitalist
DX: J44.1 Chronic obstructive pulmonary disease with (acute) exacerbation (principal); I13.0 Hypertensive heart and chronic kidney disease with heart failure and stage 1 through stage 4 chronic kidney disease, or unspecified chronic kidney disease; E11.22 Type 2 diabetes mellitus with diabetic chronic kidney disease; J20.9 Acute bronchitis, unspecified; J45.50 Severe persistent asthma, uncomplicated; I50.9 Heart failure, unspecified; J44.0 Chronic obstructive pulmonary disease with (acute) lower respiratory infection; E78.5 Hyperlipidemia, unspecified; N18.9 Chronic kidney disease, unspecified; I25.10 Atherosclerotic heart disease of native coronary artery without angina pectoris; I25.2 Old myocardial infarction; M19.90 Unspecified osteoarthritis, unspecified site; Z79.82 Long term (current) use of aspirin; Z79.84 Long term (current) use of oral hypoglycemic drugs; Z79.899 Other long term (current) drug therapy; Z80.3 Family history of malignant neoplasm of breast; Z82.49 Family history of ischemic heart disease and other diseases of the circulatory system; Z85.3 Personal history of malignant neoplasm of breast; Z85.42 Personal history of malignant neoplasm of other parts of uterus; Z85.43 Personal history of malignant neoplasm of ovary; Z87.891 Personal history of nicotine dependence; Z90.711 Acquired absence of uterus with remaining cervical stump; Z95.810 Presence of automatic (implantable) cardiac defibrillator; Z87.19 Personal history of other diseases of the digestive system; Z87.01 Personal history of pneumonia (recurrent)
CPT/HCPCS: 36415; 71046; 80053; 83605; 83735; 83880; 84484; 85025; 85379; 85610; 85730; 93005; 94640; 99285

== ENCOUNTER → 2022-03-06 | Outpatient (CLI) | payer MEDICARE ==
--- NOTE | 2022-03-06 21:20 | US ---
EXAMINATION TYPE: US thyroid st tissue head/neck DATE OF EXAM: 03/06/2022 COMPARISON: NONE CLINICAL HISTORY: E04.1 THYROID NODULE. enlarged thyroid and nodules seen on CT 04/2021 GLAND SIZE: Right Lobe: 3.4 x 2.0 x 2.3 cm Overall Parenchyma: heterogenous Left Lobe: 4.2 x 2.0 x 2.3 cm Overall Parenchyma: heterogeneous Isthmus Thickness: 0.3 cm NODULES RIGHT: # of nodules measured on right: 2 1. 1.2 X 1.2 x 0.9 cm, upper , TIRADS Score: 3 TIRADS Category 3: Mildly Suspicious Composition: Solid or almost completely solid (2 points). Echogenicity: Hyperechoic or isoechoic (1 point). Shape: Wider than tall (0 points). Margin: Smooth (0 points). Echogenic foci: None or large comet-tail artifacts (0 points) Recommendation: If >2.5cm: FNA; If >1.5cm: Follow up at 1,3,5 years 2. 1.0 X 0.9 x 0.5 cm, mid , TIRADS Score: 0 TIRADS Category 1: Benign Composition: Cystic or almost completely cystic (0 points). Recommendation: No FNA LEFT: # of nodules measured on left: 1 1. 0.7 X 0.4 x 0.8 cm, lower medial, solid or almost completely solid, hypoechoic nodule, which is wider than tall, with smooth margins, without echogenic foci. Prior size: [place] MAN TIRADS Score: 3 TIRADS Category 3: Mildly Suspicious Composition: Solid or almost completely solid (2 points). Echogenicity: Hyperechoic or isoechoic (1 point). Shape: Wider than tall (0 points). Margin: Smooth (0 points). Echogenic foci: None or large comet-tail artifacts (0 points) Recommendation: If >2.5cm: FNA; If >1.5cm: Follow up at 1,3,5 years ISTHMUS: # of nodules measured in the isthmus: 0 Bilateral neck scanned, no evidence of lymphadenopathy. IMPRESSION: Bilateral thyroid nodules which do not meet criteria for follow-up.
== END | disposition home or self-care (01) ==
LOC: RADUSWWP 16:00
PROVIDERS: ATTEND Family Medicine
DX: E04.2 Nontoxic multinodular goiter (principal)
CPT/HCPCS: 76536

== ENCOUNTER 2022-03-24 16:07 | Inpatient (IN) | payer MEDICARE ==
[2022-03-24] MEDS ORDERED: methylPREDNISolone SOD SUCCI 125 MG/2 ML VIAL IV STA (16:41)
[2022-03-24] MEDS ORDERED: IPRATROPIUM 0.5 MG/2.5 ML NEBU INHALATION STA (16:41)
[2022-03-24] MEDS ORDERED: ALBUTEROL NEBULIZED 2.5 MG/3 ML INHALATION STA (16:41)
[2022-03-24] MEDS ORDERED: SODIUM CHLORIDE 0.9% 500 ML 500 ML IV STA (16:41)
--- NOTE | 2022-03-24 16:44 | ED ---
General Adult HPI - General Chief complaint: Shortness of Breath Stated complaint: SOB, hypertension Time Seen by Provider: 03/24/22 16:25 Source: patient, RN notes reviewed, old records reviewed Mode of arrival: ambulatory Limitations: no limitations - History of Present Illness Initial comments: This is a 66 year old female who presents to the emergency Department because of difficulty breathing. Patient has COPD. Patient states she's had a fever 100 one recently as well. Patient states usually she gets pneumonia once or twice a year. Patient denies any chest pain or palpitations. Patient denies any abdominal pain patient denies any lightheadedness dizziness or near syncopal episode. Patient denies any numbness or weakness. Patient denies any abdominal pain patient denies nausea vomiting diarrhea. Patient denies any swelling to legs or calf tenderness. - Related Data Home Medications Medication Instructions Recorded Confirmed Spironolactone [Aldactone] 25 mg PO DAILY 12/24/16 03/24/22 Furosemide [Lasix] 20 mg PO DAILY 06/09/18 03/24/22 Montelukast Sodium [Singulair] 10 mg PO HS 12/10/19 03/24/22 Atorvastatin [Lipitor] 40 mg PO HS 06/13/21 03/24/22 glipiZIDE XL [Glucotrol XL] 2.5 mg PO AC-BID 06/13/21 03/24/22 Alendronate Sodium [Fosamax] 70 mg PO COOMBS 11/07/21 03/24/22 Fluticasone/Umeclidin/Vilanter 1 puff INHALATION RT-DAILY 11/07/21 03/24/22 [Trelemehnaz Ellipta 200-62.5-25] carvediloL [Coreg*] 12.5 mg PO BID 11/07/21 03/24/22 Empagliflozin [Jardiance] 10 mg PO DAILY 03/24/22 03/24/22 Ipratropium-Albuterol Nebulize 3 ml INHALATION RT-QID PRN 03/24/22 03/24/22 [Duoneb 0.5 mg-3 mg/3 ml Soln] Previous Rx's Medication Instructions Recorded Aspirin 81 mg PO DAILY chew 02/15/18 Pioglitazone [Actos] 45 mg PO DAILY tab 02/15/18 Allergies Allergy/AdvReac Type Severity Reaction Status Date / Time No Known Allergies Allergy Verified 03/24/22 16:16 Review of Systems ROS Statement: Those systems with pertinent positive or pertinent negative responses have been documented in the HPI. ROS Other: All systems not noted in ROS Statement are negative. Past Medical History Past Medical History: Asthma, Cancer, Chest Pain / Angina, Heart Failure, COPD, Diabetes Mellitus, Hyperlipidemia, Hypertension, Pneumonia, Renal Disease Additional Past Medical History / Comment(s): Tracheobronchitis, asthmatic bronchitis, uterine cancer with hysterectomy, 2002 ovarian cancer, non-STEMI History of Any Multi-Drug Resistant Organisms: None Reported Past Surgical History: AICD, Hysterectomy, Orthopedic Surgery, Tonsillectomy Additional Past Surgical History / Comment(s): RT KNEE ARTHROSCOPY, PARTIAL HYSTERECTOMY, LISA CTR. BI-V ICD, [facility], COLONOSCOPY WITH BENING POLYPECTOMY. Past Anesthesia/Blood Transfusion Reactions: No Reported Reaction Type of Cardiac Device: AICD Device Placement Date:: 10/28/15 Past Psychological History: No Psychological Hx Reported Smoking Status: Former smoker Past Alcohol Use History: None Reported Past Drug Use History: None Reported - Past Family History Mother Family Medical History: Cancer Additional Family Medical History / Comment(s): Mother is alive at 89 years old with no major medical problems. BREAST CA Father Family Medical History: Hypertension, Myocardial Infarction ([place]) Additional Family Medical History / Comment(s): MT @ AGE 48 General Exam - General Exam Comments Initial Comments: GENERAL: Patient is well-developed and well-nourished. Patient is nontoxic and well- hydrated and is in mild distress. ENT: Neck is soft and supple. No significant lymphadenopathy is noted. Oropharynx is clear. Moist mucous membranes. Neck has full range of motion without eliciting any pain. EYES: The sclera were anicteric and conjunctiva were pink and moist. Extraocular movements were intact and pupils were equal round and reactive to light. Eyelids were unremarkable. PULMONARY: Patient is significantly diminished breath sounds CARDIOVASCULAR: There is a regular rate and rhythm without any murmurs gallops or rubs. ABDOMEN: Soft and nontender with normal bowel sounds. SKIN: Skin is clear with no lesions or rashes and otherwise unremarkable. NEUROLOGIC: Patient is alert and oriented x3. Cranial nerves II through XII are grossly intact. Motor and sensory are also intact. Normal speech, volume and content. Symmetrical smile. MUSCULOSKELETAL: Normal extremities with adequate strength and full range of motion. No lower extremity swelling or edema. No calf tenderness. LYMPHATICS: No significant lymphadenopathy is noted PSYCHIATRIC: Normal psychiatric evaluation. Limitations: no limitations Course Vital Signs 03/24/22 03/24/22 03/24/22 16:12 17:26 17:52 Temperature 98.6 F Pulse Rate 109 H 98 102 H Respiratory 20 Rate Blood Pressure 126/56 O2 Sat by Pulse 92 L Oximetry 03/24/22 19:23 Temperature Pulse Rate 105 H Respiratory 20 Rate Blood Pressure 111/54 O2 Sat by Pulse 94 L Oximetry Medical Decision Making - Medical Decision Making EKG was interpreted by myself. EKG shows a paced rhythm at 99 bpm OK interval 127 QRSs 159 QT intervals 360 QTC is 424. Patient's EKG shows no ST segment elevation or depression. Was pt. sent in by a medical professional or institution? @ -No Did you speak to anyone other than the patient for history? @ - gave some of the past medical history the patient because she was so short of breath Did you review nursing and triage notes? @ -I agree with the nursing triage notes Were old charts reviewed? @ -I reviewed patient's old x-rays to compare these x-rays as well as an old EKG Differential Diagnosis? @ -Differential Dyspnea: Coronary syndrome, arrhythmia, tamponade, asthma, COPD, pulmonary embolism, pneumonia, pneumothorax, pulmonary effusion, anaphylaxis, diabetic ketoacidosis, flailed chest, pulmonary contusion, diaphragmatic rupture, anemia, neuromuscular, this is not meant to be an all-inclusive list. EKG interpreted by me (3pts min.)? @ -As above X-rays interpreted by me (1pt min.)? @ -Chest x-ray is interpreted by myself x-ray of the chest showed right lower lobe pneumonia CT interpreted by me (1pt min.)? @ -None U/S interpreted by me (1pt. min.)? @ -None What testing was considered but not performed? (CT, X-rays, U/S, labs)? Why? @ -Known What meds were considered but not given? Why? @ -None Did you discuss the management of the patient with other professionals? @ -I spoke with Domenic Garza he agreed to admit the patient Did you reconcile home meds? @ -. None Was smoking cessation discussed for >3mins.? @ -None Was critical care preformed (if so, how long)? @ -Critical care 35 minutes. Patient received multiple breathing treatments in the emergency department as well as steroids and antibiotics for the pneumonia. Patient was also tachypneic throughout most of her stay Were there social determinants of health that impacted care today? How? (Homelessness, low income, unemployed, alcoholism, drug addiction, transportation, low edu. Level, literacy, decrease access to med. care, correction, rehab)? @ -None Was there de-escalation of care discussed even if they declined? (Discuss DNR or withdrawal of care, Hospice)? @ -None What co-morbidities impacted this encounter? (DM, HTN, Smoking, COPD, CAD, Cancer, CVA, Hep., AIDS, mental health diagnosis, sleep apnea, morbid obesity)? @ -COPD this will worsen the effects of the pneumonia making the patient more hypoxic Was patient admitted / discharged? @ -Patient will be admitted. Patient received multiple breathing treatments in the emergency department as well as steroids. Patient also was given antibiotics in the emergency department. Patient was reassessed after the breat christian to be just a little bit better but continued to have very diminished breaths. I will be ordering repeat treatments on the floor as well as continue steroids and antibiotics. I spoke with Dr. Garza he agreed to admit the patient. Undiagnosed new problem with uncertain prognosis? @ -None Drug Therapy requiring intensive monitoring for toxicity (Heparin, Nitro, Insulin, Cardizem)? @ -Done Were any procedures done? @ -None Diagnosis/symptom? @ -Pneumonia Acute, or Chronic, or Acute on Chronic? @ -Acute Uncomplicated (without systemic symptoms) or Complicated (systemic symptoms)? @ -Complicated Side effects of treatment? @ -None Exacerbation, Progression, or Severe Exacerbation] @ -Known Poses a threat to life or bodily function? @ -None Diagnosis/symptom? @ -COPD exacerbation Acute, or Chronic, or Acute on Chronic? @ -Acute on chronic Uncomplicated (without systemic symptoms) or Complicated (systemic symptoms)? @ -Complicated Side effects of treatment? @ -None Exacerbation, Progression, or Severe Exacerbation] @ -Severe exacerbation Poses a threat to life or bodily function? @ -Yes poses a threat to organ function secondary to hypoxia and/or sepsis - Lab Data Result diagrams: 03/24/22 17:13 03/24/22 17:13 Lab Results 03/24/22 03/24/22 03/24/22 Range/Units 17:13 17:13 17:13 WBC 8.8 (3.8-10.6) k/uL RBC 3.91 (3.80-5.40) m/uL Hgb 13.1 (11.4-16.0) gm/dL Hct 37.5 (34.0-46.0) % MCV 96.1 (80.0-100.0) fL MCH 33.7 (25.0-35.0) pg MCHC 35.0 (31.0-37.0) g/dL RDW 12.4 (11.5-15.5) % Plt Count 209 (150-450) k/uL MPV 8.2 Neutrophils % 67 % Lymphocytes % 20 % Monocytes % 7 % Eosinophils % 3 % Basophils % 0 % Neutrophils # 6.0 (1.3-7.7) k/uL Lymphocytes # 1.8 (1.0-4.8) k/uL Monocytes # 0.6 (0-1.0) k/uL Eosinophils # 0.2 (0-0.7) k/uL Basophils # 0.0 (0-0.2) k/uL PT 11.1 (9.0-12.0) sec INR 1.1 (<1.2) APTT 24.9 (22.0-30.0) sec Sodium 137 (137-145) mmol/L Potassium 5.2 H (3.5-5.1) mmol/L Chloride 101 (98-107) mmol/L Carbon Dioxide 25 (22-30) mmol/L Anion Gap 11 mmol/L BUN 17 (7-17) mg/dL Creatinine 1.10 H (0.52-1.04) mg/dL Est GFR (CKD-EPI)AfAm 61 (>60 ml/min/1.73 sqM) Est GFR (CKD-EPI)NonAf 53 (>60 ml/min/1.73 sqM) Glucose 102 H (74-99) mg/dL Plasma Lactic Acid Ari (0.7-2.0) mmol/L Calcium 9.5 (8.4-10.2) mg/dL Magnesium 1.8 (1.6-2.3) mg/dL Total Bilirubin 1.0 (0.2-1.3) mg/dL AST 50 H (14-36) U/L ALT 30 (4-34) U/L Alkaline Phosphatase 134 H (38-126) U/L Troponin I (0.000-0.034) ng/mL NT-Pro-B Natriuret Pep pg/mL Total Protein 8.1 (6.3-8.2) g/dL Albumin 4.4 (3.5-5.0) g/dL Influenza Type A (PCR) (Not Detectd) Influenza Type B (PCR) (Not Detectd) RSV (PCR) (Not Detectd) SARS-CoV-2 (PCR) (Not Detectd) 03/24/22 03/24/22 03/24/22 Range/Units 17:13 17:13 17:13 WBC (3.8-10.6) k/uL RBC (3.80-5.40) m/uL Hgb (11.4-16.0) gm/dL Hct (34.0-46.0) % MCV (80.0-100.0) fL MCH (25.0-35.0) pg MCHC (31.0-37.0) g/dL RDW (11.5-15.5) % Plt Count (150-450) k/uL MPV Neutrophils % % Lymphocytes % % Monocytes % % Eosinophils % % Basophils % % Neutrophils # (1.3-7.7) k/uL Lymphocytes # (1.0-4.8) k/uL Monocytes # (0-1.0) k/uL Eosinophils # (0-0.7) k/uL Basophils # (0-0.2) k/uL PT (9.0-12.0) sec INR (<1.2) APTT (22.0-30.0) sec Sodium (137-145) mmol/L Potassium (3.5-5.1) mmol/L Chloride (98-107) mmol/L Carbon Dioxide (22-30) mmol/L Anion Gap mmol/L BUN (7-17) mg/dL Creatinine (0.52-1.04) mg/dL Est GFR (CKD-EPI)AfAm (>60 ml/min/1.73 sqM) Est GFR (CKD-EPI)NonAf (>60 ml/min/1.73 sqM) Glucose (74-99) mg/dL Plasma Lactic Acid Ari 1.1 (0.7-2.0) mmol/L Calcium (8.4-10.2) mg/dL Magnesium (1.6-2.3) mg/dL Total Bilirubin (0.2-1.3) mg/dL AST (14-36) U/L ALT (4-34) U/L Alkaline Phosphatase (38-126) U/L Troponin I <0.012 (0.000-0.034) ng/mL NT-Pro-B Natriuret Pep 260 pg/mL Total Protein (6.3-8.2) g/dL Albumin (3.5-5.0) g/dL Influenza Type A (PCR) (Not Detectd) Influenza Type B (PCR) (Not Detectd) RSV (PCR) (Not Detectd) SARS-CoV-2 (PCR) (Not Detectd) 03/24/22 Range/Units 17:31 WBC (3.8-10.6) k/uL RBC (3.80-5.40) m/uL Hgb (11.4-16.0) gm/dL Hct (34.0-46.0) % MCV (80.0-100.0) fL MCH (25.0-35.0) pg MCHC (31.0-37.0) g/dL RDW (11.5-15.5) % Plt Count (150-450) k/uL MPV Neutrophils % % Lymphocytes % % Monocytes % % Eosinophils % % Basophils % % Neutrophils # (1.3-7.7) k/uL Lymphocytes # (1.0-4.8) k/uL Monocytes # (0-1.0) k/uL Eosinophils # (0-0.7) k/uL Basophils # (0-0.2) k/uL PT (9.0-12.0) sec INR (<1.2) APTT (22.0-30.0) sec Sodium (137-145) mmol/L Potassium (3.5-5.1) mmol/L Chloride (98-107) mmol/L Carbon Dioxide (22-30) mmol/L Anion Gap mmol/L BUN (7-17) mg/dL Creatinine (0.52-1.04) mg/dL Est GFR (CKD-EPI)AfAm (>60 ml/min/1.73 sqM) Est GFR (CKD-EPI)NonAf (>60 ml/min/1.73 sqM) Glucose (74-99) mg/dL Plasma Lactic Acid Ari (0.7-2.0) mmol/L Calcium (8.4-10.2) mg/dL Magnesium (1.6-2.3) mg/dL Total Bilirubin (0.2-1.3) mg/dL AST (14-36) U/L ALT (4-34) U/L Alkaline Phosphatase (38-126) U/L Troponin I (0.000-0.034) ng/mL NT-Pro-B Natriuret Pep pg/mL Total Protein (6.3-8.2) g/dL Albumin (3.5-5.0) g/dL Influenza Type A (PCR) Not Detected (Not Detectd) Influenza Type B (PCR) Not Detected (Not Detectd) RSV (PCR) Not Detected (Not Detectd) SARS-CoV-2 (PCR) Not Detected (Not Detectd) Critical Care Time Critical Care Time: Yes Total Critical Care Time: 35 Disposition Clinical Impression: Pneumonia, Acute exacerbation of chronic obstructive airways disease Disposition: ADMITTED IP TO THIS HOSP Referrals: Domenic Garza MD [Primary Care Provider] - 1-2 days
[2022-03-24 17:30] LABS: Basophils % (A) 0 %; Eosinophils # (A) 0.2 k/uL (0-0.7); Eosinophils % (A) 3 %; HCT 37.5 % (34.0-46.0); HGB 13.1 gm/dL (11.4-16.0); Lymphocytes # (A) 1.8 k/uL (1.0-4.8); Lymphocytes % (A) 20 %; MCH 33.7 pg (25.0-35.0); MCV 96.1 fL (80.0-100.0); Mean Platelet Volume 8.2; Monocytes # (A) 0.6 k/uL (0-1.0); Monocytes % (A) 7 %; Neutrophils % (A) 67 %; Platelet Count 209 k/uL (150-450); RBC 3.91 m/uL (3.80-5.40); RDW 12.4 % (11.5-15.5); WBC 8.8 k/uL (3.8-10.6)
[2022-03-24 17:37] LABS: Calcium 9.5 mg/dL (8.4-10.2)
[2022-03-24 17:38] LABS: INR 1.1 (<1.2); Partial Thromboplastin Time 24.9 sec (22.0-30.0); Prothrombin Time 11.1 sec (9.0-12.0)
[2022-03-24 17:44] LABS: Albumin 4.4 g/dL (3.5-5.0); Magnesium 1.8 mg/dL (1.6-2.3); Potassium 5.2 mmol/L (3.5-5.1); Total Protein 8.1 g/dL (6.3-8.2)
--- NOTE | 2022-03-24 18:27 | XR ---
EXAMINATION TYPE: XR chest 2V DATE OF EXAM: 03/24/2022 COMPARISON: 06/12/2021 HISTORY: Short of breath TECHNIQUE: FINDINGS: There is pulmonary hyperinflation with flattening of the diaphragm. There is patchy linear infiltrate at the right lung base. No heart failure. There are no hilar masses. There is a left axill rabia pacemaker. IMPRESSION: COPD. There is some patchy right lower lobe pneumonia which appears new compared to old e xam.
[2022-03-24] MEDS ORDERED: cefTRIAXone IN SWFI 1,000 MG/10 ML SYRINGE IVP STA ×2 (18:40→18:41)
[2022-03-24] MEDS ORDERED: AZITHROMYCIN 500 MG in SODIUM CHLORIDE 0.9% 250 ML IVPB STA (19:35)
[2022-03-24] MEDS ORDERED: PNEUMONIA PROTOCOL UTILIZED 1 EACH MISC PO PRN (19:35)
[2022-03-24] MEDS ORDERED: NALOXONE 0.4 MG/ML 1 ML VIAL IVP PRN (19:35)
[2022-03-24] MEDS: IPRATROPIUM-ALBUTEROL 3 ML NEB INHALATION SCH (20:55)
[2022-03-24] MEDS ORDERED: IPRATROPIUM-ALBUTEROL 3 ML NEB INHALATION PRN (23:39)
[2022-03-24] MEDS ORDERED: RX INFO: IV CONTRAST WAS GIVEN 1 EACH MISC MISCELLANE PRN (23:45)
[2022-03-25] MEDS: methylPREDNISolone SOD SUCCI 125 MG/2 ML VIAL IV SCH ×4 (00:19→17:14)
--- NOTE | 2022-03-25 00:31 | CT ---
EXAMINATION TYPE: CT chest w con DATE OF EXAM: 03/25/2022 COMPARISON: 06/10/2018 HISTORY: chest pain/dyspnea CT DLP: 233.4 mGycm Automated exposure control for dose reduction was used. CONTRAST: Performed with IV Contrast, patient injected with 80 mL of Isovue 300. Images obtained from the thoracic inlet to the diaphragm with the IV contrast. There is some diffuse pulmonary emphysema. There is flattening of the diaphragm. There is some mild p leural thickening right posterior lung base. There is some reticular nodular infiltrate in the periph monroe of the right lower lobe. There is infiltrate and atelectasis right posterior lung base. The left lung is relatively clear. No mediastinal adenopathy. There are no hilar masses. Thoracic aorta is int act. No aneurysm. The thoracic spine is intact. No compression fracture. Sternum is intact. No eviden ce of rib fracture. IMPRESSION: There is some patchy infiltrate in the right lower lobe. Normal heart. Pulmonary emphysema. Pulmonary infiltrates likely related to pneumonia and are mostly new compared to old exam
[2022-03-25] MEDS: IPRATROPIUM-ALBUTEROL 3 ML NEB INHALATION SCH ×4 (08:13→21:28)
--- NOTE | 2022-03-25 08:31 | XR ---
EXAMINATION TYPE: XR chest 1V portable DATE OF EXAM: 03/25/2022 COMPARISON: 03/24/2022 INDICATION: Pneumonia TECHNIQUE: Single frontal view of the chest is obtained. FINDINGS: The heart size is normal. The pulmonary vasculature is mildly prominent. Diffuse increased lung markings at the lung bases, similar to prior examination. Correlate for atelec tasis or pneumonia. IMPRESSION: 1. Stable bibasilar infiltrates. Correlate for atelectasis or pneumonia
[2022-03-25] MEDS: ASPIRIN 81 MG PO SCH (09:32)
[2022-03-25] MEDS: carvediloL 12.5 MG TAB PO SCH ×2 (09:32→18:33)
[2022-03-25] MEDS: AZITHROMYCIN 500 MG TAB PO SCH (09:33)
[2022-03-25] MEDS: FUROSEMIDE 20 MG TAB PO SCH (09:33)
[2022-03-25] MEDS: SPIRONOLACTONE 25 MG TAB PO SCH (09:33)
--- NOTE | 2022-03-25 09:40 | CA ---
Transthoracic Echo Report Name: Ele Del Cid Age: 66 Gender: F : 1955 Exam Date: 03/25/2022 08:32 Exam Location: [place] Ht (in): 68 Wt (lb): 150 Ordering Physician: Domenic Garza MD Attending/Referring Phys: Auto Porter Opal Adams RDCS Procedure CPT: Indications: dyspnea Cardiac Hx: Technical Quality: Fair Contrast 1: Total Dose (mL): Contrast 2: Total Dose (mL): MEASUREMENTS (Male / Female) Normal Values 2D ECHO LV Diastolic Diameter PLAX 3.8 cm 4.2 - 5.9 / 3.9 - 5.3 cm LV Systolic Diameter PLAX 2.4 cm IVS Diastolic Thickness 1.0 cm 0.6 - 1.0 / 0.6 - 0.9 cm LVPW Diastolic Thickness 1.2 cm 0.6 - 1.0 / 0.6 - 0.9 cm LV Relative Wall Thickness 0.6 LA Volume 28.4 cm??? 18 - 58 / 22 - 52 cm??? DOPPLER AV Peak Velocity 128.1 cm/s AV Peak Gradient 6.6 mmHg LVOT Peak Velocity 124.5 cm/s LVOT Peak Gradient 6.2 mmHg MV Area PHT 3.7 cm??? Mitral E Point Velocity 94.6 cm/s Mitral A Point Velocity 111.6 cm/s Mitral E to A Ratio 0.8 MV Deceleration Time 205.7 ms MV E' Velocity 8.7 cm/s Mitral E to MV E' Ratio 10.8 TR Peak Velocity 278.6 cm/s TR Peak Gradient 31.0 mmHg Right Ventricular Systolic Press 36.0 mmHg FINDINGS Left Ventricle Normal left ventricular systolic function with no obvious regional wall motion abnormalities. Left ventricular ejection fraction is estimated at 55 %. Right Ventricle Normal right ventricular size and function. Right Atrium Normal right atrial size. Catheter/pacemaker wire in the right atrial cavity. Left Atrium Normal left atrial size. Mitral Valve Mitral valve thickened. Mild mitral regurgitation. Aortic Valve No aortic valve stenosis or regurgitation. Tricuspid Valve Structurally normal tricuspid valve. Mild tricuspid regurgitation. Pulmonic Valve Trace pulmonic regurgitation. Pericardium No pericardial effusion. Aorta Normal size aortic root and proximal ascending aorta. CONCLUSIONS Normal left ventricular ejection fraction 55% RVSP 36 Mild mitral regurgitation Mild tricuspid regurgitation No pericardial effusion Previewed by: Dr. Abrahan Murray DO (Electronically Signed) Final Date: 25 March 2022 09:39
[2022-03-25] MEDS: DAPAGLIFLOZIN PROPANEDIOL 5 MG TABLET PO SCH (11:16)
[2022-03-25] MEDS: PIOGLITAZONE 45 MG TAB PO SCH (11:16)
[2022-03-25 11:20] LABS: Glucose,Whole Blood 440 mg/dL (70-110)
[2022-03-25] MEDS ORDERED: DEXTROSE 50% SYRINGE 50 ML IVP PRN ×2 (12:36)
[2022-03-25] MEDS: INSULIN ASPART (NovoLOG) 100 UNIT/ML VIAL SQ SCH ×3 (12:50→20:54)
--- NOTE | 2022-03-25 15:39 | HP ---
HISTORY AND PHYSICAL HISTORY OF PRESENT ILLNESS: A 66-year-old white female, came in with cough, congestion, and shortness of breath on top of end-stage COPD, pulmonary fibrosis, fever of 102 degrees Fahrenheit, increasing shortness of breath, leg swelling, and edema. CAT scan of the chest shows right lower lobe pneumonia, for which she is on IV antibiotics and IV steroids updraft treatments. HOME MEDICINES: Include: 1. Fosamax 70 mg weekly. 2. Glucotrol XL 2.5 b.i.d. 3. Lipitor 40 daily. 4. Singulair 10 daily. 5. Lasix 20 daily. 6. Aldactone 25 mg daily. 7. Coreg 12.5 b.i.d. 8. Jardiance 10 mg daily. 9. DuoNeb q.i.d. ALLERGIES: Negative. REVIEW OF SYSTEMS: Fourteen-point review of systems otherwise is negative. PAST MEDICAL HISTORY: Asthma, cancer, chest pain, angina, COPD, diabetes mellitus, hypertension, dyslipidemia, pneumonia, renal disease, status post ovarian cancer with hysterectomy, non-STEMI, AICD, orthopedic surgery, and tonsillectomy. FAMILY HISTORY: Mom with breast cancer. Father with hypertension and myocardial infarction. PHYSICAL EXAMINATION: GENERAL: Well developed, well nourished. SKIN: Dry. Mildly decreased skin turgor. Dry mucous membranes. HEENT: Normocephalic and atraumatic. Pupils are equal, round, and reactive. LUNGS: Show scattered rhonchi and wheeze, especially in the right lower lobe. CARDIOVASCULAR: S1 and S2. No murmurs, rubs, or gallops. ABDOMEN: Soft and nontender. EXTREMITIES: PSYCHIATRIC: Fair mood and affect. NEUROLOGIC: Cranial nerves are intact. MUSCULOSKELETAL: Range of motion is full. VITAL SIGNS: Temperature 98.6, pulse is 109, blood pressure 126/56, O2 of 92%, respiratory rate 18 to 20. ASSESSMENT: Acute hypoxemic respiratory failure secondary to chronic obstructive pulmonary disease exacerbation, right lower lobe pneumonia, [id number] diastolic congestive heart failure. Prognosis is guarded. Continue current treatment with steroids, antibiotics, etc. Please see further orders. MMODL / IJN: [id number] /
[2022-03-25 16:59] LABS: Glucose,Whole Blood 131 mg/dL (70-110)
[2022-03-25] MEDS: SODIUM CHLORIDE 0.9% 1,000 ML IV SCH (17:10)
[2022-03-25 19:36] LABS: Glucose,Whole Blood 290 mg/dL (70-110)
[2022-03-25] MEDS: ATORVASTATIN 40 MG TAB PO SCH (20:54)
[2022-03-25] MEDS: MONTELUKAST 10 MG TAB PO SCH (20:54)
[2022-03-26] MEDS: methylPREDNISolone SOD SUCCI 125 MG/2 ML VIAL IV SCH ×4 (00:50→18:29)
[2022-03-26] MEDS: carvediloL 12.5 MG TAB PO SCH ×2 (06:32→18:29)
[2022-03-26 06:33] LABS: Glucose,Whole Blood 135 mg/dL (70-110)
[2022-03-26] MEDS: INSULIN ASPART (NovoLOG) 100 UNIT/ML VIAL SQ SCH ×4 (06:53→21:18)
[2022-03-26] MEDS: SODIUM CHLORIDE 0.9% 1,000 ML IV SCH ×2 (07:06→18:29)
[2022-03-26] MEDS: IPRATROPIUM-ALBUTEROL 3 ML NEB INHALATION SCH ×4 (07:37→20:52)
[2022-03-26] MEDS: DAPAGLIFLOZIN PROPANEDIOL 5 MG TABLET PO SCH (08:59)
[2022-03-26] MEDS: ASPIRIN 81 MG PO SCH (08:59)
[2022-03-26] MEDS: PIOGLITAZONE 45 MG TAB PO SCH (08:59)
[2022-03-26] MEDS: AZITHROMYCIN 500 MG TAB PO SCH (09:00)
[2022-03-26] MEDS: FUROSEMIDE 20 MG TAB PO SCH (09:00)
[2022-03-26] MEDS: SPIRONOLACTONE 25 MG TAB PO SCH (09:00)
[2022-03-26 12:11] LABS: Glucose,Whole Blood 114 mg/dL (70-110)
[2022-03-26 16:47] LABS: Glucose,Whole Blood 154 mg/dL (70-110)
[2022-03-26 19:37] LABS: Glucose,Whole Blood 280 mg/dL (70-110)
[2022-03-26] MEDS: MONTELUKAST 10 MG TAB PO SCH (21:18)
[2022-03-26] MEDS: ATORVASTATIN 40 MG TAB PO SCH (21:18)
[2022-03-27] MEDS: methylPREDNISolone SOD SUCCI 125 MG/2 ML VIAL IV SCH ×2 (00:31→06:29)
[2022-03-27 06:22] LABS: Glucose,Whole Blood 128 mg/dL (70-110)
[2022-03-27] MEDS: INSULIN ASPART (NovoLOG) 100 UNIT/ML VIAL SQ SCH ×2 (06:28→12:31)
[2022-03-27] MEDS: IPRATROPIUM-ALBUTEROL 3 ML NEB INHALATION SCH ×3 (07:19→15:57)
[2022-03-27] MEDS: FUROSEMIDE 20 MG TAB PO SCH (08:04)
[2022-03-27] MEDS: carvediloL 12.5 MG TAB PO SCH ×2 (08:04→17:13)
[2022-03-27] MEDS: PIOGLITAZONE 45 MG TAB PO SCH (08:05)
[2022-03-27] MEDS: SODIUM CHLORIDE 0.9% 1,000 ML IV SCH (08:05)
[2022-03-27] MEDS: DAPAGLIFLOZIN PROPANEDIOL 5 MG TABLET PO SCH (08:05)
[2022-03-27] MEDS: ASPIRIN 81 MG PO SCH (08:05)
[2022-03-27] MEDS: SPIRONOLACTONE 25 MG TAB PO SCH (08:05)
[2022-03-27 11:42] LABS: Glucose,Whole Blood 158 mg/dL (70-110)
[2022-03-27 14:15] VITALS: BP 114/67; RESP 18; TEMP 97.6
[2022-03-27 16:00] VITALS: PULSE 94
--- NOTE | 2022-03-27 22:03 | PN ---
PROGRESS NOTE DATE OF SERVICE: 03/26/2022 SUBJECTIVE: A 66-year-old white female. She was admitted with right lower lobe pneumonia and COPD exacerbation. Given her IV steroids, IV antibiotics, and updraft treatments. The patient is 50% to 60% better. OBJECTIVE: LUNGS: Scattered rhonchi and wheeze. HEMATOLOGIC: Negative Homans. VITAL SIGNS: She is on 2 L, saturating in mid 90s. PSYCHIATRIC: Fair mood and affect. ASSESSMENT: 1. Right lower lobe pneumonia. 2. Chronic obstructive pulmonary disease exacerbation. 3. Acute hypoxemic respiratory failure. PLAN: Continue with IV steroids and IV antibiotics. The patient possibly will be discharged home in the morning. MMODL / IJN: [id number] /
[2022-03-29] MEDS ORDERED: NON FORMULARY DRUG (Alendronate Sodium [Fosamax] 70 MG Tablet) PO SCH (23:39)
== END 2022-03-27 17:50 | disposition home or self-care (01) | DRG 193 ==
LOC: EC 16:07 → 4SSUR 19:35
PROVIDERS: ADMIT Family Medicine; ATTEND Family Medicine
DX: J18.9 Pneumonia, unspecified organism (principal); I50.33 Acute on chronic diastolic (congestive) heart failure; J96.01 Acute respiratory failure with hypoxia; J44.0 Chronic obstructive pulmonary disease with (acute) lower respiratory infection; J44.1 Chronic obstructive pulmonary disease with (acute) exacerbation; Z20.822 Contact with and (suspected) exposure to COVID-19; I11.0 Hypertensive heart disease with heart failure; E78.5 Hyperlipidemia, unspecified; I25.2 Old myocardial infarction; I08.1 Rheumatic disorders of both mitral and tricuspid valves; Z95.810 Presence of automatic (implantable) cardiac defibrillator; Z90.711 Acquired absence of uterus with remaining cervical stump; Z79.84 Long term (current) use of oral hypoglycemic drugs; Z79.899 Other long term (current) drug therapy; Z79.83 Long term (current) use of bisphosphonates; Z79.82 Long term (current) use of aspirin; Z87.01 Personal history of pneumonia (recurrent); Z85.42 Personal history of malignant neoplasm of other parts of uterus; Z85.43 Personal history of malignant neoplasm of ovary; Z80.3 Family history of malignant neoplasm of breast; Z82.49 Family history of ischemic heart disease and other diseases of the circulatory system; Z87.891 Personal history of nicotine dependence
CPT/HCPCS: 36415; 71045; 71046; 71260; 80053; 83036; 83605; 83735; 83880; 84484; 85025; 85610; 85730; 87040; 87636; 93005; 93306; 94640; 94760; 96361; 96365; 96366; 96375; 96376; 99291

== ENCOUNTER 2022-08-18 09:40 | Inpatient (IN) | payer MEDICARE ==
[2022-08-18] MEDS ORDERED: IPRATROPIUM 0.5 MG/2.5 ML NEBU INHALATION STA (10:10)
[2022-08-18] MEDS ORDERED: ALBUTEROL NEBULIZED 2.5 MG/3 ML INHALATION STA (10:10)
[2022-08-18 10:25] LABS: Basophils % (A) 0 %; Eosinophils # (A) 0.2 k/uL (0-0.7); Eosinophils % (A) 2 %; HCT 39.5 % (34.0-46.0); HGB 13.3 gm/dL (11.4-16.0); Lymphocytes # (A) 1.8 k/uL (1.0-4.8); Lymphocytes % (A) 23 %; MCH 32.1 pg (25.0-35.0); MCHC 33.6 g/dL (31.0-37.0); MCV 95.6 fL (80.0-100.0); Mean Platelet Volume 7.6; Monocytes # (A) 0.3 k/uL (0-1.0); Monocytes % (A) 4 %; Neutrophils # (A) 5.5 k/uL (1.3-7.7); Neutrophils % (A) 69 %; Platelet Count 247 k/uL (150-450); RBC 4.14 m/uL (3.80-5.40); RDW 12.5 % (11.5-15.5); WBC 7.9 k/uL (3.8-10.6)
--- NOTE | 2022-08-18 10:33 | XR ---
EXAMINATION TYPE: XR chest 2V DATE OF EXAM: 08/18/2022 10:23 AM COMPARISON: Chest radiographs from 03/25/2022 TECHNIQUE: XR chest 2V Frontal and lateral views of the chest. CLINICAL INDICATION:Female, 66 years old with history of difficulty breathing; FINDINGS: Lungs/Pleura: There is flattening of the diaphragm with increased lucency of the lungs. No evidence o f pneumothorax, pleural effusion or focal consolidation. Pulmonary vascularity: Unremarkable. Heart/mediastinum: Cardiomediastinal silhouette is unremarkable. Three lead cardiac conduction device overlying the left hemithorax with lead tips projecting over the right ventricle, right atrium and c oronary sinus. Musculoskeletal: No acute osseous pathology. IMPRESSION: 1. No acute cardiopulmonary disease process. 2. COPD changes.
[2022-08-18 10:34] LABS: INR 1.2 (<1.2); Prothrombin Time 12.5 sec (9.0-12.0)
[2022-08-18 10:43] LABS: Albumin 4.3 g/dL (3.5-5.0); Calcium 9.4 mg/dL (8.4-10.2); Magnesium 1.8 mg/dL (1.6-2.3); Potassium 3.5 mmol/L (3.5-5.1); Total Bilirubin 0.8 mg/dL (0.2-1.3); Total Protein 7.2 g/dL (6.3-8.2)
--- NOTE | 2022-08-18 11:36 | ED ---
General Adult HPI - General Chief complaint: Shortness of Breath Stated complaint: sob Time Seen by Provider: 08/18/22 09:45 Source: patient, EMS, RN notes reviewed, old records reviewed Mode of arrival: EMS Limitations: no limitations - History of Present Illness Initial comments: This a 66-year-old female who presents emergency Department with a past medical history significant for COPD per patient states her breathing got worse the last couple of days and today it was much worse and she didn't think she can continue at home so she came to the emergency department via EMS. Patient states she did get one breathing treatment in route and steroids and it helped only a little. Patient denies any fever chills or new cough. Patient denies any chest pain or palpitations. Patient any back pain. Patient has headache patient denies numbness weakness per patient denies any lightheadedness or dizziness. Patient denies any swelling to the legs or calf tenderness. - Related Data Home Medications Medication Instructions Recorded Confirmed Spironolactone [Aldactone] 25 mg PO DAILY 12/24/16 03/24/22 Furosemide [Lasix] 20 mg PO DAILY 06/09/18 03/24/22 Montelukast Sodium [Singulair] 10 mg PO HS 12/10/19 03/24/22 Atorvastatin [Lipitor] 40 mg PO HS 06/13/21 03/24/22 glipiZIDE XL [Glucotrol XL] 2.5 mg PO AC-BID 06/13/21 03/24/22 Alendronate Sodium [Fosamax] 70 mg PO COOMBS 11/07/21 03/24/22 Fluticasone/Umeclidin/Vilanter 1 puff INHALATION RT-DAILY 11/07/21 03/24/22 [Trelegy Ellipta 200-62.5-25] carvediloL [Coreg*] 12.5 mg PO BID 11/07/21 03/24/22 Empagliflozin [Jardiance] 10 mg PO DAILY 03/24/22 03/24/22 Ipratropium-Albuterol Nebulize 3 ml INHALATION RT-QID PRN 03/24/22 03/24/22 [Duoneb 0.5 mg-3 mg/3 ml Soln] Previous Rx's Medication Instructions Recorded Aspirin 81 mg PO DAILY chew 02/15/18 Pioglitazone [Actos] 45 mg PO DAILY tab 02/15/18 Allergies Allergy/AdvReac Type Severity Reaction Status Date / Time No Known Allergies Allergy Verified 08/18/22 11:35 Review of Systems ROS Statement: Those systems with pertinent positive or pertinent negative responses have been documented in the HPI. ROS Other: All systems not noted in ROS Statement are negative. Past Medical History Past Medical History: Asthma, Cancer, Chest Pain / Angina, Heart Failure, COPD, Diabetes Mellitus, Hyperlipidemia, Hypertension, Pneumonia, Renal Disease Additional Past Medical History / Comment(s): Tracheobronchitis, asthmatic bronchitis, uterine cancer with hysterectomy, 2001 ovarian cancer, non-STEMI History of Any Multi-Drug Resistant Organisms: None Reported Past Surgical History: AICD, Hysterectomy, Orthopedic Surgery, Tonsillectomy Additional Past Surgical History / Comment(s): RT KNEE ARTHROSCOPY, PARTIAL HYSTERECTOMY, LISA CTR. BI-V ICD, [facility] KURT, COLONOSCOPY WITH BENING POLYPECTOMY. Past Anesthesia/Blood Transfusion Reactions: No Reported Reaction Additional Past Anesthesia/Blood Transfusion Reaction / Comment(s): no history of blood transfusion Type of Cardiac Device: AICD Device Placement Date:: 10/28/15 Past Psychological History: No Psychological Hx Reported Smoking Status: Former smoker Past Alcohol Use History: None Reported Past Drug Use History: None Reported - Past Family History Mother Family Medical History: Cancer Additional Family Medical History / Comment(s): Mother is alive at 89 years old with no major medical problems. BREAST CA Father Family Medical History: Hypertension, Myocardial Infarction ([place]) Additional Family Medical History / Comment(s): [place] @ AGE 48 General Exam - General Exam Comments Initial Comments: GENERAL: Patient is well-developed and well-nourished. Patient is nontoxic and well- hydrated and is in mild distress. ENT: Neck is soft and supple. No significant lymphadenopathy is noted. Oropharynx is clear. Moist mucous membranes. Neck has full range of motion without eliciting any pain. EYES: The sclera were anicteric and conjunctiva were pink and moist. Extraocular movements were intact and pupils were equal round and reactive to light. Eyelids were unremarkable. PULMONARY: Patient has diffuse expiratory wheezing CARDIOVASCULAR: There is a regular rate and rhythm without any murmurs gallops or rubs. ABDOMEN: Soft and nontender with normal bowel sounds. SKIN: Skin is clear with no lesions or rashes and otherwise unremarkable. NEUROLOGIC: Patient is alert and oriented x3. Cranial nerves II through XII are grossly intact. Motor and sensory are also intact. Normal speech, volume and content. Symmetrical smile. MUSCULOSKELETAL: Normal extremities with adequate strength and full range of motion. No lower extremity swelling or edema. No calf tenderness. LYMPHATICS: No significant lymphadenopathy is noted PSYCHIATRIC: Normal psychiatric evaluation. Limitations: no limitations Course Vital Signs 08/18/22 08/18/22 08/18/22 09:41 09:47 09:51 Temperature 97.7 F Pulse Rate 92 Respiratory 26 H 24 Rate Blood Pressure 142/71 O2 Sat by Pulse 100 99 Oximetry 08/18/22 08/18/22 10:33 10:51 Temperature Pulse Rate 92 92 Respiratory Rate Blood Pressure O2 Sat by Pulse Oximetry Medical Decision Making - Medical Decision Making Patient's EKG was interpreted by myself is a paced rhythm at 90 bpm NV interval is 112 QRS is 154 QT interval is 436 QTC is 533. Was pt. sent in by a medical professional or institution (, PA, CUT OFF SAW OPERATOR, urgent care, hospital, or [place] [facility] facility...) When possible be specific @ -[No] Did you speak to anyone other than the patient for history (EMS, parent, family, police, friend...)? What history was obtained from this source @ -[No] Did you review nursing and triage notes (agree or disagree)? Why? @ -[I reviewed and agree with nursing and triage notes] Were old charts reviewed (outside hosp., previous admission, EMS record, old EKG, old radiological studies, urgent care reports/EKG's, [place] [facility] facility records)? Report findings @ -I reviewed prior charts prior x-rays and prior laboratory studies Differential Diagnosis (chest pain, altered mental status, abdominal pain women, abdominal pain men, vaginal bleeding, weakness, fever, dyspnea, syncope, headache, dizziness, GI bleed, back pain, seizure, CVA, palpatations, mental health, musculoskeletal)? @ -Differential Dyspnea: Coronary syndrome, arrhythmia, tamponade, asthma, COPD, pulmonary embolism, pneumonia, pneumothorax, pulmonary effusion, anaphylaxis, diabetic ketoacidosis, flailed chest, pulmonary contusion, diaphragmatic rupture, anemia, neuromuscular, this is not meant to be an all-inclusive list. EKG interpreted by me (3pts min.). @ -[As above] X-rays interpreted by me (1pt min.). @ -Chest x-ray showed no acute abnormality CT interpreted by me (1pt min.). @ -[None done] U/S interpreted by me (1pt. min.). @ -[None done] What testing was considered but not performed or refused? (CT, X-rays, U/S, labs)? Why? @ -[None] What meds were considered but not given or refused? Why? @ -[None] Did you discuss the management of the patient with other professionals (professionals i.e. DrLisa, PA, CUT OFF SAW OPERATOR, lab, RT, psych nurse, clinical social worker, waste and batting waste chopper, teacher, school resource officer, case resource manager)? Give summary @ -I spoke with Dr. Garza he agreed to admit the patient Was smoking cessation discussed for >3mins.? @ -[No] Was critical care preformed (if so, how long)? @ -[No] Were there social determinants of health that impacted care today? How? (Homelessness, low income, unemployed, alcoholism, drug addiction, transportation, low edu. Level, literacy, decrease access to med. care, longterm, rehab)? @ -[No] Was there de-escalation of care discussed even if they declined (Discuss DNR or withdrawal of care, Hospice)? DNR status @ -[No] What co-morbidities impacted this encounter? (DM, HTN, Smoking, COPD, CAD, Cancer, CVA, ARF, Chemo, Hep., AIDS, mental health diagnosis, sleep apnea, morbid obesity)? @ -[None] Was patient admitted / discharged? Hospital course, mention meds given and route, prescriptions, significant lab abnormalities, going to OR and other per tinent info. @ -Received a breathing treatment in route as well as steroids. Patient also received 2 breathing treatments in the emergency department though she was feeling better she was not back to her baseline. I spoke with Dr. Garza he agreed to admit I admitted the patient and I wrote admitting orders. I also gave the patient a course of antibiotics Undiagnosed new problem with uncertain prognosis? @ -[No] Drug Therapy requiring intensive monitoring for toxicity (Heparin, Nitro, Insulin, Cardizem)? @ -[No] Were any procedures done? @ -[No] Diagnosis/symptom? @ -Acute exacerbation of COPD Acute, or Chronic, or Acute on Chronic? @ -Acute Uncomplicated (without systemic symptoms) or Complicated (systemic symptoms)? @ -Complicated Side effects of treatment? @ -[No] Exacerbation, Progression, or Severe Exacerbation? @ -[No] Poses a threat to life or bodily function? How? (Chest pain, [place], [place], pneumonia, PE, COPD, DKA, ARF, appy, cholecystitis, CVA, Diverticulitis, Homicidal, Suicidal, threat to staff... and all critical care pts) @ -Yes this could lead to hypoxia and end organ dysfunction - Lab Data Result diagrams: 08/18/22 10:13 08/18/22 10:13 Lab Results 08/18/22 08/18/22 08/18/22 Range/Units 10:13 10:13 10:13 WBC 7.9 (3.8-10.6) k/uL RBC 4.14 (3.80-5.40) m/uL Hgb 13.3 (11.4-16.0) gm/dL Hct 39.5 (34.0-46.0) % MCV 95.6 (80.0-100.0) fL MCH 32.1 (25.0-35.0) pg MCHC 33.6 (31.0-37.0) g/dL RDW 12.5 (11.5-15.5) % Plt Count 247 (150-450) k/uL MPV 7.6 Neutrophils % 69 % Lymphocytes % 23 % Monocytes % 4 % Eosinophils % 2 % Basophils % 0 % Neutrophils # 5.5 (1.3-7.7) k/uL Lymphocytes # 1.8 (1.0-4.8) k/uL Monocytes # 0.3 (0-1.0) k/uL Eosinophils # 0.2 (0-0.7) k/uL Basophils # 0.0 (0-0.2) k/uL PT 12.5 H (9.0-12.0) sec INR 1.2 H (<1.2) APTT 25.0 (22.0-30.0) sec Sodium 143 (137-145) mmol/L Potassium 3.5 (3.5-5.1) mmol/L Chloride 105 (98-107) mmol/L Carbon Dioxide 29 (22-30) mmol/L Anion Gap 9 mmol/L BUN 17 (7-17) mg/dL Creatinine 1.02 (0.52-1.04) mg/dL Est GFR (CKD-EPI)AfAm 67 (>60 ml/min/1.73 sqM) Est GFR (CKD-EPI)NonAf 58 (>60 ml/min/1.73 sqM) Glucose 92 (74-99) mg/dL Plasma Lactic Acid Ari (0.7-2.0) mmol/L Calcium 9.4 (8.4-10.2) mg/dL Magnesium 1.8 (1.6-2.3) mg/dL Total Bilirubin 0.8 (0.2-1.3) mg/dL AST 24 (14-36) U/L ALT 15 (4-34) U/L Alkaline Phosphatase 143 H (38-126) U/L Troponin I (0.000-0.034) ng/mL Total Protein 7.2 (6.3-8.2) g/dL Albumin 4.3 (3.5-5.0) g/dL 08/18/22 08/18/22 Range/Units 10:13 10:13 WBC (3.8-10.6) k/uL RBC (3.80-5.40) m/uL Hgb (11.4-16.0) gm/dL Hct (34.0-46.0) % MCV (80.0-100.0) fL MCH (25.0-35.0) pg MCHC (31.0-37.0) g/dL RDW (11.5-15.5) % Plt Count (150-450) k/uL MPV Neutrophils % % Lymphocytes % % Monocytes % % Eosinophils % % Basophils % % Neutrophils # (1.3-7.7) k/uL Lymphocytes # (1.0-4.8) k/uL Monocytes # (0-1.0) k/uL Eosinophils # (0-0.7) k/uL Basophils # (0-0.2) k/uL PT (9.0-12.0) sec INR (<1.2) APTT (22.0-30.0) sec Sodium (137-145) mmol/L Potassium (3.5-5.1) mmol/L Chloride (98-107) mmol/L Carbon Dioxide (22-30) mmol/L Anion Gap mmol/L BUN (7-17) mg/dL Creatinine (0.52-1.04) mg/dL Est GFR (CKD-EPI)AfAm (>60 ml/min/1.73 sqM) Est GFR (CKD-EPI)NonAf (>60 ml/min/1.73 sqM) Glucose (74-99) mg/dL Plasma Lactic Acid Ari 1.0 (0.7-2.0) mmol/L Calcium (8.4-10.2) mg/dL Magnesium (1.6-2.3) mg/dL Total Bilirubin (0.2-1.3) mg/dL AST (14-36) U/L ALT (4-34) U/L Alkaline Phosphatase (38-126) U/L Troponin I <0.012 (0.000-0.034) ng/mL Total Protein (6.3-8.2) g/dL Albumin (3.5-5.0) g/dL Disposition Clinical Impression: Acute exacerbation of chronic obstructive pulmonary disease (COPD) Disposition: ADMITTED IP TO THIS HOSP Referrals: Domenic Garza MD [Primary Care Provider] - 1-2 days Time of Disposition: 12:40
[2022-08-18] MEDS ORDERED: NALOXONE 0.4 MG/ML 1 ML VIAL IVP PRN (12:40)
[2022-08-18] MEDS ORDERED: IPRATROPIUM-ALBUTEROL 3 ML NEB INHALATION PRN ×2 (12:40→17:24)
[2022-08-18] MEDS: IPRATROPIUM-ALBUTEROL 3 ML NEB INHALATION SCH ×2 (14:36→19:59)
[2022-08-18] MEDS: methylPREDNISolone SOD SUCCI 125 MG/2 ML VIAL IV SCH (18:21)
[2022-08-18] MEDS: AMOXIC-POT CLAV 875-125MG 1 EACH TAB PO SCH (22:51)
[2022-08-18] MEDS: MONTELUKAST 10 MG TAB PO SCH (22:52)
[2022-08-18] MEDS: ATORVASTATIN 40 MG TAB PO SCH (22:52)
[2022-08-18] MEDS: carvediloL 12.5 MG TAB PO SCH (22:52)
[2022-08-19] MEDS: methylPREDNISolone SOD SUCCI 125 MG/2 ML VIAL IV SCH ×3 (01:40→12:09)
[2022-08-19] MEDS: IPRATROPIUM-ALBUTEROL 3 ML NEB INHALATION SCH ×4 (07:50→20:41)
[2022-08-19] MEDS: SYMBICORT 160-4.5 MCG INHALER INHALATION SCH ×2 (07:50→20:41)
[2022-08-19] MEDS: FUROSEMIDE 20 MG TAB PO SCH (08:54)
[2022-08-19] MEDS: carvediloL 12.5 MG TAB PO SCH ×2 (08:54→21:05)
[2022-08-19] MEDS: SPIRONOLACTONE 25 MG TAB PO SCH (08:54)
[2022-08-19] MEDS: DAPAGLIFLOZIN PROPANEDIOL 5 MG TABLET PO SCH (08:55)
[2022-08-19] MEDS: PIOGLITAZONE 45 MG TAB PO SCH (08:55)
[2022-08-19] MEDS: ASPIRIN 81 MG PO SCH (08:59)
[2022-08-19] MEDS: AMOXIC-POT CLAV 875-125MG 1 EACH TAB PO SCH ×2 (08:59→21:54)
--- NOTE | 2022-08-19 13:39 | HP ---
HISTORY AND PHYSICAL HISTORY OF PRESENT ILLNESS: This white female came to emergency room with shortness of breath after going to a baseball game in hot sun all day. She wears oxygen most of the time at home 2 L, but she went without her oxygen, went to a ball game. She came in, she is extremely short of breath and leg swelling, but has COPD exacerbation typical for her with shortness of breath at rest and with exertion. HOME MEDICINES: Reviewed. REVIEW OF SYSTEMS: A 14-point review of systems positive for dyspnea with exertion, PND, orthopnea, cough, congestion. ALLERGIES: Negative. MEDICAL HISTORY: History of asthma, COPD, angina, diabetes mellitus, degenerative disk disease, diastolic heart failure, hypertension, and renal disease. SURGICAL HISTORY: AICD, hysterectomy, orthopedic surgery, tonsillectomy. Medications reviewed, she has AICD. PHYSICAL EXAMINATION: GENERAL: She is a well developed, well nourished, no acute distress. CARDIOVASCULAR: S1, S2. LUNGS: Scattered rhonchi and wheeze, decreased breath sounds x4. HEMATOLOGY: Negative for Homans. PSYCH: Fair mood and affect. NEUROLOGIC: Alert and oriented x3. OPHTHALMOLOGIC: Pupils equal and reactive. PSYCH: Fair mood and affect. VITAL SIGNS: Temperature 97.7, respiratory rate 25-30, pulse is 80s to 90s, blood pressure 140s over 70s, and O2 99%. ASSESSMENT: Acute hypoxemic respiratory distress, COPD exacerbation, tracheobronchitis versus community-acquired pneumonia, diabetes mellitus, hypertension, acute hypoxemic respiratory distress. Get Pulmonary involved, IV steroids, updrafts, breathing treatments. Home medications. Prognosis guarded. MMODL / IJN: [id number] /
--- NOTE | 2022-08-19 17:04 | CT ---
EXAMINATION TYPE: CT angio chest CT DLP: 221.6 mGycm, Automated exposure control for dose reduction was used. DATE OF EXAM: 08/19/2022 4:56 PM COMPARISON: CT chest 03/25/2022 CLINICAL INDICATION:Female, 66 years old with history of elevated d-dimer; Elevated D-dimer. TECHNIQUE/CONTRAST: CTA scan of the thorax is performed with IV Contrast, patient injected with 100ML mL of Isovue 370, p ulmonary embolism protocol. MIP images are created and reviewed. FINDINGS: Pulmonary Artery: There is no evidence for a filling defect within the pulmonary vasculature to sugge st acute pulmonary embolism. The pulmonary artery is mildly prominent measuring 3.2 cm in diameter. Lungs/Pleura: No evidence of focal consolidation, pleural effusion or pneumothorax. . Centrilobular e mphysematous changes. Right apical nodular density measuring up to 1 cm (series 406, image 10). Bilat eral lower lobe scarring and/or atelectasis. Right middle lobe linear scarring and/or atelectasis. Airway: Large airways are patent. Heart: Mild cardiomegaly. Trace pericardial effusion. Left chest wall cardiac pacemaking device. Vasculature: No evidence of aortic aneurysm. Mediastinum: No gross evidence of adenopathy. Musculoskeletal: No acute osseous abnormalities Soft Tissues: Mild anasarca. Lower neck: Enlarged thyroid gland with substernal extension of the left thyroid lobe with macrocalci fication.. Upper Abdomen: No significant findings. IMPRESSION: 1. No evidence of pulmonary embolism. 2. Right apical 1 cm nodular density which may represent an infectious/inflammatory process. Follow-u p CT examination in 3-6 months is recommended. 3. Moderate emphysematous changes.
[2022-08-19] MEDS: methylPREDNISolone SOD SUCCI 40 MG/ML 1 ML VIAL IV SCH (17:45)
[2022-08-19] MEDS: ATORVASTATIN 40 MG TAB PO SCH (21:05)
[2022-08-19] MEDS: MONTELUKAST 10 MG TAB PO SCH (21:05)
--- NOTE | 2022-08-19 23:27 | PN ---
PROGRESS NOTE SUBJECTIVE: A 66-year-old white female, who was admitted with tracheobronchitis and COPD exacerbation. She states she is improving with DuoNeb, Symbicort, Lipitor, Augmentin, aspirin, and Solu-Medrol. We will try to wean her off her Solu-Medrol. Possibly, go home tomorrow. She says she needs to stay 1 more day. OBJECTIVE: VITAL SIGNS: She is saturating 93% on 2 L, blood pressure 122/56, pulse is 90 to 91, respiratory rate 16 to 18. CARDIOVASCULAR: S1 and S2. LUNGS: Scattered wheezes x4. Scattered rhonchi. HEMATOLOGY: Negative Homans. PSYCHIATRIC: Fair mood and affect. NEUROLOGIC: Alert and oriented x3. ASSESSMENT: 1. Chronic obstructive pulmonary disease exacerbation. 2. Tracheobronchitis. 3. Acute hypoxemic respiratory distress. PLAN: Continue with IV steroids, DuoNeb updrafts, and Symbicort. Continue current treatment. Prognosis is guarded. Possibly, discharge home in the morning. MMODL / IJN: [id number] /
[2022-08-20] MEDS: methylPREDNISolone SOD SUCCI 40 MG/ML 1 ML VIAL IV SCH ×3 (01:05→16:13)
[2022-08-20 06:01] LABS: Glucose,Whole Blood 180 mg/dL (70-110)
[2022-08-20] MEDS: SYMBICORT 160-4.5 MCG INHALER INHALATION SCH (08:38)
[2022-08-20] MEDS: IPRATROPIUM-ALBUTEROL 3 ML NEB INHALATION SCH ×3 (08:38→16:17)
[2022-08-20] MEDS: AMOXIC-POT CLAV 875-125MG 1 EACH TAB PO SCH (08:45)
[2022-08-20] MEDS: DAPAGLIFLOZIN PROPANEDIOL 5 MG TABLET PO SCH (08:45)
[2022-08-20] MEDS: carvediloL 12.5 MG TAB PO SCH (08:45)
[2022-08-20] MEDS: ASPIRIN 81 MG PO SCH (08:45)
[2022-08-20] MEDS: PIOGLITAZONE 45 MG TAB PO SCH (08:45)
[2022-08-20] MEDS: SPIRONOLACTONE 25 MG TAB PO SCH (08:45)
[2022-08-20] MEDS: FUROSEMIDE 20 MG TAB PO SCH (08:45)
[2022-08-20 11:44] LABS: Glucose,Whole Blood 141 mg/dL (70-110)
--- NOTE | 2022-08-20 12:19 | P.CNPUL ---
History of Present Illness Consult date: 08/19/22 Reason for consult: dyspnea, cough, COPD, hypoxemia Chief complaint: sob History of present illness: 66-year-old female with chronic hypoxic respiratory failure on home oxygen predominantly at nighttime also had end-stage COPD has been on nebulizer treatment at home other than other active problems include type 2 diabetes mellitus, dyslipidemia, presented to hospital with increasing shortness of breath for 3-4 day duration and progressive increasing shortness of breath off note that the symptoms started with upper respiratory type infections lately and also appears to be contributed by warm weather as well. Chest x-ray consistent with COPD no acute cardiopulmonary process, computed tomography scan of the chest negative for pulmonary embolism, off note that there is 1 cm nodular density in the right upper lobe along with extensive emphysematous changes. CBC was within normal limit d-dimer mildly elevated 0.77, and the chemistry also within normal limit patient post admission and started on bronchodilators along with antibiotics and continuation of home medications Review of Systems All systems: negative Past Medical History Past Medical History: Asthma, Cancer, Chest Pain / Angina, Heart Failure, COPD, Diabetes Mellitus, Hyperlipidemia, Hypertension, Pneumonia, Renal Disease Additional Past Medical History / Comment(s): Tracheobronchitis, asthmatic bronchitis, uterine cancer with hysterectomy, 2001 ovarian cancer, non-STEMI History of Any Multi-Drug Resistant Organisms: None Reported Past Surgical History: AICD, Hysterectomy, Orthopedic Surgery, Tonsillectomy Additional Past Surgical History / Comment(s): RT KNEE ARTHROSCOPY, PARTIAL HYSTERECTOMY, LISA CTR. BI-V ICD, [facility] KURT, COLONOSCOPY WITH BENING POLYPECTOMY. Past Anesthesia/Blood Transfusion Reactions: No Reported Reaction Additional Past Anesthesia/Blood Transfusion Reaction / Comment(s): no history of blood transfusion Type of Cardiac Device: AICD Device Placement Date:: 10/28/15 Past Psychological History: No Psychological Hx Reported Additional Psychological History / Comment(s): pt is independant,lives with spouse. has nebulizer and glucometer. Smoking Status: Former smoker Past Alcohol Use History: None Reported Additional Past Alcohol Use History / Comment(s): PATIENT WAS A SMOKER OF 03/25- 03/23 PPD FOR 15 YEARS AND QUIT 2021 Past Drug Use History: None Reported - Past Family History Mother Family Medical History: Cancer Additional Family Medical History / Comment(s): Mother is alive at 89 years old with no major medical problems. BREAST CA Father Family Medical History: Hypertension, Myocardial Infarction ([place]) Additional Family Medical History / Comment(s): [place] @ AGE 48 Medications and Allergies Home Medications Medication Instructions Recorded Confirmed Type Spironolactone [Aldactone] 25 mg PO DAILY 12/24/16 08/18/22 History Aspirin 81 mg PO DAILY chew 02/15/18 08/18/22 Rx Pioglitazone [Actos] 45 mg PO DAILY tab 02/15/18 08/18/22 Rx Furosemide [Lasix] 20 mg PO DAILY 06/09/18 08/18/22 History Montelukast Sodium [Singulair] 10 mg PO HS 12/10/19 08/18/22 History Atorvastatin [Lipitor] 40 mg PO HS 06/13/21 08/18/22 History glipiZIDE XL [Glucotrol XL] 2.5 mg PO AC-BID 06/13/21 08/18/22 History Alendronate Sodium [Fosamax] 70 mg PO COOMBS 11/07/21 08/18/22 History Fluticasone/Umeclidin/Vilanter 1 puff INHALATION RT-DAILY 11/07/21 08/18/22 History [Trelegy Ellipta 200-62.5-25] carvediloL [Coreg*] 12.5 mg PO BID 11/07/21 08/18/22 History Empagliflozin [Jardiance] 10 mg PO DAILY 03/24/22 08/18/22 History Ipratropium-Albuterol Nebulize 3 ml INHALATION RT-QID PRN 03/24/22 08/18/22 History [Duoneb 0.5 mg-3 mg/3 ml Soln] Allergies Allergy/AdvReac Type Severity Reaction Status Date / Time No Known Allergies Allergy Verified 08/18/22 11:35 Physical Exam Vitals: Vital Signs Temp Pulse Pulse Resp BP BP Pulse Ox 08/19/22 11:24 92 18 08/19/22 11:16 90 18 08/19/22 08:01 93 18 08/19/22 08:00 97.6 F 93 18 135/64 91 L 08/19/22 07:50 93 16 93 L 08/19/22 01:03 78 20 127/59 98 08/19/22 00:00 91 16 129/62 93 L 08/18/22 22:00 91 20 112/44 97 05/30/23 20:01 89 08/18/22 19:07 98 22 117/62 98 08/18/22 16:00 98.4 F 104 H 25 H 120/53 92 L 08/18/22 15:28 94 18 148/67 97 Intake and Output 08/19/22 08/19/22 08/19/22 06:59 14:59 22:59 Other: Voiding Method Toilet # Voids 0 - Constitutional General appearance: average body habitus, cooperative, disheveled - EENT Eyes: EOMI, PERRLA ENT: normal oropharynx Ears: bilateral: normal - Neck Neck: normal ROM Carotids: bilateral: upstroke normal Thyroid: bilateral: normal size - Respiratory Respiratory: bilateral: diminished - Cardiovascular Rhythm: regular Heart sounds: normal: S1, S2 - Gastrointestinal General gastrointestinal: normal bowel sounds, soft - Integumentary Integumentary: normal turgor - Neurologic Neurologic: CNII-XII intact - Musculoskeletal Musculoskeletal: gait normal, generalized weakness, strength equal bilaterally - Psychiatric Psychiatric: A&O x's 3, appropriate affect, intact judgment & insight Results - Laboratory Findings CBC and BMP: 08/18/22 10:13 08/18/22 10:13 PT/INR, D-dimer PT 12.5 sec (9.0-12.0) H 08/18/22 10:13 INR 1.2 (<1.2) H 08/18/22 10:13 D-Dimer 0.77 mg/L FEU (<0.60) H 08/18/22 18:10 Abnormal lab findings: Abnormal Labs 08/18/22 08/18/22 08/18/22 10:13 10:13 18:10 PT 12.5 H INR 1.2 H D-Dimer 0.77 H Alkaline Phosphatase 143 H - Diagnostic Findings Chest x-ray: report reviewed, image reviewed (Findings as noted above) CT scan - chest: report reviewed, image reviewed Assessment and Plan Assessment: Acute COPD exacerbation Tracheobronchitis Chronic hypoxic respiratory failure Right upper lobe 1 cm nodule Type 2 diabetes mellitus with hyperglycemia Dyslipidemia Plan: Agree with bronchodilators and IV steroids and oral antibiotics Continue supplemental oxygen titrated down as tolerated Monitor observe sugar closely on IV steroids, continue short and long-acting in sulin as well as oral hypoglycemic agents Replace potassium as per protocol Patient to be monitor observe for upper lobe nodule outpatient setting with periodic short-term followed by long-term computed tomography scan Time with Patient: Greater than 30
--- NOTE | 2022-08-20 12:23 | P.PN ---
Subjective Progress Note Date: 08/20/22 Principal diagnosis: Acute COPD exacerbation Tracheobronchitis Chronic hypoxic respiratory failure Right upper lobe 1 cm nodule Type 2 diabetes mellitus with hyperglycemia Dyslipidemia 08/20/2022, patient seen eval examined during the rounds labs reviewed medications reviewed care plan discussed, respiratory status overall improved compared to yesterday exam is still have ongoing shortness of breath cough congestion but severity has improved, patient remains on oral antibiotics IV steroids and bronchodilators tolerating well oxygen is being tapered down, sugars noted to be mildly elevated, patient has been consult educated about computed tomography scan finding 66-year-old female with chronic hypoxic respiratory failure on home oxygen predominantly at nighttime also had end-stage COPD has been on nebulizer treatment at home other than other active problems include type 2 diabetes mellitus, dyslipidemia, presented to hospital with increasing shortness of breath for 3-4 day duration and progressive increasing shortness of breath off note that the symptoms started with upper respiratory type infections lately and also appears to be contributed by warm weather as well. Chest x-ray consistent with COPD no acute cardiopulmonary process, computed tomography scan of the chest negative for pulmonary embolism, off note that there is 1 cm nodular density in the right upper lobe along with extensive emphysematous changes. CBC was within normal limit d-dimer mildly elevated 0.77, and the chemistry also within normal limit patient post admission and started on bronchodilators along with antibiotics and continuation of home medications Objective - Vital Signs Vital signs: Vital Signs Temp 97.3 F L 08/20/22 06:53 Pulse 73 08/20/22 12:12 Resp 17 08/20/22 06:53 BP 129/67 08/20/22 06:53 Pulse Ox 96 08/20/22 08:40 FiO2 Intake & Output 08/19/22 08/20/22 08/20/22 18:59 06:59 18:59 Other: # Voids 2 2 - Exam - Constitutional General appearance: average body habitus, cooperative, disheveled - EENT Eyes: EOMI, PERRLA ENT: normal oropharynx Ears: bilateral: normal - Neck Neck: normal ROM Carotids: bilateral: upstroke normal Thyroid: bilateral: normal size - Respiratory Respiratory: bilateral: diminished - Cardiovascular Rhythm: regular Heart sounds: normal: S1, S2 - Gastrointestinal General gastrointestinal: normal bowel sounds, soft - Integumentary Integumentary: normal turgor - Neurologic Neurologic: CNII-XII intact - Musculoskeletal Musculoskeletal: gait normal, generalized weakness, strength equal bilaterally - Psychiatric Psychiatric: A&O x's 3, appropriate affect, intact judgment & insight - Labs CBC & Chem 7: 08/18/22 10:13 08/18/22 10:13 Labs: Abnormal Lab Results - Last 24 Hours (Table) 08/20/22 08/20/22 Range/Units 05:59 11:42 POC Glucose (mg/dL) 180 H 141 H (70-110) mg/dL Microbiology - Last 24 Hours (Table) 08/18/22 10:43 Blood Culture - Preliminary Blood 08/18/22 10:43 Blood Culture - Preliminary Blood Assessment and Plan Assessment: Acute COPD exacerbation Tracheobronchitis Chronic hypoxic respiratory failure Right upper lobe 1 cm nodule Type 2 diabetes mellitus with hyperglycemia Dyslipidemia Plan: Continue bronchodilators and IV steroids and oral antibiotics, can be changed to oral at time of discharge Continue supplemental oxygen titrated down as tolerated Monitor observe sugar closely on IV steroids, continue short and long-acting insulin as well as oral hypoglycemic agents Replace potassium as per protocol Patient to be monitor and observe for upper lobe nodule in outpatient setting with periodic short-term followed by long-term computed tomography scan Time with Patient: Greater than 30
[2022-08-20 14:39] VITALS: BP 122/66; RESP 15; TEMP 97.4
[2022-08-20 16:28] VITALS: PULSE 74
[2022-08-20 16:37] LABS: Glucose,Whole Blood 154 mg/dL (70-110)
[2022-08-20] MEDS ORDERED: methylPREDNISolone 4 MG TAB TAPER PO SCH (17:30)
[2022-08-20] MEDS ORDERED: CEFDINIR 300 MG CAP PO SCH (21:00)
[2022-08-23] MEDS ORDERED: NON FORMULARY DRUG (Alendronate Sodium [Fosamax] 70 MG Tablet) PO SCH (17:24)
== END 2022-08-20 18:38 | disposition home or self-care (01) | DRG 191 ==
LOC: EC 09:40 → 3SCARD 12:41 → 5NMEDONC 13:38 → 4SSUR 15:57 → 1SOBS 08-19 00:30 → 4SSUR 08-19 18:18
PROVIDERS: ADMIT Family Medicine; ATTEND Family Medicine
DX: J44.1 Chronic obstructive pulmonary disease with (acute) exacerbation (principal); I50.32 Chronic diastolic (congestive) heart failure; J96.11 Chronic respiratory failure with hypoxia; Z90.710 Acquired absence of both cervix and uterus; Z85.43 Personal history of malignant neoplasm of ovary; Z99.81 Dependence on supplemental oxygen; I11.0 Hypertensive heart disease with heart failure; E11.65 Type 2 diabetes mellitus with hyperglycemia; E78.5 Hyperlipidemia, unspecified; Z86.010 Personal history of colon polyps; Z87.891 Personal history of nicotine dependence; J44.0 Chronic obstructive pulmonary disease with (acute) lower respiratory infection; Z79.82 Long term (current) use of aspirin; Z79.83 Long term (current) use of bisphosphonates; Z79.84 Long term (current) use of oral hypoglycemic drugs; Z79.899 Other long term (current) drug therapy; Z80.3 Family history of malignant neoplasm of breast; Z82.49 Family history of ischemic heart disease and other diseases of the circulatory system; Z85.42 Personal history of malignant neoplasm of other parts of uterus; Z90.711 Acquired absence of uterus with remaining cervical stump; R91.1 Solitary pulmonary nodule; Z87.01 Personal history of pneumonia (recurrent); Z95.810 Presence of automatic (implantable) cardiac defibrillator; I25.2 Old myocardial infarction; J20.9 Acute bronchitis, unspecified
CPT/HCPCS: 36415; 71046; 71275; 80053; 83605; 83735; 84484; 85025; 85379; 85610; 85730; 87040; 93005; 94640; 94760; 96365; 99285

== ENCOUNTER 2022-09-02 15:13 | Inpatient (IN) | payer MEDICARE ==
[2022-09-02] MEDS ORDERED: IPRATROPIUM-ALBUTEROL 3 ML NEB INHALATION STA (15:34)
[2022-09-02] MEDS ORDERED: predniSONE 20 MG TAB PO STA (15:34)
--- NOTE | 2022-09-02 16:04 | ED ---
SOB HPI - General Chief Complaint: Shortness of Breath Stated Complaint: MARK Time Seen by Provider: 09/02/22 15:16 Source: patient, EMS Mode of arrival: EMS Limitations: no limitations - History of Present Illness Initial Comments: Patient is 66-year-old woman with history of COPD who states that she has had worsening of her underlying breathing since yesterday in the evening. She states that it was initially mild and then became progressively more severe over the course of this morning into the afternoon. She finally called EMS who brought her here they did give nebulized treatment. Patient denies fever or chills. No productive cough. No change in her legs, no pain or swelling. No change in urination or bowel movements noted. MD Complaint: shortness of breath Onset/Timin -: hour(s) Consistency: constant Improves With: nothing Worsens With: nothing Known History Of: COPD Associated Symptoms: denies other symptoms Treatments Prior to Arrival: oxygen, bronchodilator - Related Data Home Oxygen Therapy: Yes Home Oxygen Amount: 3 Liters Home Medications Medication Instructions Recorded Confirmed Spironolactone [Aldactone] 25 mg PO DAILY 12/24/16 09/02/22 Furosemide [Lasix] 40 mg PO DAILY 06/09/18 09/02/22 Montelukast Sodium [Singulair] 10 mg PO HS 12/10/19 09/02/22 Atorvastatin [Lipitor] 40 mg PO HS 06/13/21 09/02/22 Alendronate Sodium [Fosamax] 70 mg PO COOMBS 11/07/21 09/02/22 Fluticasone/Umeclidin/Vilanter 1 puff INHALATION RT-DAILY 11/07/21 09/02/22 [Trelemehnaz Ellipta 200-62.5-25] carvediloL [Coreg*] 12.5 mg PO BID 11/07/21 09/02/22 Empagliflozin [Jardiance] 10 mg PO DAILY 03/24/22 09/02/22 Ipratropium-Albuterol Nebulize 3 ml INHALATION RT-QID PRN 03/24/22 09/02/22 [Duoneb 0.5 mg-3 mg/3 ml Soln] glipiZIDE XL [Glucotrol XL] 2.5 mg PO AC-BID 09/02/22 09/02/22 Previous Rx's Medication Instructions Recorded Aspirin 81 mg PO DAILY chew 11/27/18 Pioglitazone [Actos] 45 mg PO DAILY tab 02/15/18 Allergies Allergy/AdvReac Type Severity Reaction Status Date / Time No Known Allergies Allergy Verified 09/02/22 16:33 Review of Systems ROS Statement: Those systems with pertinent positive or pertinent negative responses have been documented in the HPI. ROS Other: All systems not noted in ROS Statement are negative. Constitutional: Denies: fever, chills ENT: Denies: congestion Respiratory: Reports: dyspnea, wheezes. Denies: cough, hemoptysis, stridor Cardiovascular: Denies: chest pain, palpitations, orthopnea, edema, syncope Gastrointestinal: Denies: abdominal pain, vomiting, diarrhea, melena, hematochezia Genitourinary: Denies: dysuria, hematuria Musculoskeletal: Denies: back pain Skin: Denies: rash Neurological: Denies: headache, weakness Psychiatric: Reports: anxiety Past Medical History Past Medical History: Asthma, Cancer, Chest Pain / Angina, Heart Failure, COPD, Diabetes Mellitus, Hyperlipidemia, Hypertension, Pneumonia, Renal Disease Additional Past Medical History / Comment(s): Tracheobronchitis, asthmatic bronchitis, uterine cancer with hysterectomy, 2001 ovarian cancer, non-STEMI History of Any Multi-Drug Resistant Organisms: None Reported Past Surgical History: AICD, Hysterectomy, Orthopedic Surgery, Tonsillectomy Additional Past Surgical History / Comment(s): RT KNEE ARTHROSCOPY, PARTIAL HYSTERECTOMY, LISA CTR. BI-V ICD, [facility], COLONOSCOPY WITH BENING POLYPECTOMY. Past Anesthesia/Blood Transfusion Reactions: No Reported Reaction Additional Past Anesthesia/Blood Transfusion Reaction / Comment(s): no history of blood transfusion Type of Cardiac Device: AICD Device Placement Date:: 10/28/15 Past Psychological History: No Psychological Hx Reported Smoking Status: Former smoker Past Alcohol Use History: None Reported Past Drug Use History: None Reported - Past Family History Mother Family Medical History: Cancer Additional Family Medical History / Comment(s): Mother is alive at 89 years old with no major medical problems. BREAST CA Father Family Medical History: Hypertension, Myocardial Infarction (ME) Additional Family Medical History / Comment(s): ME @ AGE 48 General Exam Limitations: no limitations General appearance: alert, in no apparent distress Head exam: Present: atraumatic, normocephalic Eye exam: Present: normal appearance. Absent: scleral icterus, conjunctival injection Neck exam: Present: normal inspection Respiratory exam: Present: respiratory distress (Mild tachypnea and pursed lip breathing), wheezes, accessory muscle use. Absent: rales, rhonchi, stridor, decreased breath sounds Cardiovascular Exam: Present: regular rate, normal rhythm, normal heart sounds. Absent: systolic murmur, diastolic murmur, rubs, gallop GI/Abdominal exam: Present: soft. Absent: distended, tenderness, guarding, rebound, rigid, mass Extremities exam: Present: normal inspection, normal capillary refill. Absent: pedal edema, calf tenderness Back exam: Present: normal inspection. Absent: CVA tenderness (R), CVA tenderness (L) Neurological exam: Present: alert Skin exam: Present: warm, dry, intact, normal color. Absent: rash Course Vital Signs 09/02/22 09/02/22 09/02/22 15:22 15:25 15:30 Temperature Pulse Rate 101 H Pulse Rate [ Supine Pulse Oximetery] Respiratory 32 H 24 25 H Rate Blood Pressure 145/70 Blood Pressure [Right Arm Supine] O2 Sat by Pulse 96 Oximetry 09/02/22 09/02/22 09/02/22 15:49 16:00 16:12 Temperature 97.8 F Pulse Rate 92 96 Pulse Rate [ Supine Pulse Oximetery] Respiratory 24 Rate Blood Pressure 134/73 Blood Pressure [Right Arm Supine] O2 Sat by Pulse 100 Oximetry 09/02/22 09/02/22 09/02/22 16:30 17:00 17:17 Temperature Pulse Rate 91 86 Pulse Rate [ Supine Pulse Oximetery] Respiratory 23 22 Rate Blood Pressure 134/62 126/62 129/71 Blood Pressure [Right Arm Supine] O2 Sat by Pulse 99 98 Oximetry 09/02/22 09/02/22 09/02/22 17:30 18:00 18:30 Temperature Pulse Rate 89 102 H 101 H Pulse Rate [ Supine Pulse Oximetery] Respiratory 22 22 23 Rate Blood Pressure 129/71 125/54 153/98 Blood Pressure [Right Arm Supine] O2 Sat by Pulse 97 98 96 Oximetry 09/02/22 09/02/22 09/02/22 18:31 18:53 19:03 Temperature Pulse Rate 102 H 88 90 Pulse Rate [ Supine Pulse Oximetery] Respiratory 20 Rate Blood Pressure 138/72 Blood Pressure [Right Arm Supine] O2 Sat by Pulse 97 Oximetry 09/02/22 20:00 Temperature 97.6 F Pulse Rate Pulse Rate [ 101 H Supine Pulse Oximetery] Respiratory 18 Rate Blood Pressure Blood Pressure 143/69 [Right Arm Supine] O2 Sat by Pulse 94 L Oximetry Medical Decision Making - Medical Decision Making This patient is 66-year-old woman with history of COPD who presents with worse anny of her usual symptoms. She is given treatment in the department but remains dyspneic worse than baseline. Patient's case discussed with admitting physician and she'll be admitted for further treatment including nebulized medications and steroid. The patient had chest x-ray which I interpreted as being negative for acute infiltrate, pneumothorax, acute bony trauma Was pt. sent in by a medical professional or institution (MINISTERIO Mckenzie, TECHNICAL COMMUNICATOR, urgent care, hospital, or intermediate...) When possible be specific @ -[No] Did you speak to anyone other than the patient for history (EMS, parent, family, police, friend...)? What history was obtained from this source @ -[No] Did you review nursing and triage notes (agree or disagree)? Why? @ -[I reviewed and agree with nursing and triage notes] Were old charts reviewed (outside hosp., previous admission, EMS record, old EKG, old radiological studies, urgent care reports/EKG's, intermediate records)? Report findings @ -[old charts were reviewed] Differential Diagnosis (chest pain, altered mental status, abdominal pain women, abdominal pain men, vaginal bleeding, weakness, fever, dyspnea, syncope, headache, dizziness, GI bleed, back pain, seizure, CVA, palpatations, mental health, musculoskeletal)? @ -[Differential Dyspnea: Coronary syndrome, arrhythmia, tamponade, asthma, COPD, pulmonary embolism, pneumonia, pneumothorax, pulmonary effusion, anaphylaxis, diabetic ketoacidosis, flailed chest, pulmonary contusion, diaphragmatic rupture, anemia, neuromuscular, this is not meant to be an all-inclusive list. EKG interpreted by me (3pts min.). @ -[As above] X-rays interpreted by me (1pt min.). @ -[As above CT interpreted by me (1pt min.). @ -[None done] U/S interpreted by me (1pt. min.). @ -[None done] What testing was considered but not performed or refused? (CT, X-rays, U/S, labs)? Why? @ -[None] What meds were considered but not given or refused? Why? @ -[None] Did you discuss the management of the patient with other professionals (professionals i.e. , PA, TECHNICAL COMMUNICATOR, lab, RT, psych nurse, social work faculty member, summer law associate, teacher, chief medical officer, correctional case manager)? Give summary @ -[Case discussed with admitting physician who will admit for further treatment Was smoking cessation discussed for >3mins.? @ -[No] Was critical care preformed (if so, how long)? @ -[No] Were there social determinants of health that impacted care today? How? (Homelessness, low income, unemployed, alcoholism, drug addiction, transportation, low edu. Level, literacy, decrease access to med. care, [facility], rehab)? @ -[No] Was there de-escalation of care discussed even if they declined (Discuss DNR or withdrawal of care, Hospice)? DNR status @ -[No] What co-morbidities impacted this encounter? (DM, HTN, Smoking, COPD, CAD, Cancer, CVA, ARF, Chemo, Hep., AIDS, mental health diagnosis, sleep apnea, morbid obesity)? @ -[COPD Was patient admitted / discharged? Hospital course, mention meds given and route, prescriptions, significant lab abnormalities, going to OR and other pertinent info. @ -[Admitted, as above Undiagnosed new problem with uncertain prognosis? @ -[No] Drug Therapy requiring intensive monitoring for toxicity (Heparin, Nitro, Insulin, Cardizem)? @ -[No] Were any procedures done? @ -[No] Diagnosis/symptom? @ -[Acute exacerbation of COPD Acute, or Chronic, or Acute on Chronic? @ -[Acute on chronic COPD Uncomplicated (without systemic symptoms) or Complicated (systemic symptoms)? @ -[Uncomplicated Side effects of treatment? @ -[No] Exacerbation, Progression, or Severe Exacerbation? @ -[No] Poses a threat to life or bodily function? How? (Chest pain, USA, ME, pneumonia, PE, COPD, DKA, ARF, appy, cholecystitis, CVA, Diverticulitis, Homicidal, Suicidal, threat to staff... and all critical care pts) @ -[Yes, untreated COPD can progress respiratory failure/ - Lab Data Result diagrams: 09/04/22 05:34 09/04/22 05:34 Lab Results 09/02/22 09/02/22 09/02/22 Range/Units 15:38 15:38 15:38 WBC 10.7 H (3.8-10.6) k/uL RBC 4.28 (3.80-5.40) m/uL Hgb 13.4 (11.4-16.0) gm/dL Hct 40.5 (34.0-46.0) % MCV 94.6 (80.0-100.0) fL MCH 31.3 (25.0-35.0) pg MCHC 33.1 (31.0-37.0) g/dL RDW 12.5 (11.5-15.5) % Plt Count 242 (150-450) k/uL MPV 7.6 Neutrophils % 79 % Lymphocytes % 12 % Monocytes % 5 % Eosinophils % 3 % Basophils % 0 % Neutrophils # 8.4 H (1.3-7.7) k/uL Lymphocytes # 1.3 (1.0-4.8) k/uL Monocytes # 0.5 (0-1.0) k/uL Eosinophils # 0.3 (0-0.7) k/uL Basophils # 0.0 (0-0.2) k/uL PT 11.9 (9.0-12.0) sec INR 1.2 H (<1.2) APTT 22.2 (22.0-30.0) sec D-Dimer 0.78 H (<0.60) mg/L FEU Sodium 141 (137-145) mmol/L Potassium 3.2 L (3.5-5.1) mmol/L Chloride 101 (98-107) mmol/L Carbon Dioxide 32 H (22-30) mmol/L Anion Gap 8 mmol/L BUN 19 H (7-17) mg/dL Creatinine 0.99 (0.52-1.04) mg/dL Est GFR (CKD-EPI)AfAm 69 (>60 ml/min/1.73 sqM) Est GFR (CKD-EPI)NonAf 60 (>60 ml/min/1.73 sqM) Glucose 131 H (74-99) mg/dL Plasma Lactic Acid Ari (0.7-2.0) mmol/L Calcium 9.4 (8.4-10.2) mg/dL Magnesium 1.8 (1.6-2.3) mg/dL Total Bilirubin 0.7 (0.2-1.3) mg/dL AST 26 (14-36) U/L ALT 19 (4-34) U/L Alkaline Phosphatase 136 H (38-126) U/L Troponin I (0.000-0.034) ng/mL NT-Pro-B Natriuret Pep pg/mL Total Protein 7.2 (6.3-8.2) g/dL Albumin 4.1 (3.5-5.0) g/dL Influenza Type A (PCR) (Not Detectd) Influenza Type B (PCR) (Not Detectd) RSV (PCR) (Not Detectd) SARS-CoV-2 (PCR) (Not Detectd) 09/02/22 09/02/22 09/02/22 Range/Units 15:38 15:38 15:38 WBC (3.8-10.6) k/uL RBC (3.80-5.40) m/uL Hgb (11.4-16.0) gm/dL Hct (34.0-46.0) % MCV (80.0-100.0) fL MCH (25.0-35.0) pg MCHC (31.0-37.0) g/dL RDW (11.5-15.5) % Plt Count (150-450) k/uL MPV Neutrophils % % Lymphocytes % % Monocytes % % Eosinophils % % Basophils % % Neutrophils # (1.3-7.7) k/uL Lymphocytes # (1.0-4.8) k/uL Monocytes # (0-1.0) k/uL Eosinophils # (0-0.7) k/uL Basophils # (0-0.2) k/uL PT (9.0-12.0) sec INR (<1.2) APTT (22.0-30.0) sec D-Dimer (<0.60) mg/L FEU Sodium (137-145) mmol/L Potassium (3.5-5.1) mmol/L Chloride (98-107) mmol/L Carbon Dioxide (22-30) mmol/L Anion Gap mmol/L BUN (7-17) mg/dL Creatinine (0.52-1.04) mg/dL Est GFR (CKD-EPI)AfAm (>60 ml/min/1.73 sqM) Est GFR (CKD-EPI)NonAf (>60 ml/min/1.73 sqM) Glucose (74-99) mg/dL Plasma Lactic Acid Ari 1.0 (0.7-2.0) mmol/L Calcium (8.4-10.2) mg/dL Magnesium (1.6-2.3) mg/dL Total Bilirubin (0.2-1.3) mg/dL AST (14-36) U/L ALT (4-34) U/L Alkaline Phosphatase (38-126) U/L Troponin I <0.012 (0.000-0.034) ng/mL NT-Pro-B Natriuret Pep 303 pg/mL Total Protein (6.3-8.2) g/dL Albumin (3.5-5.0) g/dL Influenza Type A (PCR) (Not Detectd) Influenza Type B (PCR) (Not Detectd) RSV (PCR) (Not Detectd) SARS-CoV-2 (PCR) (Not Detectd) 09/02/22 Range/Units 18:32 WBC (3.8-10.6) k/uL RBC (3.80-5.40) m/uL Hgb (11.4-16.0) gm/dL Hct (34.0-46.0) % MCV (80.0-100.0) fL MCH (25.0-35.0) pg MCHC (31.0-37.0) g/dL RDW (11.5-15.5) % Plt Count (150-450) k/uL MPV Neutrophils % % Lymphocytes % % Monocytes % % Eosinophils % % Basophils % % Neutrophils # (1.3-7.7) k/uL Lymphocytes # (1.0-4.8) k/uL Monocytes # (0-1.0) k/uL Eosinophils # (0-0.7) k/uL Basophils # (0-0.2) k/uL PT (9.0-12.0) sec INR (<1.2) APTT (22.0-30.0) sec D-Dimer (<0.60) mg/L FEU Sodium (137-145) mmol/L Potassium (3.5-5.1) mmol/L Chloride (98-107) mmol/L Carbon Dioxide (22-30) mmol/L Anion Gap mmol/L BUN (7-17) mg/dL Creatinine (0.52-1.04) mg/dL Est GFR (CKD-EPI)AfAm (>60 ml/min/1.73 sqM) Est GFR (CKD-EPI)NonAf (>60 ml/min/1.73 sqM) Glucose (74-99) mg/dL Plasma Lactic Acid Ari (0.7-2.0) mmol/L Calcium (8.4-10.2) mg/dL Magnesium (1.6-2.3) mg/dL Total Bilirubin (0.2-1.3) mg/dL AST (14-36) U/L ALT (4-34) U/L Alkaline Phosphatase (38-126) U/L Troponin I (0.000-0.034) ng/mL NT-Pro-B Natriuret Pep pg/mL Total Protein (6.3-8.2) g/dL Albumin (3.5-5.0) g/dL Influenza Type A (PCR) Not Detected (Not Detectd) Influenza Type B (PCR) Not Detected (Not Detectd) RSV (PCR) Not Detected (Not Detectd) SARS-CoV-2 (PCR) Not Detected (Not Detectd) - EKG Data -: EKG Interpreted by Me Rate: tachycardia (Paced rhythm at 101) Interpretation: other (The underlying rhythm appears to be paced at approximately 101 bpm) Disposition Clinical Impression: COPD with acute exacerbation Disposition: ADMITTED IP TO THIS HOSP Condition: Fair
[2022-09-02 16:10] LABS: Basophils % (A) 0 %; Eosinophils # (A) 0.3 k/uL (0-0.7); Eosinophils % (A) 3 %; HCT 40.5 % (34.0-46.0); HGB 13.4 gm/dL (11.4-16.0); Lymphocytes # (A) 1.3 k/uL (1.0-4.8); Lymphocytes % (A) 12 %; MCH 31.3 pg (25.0-35.0); MCHC 33.1 g/dL (31.0-37.0); MCV 94.6 fL (80.0-100.0); Mean Platelet Volume 7.6; Monocytes # (A) 0.5 k/uL (0-1.0); Monocytes % (A) 5 %; Neutrophils # (A) 8.4 k/uL (1.3-7.7); Neutrophils % (A) 79 %; Platelet Count 242 k/uL (150-450); RBC 4.28 m/uL (3.80-5.40); RDW 12.5 % (11.5-15.5); WBC 10.7 k/uL (3.8-10.6)
[2022-09-02 16:15] LABS: ALT 19 U/L (4-34); AST 26 U/L (14-36); African American GFR (CKD) 69 (>60 ml/min/1.73 sqM); Albumin 4.1 g/dL (3.5-5.0); Alkaline Phosphatase 136 U/L (38-126); Anion Gap 8 mmol/L; Blood Urea Nitrogen 19 mg/dL (7-17); Calcium 9.4 mg/dL (8.4-10.2); Carbon Dioxide 32 mmol/L (22-30); Chloride 101 mmol/L (98-107); Glucose 131 mg/dL (74-99); Magnesium 1.8 mg/dL (1.6-2.3); Non-African American GFR(CKD) 60 (>60 ml/min/1.73 sqM); Potassium 3.2 mmol/L (3.5-5.1); Sodium 141 mmol/L (137-145); Total Bilirubin 0.7 mg/dL (0.2-1.3); Total Protein 7.2 g/dL (6.3-8.2)
--- NOTE | 2022-09-02 16:36 | XR ---
EXAMINATION TYPE: XR chest 2V DATE OF EXAM: 09/02/2022 4:30 PM COMPARISON: Chest radiographs from 08/18/2022 TECHNIQUE: XR chest 2V Frontal and lateral views of the chest. CLINICAL INDICATION:Female, 66 years old with history of difficulty breathing; FINDINGS: Lungs/Pleura: There is flattening of the diaphragm with increased lucency of the lungs. No evidence o f pneumothorax, pleural effusion or focal consolidation. Pulmonary vascularity: Pulmonary vascular congestion. Heart/mediastinum: Cardiac size is normal. Three lead cardiac conduction device overlying the left he mithorax with lead tips projecting over the right ventricle, right atrium and coronary sinus. Musculoskeletal: No acute osseous pathology. IMPRESSION: 1. Mild pulmonary vascular congestion. Correlate with BNP for congestive heart failure. 2. COPD changes.
[2022-09-02 16:58] LABS: INR 1.2 (<1.2); Partial Thromboplastin Time 22.2 sec (22.0-30.0); Prothrombin Time 11.9 sec (9.0-12.0)
[2022-09-02] MEDS ORDERED: ALBUTEROL NEBULIZED 2.5 MG/3 ML INHALATION STA (17:43)
[2022-09-02] MEDS ORDERED: NALOXONE 0.4 MG/ML 1 ML VIAL IVP PRN (18:35)
[2022-09-02] MEDS: IPRATROPIUM-ALBUTEROL 3 ML NEB INHALATION SCH (19:37)
[2022-09-02] MEDS: carvediloL 12.5 MG TAB PO SCH (20:34)
[2022-09-02] MEDS: ATORVASTATIN 40 MG TAB PO SCH (20:34)
[2022-09-02] MEDS: MONTELUKAST 10 MG TAB PO SCH (20:34)
[2022-09-03 07:45] LABS: Glucose,Whole Blood 124 mg/dL (70-110)
[2022-09-03] MEDS: SPIRONOLACTONE 25 MG TAB PO SCH (08:48)
[2022-09-03] MEDS: carvediloL 12.5 MG TAB PO SCH ×2 (08:48→21:19)
[2022-09-03] MEDS: DAPAGLIFLOZIN PROPANEDIOL 5 MG TABLET PO SCH (08:48)
[2022-09-03] MEDS: PIOGLITAZONE 45 MG TAB PO SCH (08:49)
[2022-09-03] MEDS: ASPIRIN 81 MG PO SCH (08:49)
[2022-09-03] MEDS ORDERED: predniSONE 20 MG TAB PO SCH (09:00)
[2022-09-03] MEDS ORDERED: FUROSEMIDE 40 MG TAB PO SCH (09:00)
[2022-09-03] MEDS: SYMBICORT 160-4.5 MCG INHALER INHALATION SCH ×2 (09:07→20:10)
[2022-09-03] MEDS: IPRATROPIUM-ALBUTEROL 3 ML NEB INHALATION SCH ×4 (09:07→20:10)
[2022-09-03 11:25] LABS: Glucose,Whole Blood 99 mg/dL (70-110)
--- NOTE | 2022-09-03 15:15 | CT ---
EXAMINATION TYPE: CT angio chest CT DLP: 204.7 mGycm, Automated exposure control for dose reduction was used. DATE OF EXAM: 09/03/2022 3:00 PM COMPARISON: CTA chest 08/19/2022 CLINICAL INDICATION:Female, 66 years old with history of high d-dimer; Shortness of breath TECHNIQUE/CONTRAST: CTA scan of the thorax is performed with IV Contrast, patient injected with 80 cc mL of Isovue 370, p ulmonary embolism protocol. MIP images are created and reviewed. FINDINGS: Pulmonary Artery: There is no evidence for a filling defect within the pulmonary vasculature to sugge st acute pulmonary embolism. The pulmonary artery is mildly prominent measuring 3.2 cm in diameter. This can be seen in the setting of pulmonary arterial hypertension. Lungs/Pleura: No evidence of pleural effusion or pneumothorax. 2 right upper lobe linear consolidatio n (series 5, image 54). Centrilobular emphysematous changes. Stable right apical nodular density shan uring up to 9 mm. Bilateral lower lobe scarring and/or atelectasis. Right middle lobe linear scarring and/or atelectasis. Airway: Large airways are patent. Heart: Mild cardiomegaly. Trace pericardial effusion. Left chest wall cardiac pacemaking device.. Vasculature: No evidence of aortic aneurysm. Mediastinum: No gross evidence of adenopathy. Musculoskeletal: No acute osseous abnormalities Soft Tissues: Unremarkable. Lower neck: Similar enlarged thyroid gland with substernal extension of the left thyroid lobe contain ing macrocalcification. 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 IMPRESSION: 1. No evidence of pulmonary embolism. 2. Stable right apical 9 mm nodular density which may represent infectious/pelvic process. New right upper lobe linear consolidation which may represent an infectious/inflammatory process. Underlying ma lignancy is not excluded. Follow-up CT in 3 months is recommended. 3. Mild emphysematous changes.
[2022-09-03] MEDS: methylPREDNISolone SOD SUCCI 125 MG/2 ML VIAL IV SCH (15:19)
[2022-09-03] MEDS: FUROSEMIDE 10 MG/ML 4 ML VIAL IV SCH ×2 (15:19→21:19)
[2022-09-03] MEDS: ENOXAPARIN 40 MG/0.4 ML SYRINGE SQ SCH (15:19)
[2022-09-03 17:11] LABS: Glucose,Whole Blood 389 mg/dL (70-110)
[2022-09-03] MEDS: PIPERACILLIN-TAZOBACTAM 3.375 GM in SODIUM CHLORIDE 0.9% 100 ML IVPB SCH (18:05)
[2022-09-03 20:26] LABS: Glucose,Whole Blood 274 mg/dL (70-110)
[2022-09-03] MEDS: MONTELUKAST 10 MG TAB PO SCH (21:19)
[2022-09-03] MEDS: ATORVASTATIN 40 MG TAB PO SCH (21:19)
[2022-09-04] MEDS: methylPREDNISolone SOD SUCCI 125 MG/2 ML VIAL IV SCH ×3 (00:08→15:52)
[2022-09-04] MEDS: PIPERACILLIN-TAZOBACTAM 3.375 GM in SODIUM CHLORIDE 0.9% 100 ML IVPB SCH ×3 (01:12→18:55)
--- NOTE | 2022-09-04 01:22 | HP ---
HISTORY AND PHYSICAL HISTORY OF PRESENT ILLNESS: A 66-year-old white female, admitted with acute respiratory failure, started on IV steroids, IV antibiotics, and IV Lasix. Wait for Cardiology consult. Chest CTA showed no pulmonary embolus due to elevated D-dimer. She came in with acute hypoxemic respiratory distress. FAMILY HISTORY: Reviewed. REVIEW OF SYSTEMS: A 14-point review of system was reviewed. ALLERGIES: Negative. MEDICATIONS: Home medicines were reviewed. PAST MEDICAL HISTORY: Asthma, angina, heart failure, COPD, diabetes mellitus, dyslipidemia, hypertension, renal disease, pneumonia. PAST SURGICAL HISTORY: AICD, hysterectomy, orthopedic surgery, tonsillectomy. PHYSICAL EXAMINATION: VITAL SIGNS: Respiratory rate is 24 to 32. Blood pressure 130s over 70s, O2 of 100, respiratory rate 20 to 25. LUNGS: Scattered rhonchi and wheeze x4. CARDIOVASCULAR: S1, S2. GI: Soft. HEMATOLOGY: Negative Homans. PSYCH: Fair mood and affect. NEUROLOGIC: Alert and oriented x3. ASSESSMENT: Hypokalemia. Replace electrolytes. Continue with steroids, Lasix, antibiotics. PT, OT. Wait for further care at this point and improvement in her breathing. MMODL / IJN: [id number] /
[2022-09-04 06:31] LABS: Basophils % (A) 0 %; Eosinophils # (A) 0.1 k/uL (0-0.7); Eosinophils % (A) 1 %; HCT 38.8 % (34.0-46.0); HGB 12.7 gm/dL (11.4-16.0); Lymphocytes # (A) 0.4 k/uL (1.0-4.8); Lymphocytes % (A) 4 %; MCH 31.3 pg (25.0-35.0); MCHC 32.6 g/dL (31.0-37.0); MCV 96.1 fL (80.0-100.0); Mean Platelet Volume 7.9; Monocytes # (A) 0.1 k/uL (0-1.0); Monocytes % (A) 1 %; Neutrophils # (A) 10.8 k/uL (1.3-7.7); Neutrophils % (A) 94 %; Platelet Count 250 k/uL (150-450); RBC 4.04 m/uL (3.80-5.40); RDW 12.6 % (11.5-15.5); WBC 11.5 k/uL (3.8-10.6)
[2022-09-04 06:49] LABS: ALT 20 U/L (4-34); African American GFR (CKD) 39 (>60 ml/min/1.73 sqM); Albumin/Globulin Ratio 1.3; Anion Gap 12 mmol/L; Blood Urea Nitrogen 41 mg/dL (7-17); Calcium 9.1 mg/dL (8.4-10.2); Carbon Dioxide 30 mmol/L (22-30); Chloride 97 mmol/L (98-107); Globulin 3.1 g/dL; Glucose 180 mg/dL (74-99); Non-African American GFR(CKD) 33 (>60 ml/min/1.73 sqM); Sodium 139 mmol/L (137-145); Total Bilirubin 0.7 mg/dL (0.2-1.3); Total Protein 7.1 g/dL (6.3-8.2)
[2022-09-04 06:52] LABS: AST 25 U/L (14-36); Alkaline Phosphatase 104 U/L (38-126); Potassium 4.3 mmol/L (3.5-5.1)
[2022-09-04 07:25] LABS: Glucose,Whole Blood 166 mg/dL (70-110)
[2022-09-04] MEDS: ENOXAPARIN 40 MG/0.4 ML SYRINGE SQ SCH (08:28)
[2022-09-04] MEDS: FUROSEMIDE 10 MG/ML 4 ML VIAL IV SCH ×2 (08:28→22:15)
[2022-09-04] MEDS: carvediloL 12.5 MG TAB PO SCH ×2 (08:28→22:16)
[2022-09-04] MEDS: ASPIRIN 81 MG PO SCH (08:35)
[2022-09-04] MEDS: DAPAGLIFLOZIN PROPANEDIOL 5 MG TABLET PO SCH (08:35)
[2022-09-04] MEDS: SPIRONOLACTONE 25 MG TAB PO SCH (08:35)
[2022-09-04] MEDS: PIOGLITAZONE 45 MG TAB PO SCH (08:35)
[2022-09-04] MEDS: IPRATROPIUM-ALBUTEROL 3 ML NEB INHALATION SCH ×4 (09:11→20:50)
[2022-09-04] MEDS: SYMBICORT 160-4.5 MCG INHALER INHALATION SCH ×2 (09:11→20:50)
[2022-09-04 11:14] LABS: Glucose,Whole Blood 271 mg/dL (70-110)
[2022-09-04 17:19] LABS: Glucose,Whole Blood 171 mg/dL (70-110)
[2022-09-04 20:37] LABS: Glucose,Whole Blood 267 mg/dL (70-110)
[2022-09-04] MEDS: ATORVASTATIN 40 MG TAB PO SCH (22:16)
[2022-09-04] MEDS: MONTELUKAST 10 MG TAB PO SCH (22:16)
[2022-09-05] MEDS: methylPREDNISolone SOD SUCCI 125 MG/2 ML VIAL IV SCH ×2 (02:14→09:01)
[2022-09-05] MEDS: PIPERACILLIN-TAZOBACTAM 3.375 GM in SODIUM CHLORIDE 0.9% 100 ML IVPB SCH ×2 (02:14→10:01)
[2022-09-05 07:34] LABS: Glucose,Whole Blood 117 mg/dL (70-110)
[2022-09-05 08:02] VITALS: RESP 17; TEMP 97.5
[2022-09-05] MEDS: SPIRONOLACTONE 25 MG TAB PO SCH (08:31)
[2022-09-05] MEDS: ENOXAPARIN 40 MG/0.4 ML SYRINGE SQ SCH (08:31)
[2022-09-05] MEDS: ASPIRIN 81 MG PO SCH (08:31)
[2022-09-05] MEDS: carvediloL 12.5 MG TAB PO SCH (08:31)
[2022-09-05] MEDS: PIOGLITAZONE 45 MG TAB PO SCH (08:32)
[2022-09-05] MEDS: DAPAGLIFLOZIN PROPANEDIOL 5 MG TABLET PO SCH (08:32)
[2022-09-05] MEDS: FUROSEMIDE 10 MG/ML 4 ML VIAL IV SCH (09:01)
[2022-09-05] MEDS: IPRATROPIUM-ALBUTEROL 3 ML NEB INHALATION SCH ×2 (09:09→11:29)
[2022-09-05] MEDS: SYMBICORT 160-4.5 MCG INHALER INHALATION SCH (09:09)
[2022-09-05 11:27] LABS: Glucose,Whole Blood 311 mg/dL (70-110)
--- NOTE | 2022-09-05 13:40 | PN ---
PROGRESS NOTE SUBJECTIVE: The patient came in with acute hypoxemic respiratory distress, congestive heart failure, COPD. She had a CTA which showed no PE, shows emphysema, right upper lobe lung consolidation for pneumonia, possible aspiration pneumonia. She has pulmonary artery hypertension. She has to continue current treatment. She has a 9-mm nodular density in the right upper lobe. OBJECTIVE: CARDIOVASCULAR: S1, S2. LUNGS: Clear. GI: Soft. HEMATOLOGY: Negative for Homans. PSYCH: Fair mood and affect. She is on 4 L oxygen, sat 100%. Remains on IV steroids, IV Lasix. Sugars in the mid 100s to 200s. White count 7.5, hemoglobin 12.7. Prognosis guarded. Possible discharge home in next 24 hours depending on patient's improvement. MMODL / IJN: [id number] /
[2022-09-05 14:49] VITALS: BP 120/60; PULSE 89
[2022-09-05] MEDS ORDERED: methylPREDNISolone SOD SUCCI 40 MG/ML 1 ML VIAL IV SCH (16:00)
[2022-09-06] MEDS ORDERED: NON FORMULARY DRUG (Alendronate Sodium [Fosamax] 70 MG Tablet) PO SCH (18:45)
--- NOTE | 2022-09-11 10:27 | CDI ---
Documentation Clarification Form Date: 09/11/2022 09:56:26 AM From: Jolie Jones RN CCDS Phone: [phone] Admit Date: 09/02/2022 06:35:00 PM Patient Name: Ele Del Cid Visit Number: [id number] Discharge Date: 09/05/2022 03:56:00 PM ATTENTION: The Clinical Documentation Specialists (CDI) and [facility] Coding Staff appreciate your assistance in clarifying documentation. Please respond to the clarification below the line at the bottom and electronically sign. The CDI & [facility] Coding staff will review the response and follow-up if needed. Please note: Queries are made part of the Legal Health Record. If you have any questions, please contact the author of this message via ITS. Dr. Domenic Garza Your patient has the documented diagnosis of unspecified CHF 09/05, Medicine note. Additional information regarding the type, acuity of CHF is requested. History/Risk Factors: 66-year-old Female presents with worsening of her shortness of breath. Medical History: COPD; Asthma, Heart Failure and HTN. 09/02, H&P Clinical Indicators: VS/Pulse OX: 08/23 B/P 145/70; HR 101; RR 24; SpO2 99% room air BNP: 09/11 303 Echocardiogram Results: 03/25/2022 Normal left ventricular EF 55%, Mild mitral and tricuspid regurgitation. Chest X Ray:09/02 Mild pulmonary vascular congestion. COPD changes. Treatment: 09/02 Coreg 12.5mg PO BID; 09/03 Lasix 40mg PO Daily x 1; 09/03 Lasix 40mg IV Q12HR; 09/03 Aldactone 25mg PO Daily In your professional opinion, can you please clarify the acuity and type of CHF if known? [ ] Acute on Chronic Diastolic Heart Failure (preserved EF) [ ] Other, please specify [ ] Unable to determine (Template Last Revised: April 2020) MTDD
--- NOTE | 2022-09-16 14:05 | PN ---
PROGRESS NOTE Acute on chronic diastolic heart failure. MMODL / IJN: [id number] /
== END 2022-09-05 15:56 | disposition home or self-care (01) | DRG 177 ==
LOC: EC 15:13 → 5NMEDONC 18:35
PROVIDERS: ADMIT Family Medicine; ATTEND Family Medicine
DX: J69.0 Pneumonitis due to inhalation of food and vomit (principal); I50.33 Acute on chronic diastolic (congestive) heart failure; J96.01 Acute respiratory failure with hypoxia; J43.2 Centrilobular emphysema; I27.21 Secondary pulmonary arterial hypertension; I11.0 Hypertensive heart disease with heart failure; E11.9 Type 2 diabetes mellitus without complications; E78.5 Hyperlipidemia, unspecified; R00.0 Tachycardia, unspecified; E87.6 Hypokalemia; R79.89 Other specified abnormal findings of blood chemistry; R91.1 Solitary pulmonary nodule; Z99.81 Dependence on supplemental oxygen; Z87.891 Personal history of nicotine dependence; Z28.311 Partially vaccinated for COVID-19; Z79.899 Other long term (current) drug therapy; Z79.84 Long term (current) use of oral hypoglycemic drugs; Z79.83 Long term (current) use of bisphosphonates; Z79.51 Long term (current) use of inhaled steroids; Z79.82 Long term (current) use of aspirin; Z85.42 Personal history of malignant neoplasm of other parts of uterus; I25.2 Old myocardial infarction; Z85.43 Personal history of malignant neoplasm of ovary; Z95.810 Presence of automatic (implantable) cardiac defibrillator; Z87.01 Personal history of pneumonia (recurrent)
CPT/HCPCS: 36415; 71046; 71275; 80053; 83605; 83735; 83880; 84484; 85025; 85379; 85610; 85730; 87636; 93005; 94640; 94760; 99285

== ENCOUNTER 2022-09-19 23:40 | Inpatient (IN) | payer MEDICARE ==
[2022-09-19] MEDS ORDERED: IPRATROPIUM-ALBUTEROL 3 ML NEB INHALATION STA (23:42)
[2022-09-19] MEDS ORDERED: methylPREDNISolone SOD SUCCI 125 MG/2 ML VIAL IV STA (23:42)
[2022-09-19] MEDS ORDERED: SODIUM CHLORIDE 0.9% 1,000 ML IV STA (23:42)
--- NOTE | 2022-09-20 00:06 | XR ---
EXAMINATION TYPE: XR chest 1V portable DATE OF EXAM: 09/19/2022 COMPARISON: 09/02/2022 INDICATION: Short of breath TECHNIQUE: Single frontal view of the chest is obtained. FINDINGS: The heart size is normal. Pacemaker overlies left chest. There appears to be a mild infiltrate in the left upper lung field. Correlate for pneumonia. Hyperinflation is present. Consider COPD The pulmonary vasculature is normal. IMPRESSION: 1. Umbilical correlation recommended for COPD. 2. Early pneumonia may be in the left upper lung field. Follow-up is recommended.
[2022-09-20 00:08] LABS: ALT 26 U/L (4-34); AST 28 U/L (14-36); African American GFR (CKD) 63 (>60 ml/min/1.73 sqM); Albumin 3.8 g/dL (3.5-5.0); Alkaline Phosphatase 132 U/L (38-126); Anion Gap 10 mmol/L; Blood Urea Nitrogen 20 mg/dL (7-17); Calcium 9.2 mg/dL (8.4-10.2); Carbon Dioxide 30 mmol/L (22-30); Chloride 97 mmol/L (98-107); Glucose 119 mg/dL (74-99); Magnesium 1.9 mg/dL (1.6-2.3); Non-African American GFR(CKD) 55 (>60 ml/min/1.73 sqM); Potassium 3.7 mmol/L (3.5-5.1); Sodium 137 mmol/L (137-145); Total Protein 7.3 g/dL (6.3-8.2)
[2022-09-20 00:20] LABS: INR 1.3 (<1.2); Partial Thromboplastin Time 23.8 sec (22.0-30.0); Prothrombin Time 12.9 sec (9.0-12.0)
[2022-09-20 00:28] LABS: Basophils % (A) 0 %; Eosinophils # (A) 0.2 k/uL (0-0.7); Eosinophils % (A) 2 %; HCT 39.5 % (34.0-46.0); HGB 12.9 gm/dL (11.4-16.0); Lymphocytes # (A) 1.9 k/uL (1.0-4.8); Lymphocytes % (A) 18 %; MCH 31.4 pg (25.0-35.0); MCHC 32.6 g/dL (31.0-37.0); MCV 96.3 fL (80.0-100.0); Mean Platelet Volume 7.8; Monocytes # (A) 0.5 k/uL (0-1.0); Monocytes % (A) 5 %; Neutrophils # (A) 7.8 k/uL (1.3-7.7); Neutrophils % (A) 74 %; Platelet Count 306 k/uL (150-450); RBC 4.11 m/uL (3.80-5.40); RDW 12.8 % (11.5-15.5); WBC 10.6 k/uL (3.8-10.6)
--- NOTE | 2022-09-20 00:35 | ED ---
SOB HPI - General Chief Complaint: Shortness of Breath Stated Complaint: Difficulty breathing Time Seen by Provider: 09/19/22 23:42 Source: patient, RN notes reviewed, old records reviewed Mode of arrival: EMS Limitations: no limitations - History of Present Illness Initial Comments: This is a 62-year-old female DF for evaluation patient Dese for evaluation regards to severe shortness of breath presenting on BiPAP. Persistent shortness of breath without chest pain here in the emergency department on BiPAP and more comfortable. Unable to provide history secondary to medical clinical condition. History obtained by family. MD Complaint: shortness of breath, cough, chest pain, pain with inspiration -: days(s) Severity: severe Severity scale (1-10): 10 Quality: dull Consistency: constant Improves With: nothing Worsens With: nothing Known History Of: COPD, asthma Context: recent URI, recent illness Associated Symptoms: cough, sputum production, parasthesias, palpitations Treatments Prior to Arrival: oxygen, NIPPV - Related Data Home Medications Medication Instructions Recorded Confirmed Spironolactone [Aldactone] 25 mg PO DAILY 12/24/16 09/02/22 Furosemide [Lasix] 40 mg PO DAILY 06/09/18 09/02/22 Montelukast Sodium [Singulair] 10 mg PO HS 12/10/19 09/02/22 Atorvastatin [Lipitor] 40 mg PO HS 06/13/21 09/02/22 Alendronate Sodium [Fosamax] 70 mg PO COOMBS 11/07/21 09/02/22 Fluticasone/Umeclidin/Vilanter 1 puff INHALATION RT-DAILY 11/07/21 09/02/22 [Trelegy Ellipta 200-62.5-25] carvediloL [Coreg*] 12.5 mg PO BID 11/07/21 09/02/22 Empagliflozin [Jardiance] 10 mg PO DAILY 03/24/22 09/02/22 Ipratropium-Albuterol Nebulize 3 ml INHALATION RT-QID PRN 03/24/22 09/02/22 [Duoneb 0.5 mg-3 mg/3 ml Soln] glipiZIDE XL [Glucotrol XL] 2.5 mg PO AC-BID 09/02/22 09/02/22 Previous Rx's Medication Instructions Recorded Aspirin 81 mg PO DAILY chew 02/15/18 Pioglitazone [Actos] 45 mg PO DAILY tab 02/15/18 Allergies Allergy/AdvReac Type Severity Reaction Status Date / Time No Known Allergies Allergy Verified 09/19/22 23:44 Review of Systems ROS Statement: Those systems with pertinent positive or pertinent negative responses have been documented in the HPI. ROS Other: All systems not noted in ROS Statement are negative. Past Medical History Past Medical History: Asthma, Cancer, Chest Pain / Angina, Heart Failure, COPD, Diabetes Mellitus, Hyperlipidemia, Hypertension, Pneumonia, Renal Disease Additional Past Medical History / Comment(s): Tracheobronchitis, asthmatic bronchitis, uterine cancer with hysterectomy, 2001 ovarian cancer, non-STEMI History of Any Multi-Drug Resistant Organisms: None Reported Past Surgical History: AICD, Hysterectomy, Orthopedic Surgery, Tonsillectomy Additional Past Surgical History / Comment(s): RT KNEE ARTHROSCOPY, PARTIAL HYSTERECTOMY, LISA CTR. BI-V ICD, [facility]T, COLONOSCOPY WITH BENING POLYPECTOMY. Past Anesthesia/Blood Transfusion Reactions: No Reported Reaction Additional Past Anesthesia/Blood Transfusion Reaction / Comment(s): no history of blood transfusion Type of Cardiac Device: AICD Device Placement Date:: 10/28/15 Past Psychological History: No Psychological Hx Reported Smoking Status: Former smoker Past Alcohol Use History: None Reported Past Drug Use History: None Reported - Past Family History Mother Family Medical History: Cancer Additional Family Medical History / Comment(s): Mother is alive at 89 years old with no major medical problems. BREAST CA Father Family Medical History: Hypertension, Myocardial Infarction ([place]) Additional Family Medical History / Comment(s): [place] @ AGE 48 General Exam Limitations: no limitations General appearance: alert, anxious, lethargic, in distress Head exam: Present: atraumatic, normocephalic, normal inspection Eye exam: Present: normal appearance, PERRL, EOMI. Absent: scleral icterus, conjunctival injection, periorbital swelling ENT exam: Present: normal exam, mucous membranes moist Neck exam: Present: normal inspection. Absent: tenderness, meningismus, lymphadenopathy Respiratory exam: Present: normal lung sounds bilaterally. Absent: respiratory distress, wheezes, rales, rhonchi, stridor Cardiovascular Exam: Present: normal rhythm, tachycardia, normal heart sounds. Absent: systolic murmur, diastolic murmur, rubs, gallop, clicks GI/Abdominal exam: Present: soft, normal bowel sounds. Absent: distended, t enderness, guarding, rebound, rigid Extremities exam: Present: normal inspection, full ROM, normal capillary refill. Absent: tenderness, pedal edema, joint swelling, calf tenderness Back exam: Present: normal inspection Neurological exam: Present: alert, oriented X3, CN II-XII intact Psychiatric exam: Present: normal affect, normal mood Skin exam: Present: warm, dry, intact, normal color. Absent: rash Course Vital Signs 09/19/22 09/19/22 09/20/22 23:45 23:50 00:04 Pulse Rate 103 H 103 H Respiratory 16 Rate Blood Pressure 146/92 O2 Sat by Pulse 99 Oximetry Fraction of 50 Inspired Oxygen (FIO2) 09/20/22 09/20/22 00:26 01:54 Pulse Rate 97 91 Respiratory 16 Rate Blood Pressure 111/68 O2 Sat by Pulse 98 Oximetry Fraction of Inspired Oxygen (FIO2) - Reevaluation(s) Reevaluation #1: 09/20/22 02:24 Medical record is reviewed Reevaluation #2: 09/20/22 02:24 Patient symptoms are unchanged Reevaluation #3: 09/20/22 02:24 Patient informed results questions answered Reevaluation #4: 09/20/22 02:24 Was pt. sent in by a medical professional or institution? @ -no Did you speak to anyone other than the patient for history? @ -no Did you review nursing and triage notes? @ -agree Were old charts reviewed? @ -yes Differential Diagnosis? @ -prior EKG interpreted by me (3pts min.)? @ -yes X-rays interpreted by me (1pt min.)? @ -yes CT interpreted by me (1pt min.)? @ -no U/S interpreted by me (1pt. min.)? @ -no What testing was considered but not performed? (CT, X-rays, U/S, labs)? Why? @ -no What meds were considered but not given? Why? @ -no Did you discuss the management of the patient with other professionals? @ -no Did you reconcile home meds? @ -no Was smoking cessation discussed for >3mins.? @ -no Was critical care preformed (if so, how long)? @ -no Were there social determinants of health that impacted care today? How? (Homelessness, low income, unemployed, alcoholism, drug addiction, trans portation, low edu. Level, literacy, decrease access to med. care, skilled nursing, rehab)? @ -no Was there de-escalation of care discussed even if they declined? (Discuss DNR or withdrawal of care, Hospice)? @ -no What co-morbidities impacted this encounter? (DM, HTN, Smoking, COPD, CAD, Cancer, CVA, Hep., AIDS, mental health diagnosis, sleep apnea, morbid obesity)? @ -none Was patient admitted / discharged? @ - Undiagnosed new problem with uncertain prognosis? @ -no Drug Therapy requiring intensive monitoring for toxicity (Heparin, Nitro, Insulin, Cardizem)? @ -no Were any procedures done? @ -no Diagnosis/symptom? @ - Acute, or Chronic, or Acute on Chronic? @ -acute Uncomplicated (without systemic symptoms) or Complicated (systemic symptoms)? @ -complicated Side effects of treatment? @ -no Exacerbation, Progression, or Severe Exacerbation] @ -no Poses a threat to life or bodily function? @ -yes Reevaluation #5: 09/20/22 02:24 Differential Dyspnea: Coronary syndrome, arrhythmia, tamponade, asthma, COPD, pulmonary embolism, pneumonia, pneumothorax, pulmonary effusion, anaphylaxis, diabetic ketoacidosis, flailed chest, pulmonary contusion, diaphragmatic rupture, anemia, neuromuscular, this is not meant to be an all-inclusive list. - Consultations Consultation #1: Spoke with admitting physicians who agree to admit this patient Medical Decision Making - Medical Decision Making 66 female DF for evaluation patient Dese for evaluation regards to severe shortness of breath. Patient will be admitted for respiratory failure on BiPAP secondary to hypoxia - Lab Data Result diagrams: 09/19/22 23:52 09/19/22 23:52 Lab Results 09/19/22 09/19/22 09/19/22 Range/Units 23:52 23:52 23:52 WBC 10.6 (3.8-10.6) k/uL RBC 4.11 (3.80-5.40) m/uL Hgb 12.9 (11.4-16.0) gm/dL Hct 39.5 (34.0-46.0) % MCV 96.3 (80.0-100.0) fL MCH 31.4 (25.0-35.0) pg MCHC 32.6 (31.0-37.0) g/dL RDW 12.8 (11.5-15.5) % Plt Count 306 (150-450) k/uL MPV 7.8 Neutrophils % 74 % Lymphocytes % 18 % Monocytes % 5 % Eosinophils % 2 % Basophils % 0 % Neutrophils # 7.8 H (1.3-7.7) k/uL Lymphocytes # 1.9 (1.0-4.8) k/uL Monocytes # 0.5 (0-1.0) k/uL Eosinophils # 0.2 (0-0.7) k/uL Basophils # 0.0 (0-0.2) k/uL PT 12.9 H (9.0-12.0) sec INR 1.3 H (<1.2) APTT 23.8 (22.0-30.0) sec Sodium 137 (137-145) mmol/L Potassium 3.7 (3.5-5.1) mmol/L Chloride 97 L (98-107) mmol/L Carbon Dioxide 30 (22-30) mmol/L Anion Gap 10 mmol/L BUN 20 H (7-17) mg/dL Creatinine 1.07 H (0.52-1.04) mg/dL Est GFR (CKD-EPI)AfAm 63 (>60 ml/min/1.73 sqM) Est GFR (CKD-EPI)NonAf 55 (>60 ml/min/1.73 sqM) Glucose 119 H (74-99) mg/dL Plasma Lactic Acid Ari (0.7-2.0) mmol/L Calcium 9.2 (8.4-10.2) mg/dL Magnesium 1.9 (1.6-2.3) mg/dL Total Bilirubin 1.0 (0.2-1.3) mg/dL AST 28 (14-36) U/L ALT 26 (4-34) U/L Alkaline Phosphatase 132 H (38-126) U/L Troponin I (0.000-0.034) ng/mL NT-Pro-B Natriuret Pep pg/mL Total Protein 7.3 (6.3-8.2) g/dL Albumin 3.8 (3.5-5.0) g/dL 09/19/22 09/19/22 09/19/22 Range/Units 23:52 23:52 23:52 WBC (3.8-10.6) k/uL RBC (3.80-5.40) m/uL Hgb (11.4-16.0) gm/dL Hct (34.0-46.0) % MCV (80.0-100.0) fL MCH (25.0-35.0) pg MCHC (31.0-37.0) g/dL RDW (11.5-15.5) % Plt Count (150-450) k/uL MPV Neutrophils % % Lymphocytes % % Monocytes % % Eosinophils % % Basophils % % Neutrophils # (1.3-7.7) k/uL Lymphocytes # (1.0-4.8) k/uL Monocytes # (0-1.0) k/uL Eosinophils # (0-0.7) k/uL Basophils # (0-0.2) k/uL PT (9.0-12.0) sec INR (<1.2) APTT (22.0-30.0) sec Sodium (137-145) mmol/L Potassium (3.5-5.1) mmol/L Chloride (98-107) mmol/L Carbon Dioxide (22-30) mmol/L Anion Gap mmol/L BUN (7-17) mg/dL Creatinine (0.52-1.04) mg/dL Est GFR (CKD-EPI)AfAm (>60 ml/min/1.73 sqM) Est GFR (CKD-EPI)NonAf (>60 ml/min/1.73 sqM) Glucose (74-99) mg/dL Plasma Lactic Acid Ari 0.9 (0.7-2.0) mmol/L Calcium (8.4-10.2) mg/dL Magnesium (1.6-2.3) mg/dL Total Bilirubin (0.2-1.3) mg/dL AST (14-36) U/L ALT (4-34) U/L Alkaline Phosphatase (38-126) U/L Troponin I <0.012 (0.000-0.034) ng/mL NT-Pro-B Natriuret Pep 204 pg/mL Total Protein (6.3-8.2) g/dL Albumin (3.5-5.0) g/dL - EKG Data -: EKG Interpreted by Me (EKG paced 99 DC 1:30 QRS 150 QTC 434) - Radiology Data Radiology results: report reviewed (Chest x-ray shows COPD possible early pneumonia), image reviewed Disposition Clinical Impression: Dyspnea, Acute renal failure, COPD with acute exacerbation, Acute exacerbation of chronic obstructive airways disease, Acute respiratory distress syndrome in adult, Acute respiratory failure, Hypoxia, Pneumonia Disposition: ADMITTED IP TO THIS HOSP Condition: Serious Is patient prescribed a controlled substance at d/c from ED?: No Time of Disposition: 01:20
[2022-09-20] MEDS ORDERED: NALOXONE 0.4 MG/ML 1 ML VIAL IV PRN (01:14)
[2022-09-20] MEDS ORDERED: MORPHINE SULFATE 4 MG/ML SYRINGE IV PRN (01:14)
[2022-09-20] MEDS ORDERED: IPRATROPIUM-ALBUTEROL 3 ML NEB INHALATION STA (01:14)
[2022-09-20] MEDS ORDERED: ONDANSETRON 4 MG/2 ML VIAL IVP PRN (01:14)
[2022-09-20] MEDS: SODIUM CHLORIDE 0.9% 1,000 ML IV SCH ×3 (01:49→19:59)
[2022-09-20] MEDS: LEVOFLOXACIN 750MG-D5W PMX 750 MG in DEXTROSE/WATER 1 150ML.BAG IVPB SCH (03:33)
[2022-09-20 06:14] LABS: Glucose,Whole Blood 149 mg/dL (70-110)
[2022-09-20] MEDS ORDERED: ALBUTEROL NEBULIZED 1.25 MG/3 ML INHALATION SCH (08:00)
[2022-09-20] MEDS: methylPREDNISolone SOD SUCCI 125 MG/2 ML VIAL IV SCH ×3 (08:47→23:34)
[2022-09-20] MEDS: ALBUTEROL NEBULIZED 2.5 MG/3 ML INHALATION SCH ×4 (09:27→20:23)
[2022-09-20] MEDS ORDERED: NON FORMULARY DRUG (Alendronate Sodium [Fosamax] 70 MG Tablet) PO SCH (10:00)
[2022-09-20] MEDS: carvediloL 12.5 MG TAB PO SCH ×2 (11:04→16:55)
[2022-09-20] MEDS: FUROSEMIDE 40 MG TAB PO SCH (11:04)
[2022-09-20] MEDS: PIOGLITAZONE 45 MG TAB PO SCH (11:04)
[2022-09-20] MEDS: ASPIRIN 81 MG PO SCH (11:04)
[2022-09-20] MEDS: SPIRONOLACTONE 25 MG TAB PO SCH (11:04)
[2022-09-20 11:37] LABS: Glucose,Whole Blood 206 mg/dL (70-110)
[2022-09-20] MEDS: INSULIN ASPART (NovoLOG) 100 UNIT/ML VIAL SQ SCH ×3 (11:39→20:20)
[2022-09-20] MEDS: IPRATROPIUM 0.5 MG/2.5 ML NEBU INHALATION SCH ×3 (12:52→20:23)
[2022-09-20 16:22] LABS: Glucose,Whole Blood 203 mg/dL (70-110)
[2022-09-20] MEDS: guaiFENesin 600 MG TABLET.ER PO SCH (19:58)
[2022-09-20 20:09] LABS: Glucose,Whole Blood 214 mg/dL (70-110)
[2022-09-20] MEDS: IPRATROPIUM-ALBUTEROL 3 ML NEB INHALATION PRN (20:24)
[2022-09-20] MEDS: SYMBICORT 80-4.5 MCG INHALER INHALATION SCH (20:24)
[2022-09-20] MEDS ORDERED: ATORVASTATIN 40 MG TAB PO SCH (21:00)
[2022-09-20] MEDS ORDERED: MONTELUKAST 10 MG TAB PO SCH (21:00)
--- NOTE | 2022-09-20 21:15 | HP ---
HISTORY AND PHYSICAL HISTORY OF PRESENT ILLNESS: A 66-year-old white female admitted for COPD exacerbation; oxygen dropped in the 70s, in the ambulance it was up to 86 on 2 L. They gave her BiPAP treatment and now she is back to normal. She is breathing comfortably on 2 L in the hospital. I ordered Mucinex for mucus thickening. She also takes breathing treatments at home. She pulmonary fibrosis, diastolic heart failure, etc. MEDICINES: Reviewed. REVIEW OF SYSTEMS: A 14-point review of systems reviewed and negative except for shortness of breath, cough, congestion. ALLERGIES: Reviewed. PAST MEDICAL HISTORY: Asthma, cancer, chest pain, angina, heart failure, COPD, diabetes mellitus, dyslipidemia, hypertension, renal disease, pneumonia. Cancer with hysterectomy, ovarian cancer, non STEMI, AICD. PAST SURGICAL HISTORY: Hysterectomy, orthopedic surgery, tonsillectomy, bilateral carpal tunnel replacement, stage II colonoscopy with benign polypectomy. PHYSICAL EXAMINATION: VITAL SIGNS: Pulse is 103, blood pressure , respiratory rate 18. CARDIOVASCULAR: S1, S2. LUNGS: Scattered rhonchi and wheeze. HEMATOLOGY: Negative Homans. PSYCH: Fair mood and affect. at this time. SKIN: Warm, dry, intact. NECK: Supple. No mass. HEENT: Normocephalic, atraumatic. ASSESSMENT AND PLAN: Chronic obstructive pulmonary disease exacerbation, possible mucus plug, acute on chronic hypoxemic respiratory distress, mild dehydration. Plan admitted to the hospital. Rehydrate her and get her on steroids, Mucinex, etc. Updraft treatments. Start her on some bronchodilators and antibiotics. Prognosis guarded. Pulmonary consult. MMODL / IJN: [id number] /
--- NOTE | 2022-09-20 22:52 | P.CONS ---
History of Present Illness - Reason for Consult Consult date: 09/20/22 - History of Present Illness Patient is a 66-year-old female with a past medical history significant for diabetes mellitus hypertension hyperlipidemia COPD history of ovarian cancer patient has been brought into the ER for evaluation of hypoxemia and shortness of breath patient symptoms started the day of presentation to the hospital patient denies significant URI symptoms has been complaining of cough which has been mild to moderate intensity the patient sputum no hemoptysis no pleuritic chest pain patient denies any nausea or vomiting or choking of food no abdominal pain or diarrhea on presentation to hospital patient was afebrile no fever Recorded subsequently patient was hypoxic requiring BiPAP currently on 2 L nasal cannula oxygen patient did have a normal white count with a left shift BUN and creatinine has been mildly elevated liver enzymes are normal NT-proBNP was 204 patient did have a chest x-ray reported early pneumonia may be in the left upper lung patient was started on Rocephin and Levaquin infectious disease was consulted for further management of antibiotic therapy Past Medical History Past Medical History: Asthma, Cancer, Chest Pain / Angina, Heart Failure, COPD, Diabetes Mellitus, Hyperlipidemia, Hypertension, Pneumonia, Renal Disease Additional Past Medical History / Comment(s): Tracheobronchitis, asthmatic bronchitis, uterine cancer with hysterectomy, 2001 ovarian cancer, non-STEMI History of Any Multi-Drug Resistant Organisms: None Reported Past Surgical History: AICD, Hysterectomy, Orthopedic Surgery, Tonsillectomy Additional Past Surgical History / Comment(s): RT KNEE ARTHROSCOPY, PARTIAL HYSTERECTOMY, LISA CTR. BI-V ICD, [facility] KURT, COLONOSCOPY WITH BENING POLYPECTOMY. Past Anesthesia/Blood Transfusion Reactions: No Reported Reaction Additional Past Anesthesia/Blood Transfusion Reaction / Comm: no history of blood transfusion Type of Cardiac Device: AICD Device Placement Date:: 10/28/15 Past Psychological History: No Psychological Hx Reported Additional Psychological History / Comment(s): pt is independant,lives with spouse. has nebulizer and glucometer. Smoking Status: Former smoker Past Alcohol Use History: None Reported Additional Past Alcohol Use History / Comment(s): PATIENT WAS A SMOKER OF 03/25- 03/23 PPD FOR ~50 YEARS AND QUIT 2021 Past Drug Use History: None Reported - Past Family History Mother Family Medical History: Cancer Additional Family Medical History / Comment(s): Mother is alive at 89 years old with no major medical problems. BREAST CA Father Family Medical History: Hypertension, Myocardial Infarction ([place]) Additional Family Medical History / Comment(s): [place] @ AGE 48 Medications and Allergies Home Medications Medication Instructions Recorded Confirmed Type Spironolactone [Aldactone] 25 mg PO DAILY 12/24/16 09/20/22 History Aspirin 81 mg PO DAILY chew 02/15/18 09/20/22 Rx Pioglitazone [Actos] 45 mg PO DAILY tab 02/15/18 09/20/22 Rx Furosemide [Lasix] 40 mg PO DAILY 06/09/18 09/20/22 History Montelukast Sodium [Singulair] 10 mg PO HS 12/10/19 09/20/22 History Atorvastatin [Lipitor] 40 mg PO HS 06/13/21 09/20/22 History Alendronate Sodium [Fosamax] 70 mg PO COOMBS 11/07/21 09/20/22 History Fluticasone/Umeclidin/Vilanter 1 puff INHALATION RT-DAILY 11/07/21 09/20/22 History [Trelegy Ellipta 200-62.5-25] carvediloL [Coreg*] 12.5 mg PO BID 11/07/21 09/20/22 History Empagliflozin [Jardiance] 25 mg PO DAILY 03/24/22 09/20/22 History Ipratropium-Albuterol Nebulize 3 ml INHALATION RT-QID PRN 03/24/22 09/20/22 History [Duoneb 0.5 mg-3 mg/3 ml Soln] glipiZIDE XL [Glucotrol XL] 2.5 mg PO AC-BID 09/02/22 09/20/22 History Allergies Allergy/AdvReac Type Severity Reaction Status Date / Time No Known Allergies Allergy Verified 09/20/22 10:24 Physical Exam Vitals: Vital Signs Temp Pulse Pulse Resp BP BP Pulse Ox 09/20/22 13:04 86 09/20/22 12:52 84 09/20/22 11:05 95 18 132/76 95 09/20/22 09:45 98 09/20/22 09:28 97 93 L 09/20/22 08:45 98.5 F 92 19 122/66 93 L 09/20/22 03:30 97.9 F 96 24 116/68 90 L 09/20/22 02:49 98 09/20/22 02:43 97 09/20/22 02:30 99 09/20/22 01:54 91 16 111/68 98 09/20/22 00:26 97 09/20/22 00:04 103 H 09/19/22 23:50 09/19/22 23:45 103 H 16 146/92 99 FiO2 09/20/22 13:04 09/20/22 12:52 09/20/22 11:05 09/20/22 09:45 09/20/22 09:28 09/20/22 08:45 09/20/22 03:30 09/20/22 02:49 09/20/22 02:43 09/20/22 02:30 09/20/22 01:54 09/20/22 00:26 09/20/22 00:04 09/19/22 23:50 50 09/19/22 23:45 Intake and Output 09/20/22 09/20/22 09/20/22 06:59 14:59 22:59 Intake Total 390 180 Balance 390 180 Intake: Intake, IV Titration 150 Amount Levofloxacin 750Mg-D5w 150 Pmx 750 mg In Dextrose/ Water 1 150ml.bag @ 100 mls/hr IVPB Q24H [facility] Rx#: [id number] Oral 240 180 Other: Voiding Method Toilet Toilet Bedside Commode Bedside Commode # Voids 1 Weight 68.039 kg Results CBC & Chem 7: 09/19/22 23:52 09/19/22 23:52 Labs: Abnormal Lab Results - Last 24 Hours (Table) 09/19/22 09/19/22 09/19/22 Range/Units 23:52 23:52 23:52 Neutrophils # 7.8 H (1.3-7.7) k/uL PT 12.9 H (9.0-12.0) sec INR 1.3 H (<1.2) Chloride 97 L (98-107) mmol/L BUN 20 H (7-17) mg/dL Creatinine 1.07 H (0.52-1.04) mg/dL Glucose 119 H (74-99) mg/dL POC Glucose (mg/dL) (70-110) mg/dL Alkaline Phosphatase 132 H (38-126) U/L 09/20/22 09/20/22 Range/Units 06:13 11:35 Neutrophils # (1.3-7.7) k/uL PT (9.0-12.0) sec INR (<1.2) Chloride (98-107) mmol/L BUN (7-17) mg/dL Creatinine (0.52-1.04) mg/dL Glucose (74-99) mg/dL POC Glucose (mg/dL) 149 H 206 H (70-110) mg/dL Alkaline Phosphatase (38-126) U/L Assessment and Plan Plan: 1patient was in the hospital with negative shortness of breath which is likely multifactorial patient did have a cough sputum with chest x-ray left upper lobe infiltrate concerning for pneumonia possibly community-acquired 2-we will check a sputum for Gram stain and culture check a CRP and a procalcitonin 3-continue Rocephin while waiting for the culture to finalize We will follow on clinical condition and cultures to further adjust medication if needed Thank you for this consultation we will follow the patient along with you Time with Patient: Greater than 30
[2022-09-21] MEDS: LEVOFLOXACIN 750MG-D5W PMX 750 MG in DEXTROSE/WATER 1 150ML.BAG IVPB SCH (02:41)
[2022-09-21] MEDS: SODIUM CHLORIDE 0.9% 1,000 ML IV SCH (02:41)
[2022-09-21 06:00] LABS: Glucose,Whole Blood 187 mg/dL (70-110)
[2022-09-21] MEDS: INSULIN ASPART (NovoLOG) 100 UNIT/ML VIAL SQ SCH ×3 (06:30→16:17)
[2022-09-21] MEDS: carvediloL 12.5 MG TAB PO SCH ×2 (06:30→16:17)
[2022-09-21] MEDS: methylPREDNISolone SOD SUCCI 125 MG/2 ML VIAL IV SCH ×2 (08:14→15:07)
[2022-09-21] MEDS: guaiFENesin 600 MG TABLET.ER PO SCH (08:14)
[2022-09-21] MEDS: ASPIRIN 81 MG PO SCH (08:14)
[2022-09-21] MEDS: PIOGLITAZONE 45 MG TAB PO SCH (08:14)
[2022-09-21] MEDS: SPIRONOLACTONE 25 MG TAB PO SCH (08:14)
[2022-09-21] MEDS: FUROSEMIDE 40 MG TAB PO SCH (08:14)
[2022-09-21 08:29] LABS: Basophils % (A) 0 %; Eosinophils % (A) 0 %; HCT 34.4 % (34.0-46.0); HGB 10.9 gm/dL (11.4-16.0); Lymphocytes # (A) 0.7 k/uL (1.0-4.8); Lymphocytes % (A) 5 %; MCH 30.8 pg (25.0-35.0); MCHC 31.7 g/dL (31.0-37.0); Mean Platelet Volume 7.9; Monocytes # (A) 0.3 k/uL (0-1.0); Monocytes % (A) 2 %; Neutrophils # (A) 13.8 k/uL (1.3-7.7); Neutrophils % (A) 93 %; Platelet Count 278 k/uL (150-450); RBC 3.54 m/uL (3.80-5.40); RDW 13.2 % (11.5-15.5); WBC 14.9 k/uL (3.8-10.6)
[2022-09-21] MEDS ORDERED: DAPAGLIFLOZIN PROPANEDIOL 10 MG TABLET PO SCH (09:00)
[2022-09-21 09:02] LABS: ALT 23 U/L (4-34); AST 23 U/L (14-36); African American GFR (CKD) 69 (>60 ml/min/1.73 sqM); Albumin 3.3 g/dL (3.5-5.0); Alkaline Phosphatase 105 U/L (38-126); Anion Gap 11 mmol/L; Blood Urea Nitrogen 26 mg/dL (7-17); Calcium 8.9 mg/dL (8.4-10.2); Carbon Dioxide 24 mmol/L (22-30); Chloride 104 mmol/L (98-107); Glucose 164 mg/dL (74-99); Non-African American GFR(CKD) 60 (>60 ml/min/1.73 sqM); Phosphorus 3.1 mg/dL (2.5-4.5); Potassium 4.1 mmol/L (3.5-5.1); Sodium 139 mmol/L (137-145); Total Bilirubin 0.4 mg/dL (0.2-1.3); Total Protein 6.2 g/dL (6.3-8.2)
[2022-09-21] MEDS: SYMBICORT 80-4.5 MCG INHALER INHALATION SCH ×2 (09:14→16:45)
[2022-09-21] MEDS: IPRATROPIUM-ALBUTEROL 3 ML NEB INHALATION PRN ×3 (09:14→16:35)
[2022-09-21] MEDS: ALBUTEROL NEBULIZED 2.5 MG/3 ML INHALATION SCH ×3 (09:15→16:35)
[2022-09-21] MEDS: IPRATROPIUM 0.5 MG/2.5 ML NEBU INHALATION SCH ×3 (09:15→16:35)
[2022-09-21 09:48] VITALS: TEMP 97.7
[2022-09-21 11:22] LABS: Glucose,Whole Blood 111 mg/dL (70-110)
[2022-09-21 15:07] VITALS: BP 138/67; RESP 17
[2022-09-21 16:06] LABS: Glucose,Whole Blood 225 mg/dL (70-110)
[2022-09-21 16:45] VITALS: PULSE 102
--- NOTE | 2022-09-21 18:47 | P.DS ---
Providers Date of admission: 09/20/22 01:14 Expected date of discharge: 09/21/22 Attending physician: Domenic Garza Consults: 09/20/22 01:14 Consult Physician Routine Consulting Provider: Khanh Valente Consult Reason/Comments: known Do you want consulting provider notified?: Yes 09/20/22 12:39 Consult Physician Routine Consulting Provider: Ana Cristina Carlton Consult Reason/Comments: pneumonia Do you want consulting provider notified?: Yes Primary care physician: Domenic Garza [facility] Course: Hospital course: I'm rounding for Dr. Domenic Garza. Patient admitted with COPD exacerbation. This afternoon feeling much better. Breathing much improved. His weight 2 L of oxygen at home during the daytime and 3 L at night. Currently minimal cough. Appetite is good. Denies any fever and chills. Keen to go home. Discussed with the patient. She feels she'll be much better at home as she is greatly improved. Patient be discharged with a short course of Ceftin and prednisone taper. Follow up with Dr. Garza. Discussion and discharge planning more than 35 minutes On exam: Vitals: Afebrile, 79, 16, 102/62, 95% on 2 L General appearance: Sitting up in a chair, comfortable Lungs: Decreased air entry. Cardiovascular first second sounds normal, no edema Psychiatry: AO 3, mood affect normal Assessment and plan: -Acute COPD exacerbation in a previous smoker -Acute bronchitis -Diabetes mellitus type 2, oral hypoglycemic -Hyperlipidemia -Essential hypertension Disposition: Home Plan - Discharge Summary Discharge Rx Participant: Yes New Discharge Prescriptions: New predniSONE 0 mg PO DIRECTED #10 tab cefUROXime axetiL [Ceftin] 500 mg PO BID #8 tab Continue Spironolactone [Aldactone] 25 mg PO DAILY Aspirin 81 mg PO DAILY chew Pioglitazone [Actos] 45 mg PO DAILY tab Furosemide [Lasix] 40 mg PO DAILY Montelukast Sodium [Singulair] 10 mg PO HS Alendronate Sodium [Fosamax] 70 mg PO COOMBS carvediloL [Coreg*] 12.5 mg PO BID glipiZIDE XL [Glucotrol XL] 2.5 mg PO AC-BID Atorvastatin [Lipitor] 40 mg PO HS Fluticasone/Umeclidin/Vilanter [Trelegy Ellipta 200-62.5-25] 1 puff INHALATION RT-DAILY Ipratropium-Albuterol Nebulize [Duoneb 0.5 mg-3 mg/3 ml Soln] 3 ml INHALATION RT-QID PRN PRN Reason: Shortness Of Breath Empagliflozin [Jardiance] 25 mg PO DAILY Discharge Medication List Spironolactone [Aldactone] 25 mg PO DAILY 12/24/16 [History] Aspirin 81 mg PO DAILY chew 02/15/18 [Rx] Pioglitazone [Actos] 45 mg PO DAILY tab 02/15/18 [Rx] Furosemide [Lasix] 40 mg PO DAILY 06/09/18 [History] Montelukast Sodium [Singulair] 10 mg PO HS 12/10/19 [History] Atorvastatin [Lipitor] 40 mg PO HS 06/13/21 [History] Alendronate Sodium [Fosamax] 70 mg PO COOMBS 11/07/21 [History] Fluticasone/Umeclidin/Vilanter [Trelegy Ellipta 200-62.5-25] 1 puff INHALATION RT-DAILY 11/07/21 [History] carvediloL [Coreg*] 12.5 mg PO BID 11/07/21 [History] Empagliflozin [Jardiance] 25 mg PO DAILY 03/24/22 [History] Ipratropium-Albuterol Nebulize [Duoneb 0.5 mg-3 mg/3 ml Soln] 3 ml INHALATION RT-QID PRN 03/24/22 [History] glipiZIDE XL [Glucotrol XL] 2.5 mg PO AC-BID 09/02/22 [History] cefUROXime axetiL [Ceftin] 500 mg PO BID #8 tab 09/21/22 [Rx] predniSONE 0 mg PO DIRECTED #10 tab 09/21/22 [Rx] Follow up Appointment(s)/Referral(s): Domenic Gazra MD [Primary Care Provider] - 1-2 days Khanh Valente MD [STAFF PHYSICIAN] - 1 Week (Call office to make follow up appointment) Patient Instructions/Handouts: COPD (Chronic Obstructive Pulmonary Disease) (DC) Discharge Disposition: HOME SELF-CARE
== END 2022-09-21 18:36 | disposition home or self-care (01) | DRG 190 ==
LOC: EC 23:40 → 3SCARD 09-20 01:14
PROVIDERS: ADMIT Family Medicine; ATTEND Family Medicine
DX: J44.0 Chronic obstructive pulmonary disease with (acute) lower respiratory infection (principal); J18.9 Pneumonia, unspecified organism; I50.30 Unspecified diastolic (congestive) heart failure; I11.0 Hypertensive heart disease with heart failure; J20.9 Acute bronchitis, unspecified; E78.5 Hyperlipidemia, unspecified; E11.9 Type 2 diabetes mellitus without complications; J84.10 Pulmonary fibrosis, unspecified; I25.2 Old myocardial infarction; Z79.82 Long term (current) use of aspirin; Z79.83 Long term (current) use of bisphosphonates; Z79.84 Long term (current) use of oral hypoglycemic drugs; Z79.899 Other long term (current) drug therapy; Z80.3 Family history of malignant neoplasm of breast; Z82.49 Family history of ischemic heart disease and other diseases of the circulatory system; Z85.42 Personal history of malignant neoplasm of other parts of uterus; Z85.43 Personal history of malignant neoplasm of ovary; Z87.891 Personal history of nicotine dependence; Z90.711 Acquired absence of uterus with remaining cervical stump
CPT/HCPCS: 36415; 71045; 80053; 83605; 83735; 83880; 84100; 84484; 85025; 85610; 85730; 93005; 94640; 94660; 94760

== ENCOUNTER 2022-12-03 09:30 | Inpatient (IN) | payer MEDICARE ==
--- NOTE | 2022-12-03 09:56 | ED ---
General Adult HPI - General Source: patient, RN notes reviewed Mode of arrival: wheelchair Limitations: no limitations <Igor Calzada - Last Filed: 12/03/22 09:55> <Catherine Prado - Last Filed: 12/03/22 18:31> - General Chief complaint: Shortness of Breath Stated complaint: SOB/low O2 Time Seen by Provider: 12/03/22 09:55 - History of Present Illness Initial comments: 66-year-old female presents emergency Department chief complaint shortness of breath. Patient presents from PCPs office for admission. Patient was told that she has pneumonia. Patient states that she has felt sick. Patient is a COPD year. Her pulse ox has been low. (Igor Calzada) The patient is a 66-year-old female with a history of COPD, hypertension, hyperlipidemia, diabetes presents emergency room with complaints of cough and shortness breath over the last 5 days. Patient states that the cough started 5 days ago and she started to develop worsening shortness of breath over the last several days. Patient states her oxygen level was in the 80s yesterday and today. She states that she is on oxygen 24 7 and typically runs around 93%. She is on albuterol nebulizers and inhalers as well. She was seen by her primary care physician today and sent over for further evaluation and management of suspected pneumonia and hypoxia. The patient denies any chest pain, fevers or hemoptysis. She denies any swelling or pain to the lower extremities. She denies any recent travel or recent surgery. Denies any sick contacts. She denies any history of DVTs or PEs. (Catherine Prado) - Related Data Home Medications Medication Instructions Recorded Confirmed Spironolactone [Aldactone] 25 mg PO DAILY 12/24/16 12/03/22 Furosemide [Lasix] 40 mg PO DAILY 06/09/18 12/03/22 Montelukast Sodium [Singulair] 10 mg PO HS 12/10/19 12/03/22 Atorvastatin [Lipitor] 40 mg PO HS 06/13/21 12/03/22 Alendronate Sodium [Fosamax] 70 mg PO COOMBS 11/07/21 12/03/22 Fluticasone/Umeclidin/Vilanter 1 puff INHALATION RT-DAILY 08/19/22 09/14/23 [Trelegy Ellipta 200-62.5-25] carvediloL [Coreg*] 12.5 mg PO BID 11/07/21 12/03/22 Empagliflozin [Jardiance] 25 mg PO DAILY 03/24/22 12/03/22 Ipratropium-Albuterol Nebulize 3 ml INHALATION RT-QID PRN 03/24/22 12/03/22 [Duoneb 0.5 mg-3 mg/3 ml Soln] glipiZIDE XL [Glucotrol XL] 2.5 mg PO AC-BID 09/02/22 12/03/22 Doxycycline Hyclate 100 mg PO BID 12/03/22 12/03/22 Previous Rx's Medication Instructions Recorded Aspirin 81 mg PO DAILY chew 02/15/18 Pioglitazone [Actos] 45 mg PO DAILY tab 02/15/18 Allergies Allergy/AdvReac Type Severity Reaction Status Date / Time No Known Allergies Allergy Verified 12/03/22 09:46 Review of Systems ROS Other: All systems not noted in ROS Statement are negative. <Igor Calzada - Last Filed: 12/03/22 09:55> ROS Other: All systems not noted in ROS Statement are negative. <Catherine Prado - Last Filed: 12/03/22 18:31> ROS Statement: Those systems with pertinent positive or pertinent negative responses have been documented in the HPI. Past Medical History Past Medical History: Asthma, Cancer, Chest Pain / Angina, Heart Failure, COPD, Diabetes Mellitus, Hyperlipidemia, Hypertension, Pneumonia, Renal Disease Additional Past Medical History / Comment(s): Tracheobronchitis, asthmatic bronchitis, uterine cancer with hysterectomy, 2001 ovarian cancer, non-STEMI History of Any Multi-Drug Resistant Organisms: None Reported Past Surgical History: AICD, Hysterectomy, Orthopedic Surgery, Tonsillectomy Additional Past Surgical History / Comment(s): RT KNEE ARTHROSCOPY, PARTIAL HYSTERECTOMY, LISA CTR. BI-V ICD, [facility], COLONOSCOPY WITH BENING POLYPECTOMY. Past Anesthesia/Blood Transfusion Reactions: No Reported Reaction Additional Past Anesthesia/Blood Transfusion Reaction / Comment(s): no history of blood transfusion Type of Cardiac Device: AICD Device Placement Date:: 10/28/15 Past Psychological History: No Psychological Hx Reported Smoking Status: Former smoker Past Alcohol Use History: None Reported Past Drug Use History: None Reported - Past Family History Mother Family Medical History: Cancer Additional Family Medical History / Comment(s): Mother is alive at 89 years old with no major medical problems. BREAST CA Father Family Medical History: Hypertension, Myocardial Infarction ([place]) Additional Family Medical History / Comment(s): GA @ AGE 48 <Igor Calzada - Last Filed: 12/03/22 09:55> General Exam Limitations: no limitations <Igor Calzada - Last Filed: 12/03/22 09:55> General appearance: alert Head exam: Present: atraumatic Eye exam: Present: normal appearance ENT exam: Present: normal exam Respiratory exam: Present: rales, other (No significant respiratory distress. No significant wheezing) Cardiovascular Exam: Present: regular rate, normal rhythm GI/Abdominal exam: Present: soft Extremities exam: Present: other (No peripheral edema) Neurological exam: Present: alert, oriented X3 Psychiatric exam: Present: normal affect, normal mood <Catherine Prado - Last Filed: 12/03/22 18:31> - General Exam Comments Initial Comments: Visual Physical Exam Vital signs reviewed General: Well-appearing, nontoxic, no acute distress. Head: Normocephalic, atraumatic Eyes: PERRLA, EOMI ENT: Airway patent Chest: Nonlabored breathing Skin: No visual rash, normal skin tone Neuro: Alert and oriented 3 Musculoskeletal: No gross abnormalities (Igor Calzada) Course <Catherine Prado - Last Filed: 12/03/22 18:31> Vital Signs 12/03/22 12/03/22 09:46 16:14 Temperature 98.3 F Pulse Rate 84 Respiratory 16 Rate Blood Pressure 120/75 O2 Sat by Pulse 92 L 89 L Oximetry - Reevaluation(s) Reevaluation #1: 12/03/22 13:48 Patient continues n 2 liters of oxygen in the emergency room. She is in no respiratory distress at this time. She has no significant wheezing on exam. I discussed lab and imaging results with patient. Patient is positive for Covid. She does not meet sepsis criteria therefor we'll hold off on antibiotics at this time however I will speak with patient's PCP and admitting physician, Dr. Garza for further management of this upon admission. (Catherine Prado) EKG Findings - EKG Results: EKG: interpreted by ERMD (EKG shows an electronic ventricular pacemaker rate of 82 bpm no ectopy) <JohanTrentCatherine - Last Filed: 12/03/22 18:31> Medical Decision Making <Igor Calzada - Last Filed: 12/03/22 09:55> - Lab Data Result diagrams: 12/03/22 09:58 12/03/22 09:58 - EKG Data -: EKG Interpreted by Me - Radiology Data Radiology results: report reviewed, image reviewed <JerardorocTrentCatherine - Last Filed: 12/03/22 18:31> - Medical Decision Making I performed a quick note portion of this chart signed Igor Calzada PA-C (Igor Calzada) Was pt. sent in by a medical professional or institution (MINISTERIO Mckenzie, TERRITORY SALES REPRESENTATIVE, urgent care, hospital, or [place] health care facility...) When possible be specific @ -[No] Did you speak to anyone other than the patient for history (EMS, parent, family, police, friend...)? What history was obtained from this source @ -[No] Did you review nursing and triage notes (agree or disagree)? Why? @ -[I reviewed and agree with nursing and triage notes] Were old charts reviewed (outside hosp., previous admission, EMS record, old EKG, old radiological studies, urgent care reports/EKG's, [place] health care facility records)? Report findings @ -YeS one charts were reviewed Differential Diagnosis (chest pain, altered mental status, abdominal pain women, abdominal pain men, vaginal bleeding, weakness, fever, dyspnea, syncope, headache, dizziness, GI bleed, back pain, seizure, CVA, palpatations, mental health, musculoskeletal)? @ -Pneumonia, CHF exacerbation, COPD exacerbation and upper respiratory infection, COVID-19, influenza, PE EKG interpreted by me (3pts min.). @ -[EKG shows electronic ventricular pacemaker rate of 82 bpm no ectopy X-rays interpreted by me (1pt min.). @ -Chest x-ray is negative and her any obvious mass, pneumothorax however there is haziness over the bi-basilar region bilaterally with possible pneumonia. Radiology report pending for confirmation of acute changes CT interpreted by me (1pt min.). @ -[None done] U/S interpreted by me (1pt. min.). @ -[None done] What testing was considered but not performed or refused? (CT, X-rays, U/S, labs)? Why? @ -CT angios considered however patient's d-dimer is within normal limits therefore a computed tomography scan was not completed at this time. What meds were considered but not given or refused? Why? @ -[None] Did you discuss the management of the patient with other professionals (professionals i.e. Dr., PA, TERRITORY SALES REPRESENTATIVE, lab, RT, psych nurse, drug abuse social worker, wrapper opener, teacher, armed security officer, case fitter)? Give summary @ -Discussed patient's symptoms are The management with attending ED physician Dr. Engle today. I also spoke with the patient's PCP and admitting physician Dr. Bravo regarding her admission with COVID-19 and hypoxia. He will continue further care and monitoring in the hospital. Was smoking cessation discussed for >3mins.? @ -[No] Was critical care preformed (if so, how long)? @ -[No] Were there social determinants of health that impacted care today? How? (Homelessness, low income, unemployed, alcoholism, drug addiction, transportation, low edu. Level, literacy, decrease access to med. care, nursing home, rehab)? @ -[No] Was there de-escalation of care discussed even if they declined (Discuss DNR or withdrawal of care, Hospice)? DNR status @ -[No] What co-morbidities impacted this encounter? (DM, HTN, Smoking, COPD, CAD, Cancer, CVA, ARF, Chemo, Hep., AIDS, mental health diagnosis, sleep apnea, morbid obesity)? @ -History of COPD, diabetes, hypertension Was patient admitted / discharged? Hospital course, mention meds given and route, prescriptions, significant lab abnormalities, going to OR and other pertinent info. @ -Patient will be admitted to the hospital for further management of the hypoxia and COVID-19. Undiagnosed new problem with uncertain prognosis? @ -[No] Drug Therapy requiring intensive monitoring for toxicity (Heparin, Nitro, Insulin, Cardizem)? @ -[No] Were any procedures done? @ -[No] Diagnosis/symptom? @ -COVID-19, dyspnea, mild hypokalemia Acute, or Chronic, or Acute on Chronic? @ -acute] Uncomplicated (without systemic symptoms) or Complicated (systemic symptoms)? @ -complicated Side effects of treatment? @ -[No] Exacerbation, Progression, or Severe Exacerbation? @ -[No] Poses a threat to life or bodily function? How? (Chest pain, [place], [place], pneumonia, PE, COPD, DKA, ARF, appy, cholecystitis, CVA, Diverticulitis, Homicidal, Suicidal, threat to staff... and all critical care pts) @ -[No] (Catherine Prado) - Lab Data Lab Results 12/03/22 12/03/22 12/03/22 Range/Units 09:58 09:58 09:58 WBC 7.4 (3.8-10.6) k/uL RBC 4.22 (3.80-5.40) m/uL Hgb 13.3 (11.4-16.0) gm/dL Hct 39.7 (34.0-46.0) % MCV 93.9 (80.0-100.0) fL MCH 31.5 (25.0-35.0) pg MCHC 33.5 (31.0-37.0) g/dL RDW 13.3 (11.5-15.5) % Plt Count 165 (150-450) k/uL MPV 8.3 Neutrophils % 72 % Lymphocytes % 18 % Monocytes % 6 % Eosinophils % 2 % Basophils % 0 % Neutrophils # 5.3 (1.3-7.7) k/uL Lymphocytes # 1.3 (1.0-4.8) k/uL Monocytes # 0.5 (0-1.0) k/uL Eosinophils # 0.2 (0-0.7) k/uL Basophils # 0.0 (0-0.2) k/uL PT 12.4 H (9.0-12.0) sec INR 1.2 H (<1.2) APTT 24.7 (22.0-30.0) sec D-Dimer (<0.60) mg/L FEU Sodium 133 L (137-145) mmol/L Potassium 3.2 L (3.5-5.1) mmol/L Chloride 94 L (98-107) mmol/L Carbon Dioxide 31 H (22-30) mmol/L Anion Gap 8 mmol/L BUN 20 H (7-17) mg/dL Creatinine 1.15 H (0.52-1.04) mg/dL Est GFR (CKD-EPI)AfAm 57 (>60 ml/min/1.73 sqM) Est GFR (CKD-EPI)NonAf 50 (>60 ml/min/1.73 sqM) Glucose 115 H (74-99) mg/dL Plasma Lactic Acid Ari (0.7-2.0) mmol/L Calcium 9.5 (8.4-10.2) mg/dL Total Bilirubin 0.9 (0.2-1.3) mg/dL AST 35 (14-36) U/L ALT 22 (4-34) U/L Alkaline Phosphatase 109 (38-126) U/L Troponin I (0.000-0.034) ng/mL NT-Pro-B Natriuret Pep 202 pg/mL Total Protein 7.0 (6.3-8.2) g/dL Albumin 3.8 (3.5-5.0) g/dL Influenza Type A (PCR) (Not Detectd) Influenza Type B (PCR) (Not Detectd) RSV (PCR) (Not Detectd) SARS-CoV-2 (PCR) (Not Detectd) 12/03/22 12/03/22 12/03/22 Range/Units 09:58 09:58 09:58 WBC (3.8-10.6) k/uL RBC (3.80-5.40) m/uL Hgb (11.4-16.0) gm/dL Hct (34.0-46.0) % MCV (80.0-100.0) fL MCH (25.0-35.0) pg MCHC (31.0-37.0) g/dL RDW (11.5-15.5) % Plt Count (150-450) k/uL MPV Neutrophils % % Lymphocytes % % Monocytes % % Eosinophils % % Basophils % % Neutrophils # (1.3-7.7) k/uL Lymphocytes # (1.0-4.8) k/uL Monocytes # (0-1.0) k/uL Eosinophils # (0-0.7) k/uL Basophils # (0-0.2) k/uL PT (9.0-12.0) sec INR (<1.2) APTT (22.0-30.0) sec D-Dimer 0.51 (<0.60) mg/L FEU Sodium (137-145) mmol/L Potassium (3.5-5.1) mmol/L Chloride (98-107) mmol/L Carbon Dioxide (22-30) mmol/L Anion Gap mmol/L BUN (7-17) mg/dL Creatinine (0.52-1.04) mg/dL Est GFR (CKD-EPI)AfAm (>60 ml/min/1.73 sqM) Est GFR (CKD-EPI)NonAf (>60 ml/min/1.73 sqM) Glucose (74-99) mg/dL Plasma Lactic Acid Ari 0.9 (0.7-2.0) mmol/L Calcium (8.4-10.2) mg/dL Total Bilirubin (0.2-1.3) mg/dL AST (14-36) U/L ALT (4-34) U/L Alkaline Phosphatase (38-126) U/L Troponin I <0.012 (0.000-0.034) ng/mL NT-Pro-B Natriuret Pep pg/mL Total Protein (6.3-8.2) g/dL Albumin (3.5-5.0) g/dL Influenza Type A (PCR) (Not Detectd) Influenza Type B (PCR) (Not Detectd) RSV (PCR) (Not Detectd) SARS-CoV-2 (PCR) (Not Detectd) 12/03/22 Range/Units 12:26 WBC (3.8-10.6) k/uL RBC (3.80-5.40) m/uL Hgb (11.4-16.0) gm/dL Hct (34.0-46.0) % MCV (80.0-100.0) fL MCH (25.0-35.0) pg MCHC (31.0-37.0) g/dL RDW (11.5-15.5) % Plt Count (150-450) k/uL MPV Neutrophils % % Lymphocytes % % Monocytes % % Eosinophils % % Basophils % % Neutrophils # (1.3-7.7) k/uL Lymphocytes # (1.0-4.8) k/uL Monocytes # (0-1.0) k/uL Eosinophils # (0-0.7) k/uL Basophils # (0-0.2) k/uL PT (9.0-12.0) sec INR (<1.2) APTT (22.0-30.0) sec D-Dimer (<0.60) mg/L FEU Sodium (137-145) mmol/L Potassium (3.5-5.1) mmol/L Chloride (98-107) mmol/L Carbon Dioxide (22-30) mmol/L Anion Gap mmol/L BUN (7-17) mg/dL Creatinine (0.52-1.04) mg/dL Est GFR (CKD-EPI)AfAm (>60 ml/min/1.73 sqM) Est GFR (CKD-EPI)NonAf (>60 ml/min/1.73 sqM) Glucose (74-99) mg/dL Plasma Lactic Acid Ari (0.7-2.0) mmol/L Calcium (8.4-10.2) mg/dL Total Bilirubin (0.2-1.3) mg/dL AST (14-36) U/L ALT (4-34) U/L Alkaline Phosphatase (38-126) U/L Troponin I (0.000-0.034) ng/mL NT-Pro-B Natriuret Pep pg/mL Total Protein (6.3-8.2) g/dL Albumin (3.5-5.0) g/dL Influenza Type A (PCR) Not Detected (Not Detectd) Influenza Type B (PCR) Not Detected (Not Detectd) RSV (PCR) Not Detected (Not Detectd) SARS-CoV-2 (PCR) Detected A (Not Detectd) Disposition <Igor Calzada - Last Filed: 12/03/22 09:55> Is patient prescribed a controlled substance at d/c from ED?: No Decision Date: 12/03/22 Decision Time: 14:24 (admit to inpt) <Catherine Prado - Last Filed: 12/03/22 18:31> Clinical Impression: COVID-19, Hypoxia, Dyspnea Disposition: ADMITTED IP TO THIS HOSP
[2022-12-03 10:11] LABS: Basophils % (A) 0 %; Eosinophils # (A) 0.2 k/uL (0-0.7); Eosinophils % (A) 2 %; HCT 39.7 % (34.0-46.0); HGB 13.3 gm/dL (11.4-16.0); Lymphocytes # (A) 1.3 k/uL (1.0-4.8); Lymphocytes % (A) 18 %; MCH 31.5 pg (25.0-35.0); MCHC 33.5 g/dL (31.0-37.0); MCV 93.9 fL (80.0-100.0); Mean Platelet Volume 8.3; Monocytes # (A) 0.5 k/uL (0-1.0); Monocytes % (A) 6 %; Neutrophils # (A) 5.3 k/uL (1.3-7.7); Neutrophils % (A) 72 %; Platelet Count 165 k/uL (150-450); RBC 4.22 m/uL (3.80-5.40); RDW 13.3 % (11.5-15.5); WBC 7.4 k/uL (3.8-10.6)
[2022-12-03 10:20] LABS: INR 1.2 (<1.2); Partial Thromboplastin Time 24.7 sec (22.0-30.0); Prothrombin Time 12.4 sec (9.0-12.0)
[2022-12-03 10:21] LABS: ALT 22 U/L (4-34); AST 35 U/L (14-36); African American GFR (CKD) 57 (>60 ml/min/1.73 sqM); Albumin 3.8 g/dL (3.5-5.0); Alkaline Phosphatase 109 U/L (38-126); Anion Gap 8 mmol/L; Blood Urea Nitrogen 20 mg/dL (7-17); Calcium 9.5 mg/dL (8.4-10.2); Carbon Dioxide 31 mmol/L (22-30); Chloride 94 mmol/L (98-107); Glucose 115 mg/dL (74-99); Non-African American GFR(CKD) 50 (>60 ml/min/1.73 sqM); Potassium 3.2 mmol/L (3.5-5.1); Sodium 133 mmol/L (137-145); Total Bilirubin 0.9 mg/dL (0.2-1.3)
[2022-12-03 10:29] LABS: NT-Pro-B-Type Natriuretic Pept 202 pg/mL
--- NOTE | 2022-12-03 12:17 | XR ---
EXAMINATION TYPE: XR chest 2V DATE OF EXAM: 12/03/2022 COMPARISON: 09/19/2022 HISTORY: 66 year-old female shortness of breath, difficulty breathing TECHNIQUE: Frontal and lateral views FINDINGS: Left anterior chest wall AICD generator with right atrial, right ventricular, and coronary sinus lead s. Heart normal size. Hyperinflation. Mild patchy bibasilar densities may in part relate to overlying soft tissue. Unchanged chondroid lesion measuring approximately 1.7 cm the right humeral head, likel y enchondroma. This was previously present back to at least 01/20/2019 suggesting a benign etiology th e previous x-ray left upper lobe opacity has resolved. IMPRESSION: COPD. Bibasilar densities may in part relate to overlying soft tissue. Some underlying mild patchy a telectasis or infiltrate is difficult to exclude.
[2022-12-03] MEDS ORDERED: POTASSIUM CHLORIDE ER 20 MEQ TAB.ER PO STA (14:15)
[2022-12-03] MEDS ORDERED: NALOXONE 0.4 MG/ML 1 ML VIAL IV PRN (14:15)
[2022-12-04] MEDS ORDERED: ALBUTEROL HFA INHALER INHALATION PRN (08:17)
[2022-12-04] MEDS: methylPREDNISolone SOD SUCCI 125 MG/2 ML VIAL IV SCH ×4 (08:55→23:57)
[2022-12-04] MEDS: ASPIRIN 81 MG PO SCH (08:56)
[2022-12-04] MEDS: SODIUM CHLORIDE 0.9% 1,000 ML IV SCH ×2 (08:56→21:29)
[2022-12-04] MEDS: PIPERACILLIN-TAZOBACTAM 3.375 GM in SODIUM CHLORIDE 0.9% 100 ML IVPB SCH ×2 (08:56→15:11)
[2022-12-04] MEDS: DAPAGLIFLOZIN PROPANEDIOL 10 MG TABLET PO SCH (08:57)
[2022-12-04] MEDS: PIOGLITAZONE 45 MG TAB PO SCH (08:57)
[2022-12-04] MEDS: FUROSEMIDE 40 MG TAB PO SCH (08:57)
[2022-12-04] MEDS: DOXYCYCLINE 100 MG CAP PO SCH ×2 (08:57→21:28)
[2022-12-04] MEDS: SPIRONOLACTONE 25 MG TAB PO SCH (08:58)
--- NOTE | 2022-12-04 09:46 | HP ---
HISTORY AND PHYSICAL HISTORY OF PRESENT ILLNESS: A 66-year-old white female, came to the hospital with cough, congestion, shortness of breath, pneumonia, tested positive for COVID. She has severe pulmonary hypertension, COPD, wears oxygen 2 to 3 L at home. O2 dependent. She became 5 days ago sick, short of breath, cough, congestion. MEDICATIONS: Include: 1. Aldactone at home. 2. Lasix. 3. Singulair. 4. Lipitor. 5. Fosamax. 6. Trelegy inhaler. 7. Coreg 12.5 b.i.d. 8. Jardiance 25 daily. 9. DuoNeb q.i.d. 10.Glucotrol XL 2.5 b.i.d. 11.Peridox. 12.Doxycycline. 13.Steroid taper. ALLERGIES: Negative. REVIEW OF SYSTEMS: 14-point review of systems. Cough, congestion, shortness of breath, lightheadedness, dizziness, unable to breathe or ambulate due to weakness and shortness of breath, swelling of the legs despite being on 2 L oxygen. FAMILY HISTORY: Mother, cancer. Father; hypertension, PA. PHYSICAL EXAMINATION: VITAL SIGNS: Temperature 98.3, pulse 70s to 80s, respiratory rate 16 to 25, blood pressure 120/75, saturating 89% on 2 L on admission. LUNGS: Scattered rhonchi and wheeze, moderate to severe inspiratory wheezing heard. CARDIOVASCULAR: S1 and S2. ABDOMEN: Soft. EXTREMITIES: 2 to 3+ edema. PSYCH: Fair mood and affect. NEUROLOGIC: Cranial nerves intact. ASSESSMENT: BUN is 20, creatinine 1.15, sodium 133, potassium 3.2. ASSESSMENT: Dehydration, prerenal azotemia, chronic obstructive pulmonary disease exacerbation, probable secondary pneumonia with bacterial infection secondary to initial COVID pneumonia, chronic obstructive pulmonary disease, pulmonary hypertension. PROGNOSIS: Extremely guarded. Treat aggressively with steroids. Updraft antibiotics. Get counselling with Dr. Carlton from Infectious Disease. Prognosis guarded. MMODL / IJN: [id number] /
--- NOTE | 2022-12-04 10:02 | CT ---
EXAMINATION TYPE: CT chest wo con DATE OF EXAM: 12/04/2022 COMPARISON: 09/03/2022 HISTORY: cap CT DLP: 227.[address] of the chest was performed with lung and mediastinal window settings submitted. The la ck of contrast limits evaluation of the vascular, mediastinal and parenchymal structures including th e upper abdomen. LUNGS: The lungs are clear and free of infiltrate. Centrilobular emphysema seen within the upper lobe s mild in degree. Nodular density right upper lobe medially measuring 6.5 mm image 35. 5 mm nodular d ensity left upper lobe image 21. Adjacent area of groundglass density image 18 left upper lobe. Adjac ent parenchymal scarring. Linear basilar atelectasis versus parenchymal scarring seen bilaterally. No pleural effusion. No CT evidence of interstitial lung disease. MEDIASTINUM/SANTOS: Thoracic aorta is of normal caliber with limited evaluation given lack of contrast . The heart is not enlarged. No evidence for mediastinal mass. No lymph nodes greater than 1cm. N odule lower pole left thyroid lobe which extends substernally and measures an estimated 2.5 cm. Corre late with ultrasound. UPPER ABDOMEN: No significant abnormality is seen. OTHER: No significant other abnormality. IMPRESSION: 1. Pulmonary nodularity is discussed. Six-month follow-up recommended. 2. Emphysematous changes as noted.
[2022-12-04] MEDS: carvediloL 12.5 MG TAB PO SCH ×2 (11:03→17:52)
[2022-12-04] MEDS: TIOTROPIUM 2.5 MCG INHALER INHALATION SCH (12:24)
[2022-12-04] MEDS: ALBUTEROL HFA INHALER INHALATION SCH ×3 (12:24→20:42)
[2022-12-04] MEDS: FLUTICASONE 110 MCG INHALER INHALATION SCH (20:42)
[2022-12-04] MEDS: MONTELUKAST 10 MG TAB PO SCH (21:28)
[2022-12-04] MEDS: ATORVASTATIN 40 MG TAB PO SCH (21:28)
--- NOTE | 2022-12-04 22:27 | P.CONS ---
History of Present Illness - Reason for Consult Consult date: 12/04/22 Community acquired pneumonia Requesting physician: Domenic Garza - Chief Complaint Shortness of breath and cough x one week - History of Present Illness Patient is a 66-year-old female with a past medical history significant for diabetes mellitus hypertension hyperlipidemia COPD in this patient on home O2 2 L during the day and 3 L at night patient presenting to the hospital yesterday morning for evaluation of increasing shortness of breath apparently the patient was sent to the ER from her PCP concerning for pneumonia patient mention symptom has been going on for for about 5 days before she present to the hospital has been mostly increasing shortness of breath on minimal exertion even at rest patient also have a cough which is moderate in intensity mostly dry in nature not bringing up any sputum. Denies any nausea no vomiting no abdominal pain or any diarrhea patient was noted to mildly hypoxic with O2 sats of 80% while the patient was sent to the ER on presentation to the hospital the patient was afebrile and no fever has been recorded subsequently patient was 89% on room air she is currently on 92% room air and 96% on 3 L nasal cannula oxygen patient did have a normal white count BUN/creatinine mildly elevated liver enzymes are normal patient did tested positive for COVID influenza RSV was negative patient did have a chest x-ray COPD bibasilar density may in part related to overlying soft tissue patient also have a CT of the chest emphysematous changes but no evidence of any acute pneumonia patient was admitted to hospital started on Solu-Medrol Zosyn infectious disease was consulted for further management of antibiotic therapy Review of Systems Positive point and negatives has been mentioned in the HPI, complete review of systems was performed and all other systems are negative Past Medical History Past Medical History: Asthma, Cancer, Chest Pain / Angina, Heart Failure, COPD, Diabetes Mellitus, Hyperlipidemia, Hypertension, Pneumonia, Renal Disease Additional Past Medical History / Comment(s): Tracheobronchitis, asthmatic bron chitis, uterine cancer with hysterectomy, 2002 ovarian cancer, non-STEMI History of Any Multi-Drug Resistant Organisms: None Reported Past Surgical History: AICD, Hysterectomy, Orthopedic Surgery, Tonsillectomy Additional Past Surgical History / Comment(s): RT KNEE ARTHROSCOPY, PARTIAL HYSTERECTOMY, LISA [facility]. BI-V ICD, [facility], COLONOSCOPY WITH BENING POLYPECTOMY. Past Anesthesia/Blood Transfusion Reactions: No Reported Reaction Additional Past Anesthesia/Blood Transfusion Reaction / Comm: no history of blood transfusion Type of Cardiac Device: AICD Device Placement Date:: 10/28/15 Past Psychological History: No Psychological Hx Reported Additional Psychological History / Comment(s): pt is independant,lives with spouse. has nebulizer and glucometer. Smoking Status: Former smoker Past Alcohol Use History: None Reported Additional Past Alcohol Use History / Comment(s): PATIENT WAS A SMOKER OF /- / PPD FOR ~50 YEARS AND QUIT 2021 Past Drug Use History: None Reported - Past Family History Mother Family Medical History: Cancer Additional Family Medical History / Comment(s): Mother is alive at 89 years old with no major medical problems. BREAST CA Father Family Medical History: Hypertension, Myocardial Infarction ([place]) Additional Family Medical History / Comment(s): GA @ AGE 48 Medications and Allergies Home Medications Medication Instructions Recorded Confirmed Type Spironolactone [Aldactone] 25 mg PO DAILY 12/24/16 12/03/22 History Aspirin 81 mg PO DAILY chew 02/15/18 12/03/22 Rx Pioglitazone [Actos] 45 mg PO DAILY tab 02/15/18 12/03/22 Rx Furosemide [Lasix] 40 mg PO DAILY 06/09/18 12/03/22 History Montelukast Sodium [Singulair] 10 mg PO HS 12/10/19 12/03/22 History Atorvastatin [Lipitor] 40 mg PO HS 06/13/21 12/03/22 History Alendronate Sodium [Fosamax] 70 mg PO COOMBS 11/07/21 12/03/22 History Fluticasone/Umeclidin/Vilanter 1 puff INHALATION RT-DAILY 11/07/21 12/03/22 History [Trelegy Ellipta 200-62.5-25] carvediloL [Coreg*] 12.5 mg PO BID 11/07/21 12/03/22 History Empagliflozin [Jardiance] 25 mg PO DAILY 03/24/22 12/03/22 History Ipratropium-Albuterol Nebulize 3 ml INHALATION RT-QID PRN 03/24/22 12/03/22 History [Duoneb 0.5 mg-3 mg/3 ml Soln] glipiZIDE XL [Glucotrol XL] 2.5 mg PO AC-BID 09/02/22 12/03/22 History Doxycycline Hyclate 100 mg PO BID 12/03/22 12/03/22 History Allergies Allergy/AdvReac Type Severity Reaction Status Date / Time No Known Allergies Allergy Verified 12/03/22 09:46 Physical Exam Vitals: Vital Signs Temp Pulse Resp BP Pulse Ox 12/04/22 10:56 18 12/04/22 07:09 97.8 F 81 18 98/63 96 12/04/22 00:45 98.1 F 90 20 122/73 92 L 12/03/22 19:40 98.0 F 88 18 108/71 97 12/03/22 16:14 89 L Intake and Output 12/03/22 12/04/22 12/04/22 22:59 06:59 14:59 Intake Total 200 Balance 200 Intake: Oral 200 Other: Voiding Method Toilet Toilet # Voids 0 Weight 70.76 kg GENERAL DESCRIPTION: Elderly female male lying in bed, no distress. No tachypnea or accessory muscle of respiration use. HEENT: Shows Pallor , no scleral icterus. Oral mucous membrane is dry. No pharyngeal erythema or thrush NECK: Trachea central, no thyromegaly. LUNGS: Unlabored breathing. Decreased intensity of breath sounds No wheeze or crackle. HEART: S1, S2, regular rate and rhythm. No loud murmur ABDOMEN: Soft, no tenderness , guarding or rigidity, no organomegaly EXTREMITIES: No edema of feet. SKIN: No rash, no masses palpable. NEUROLOGICAL: The patient is awake, alert, oriented x3, mood and affect normal. Results CBC & Chem 7: 12/03/22 09:58 12/03/22 09:58 Labs: Abnormal Lab Results - Last 24 Hours (Table) 12/03/22 Range/Units 12:26 SARS-CoV-2 (PCR) Detected A (Not Detectd) Assessment and Plan (1) COVID-19 Current Visit: Yes Status: Acute Code(s): U07.1 - COVID-19 SNOMED Code(s): 373383236 (2) Hypoxia Current Visit: Yes Status: Acute Code(s): R09.02 - HYPOXEMIA SNOMED Code(s): 126204233 Plan: 1patient presented hospital with increasing shortness of breath and cough which is likely multifactorial in this patient with likely COPD exacerbation with tracheobronchitis and COVID-19 infection however the patient CT of the chest was negative for any infiltrate or consolidation patient not running any fever did have a normal white count and normal procalcitonin clinically doubt bacterial pneumonia 2-patient to continue with the steroids we will add zinc ascorbic acid 3-no need for Zosyn We will follow on clinical condition and cultures to further adjust medication if needed Thank you for this consultation we will follow the patient along with you Dictation was produced using [employer] software. please excuse any grammatical, word or spelling errors. Time with Patient: Greater than 30
[2022-12-05] MEDS: carvediloL 12.5 MG TAB PO SCH ×2 (06:48→17:09)
[2022-12-05] MEDS: methylPREDNISolone SOD SUCCI 125 MG/2 ML VIAL IV SCH ×4 (06:48→23:41)
[2022-12-05] MEDS: ALBUTEROL HFA INHALER INHALATION SCH ×4 (08:28→22:07)
[2022-12-05] MEDS: FLUTICASONE 110 MCG INHALER INHALATION SCH ×2 (08:28→22:07)
[2022-12-05] MEDS: ASPIRIN 81 MG PO SCH (08:41)
[2022-12-05] MEDS: PIOGLITAZONE 45 MG TAB PO SCH (08:41)
[2022-12-05] MEDS: DOXYCYCLINE 100 MG CAP PO SCH ×2 (08:41→21:29)
[2022-12-05] MEDS: DAPAGLIFLOZIN PROPANEDIOL 10 MG TABLET PO SCH (08:41)
[2022-12-05] MEDS: FUROSEMIDE 40 MG TAB PO SCH (08:41)
[2022-12-05] MEDS: ZINC SULFATE 220 MG CAP PO SCH (08:41)
[2022-12-05] MEDS: SPIRONOLACTONE 25 MG TAB PO SCH (08:41)
[2022-12-05] MEDS: ASCORBIC ACID 500 MG TAB PO SCH (08:41)
[2022-12-05] MEDS: TIOTROPIUM 2.5 MCG INHALER INHALATION SCH (08:59)
--- NOTE | 2022-12-05 12:30 | P.PN ---
Subjective Progress Note Date: 12/05/22 Principal diagnosis: covid 19 Patient is a 66-year-old female with a past medical history significant for diabetes mellitus hypertension hyperlipidemia COPD in this dann ent on home O2 2 L during the day and 3 L at night patient presenting to the hospital for evaluation of increasing shortness of breath, patient was mildly hypoxic and he tested positive for covid 19, CT chest was negative for any acute infiltrate or pneumonia. On today's evaluation that is 12/05/2022, the patient denies any fever or any chills, the patient is breathing comfortably on 3 L nasal cannula oxygen , the patient denies chest pain, patient complaining of moderate cough with clear sputum, the patient denies nausea and vomiting no abdominal pain and no diarrhea, No labs were drawn today, patient did have a normal pro-calcitonin of 0.08 Objective - Vital Signs Vital signs: Vital Signs Temp 97.4 F L 12/05/22 08:45 Pulse 84 12/05/22 08:45 Resp 20 12/05/22 08:45 BP 109/52 12/05/22 08:45 Pulse Ox 93 L 12/05/22 08:45 FiO2 Intake & Output 12/04/22 12/05/22 12/05/22 18:59 06:59 18:59 Intake Total 300 Balance 300 Intake: Oral 300 Other: Voiding Method Toilet Toilet Toilet # Voids 2 3 - Exam GENERAL DESCRIPTION: An elderly male lying in bed in no distress RESPIRATORY SYSTEM: Unlabored breathing , decreased intensity of breath sounds, no wheeze HEART: S1 S2 regular rate and rhythm , ABDOMEN: Soft , no tenderness EXTREMITIES: No edema feet - Labs CBC & Chem 7: 12/03/22 09:58 12/03/22 09:58 Assessment and Plan (1) COVID-19 Current Visit: Yes Status: Acute Code(s): U07.1 - COVID-19 SNOMED Code(s): 096946063 (2) Hypoxia Current Visit: Yes Status: Acute Code(s): R09.02 - HYPOXEMIA SNOMED Code(s): 971536645 Plan: 1patient presented hospital with increasing shortness of breath and cough which is likely multifactorial in this patient with likely COPD exacerbation with tracheobronchitis and COVID-19 infection however the patient CT of the chest was negative for any infiltrate or consolidation patient not running any fever did have a normal white count and normal procalcitonin clinically doubt bacterial pneumonia 2-patient to continue with the steroids along with zinc and ascorbic acid 3- we will monitor the patient closely off antibiotic therapy Dictation was produced using [employer] dictation software. please excuse any grammatical, word or spelling errors. Time with Patient: Less than 30
[2022-12-05] MEDS: SODIUM CHLORIDE 0.9% 1,000 ML IV SCH ×2 (13:44→23:44)
[2022-12-05] MEDS: MONTELUKAST 10 MG TAB PO SCH (21:29)
[2022-12-05] MEDS: ATORVASTATIN 40 MG TAB PO SCH (21:29)
[2022-12-06] MEDS: carvediloL 12.5 MG TAB PO SCH ×2 (06:14→17:51)
[2022-12-06] MEDS: methylPREDNISolone SOD SUCCI 125 MG/2 ML VIAL IV SCH ×3 (06:14→17:51)
[2022-12-06] MEDS ORDERED: PATIENT'S OWN (Alendronate Sodium [Fosamax] 70 MG Tablet) PO SCH (07:00)
[2022-12-06] MEDS: FLUTICASONE 110 MCG INHALER INHALATION SCH ×2 (07:27→19:47)
[2022-12-06] MEDS: TIOTROPIUM 2.5 MCG INHALER INHALATION SCH (07:27)
[2022-12-06] MEDS: ALBUTEROL HFA INHALER INHALATION SCH ×4 (07:27→19:47)
[2022-12-06] MEDS: DOXYCYCLINE 100 MG CAP PO SCH ×2 (08:32→21:07)
[2022-12-06] MEDS: PIOGLITAZONE 45 MG TAB PO SCH (08:32)
[2022-12-06] MEDS: SPIRONOLACTONE 25 MG TAB PO SCH (08:32)
[2022-12-06] MEDS: DAPAGLIFLOZIN PROPANEDIOL 10 MG TABLET PO SCH (08:32)
[2022-12-06] MEDS: FUROSEMIDE 40 MG TAB PO SCH (08:32)
[2022-12-06] MEDS: ZINC SULFATE 220 MG CAP PO SCH (08:32)
[2022-12-06] MEDS: ASCORBIC ACID 500 MG TAB PO SCH (08:32)
[2022-12-06] MEDS: ASPIRIN 81 MG PO SCH (08:32)
--- NOTE | 2022-12-06 11:11 | P.PN ---
Subjective Progress Note Date: 12/06/22 Principal diagnosis: covid 19 Patient is a 66-year-old female with a past medical history significant for diabetes mellitus hypertension hyperlipidemia COPD in this dann ent on home O2 2 L during the day and 3 L at night patient presenting to the hospital for evaluation of increasing shortness of breath, patient was mildly hypoxic and he tested positive for covid 19, CT chest was negative for any acute infiltrate or pneumonia. On today's evaluation that is 12/06/2022, the patient remains to be afebrile, the patient is breathing comfortably on 3 L and his current oxygen , the patient denies chest pain , the patient cough is decreased intensity mostly clear sputum , the patient denies nausea or vomiting , patient denies abdominal pain and no diarrhea has been reported, No labs were drawn today, patient did have a normal pro-calcitonin of 0.08 Objective - Vital Signs Vital signs: Vital Signs Temp 97.6 F 12/06/22 07:38 Pulse 78 12/06/22 07:38 Resp 18 12/06/22 07:38 BP 116/71 12/06/22 07:38 Pulse Ox 97 12/06/22 07:38 FiO2 Intake & Output 12/05/22 12/06/22 12/06/22 18:59 06:59 18:59 Other: Voiding Method Toilet Toilet Toilet # Voids 3 2 - Exam GENERAL DESCRIPTION: An elderly male lying in bed in no distress RESPIRATORY SYSTEM: Unlabored breathing , decreased intensity of breath sounds, no wheeze HEART: S1 S2 regular rate and rhythm , ABDOMEN: Soft , no tenderness EXTREMITIES: No edema feet - Labs CBC & Chem 7: 12/03/22 09:58 12/03/22 09:58 Assessment and Plan (1) COVID-19 Current Visit: Yes Status: Acute Code(s): U07.1 - COVID-19 SNOMED Code(s): 108987175 (2) Hypoxia Current Visit: Yes Status: Acute Code(s): R09.02 - HYPOXEMIA SNOMED Code(s): 983678204 Plan: 1patient presented hospital with increasing shortness of breath and cough which is likely multifactorial in this patient with likely COPD exacerbation with tracheobronchitis and COVID-19 infection however the patient CT of the chest was negative for any infiltrate or consolidation patient not running any fever did have a normal white count and normal procalcitonin clinically doubt bacterial pneumonia 2-patient seemed to have shown clinical improvement and who will continue with the steroids along with zinc and ascorbic acid and monitor clinical course closely Dictation was produced using [employer] dictation software. please excuse any grammatical, word or spelling errors. Time with Patient: Less than 30
[2022-12-06] MEDS: SODIUM CHLORIDE 0.9% 1,000 ML IV SCH (15:20)
[2022-12-06] MEDS: MONTELUKAST 10 MG TAB PO SCH (21:07)
[2022-12-06] MEDS: ATORVASTATIN 40 MG TAB PO SCH (21:07)
--- NOTE | 2022-12-06 22:31 | PN ---
PROGRESS NOTE DATE OF SERVICE: 12/05/2022 SUBJECTIVE: A 66-year-old white female, comes in with COVID pneumonia, COPD exacerbation, tracheobronchitis. Prognosis guarded. OBJECTIVE: CARDIOVASCULAR: S1, S2. LUNGS: Transmitted upper sounds. HEMATOLOGY: Negative Homans. PSYCH: Fair mood and affect. GI: Soft. ASSESSMENT: COVID pneumonia secondary to bacterial pneumonia, chronic obstructive pulmonary disease exacerbation, tracheobronchitis, acute hypoxemic respiratory failure. PLAN: Continue current treatments. Expect discharge in the next 48 hours if breathing continues to improve. Wait for Dr. Carlton, Infectious Disease recommendations. MMODL / IJN: [id number] /
[2022-12-07] MEDS: methylPREDNISolone SOD SUCCI 125 MG/2 ML VIAL IV SCH ×3 (00:12→12:50)
--- NOTE | 2022-12-07 01:55 | PN ---
PROGRESS NOTE SUBJECTIVE: A 66-year-old white female, came in with COVID pneumonia, COPD exacerbation, hypoxemic respiratory distress, IV steroids, . Does not think she has secondary pneumonia. Doxycycline for possible bronchitis. Remains on steroids. Her breathing is improving on a daily basis. OBJECTIVE: VITAL SIGNS: 97% on 3 L, blood pressure 116/71, pulse 78, respiratory rate 16 to 18, temp 97.6. LUNGS: Show scattered rhonchi and wheeze. CARDIOVASCULAR: S1, S2. HEMATOLOGY: Negative Homans. NEUROLOGIC: Alert and oriented x3. ASSESSMENT AND PLAN: 1. COVID pneumonia. 2. Hypoxemic respiratory failure. 3. Tracheobronchitis. 4. COVID-19. Clinical improvement with zinc, ascorbic acid, and steroids. Possible discharge home in the next day or 2. MMODL / IJN: [id number] /
[2022-12-07] MEDS: SODIUM CHLORIDE 0.9% 1,000 ML IV SCH ×2 (04:09→17:30)
[2022-12-07] MEDS: carvediloL 12.5 MG TAB PO SCH ×2 (06:50→17:23)
[2022-12-07] MEDS: FLUTICASONE 110 MCG INHALER INHALATION SCH (08:58)
[2022-12-07] MEDS: TIOTROPIUM 2.5 MCG INHALER INHALATION SCH (08:58)
[2022-12-07] MEDS: ALBUTEROL HFA INHALER INHALATION SCH ×3 (08:58→16:20)
[2022-12-07] MEDS: DOXYCYCLINE 100 MG CAP PO SCH (09:28)
[2022-12-07] MEDS: FUROSEMIDE 40 MG TAB PO SCH (09:28)
[2022-12-07] MEDS: SPIRONOLACTONE 25 MG TAB PO SCH (09:28)
[2022-12-07] MEDS: PIOGLITAZONE 45 MG TAB PO SCH (09:28)
[2022-12-07] MEDS: ZINC SULFATE 220 MG CAP PO SCH (09:28)
[2022-12-07] MEDS: DAPAGLIFLOZIN PROPANEDIOL 10 MG TABLET PO SCH (09:28)
[2022-12-07] MEDS: ASPIRIN 81 MG PO SCH (09:29)
[2022-12-07] MEDS: ASCORBIC ACID 500 MG TAB PO SCH (09:29)
--- NOTE | 2022-12-07 12:21 | P.PN ---
Subjective Progress Note Date: 12/07/22 Principal diagnosis: covid 19 Patient is a 66-year-old female with a past medical history significant for diabetes mellitus hypertension hyperlipidemia COPD in this dann ent on home O2 2 L during the day and 3 L at night patient presenting to the hospital for evaluation of increasing shortness of breath, patient was mildly hypoxic and he tested positive for covid 19, CT chest was negative for any acute infiltrate or pneumonia. On today's evaluation that is 12/07/2022, the patient continues to be afebrile, the patient is breathing comfortably on 3 L nasal cannula oxygen, the patient denies chest pain, the patient cough is decreased intensity mostly clear sputum, the patient denies having any nausea or vomiting ,, no abdominal pain or diarrhea No labs are drawn today, patient did have a normal pro-calcitonin of 0.08 Objective - Vital Signs Vital signs: Vital Signs Temp 97.9 F 12/07/22 08:00 Pulse 82 12/07/22 08:00 Resp 19 12/07/22 08:00 BP 128/76 12/07/22 08:00 Pulse Ox 97 12/07/22 08:59 FiO2 Intake & Output 12/06/22 12/07/22 12/07/22 18:59 06:59 18:59 Other: Voiding Method Toilet Toilet # Voids 3 2 - Exam GENERAL DESCRIPTION: An elderly male lying in bed in no distress RESPIRATORY SYSTEM: Unlabored breathing , decreased intensity of breath sounds, no wheeze HEART: S1 S2 regular rate and rhythm , ABDOMEN: Soft , no tenderness EXTREMITIES: No edema feet - Labs CBC & Chem 7: 12/03/22 09:58 12/03/22 09:58 Assessment and Plan (1) COVID-19 Current Visit: Yes Status: Acute Code(s): U07.1 - COVID-19 SNOMED Code(s): 483729392 (2) Hypoxia Current Visit: Yes Status: Acute Code(s): R09.02 - HYPOXEMIA SNOMED Code(s): 993711934 Plan: 1patient presented hospital with increasing shortness of breath and cough which is likely multifactorial in this patient with likely COPD exacerbation with tracheobronchitis and COVID-19 infection however the patient CT of the chest was negative for any infiltrate or consolidation patient not running any fever did have a normal white count and normal procalcitonin clinically doubt bacterial pneumonia 2-patient has shown clinical improvement , the patient to continue with the steroids along with zinc and ascorbic acid and monitor clinical course closely, and no need for antibiotics and antivirals on discharge Dictation was produced using [employer] dictation software. please excuse any grammatical, word or spelling errors. Time with Patient: Less than 30
[2022-12-07 14:07] LABS: Basophils # (A) 0.01 X 10*3/uL (0.00-0.10); Basophils % (A) 0.1 %; Eosinophils # (A) 0 X 10*3/uL (0.04-0.35); Eosinophils % (A) 0 %; HCT 37.3 % (37.2-46.3); HGB 11.8 d/dL (12.0-15.0); Lymphocytes # (A) 0.54 X 10*3/uL (0.90-5.00); Lymphocytes % (A) 4.5 %; MCH 30.8 pg (27.0-32.0); MCHC 31.6 d/dL (32.0-37.0); MCV 97.4 FL (80.0-97.0); Mean Platelet Volume 10.6 FL (9.5-12.2); Monocytes # (A) 0.16 X 10*3/uL (0.20-1.00); Monocytes % (A) 1.3 %; NRBC Per 100 WBC 0 X 10*3/uL (0.00-0.01); Neutrophils # (A) 11.31 X 10*3/uL (1.80-7.70); Neutrophils % (A) 93.9 %; Platelet Count 195 X 10*3/uL (140-440); RBC 3.83 X 10*6/uL (4.10-5.20); RDW 13.7 % (11.5-14.5); WBC 12.05 X 10*3/uL (4.50-10.00)
[2022-12-07 14:18] VITALS: BP 150/67; PULSE 70; RESP 17; TEMP 97.7
[2022-12-07 14:51] LABS: ALT 19 U/L (8-44); AST 24 U/L (13-35); Albumin 3.3 d/dL (3.8-4.9); Albumin/Globulin Ratio 1.32 Ratio (1.60-3.17); Alkaline Phosphatase 85 U/L (41-126); Blood Urea Nitrogen 34.9 mg/dL (9.0-27.0); Calcium 9.2 mg/dL (8.7-10.3); Carbon Dioxide 22.5 mmol/L (21.6-31.8); Chloride 105 mmol/L (96-109); Globulin 2.5 d/dL (1.6-3.3); Glucose 89 mg/dL (70-110); Potassium 4.4 mmol/L (3.5-5.5); Sodium 140 mmol/L (135-145); Total Bilirubin <0.2 mg/dL (0.3-1.2); Total Protein 5.8 d/dL (6.2-8.2)
[2022-12-07] MEDS ORDERED: BUDESONIDE 0.5 MG/2 ML NEBU INHALATION SCH (20:00)
[2022-12-08] MEDS ORDERED: dexAMETHasone 4 MG TAB PO SCH (09:00)
== END 2022-12-07 17:39 | disposition home or self-care (01) | DRG 177 ==
LOC: EC 09:30 → 4SSUR 13:43
PROVIDERS: ADMIT Family Medicine; ATTEND Family Medicine
DX: U07.1 COVID-19 (principal); J12.82 Pneumonia due to coronavirus disease 2019; J96.01 Acute respiratory failure with hypoxia; J44.1 Chronic obstructive pulmonary disease with (acute) exacerbation; J44.0 Chronic obstructive pulmonary disease with (acute) lower respiratory infection; Z20.822 Contact with and (suspected) exposure to COVID-19; I11.0 Hypertensive heart disease with heart failure; I50.9 Heart failure, unspecified; E78.5 Hyperlipidemia, unspecified; I27.20 Pulmonary hypertension, unspecified; E86.0 Dehydration; E87.6 Hypokalemia; I25.2 Old myocardial infarction; Z79.82 Long term (current) use of aspirin; Z79.83 Long term (current) use of bisphosphonates; Z79.84 Long term (current) use of oral hypoglycemic drugs; Z79.899 Other long term (current) drug therapy; Z82.49 Family history of ischemic heart disease and other diseases of the circulatory system; Z85.42 Personal history of malignant neoplasm of other parts of uterus; Z85.43 Personal history of malignant neoplasm of ovary; Z90.711 Acquired absence of uterus with remaining cervical stump; Z66 Do not resuscitate; Z98.42 Cataract extraction status, left eye; Z98.41 Cataract extraction status, right eye; Z87.19 Personal history of other diseases of the digestive system; Z95.810 Presence of automatic (implantable) cardiac defibrillator; Z99.81 Dependence on supplemental oxygen
CPT/HCPCS: 36415; 71046; 71250; 80053; 83605; 83880; 84145; 84484; 85025; 85379; 85610; 85730; 86140; 87636; 93005; 94640; 94760; 99285

== ENCOUNTER → 2023-03-09 | Outpatient (CLI) | payer MEDICARE ==
--- NOTE | 2023-03-09 19:27 | US ---
EXAMINATION TYPE: US thyroid st tissue head/neck DATE OF EXAM: 03/09/2023 COMPARISON: 03/06/2022 CLINICAL INDICATION: Female, 67 years old with history of E04.1 NONTOXIC SINGLE THYROID NODULE; Patie nt denies any signs or symptoms at this time GLAND SIZE: Right Lobe: 5.5 x 1.7 x 2.6 cm Overall Parenchyma: heterogenous Left Lobe: 4.8 x 2.1 x 2.3 cm Overall Parenchyma: heterogenous Isthmus Thickness: 0.3 cm NODULES RIGHT: # of nodules measured on right: 3 1. 1.4 X 0.9 x 1.3 cm, mid lateral, solid or almost completely solid, isoechoic TR 3 nodule, which is wider than tall, with smooth margins, without echogenic foci. Prior size: 1.2 x 1.0 x 1.2 cm 2. 1.1 X 0.6 x 1.2 cm, mid medial, mixed cystic and solid, predominantly cystic TR 3 nodule, which is wider than tall, with smooth margins, without echogenic foci. Prior size: 1.0 x 0.6 x 0.9 cm 3. 1.4 X 0.9 x 0.9 cm, lower lateral, solid or almost completely solid, vague hypoechoic TR 4 nodul e, which is wider than tall, with ill-defined margins, without echogenic foci. Prior size: Not seen on previous LEFT: # of nodules measured on left: 3 1. 0.9 X 0.7 x 1.0 cm, upper medial, solid or almost completely solid, hypoechoic TR 4 nodule, whic h is wider than tall, with smooth margins, without echogenic foci. Prior size: 0.7 x 0.8 x 0.5 cm 2. 0.7 X 0.6 x 0.6 cm, mid lateral, mixed cystic and solid, hyperechoic TR 3 nodule, which is tall er than wide, with ill-defined margins, without echogenic foci. Prior size: Not seen on prior 3. 0.8 X 0.7 x 0.8 cm, lower lateral, solid or almost completely solid, hypoechoic TR 4 nodule, whi ch is wider than tall, with ill-defined margins, without echogenic foci. Prior size: Not seen on previous ISTHMUS: # of nodules measured in the isthmus: 1 1. 0.8 X 0.6 x 0.7 cm mixed cystic and solid, hyperechoic TR 3 nodule, which is wider than tall, wi th ill-defined margins, without echogenic foci. Prior size: Not seen on previous Bilateral neck scanned, no evidence of lymphadenopathy. IMPRESSION: Multinodular goiter. A very vague TR 4 nodule at the right lower pole was not well seen previously an d measures 1.4 cm. Follow-up recommended. Other nodules are either stable or minimally larger. The no dules do not meet criteria for FNA at this time, follow-up recommended.
== END | disposition home or self-care (01) ==
LOC: RADUSWWP 12:12
PROVIDERS: ATTEND Family Medicine
DX: E04.2 Nontoxic multinodular goiter (principal)
CPT/HCPCS: 76536

== ENCOUNTER → 2023-09-15 | Outpatient (CLI) | payer MEDICARE ==
--- NOTE | 2023-09-15 16:52 | CT ---
EXAMINATION TYPE: CT chest wo con CT DLP: 234.6 mGycm, Automated exposure control for dose reduction was used. DATE OF EXAM: 09/15/2023 9:53 AM COMPARISON: CT chest 12/04/2022, 03/25/2022, 05/10/2019, CT low-dose 05/07/2021, CTA chest 09/03/2022, 08/19 CLINICAL INDICATION:Female, 67 years old with history of R91.1 SOLITARY PULMONARY NODULE; PHH, pulmon rabia nodule TECHNIQUE: Multiple axial images were obtained through the chest without IV contrast. Lack of IV or o ral contrast limits evaluation of solid and hollow organ viscera. . Coronal and sagittal reformats re viewed. FINDINGS: LUNGS/ PLEURA: Mild centrilobular emphysematous changes. No pleural effusion or pneumothorax. No foca l consolidation. Linear scarring and/or atelectasis within the right mid to lower lung. Stable ground glass nodularity within the left upper lobe measuring up to 5 mm (series 4, image 23). Resolution of previously seen groundglass density within the left upper lobe. Stable right anterior midlung pulmona ry nodule measuring up to 6.4 mm (series 4, image 37). Stable 3 mm pulmonary nodule within the superi or segment of the right lower lobe (series 4, image 28). AIRWAY: Patent and unremarkable.. HEART: Mild prominent heart size. Trace pericardial effusion. Left chest wall cardiac pacemaker devic e. Small coronary artery calcifications. MEDIASTINUM: No gross evidence of adenopathy. VASCULATURE: No aortic aneurysm. MUSCULOSKELETAL: No acute osseous abnormalities SOFT TISSUES/LYMPH NODES: Unremarkable. LOWER NECK: Substernal extension of the left thyroid lobe. UPPER ABDOMEN: Cholelithiasis. IMPRESSION: 1. Stable pulmonary nodules from most recent CT 12/04/2022. Follow-up examination in one year is recom mended. 2. Mild COPD. 3. Cholelithiasis.
== END | disposition home or self-care (01) ==
LOC: RADCTMAIN 09:34
PROVIDERS: ATTEND Hospitalist
DX: R91.1 Solitary pulmonary nodule (principal); J44.9 Chronic obstructive pulmonary disease, unspecified; K80.20 Calculus of gallbladder without cholecystitis without obstruction
CPT/HCPCS: 71250

== ENCOUNTER → 2024-01-03 | Outpatient (CLI) | payer MEDICARE ==
[2024-01-03 15:24] LABS: HCT 32.7 % (37.2-46.3); HGB 10.8 g/dL (12.0-15.0); Mean Platelet Volume 10.7 FL (9.5-12.2); NRBC Per 100 WBC 0 X 10*3/uL (0.00-0.01); Platelet Count 241 X 10*3/uL (140-440); RBC 3.27 X 10*6/uL (4.10-5.20); RDW 13.4 % (11.5-14.5); WBC 4.52 X 10*3/uL (4.50-10.00)
[2024-01-03 15:26] LABS: Blood Urea Nitrogen 41.8 mg/dL (9.0-27.0); Chloride 98 mmol/L (96-109); Potassium 4.6 mmol/L (3.5-5.5); Sodium 141 mmol/L (135-145)
== END | disposition home or self-care (01) ==
LOC: LABWHC1 11:45
PROVIDERS: ATTEND Internal Medicine Clinical Cardiac Electrophysiology
CPT/HCPCS: 36415; 80051; 82565; 84520; 85027

== ENCOUNTER 2024-01-13 14:37 | Day surgery (SDC) | payer MEDICARE ==
[2024-01-13 15:30] LABS: Glucose,Whole Blood 96 mg/dL (70-110)
[2024-01-13] MEDS: SODIUM CHLORIDE 0.9% 1,000 ML IV SCH ×2 (15:40→18:02)
[2024-01-13] MEDS: IV FLUID CONTINUATION 1,000 ML IV ONE (15:40)
[2024-01-13 15:41] LABS: Basophils % (A) 0 %; Eosinophils # (A) 0.2 k/uL (0-0.7); Eosinophils % (A) 3 %; HCT 31.7 % (34.0-46.0); HGB 10.8 gm/dL (11.4-16.0); Lymphocytes # (A) 1.9 k/uL (1.0-4.8); Lymphocytes % (A) 32 %; MCHC 34.1 g/dL (31.0-37.0); MCV 96.7 fL (80.0-100.0); Mean Platelet Volume 7.9; Monocytes # (A) 0.3 k/uL (0-1.0); Monocytes % (A) 6 %; Neutrophils # (A) 3.4 k/uL (1.3-7.7); Neutrophils % (A) 57 %; Platelet Count 254 k/uL (150-450); RBC 3.28 m/uL (3.80-5.40); RDW 13.5 % (11.5-15.5)
[2024-01-13] MEDS ORDERED: PROPOFOL 10 MG/ML 20 ML VIAL IV ONE (16:00)
[2024-01-13] MEDS ORDERED: fentaNYL (PF) 50 MCG/ML 2 ML AMP ONE (16:00)
[2024-01-13] MEDS ORDERED: MIDAZOLAM 2 MG/2 ML VIAL ONE (16:00)
[2024-01-13 16:36] LABS: ALT 15 U/L (4-34); AST 33 U/L (14-36); African American GFR (CKD) 51 (>60 ml/min/1.73 sqM); Albumin 4.4 g/dL (3.5-5.0); Alkaline Phosphatase 115 U/L (38-126); Blood Urea Nitrogen 21 mg/dL (7-17); Calcium 9.9 mg/dL (8.4-10.2); Chloride 96 mmol/L (98-107); Glucose 99 mg/dL (74-99); Non-African American GFR(CKD) 44 (>60 ml/min/1.73 sqM); Potassium 3.6 mmol/L (3.5-5.1); Sodium 140 mmol/L (137-145); Total Bilirubin 0.6 mg/dL (0.2-1.3); Total Protein 7.1 g/dL (6.3-8.2)
[2024-01-13] MEDS: ceFAZolin 1 GM in SODIUM CHLORIDE 0.9% IRRIG BTL 250 ML IRRIGATION PRN (16:42)
[2024-01-13 16:43] LABS: Anion Gap 9 mmol/L
[2024-01-13] MEDS: LIDOCAINE 1% INJ 10MG/ML (20 ML MDV) SQ ONE (16:43)
[2024-01-13] MEDS: ROPIVACAINE 5 MG/ML 30 ML VIAL MISCELLANE ONE (16:44)
[2024-01-13 16:46] LABS: Carbon Dioxide 35 mmol/L (22-30)
[2024-01-13] MEDS ORDERED: ACETAMINOPHEN TAB 325 MG TAB PO PRN (17:23)
[2024-01-13] MEDS ORDERED: IPRATROPIUM-ALBUTEROL 3 ML NEB INHALATION PRN (17:25)
--- NOTE | 2024-01-13 17:41 | P.EPPROC ---
- EP Procedure Note Electrophysiology Procedure Note: Diagnosis Cardiomyopathy, chronic, nonischemic, with normalization of LV function with biventricular pacing and medical treatment Congestive heart failure Todd Heart [employer] class 2 Wide QRS, left bundle branch block type On guide line directed medical treatment for greater than 3 months Status post BiV ICD with improvement in LV function Biventricular ICD at [facility] Procedure: Biventricular ICD generator change Cinefluoroscopy of leads Defibrillation level testing Result: Successful biventricular ICD implantation, Chronic atrial lead: Atrial pacing threshold 0.5 V at 0.5 ms, P waves greater than 5 mV, pacing impedance 560 ohms Chronic RV ICD lead: 0.9 V at 0.5 ms, R waves 11.6 mV and pacing impedance 480 ohms Chronic left ventricular lead: 0.8 V at 0.5 ms, D1-RV coil, pacing pins 550 ohms, high-voltage impedance 71 ohms Procedure details: Patient was brought to the EP lab in a fasting state. Written informed consent was obtained prior to the procedure. Options, pros and cons, benefits and risks and complications discussed with patient in detail prior to the procedure (shared decision making) previously. Importance of continuing medical treatment emphasized previously. Alternatives discussed previously. There has been normalization of LV function with biventricular pacing and medical treatment of heart failure The left pectoral area was prepped and draped as a protocol. IV antibiotics administered 1% lidocaine was used for local anesthesia. A 4 cm incision was made parallel to the deltopectoral groove, about 1.5 cm medial to it. The incision was carried down to the level of the pectoralis muscle and the subfascial pocket was accessed. Hemostasis was assured. Partial capsulectomy performed. Chronic, old generator at [facility] was explanted. New generator, Campbell biventricular ICD was implanted. Biotic pouch placed. Pocket irrigated with antibiotic solution prior to that. Wound closed in 3 layers and dressed per protocol Cinefluoroscopy of the leads showed chronic atrial lead in the right atrial appendage without fractures or breaks. ICD lead, single coil in the low RV septum without fractures or breaks. LV lead in the anterolateral vein with the distal tip at about 230 o'clock in the RIVERA view Defibrillation level testing. Ventricular fibrillation was induced and appropriately detected. No dropouts. A 10 J shock failed to defibrillate the patient in the cathode vector. A 20 J shock was successful. BiV ICD was reprogrammed to an LV offset of 40 ms First cardioversion 20 J first defibrillation 40 J Appropriate antitachycardia pacing and detection intervals programmed DDDR 50-120 with an LV offset of 40 ms Campbell [place] heart failure [employer]-D implanted successfully, new biventricular ICD generator
[2024-01-13] MEDS: LACTATED RINGERS 1,000 ML IV SCH (18:02)
[2024-01-13] MEDS: ACETAMINOPHEN IV (For NPO) 1,000 MG in EMPTY BAG 1 BAG IVPB ONE (20:10)
[2024-01-13] MEDS: MONTELUKAST 10 MG TAB PO SCH (20:12)
[2024-01-13] MEDS: carvediloL 12.5 MG TAB PO SCH (20:12)
[2024-01-13] MEDS: ATORVASTATIN 40 MG TAB PO SCH (20:12)
[2024-01-13] MEDS: BUDESONIDE 0.5 MG/2 ML NEBU INHALATION SCH (20:13)
[2024-01-13] MEDS ORDERED: NON FORMULARY DRUG (Budesonide/Glycopyr/Formoterol [Breztri Aerosphere Inhaler] 10.7 GM Gm INHALATION SCH (21:00)
[2024-01-14 07:28] VITALS: BP 108/69; RESP 16; TEMP 97.7
[2024-01-14] MEDS: SYMBICORT 160-4.5 MCG INHALER INHALATION SCH (08:20)
[2024-01-14] MEDS: IPRATROPIUM 0.5 MG/2.5 ML NEBU INHALATION SCH (08:20)
[2024-01-14] MEDS: SPIRONOLACTONE 25 MG TAB PO SCH (08:26)
[2024-01-14] MEDS: PANTOPRAZOLE 40 MG TABLET PO SCH (08:27)
[2024-01-14] MEDS: SILDENAFIL 20 MG TAB PO SCH (08:27)
[2024-01-14] MEDS: PIOGLITAZONE 45 MG TAB PO SCH (08:27)
[2024-01-14] MEDS: DAPAGLIFLOZIN PROPANEDIOL 10 MG TABLET PO SCH (08:27)
[2024-01-14] MEDS: FUROSEMIDE 40 MG TAB PO SCH (08:27)
[2024-01-14] MEDS ORDERED: NON FORMULARY DRUG (Fluticasone/Umeclidin/Vilanter [Trelegy Ellipta 100-62.5-25] 1 EACH Bl INHALATION SCH (09:00)
--- NOTE | 2024-01-14 09:50 | P.DS ---
Providers Date of admission: 01/13/24 Attending physician: Cr Molina Primary care physician: [facility] Course: The patient is a 68-year-old female whose ICD has reached DEVON. She underwent generator change yesterday with Dr. Molina. Successful defibrillation post generator change at 20 J and appropriate antitachycardia pacing and detection intervals were programmed Patient tolerated procedure well. She states she did well overnight no chest pain, chest pressure, or difficulty breathing. GENERAL: Well-appearing, well-nourished and in no acute distress. NECK: Supple without JVD or thyromegaly. LUNGS: Breath sounds clear to auscultation bilaterally. Respiration equal and unlabored. No wheezes, rales or rhonchi. HEART: Regular rate and rhythm without murmurs, rubs or gallops. S1 and S2 heard. Small, dime sized amount of shadowing on dressing. EXTREMITIES: Normal range of motion, no edema. No clubbing or cyanosis. Peripheral pulses intact and strong. TELEMETRY: Paced rhythm IMPRESSION: Nonischemic cardiomyopathy, status post AICD Status post generator change Congestive heart failure class II Left bundle branch block PLAN: Patient instructed to keep dressing dry Follow-up with device clinic in 1 week I am dictating on behalf of Dr Cr Molina's history/physical and assessment/plan. Plan - Discharge Summary Discharge Rx Participant: No New Discharge Prescriptions: New Losartan [Cozaar] 25 mg PO DAILY #90 tab Continue Spironolactone [Aldactone] 25 mg PO DAILY Pioglitazone [Actos] 45 mg PO DAILY tab Montelukast Sodium [Singulair] 10 mg PO HS carvediloL [Coreg*] 12.5 mg PO BID glipiZIDE XL [Glucotrol XL] 2.5 mg PO AC-BID Budesonide/Glycopyr/Formoterol [Breztri Aerosphere Inhaler] 2 puff INHALATION BID Atorvastatin [Lipitor] 40 mg PO HS Ipratropium-Albuterol Nebulize [Duoneb 0.5 mg-3 mg/3 ml Soln] 3 ml INHALATION RT-QID PRN PRN Reason: Shortness Of Breath Empagliflozin [Jardiance] 25 mg PO DAILY Furosemide [Lasix] 40 mg PO DAILY 30 Days #30 tab Budesonide [Pulmicort] 0.5 mg INHALATION RT-BID 30 Days #60 ml Sildenafil [Revatio] 20 mg PO DAILY Omeprazole 20 mg PO DAILY Fluticasone/Umeclidin/Vilanter [Trelegy Ellipta 100-62.5-25] 1 puff INHALATION DAILY Discharge Medication List Spironolactone [Aldactone] 25 mg PO DAILY 12/24/16 [History] Pioglitazone [Actos] 45 mg PO DAILY tab 02/15/18 [Rx] Montelukast Sodium [Singulair] 10 mg PO HS 12/10/19 [History] Atorvastatin [Lipitor] 40 mg PO HS 06/13/21 [History] carvediloL [Coreg*] 12.5 mg PO BID 11/07/21 [History] Empagliflozin [Jardiance] 25 mg PO DAILY 03/24/22 [History] Ipratropium-Albuterol Nebulize [Duoneb 0.5 mg-3 mg/3 ml Soln] 3 ml INHALATION RT-QID PRN 03/24/22 [History] glipiZIDE XL [Glucotrol XL] 2.5 mg PO AC-BID 09/02/22 [History] Budesonide [Pulmicort] 0.5 mg INHALATION RT-BID 30 Days #60 ml 12/07/22 [Rx] Furosemide [Lasix] 40 mg PO DAILY 30 Days #30 tab 12/07/22 [Rx] Budesonide/Glycopyr/Formoterol [Breztri Aerosphere Inhaler] 2 puff INHALATION BID 01/07/24 [History] Fluticasone/Umeclidin/Vilanter [Trelegy Ellipta 100-62.5-25] 1 puff INHALATION DAILY 01/07/24 [History] Omeprazole 20 mg PO DAILY 01/07/24 [History] Sildenafil [Revatio] 20 mg PO DAILY 01/07/24 [History] Losartan [Cozaar] 25 mg PO DAILY #90 tab 01/13/24 [Rx] Follow up Appointment(s)/Referral(s): Cr Molina MD [STAFF PHYSICIAN] - 1 Week Activity/Diet/Wound Care/Special Instructions: PATIENT EDUCATION MATERIAL Instructions following a heart rhythm device implant. 1. Keep dressing DRY for 5 DAYS. You may cover the area with Saran or Cling Wrap, prior to a shower. 2. The dressing will be removed in the Device Clinic at [facility]. Absorbable sutures were used to close the wound. 3. Avoid raising the left arm above the shoulder level. 4 week restriction 4. Avoid arm movements, like backscratching, rubbing the head, or pulling on a cord. 4 weeks restriction 5. Gentle range of motion movements of the shoulder, closest to the incision should be performed to avoid a frozen shoulder. (Pendulum exercises of the shoulder) 6. The opposite arm may be used freely. 7. Avoid driving for 7 days. 8. Avoid activities such as golfing, swimming, weed whacking, lifting more than 10 pounds weight, bowling, gymnastics and weight training/lifting. (6 weeks restriction) 9. Activities such as wood chopping with an axe, pull-ups in the gymnasium, power lifting, arc-welding, being close to home induction cooktops will always be a problem. 10. Arm sling is only a reminder not to raise the arm above the head. You do not need to keep the arm completely immobilized. Your free to move the arm and use it and for normal activities. In case of any problems, please call [facility], Noman Snyder, @ [phone], Attention: Device Clinic Device clinic follow-up in 5 days Follow-up with primary rock mason apprentice in 2-3 months Discharge Disposition: HOME SELF-CARE
[2024-01-14 11:42] VITALS: PULSE 76
== END 2024-01-14 12:11 | disposition home or self-care (01) ==
LOC: CATHEP 14:37 → 6NMEDSUR 17:22 → CATHEP 01-14 12:11
PROVIDERS: ATTEND Internal Medicine Clinical Cardiac Electrophysiology
DX: I50.22 Chronic systolic (congestive) heart failure (principal); I44.7 Left bundle-branch block, unspecified; I11.0 Hypertensive heart disease with heart failure; I25.2 Old myocardial infarction; E78.5 Hyperlipidemia, unspecified; J44.9 Chronic obstructive pulmonary disease, unspecified; E11.9 Type 2 diabetes mellitus without complications; K21.9 Gastro-esophageal reflux disease without esophagitis; Z87.891 Personal history of nicotine dependence; Z95.810 Presence of automatic (implantable) cardiac defibrillator; Z79.84 Long term (current) use of oral hypoglycemic drugs; Z79.51 Long term (current) use of inhaled steroids; Z79.899 Other long term (current) drug therapy
CPT/HCPCS: 94640 ×2; 94760; 93641; 33264; 80053; 84443; 85025; C1882; J2250; J0690; J2003; J3010; J2795; J2704